=== PATIENT | female | born 1935 | race Caucasian/White ===

== ENCOUNTER 2016-05-26 17:55 | Inpatient (IN) | payer OTHER, BC ==
--- NOTE | 2016-05-26 18:03 | PDOC ---
History of Present Illness - History of Present Illness Initial Comments: 05/26/16 18:21 The patient is a year old female, with a significant past medical history of multiple sclerosis (chronic constipation and urinary incontinence), impaired glucose, hypertension, hyperlipidemia, hypothyroid, gastric polyps, and c.diff, who presents to the emergency department via ems with fever and cough for two days. The patient reports her cough is dry and persistent. The patient also reports one episode of vomit yesterday and denies any episodes since. The patient states she had the flu vaccine this season. She states her last tylenol was at around noon today. The patient states she walks with a walker at baseline. As per the patient's daughter, the patient fell twice today. She denies chest pain, shortness of breath, headache and dizziness. She denies chills, nausea, and diarrhea. She denies dysuria, frequency, urgency and hematuria. Allergies: Penicillin Past surgical history: thyroidectomy Social history: denies toxic habits PCP - Dr. Nguyen <Irene Blount - Last Filed: 05/26/16 20:59> <Osiris Zelaya - Last Filed: 05/26/16 21:08> - General Stated Complaint: DEHYDRATION Time Seen by Provider: 05/26/16 18:02 Past History <Irene Blount - Last Filed: 05/26/16 20:59> <Osiris Zelaya - Last Filed: 05/26/16 21:08> - Past Medical History Allergies/Adverse Reactions: Allergies Allergy/AdvReac Type Severity Reaction Status Date / Time Penicillins Allergy Verified 05/26/16 18:08 Home Medications: Ambulatory Orders Atorvastatin Calcium [Lipitor] 10 mg PO ASDIR 05/26/16 Gabapentin [Neurontin -] 100 mg PO DAILY 05/26/16 Levothyroxine [Synthroid -] 50 mcg PO DAILY 05/26/16 Nifedipine [Procardia Xl] 30 mg PO DAILY 05/26/16 Review of Systems - Review of Systems Able to Perform ROS?: Yes Comments:: 05/26/16 18:21 CONSTITUTIONAL: (+) fever, Absent: chills, diaphoresis, generalized weakness, malaise, loss of appetite HEENT: Absent: rhinorrhea, nasal congestion, throat pain, throat swelling, difficulty swallowing, mouth swelling, ear pain, eye pain, visual Changes CARDIOVASCULAR: Absent: chest pain, syncope, palpitations, irregular heart rate, lightheadedness , peripheral edema RESPIRATORY: (+) cough, Absent: shortness of breath, dyspnea with exertion, orthopnea, wheezing, stridor, hemoptysis GASTROINTESTINAL: Absent: abdominal pain, abdominal distension, nausea, vomiting, diarrhea, constipation, melena, hematochezia GENITOURINARY: Absent: dysuria, frequency, urgency, hesitancy, hematuria, flank pain, genital pain MUSCULOSKELETAL: Absent: myalgia, arthralgia, joint swelling SKIN: Absent: rash, itching, pallor HEMATOLOGIC/IMMUNOLOGIC: Absent: easy bleeding, easy bruising, lymphadenopathy, frequent infections ENDOCRINE: Absent: unexplained weight gain, unexplained weight loss, heat intolerance, cold intolerance NEUROLOGIC: Absent: headache, focal weakness or paresthesias, dizziness, unsteady gait, seizure, mental status changes, bladder or bowel incontinence PSYCHIATRIC: Absent: anxiety, depression, suicidal or homicidal ideation, hallucinations. <Irene Blount - Last Filed: 05/26/16 20:59> *Physical Exam - Vital Signs Last Vital Signs Temp Pulse Resp BP Pulse Ox 103.3 F H 96 H 18 191/71 100 05/26/16 17:55 05/26/16 17:55 05/26/16 17:55 05/26/16 17:55 05/26/16 17:55 - Physical Exam Comments: 05/26/16 18:22 GENERAL: (+) fever. Well developed, well nourished. Awake and alert. No acute distress. HEENT: Normocephalic, atraumatic. PERRLA, EOMI. No conjunctival pallor. Sclera are non- icteric. Moist mucous membranes. Oropharynx is clear. NECK: Supple. Full ROM. No JVD. Carotid pulses 2+ and symmetric, without bruits. No thyromegaly. No lymphadenopathy. CARDIOVASCULAR: (+) Tachycardic rate and normal rhythm. No murmurs, rubs, or gallops. Distal pulses are 2+ and symmetric. PULMONARY: (+) crackles heard on right. No evidence of respiratory distress. No wheezing. ABDOMINAL: Soft. Non-tender. Non-distended. No rebound or guarding. No organomegaly. Normoactive bowel sounds. MUSCULOSKELETAL Normal range of motion at all joints. No bony deformities or tenderness. No CVA tenderness. EXTREMITIES: No cyanosis. No clubbing. No edema. No calf tenderness. SKIN: Warm and dry. Normal capillary refill. No rashes. No jaundice. NEUROLOGICAL: Alert, awake, appropriate. Cranial nerves 2-12 intact. Normoreflexic in the upper and lower extremities. Normal speech. Toes are down-going bilaterally. PSYCHIATRIC: Cooperative. Good eye contact. Appropriate mood and affect. <Irene Blount - Last Filed: 05/26/16 20:59> Heart Score/ECG Review - [place] Comment: 05/26/16 18:23 EKG was read by Dr. Zelaya at 18:15 Impression: Normal Sinus Rhythm Vent.Rate: 97 bpm RI Interval: 130 ms QTc: 441 ms <Irene Blount - Last Filed: 05/26/16 20:59> ED Treatment Course - LABORATORY CBC & Chemistry Diagram: 05/26/16 18:25 05/26/16 18:25 <Irene Blount - Last Filed: 05/26/16 20:59> - LABORATORY CBC & Chemistry Diagram: 05/26/16 18:25 05/26/16 18:25 <Osiris Zelaya - Last Filed: 05/26/16 21:08> Medical Decision Making - Medical Decision Making 05/26/16 19:16 Dr. Nguyen was paged at 19:16 requesting a callback for doctor to doctor consult. Dr. Nguyen returned the call at 19:18 and the patient's case was discussed. Dr. Nguyen accepts this patient for admission. <Irene Blount - Last Filed: 05/26/16 20:59> - Medical Decision Making 05/26/16 21:03 80 yo female coming from home for fever and cough PMH multiple sclerosis,hyperthyroidism,rt foot drop -pt found to have a fever cxr no infiltrates influenza A positive -cbc is wnl chemistry- loa=255, normal potassium,anion gap and lactic acid are wnl trop is negative pt received tamiflu.tylenol,IVfluids -pt found to be sl hypoxic(88% on room air) and placed on 2 L nasal cannula and then she was 98% on room air -casae discussed w Dr Gibbs who admitted this pt <Osiris Zelaya - Last Filed: 05/26/16 21:08> *DC/Admit/Observation/Transfer - Attestations Scribe Attestion: 05/26/16 18:23 Documentation prepared by Irene Blount, acting as medical technologist microbiology for Osiris Zelaya MD <Irene Blount - Last Filed: 05/26/16 20:59> - Discharge Dispostion Admit: Yes <Osiris Zelaya - Last Filed: 05/26/16 21:08> Diagnosis at time of Disposition: Multiple sclerosis, Hypoxia, Influenza A Fever Qualifiers: Fever type: unspecified Qualified Code(s): R50.9 - Fever, unspecified - Referrals
[2016-05-26] MEDS ORDERED: SODIUM CHLORIDE 0.9% 1000 ML INFUS.BAG IV ONE (18:04)
[2016-05-26] MEDS ORDERED: ACETAMINOPHEN 1000 MG/100 ML VIAL (NON FORMULARY) IVPB ONE (18:10)
[2016-05-26 18:19] VITALS: BMI 20.9
[2016-05-26] MEDS ORDERED: ACETAMINOPHEN INJECTION 100 ML IVPB ONE (18:19)
[2016-05-26 18:40] LABS: BASOPHIL 0.6 % (0-2.0); MCHC 33.6 g/dl (32.0-36.0); MEAN CELL VOLUME 89.4 fl (80-96); MEAN PLT VOLUME 10.6 fl (7.5-11.1); NEUTROPHILS 87.7 % (42.8-82.8); PLATELET COUNT 193 K/MM3 (134-434); RDW 13.6 % (11.6-15.6); WHITE BLOOD COUNT 8.5 K/mm3 (4.0-10.0)
[2016-05-26 19:00] LABS: ALBUMIN 4.3 g/dl (3.4-5.0); ANION GAP 9 (8-16); BILIRUBIN,TOTAL 0.5 mg/dL (0.2-1.0); CALCIUM 8.7 mg/dL (8.5-10.1); CO2 28 mmol/L (21-32); CREATININE 0.7 mg/dL (0.55-1.02); GLUCOSE,RANDOM 129 mg/dL (74-106); SGOT/AST 40 U/L (15-37); SGPT/ALT 38 U/L (12-78); TOT PROT 7.6 g/dl (6.4-8.2)
[2016-05-26 19:00] LABS: VENOUS PH 7.39 (7.31-7.41)
[2016-05-26 19:02] LABS: ALK PHOS 83 U/L (45-117); INR 1.14 (0.82-1.09); PROTHROMBIN TIME (PATIENT) 12.6 SEC (9.98-11.88); TROPONIN I 0.03 ng/ml (0.00-0.05)
[2016-05-26 19:04] LABS: VENOUS BLOOD GAS HCO3 27.8 meq/L (22-29)
[2016-05-26 19:05] LABS: ACTIVATED PTT 33.9 SECONDS (26.9-34.4)
[2016-05-26] MEDS ORDERED: OSELTAMIVIR PHOSPHATE 75 MG CAPSULE PO ONE (19:11)
[2016-05-26 19:24] LABS: URINE APPEARANCE CLEAR; URINE BILIRUBIN NEGATIVE (NEGATIVE); URINE COLOR YELLOW; URINE GLUCOSE (UA) NEGATIVE (NEGATIVE); URINE KETONE NEGATIVE (NEGATIVE); URINE LEUK ESTERASE NEGATIVE (NEGATIVE); URINE NITRITE NEGATIVE (NEGATIVE); URINE UROBILINOGEN NEGATIVE E.U./dl (0.2-1.0)
[2016-05-26 19:42] LABS: URINE BLOOD 1+ (NEGATIVE); URINE PROTEIN 3+ (NEGATIVE)
[2016-05-26 19:43] LABS: URINE BACTERIA RARE /hpf (NONE SEEN); URINE MUCUS RARE; URINE RBC 22 /hpf (0-3); URINE WBC 1 /hpf (3-5)
[2016-05-26] MEDS ORDERED: OSELTAMIVIR PHOSPHATE 75 MG CAPSULE ONE (19:45)
[2016-05-27] MEDS: DEXTROSE 5%-0.45% SALINE 1,000 ML IV SCH ×2 (02:19→16:55)
[2016-05-27] MEDS: ACETAMINOPHEN 500 MG TABLET (FP) PO PRN ×2 (02:19→16:41)
--- NOTE | 2016-05-27 09:07 | HP ---
Admitting History and Physical - Admission Chief Complaint: weakness / fever / sore throat/ s/p fall X2 History of Present Illness: The patient is a 80 year old female, with a significant past medical history of multiple sclerosis (chronic constipation and urinary incontinence), impaired glucose, hypertension, hyperlipidemia, hypothyroid, gastric polyps, and c.diff, who presents to the emergency department via ems with fever and cough for two days. The patient reports her cough is dry and persistent. The patient also reports one episode of vomit yesterday and denies any episodes since. The patient states she had the flu vaccine this season. She states her last tylenol was at around noon today. The patient states she walks with a walker at baseline. As per the patient's daughter, the patient fell twice today. History provided by daughter ( ). History Source: Family Member Limitations to Obtaining History: No Limitations - Past Medical History [employer]: Yes: Multiple Sclerosis Reproductive: Yes: Postmenopausal Endocrine: Yes: Hypothyroidism - Smoking History Smoking history: Former smoker Have you smoked in the past 12 months: No If you are a former smoker, when did you quit?: 1970 - Alcohol/Substance Use Hx Alcohol Use: Yes - Social History Usual Living Arrangement: Yes: With Spouse ADL: Family Assistance Home Medications - Allergies Allergies/Adverse Reactions: Allergies Allergy/AdvReac Type Severity Reaction Status Date / Time Penicillins Allergy Verified 05/26/16 18:08 - Home Medications Home Medications: Ambulatory Orders Atorvastatin Calcium [Lipitor] 10 mg PO ASDIR 05/26/16 Gabapentin [Neurontin -] 100 mg PO DAILY 05/26/16 Levothyroxine [Synthroid -] 50 mcg PO DAILY 05/26/16 Nifedipine [Procardia Xl] 30 mg PO DAILY 05/26/16 Baclofen 5 mg PO BID 05/27/16 Review of Systems - Review of Systems Constitutional: reports: Fever, Loss of Appetite, Malaise, Weakness Eyes: reports: No Symptoms HENT: reports: Nasal Congestion, Throat Pain Neck: reports: No Symptoms Cardiovascular: reports: No Symptoms Respiratory: reports: Cough Gastrointestinal: reports: No Symptoms Genitourinary: reports: No Symptoms Breasts: reports: No Symptoms Reported Musculoskeletal: reports: No Symptoms Integumentary: reports: No Symptoms Neurological: reports: No Symptoms, Pre-Existing Deficit Endocrine: reports: No Symptoms Hematology/Lymphatic: reports: No Symptoms Psychiatric: reports: No Symptoms Physical Examination Vital Signs: Vital Signs Temperature 98.6 F 05/27/16 05:34 Pulse Rate 71 05/27/16 05:34 Respiratory Rate 18 05/27/16 05:34 Blood Pressure 120/60 05/27/16 05:34 O2 Sat by Pulse Oximetry (%) 94 L 05/27/16 01:45 Constitutional: Yes: Well Nourished, Calm Eyes: Yes: WNL HENT: Yes: Hoarseness Neck: Yes: Supple, Trachea Midline Cardiovascular: Yes: Regular Rate and Rhythm Respiratory: Yes: CTA Bilaterally Gastrointestinal: Yes: Normal Bowel Sounds, Soft ...Rectal Exam: Yes: Deferred Renal/: Yes: WNL Musculoskeletal: Yes: Muscle Weakness Edema: No Peripheral Pulses: Left Radial: 1+, Right Radial: 1+, Left Doralis Pedis: 1+, Right Dorsalis Pedis: 1+, Left Femoral: 1+, Right Femoral: 1+ Integumentary: Yes: WNL Neurological: Yes: Pre-Existing Deficit Problem List - Problems (1) Fever Code(s): R50.9 - FEVER, UNSPECIFIED Qualifiers: Fever type: unspecified Qualified Code(s): R50.9 - Fever, unspecified (2) Influenza A Code(s): J10.1 - FLU DUE TO OTH IDENT INFLUENZA VIRUS W OTH RESP MANIFEST (3) Multiple sclerosis Code(s): G35 - MULTIPLE SCLEROSIS (4) Hypothyroid Code(s): E03.9 - HYPOTHYROIDISM, UNSPECIFIED (5) Hyperlipemia Code(s): E78.5 - HYPERLIPIDEMIA, UNSPECIFIED Assessment/Plan Influenza A MS HTN HLD plan Tamiflu 75 mg BID ( Cr0.6 GFR >60) IV fluids until tolerating PO continue home meds regular diet as tolerated
[2016-05-27] MEDS: OSELTAMIVIR PHOSPHATE 75 MG CAPSULE PO SCH ×2 (10:45→21:34)
[2016-05-27] MEDS: GABAPENTIN 100 MG CAPSULE (FP) PO SCH (10:52)
[2016-05-27] MEDS: NIFEdipine E.R. 30 MG TABLET (FP) PO SCH (10:52)
--- NOTE | 2016-05-27 13:26 | EKG ---
Test Reason : Blood Pressure : / mmHG Vent. Rate : 097 BPM Atrial Rate : 097 BPM P-R Int : 130 ms QRS Dur : 086 ms QT Int : 348 ms P-R-T Axes : 070 029 035 degrees QTc Int : 441 ms NORMAL SINUS RHYTHM MARKED ST ABNORMALITY, POSSIBLE INFEROLATERAL SUBENDOCARDIAL INJURY ABNORMAL ECG NO PREVIOUS ECGS AVAILABLE Confirmed by MILO CUEVAS MD ([id number]) on 05/27/2016 1:25:55 PM Referred By: Confirmed By:MILO CUEVAS MD
[2016-05-27] MEDS ORDERED: PT OWN MED DRAWER 7, Y5N ONE (21:05)
[2016-05-27] MEDS: ATORVASTATIN CA 10 MG TABLET (FP) PO SCH (21:34)
[2016-05-28] MEDS: DEXTROSE 5%-0.45% SALINE 1,000 ML IV SCH ×2 (06:07→10:15)
[2016-05-28] MEDS: LEVOTHYROXINE NA 50 MCG TABLET (FP) PO SCH (06:08)
[2016-05-28] MEDS: GABAPENTIN 100 MG CAPSULE (FP) PO SCH ×2 (09:32→22:03)
[2016-05-28] MEDS: OSELTAMIVIR PHOSPHATE 75 MG CAPSULE PO SCH ×2 (09:32→22:02)
[2016-05-28] MEDS: NIFEdipine E.R. 30 MG TABLET (FP) PO SCH (09:32)
[2016-05-28] MEDS: ACETAMINOPHEN 500 MG TABLET (FP) PO PRN ×2 (09:43→20:17)
[2016-05-28] MEDS ORDERED: FUROSEMIDE 40 MG/4 ML INJECTABLE VIAL IVPB ONE (10:06)
[2016-05-28] MEDS: DULoxetine HCL 20 MG CAPSULE.DR (FP) PO SCH (10:15)
--- NOTE | 2016-05-28 10:23 | PN ---
Progress Note (short form) - Note Progress Note: in Bed Febrile -- temp 102 productive cough general maise / NAD Vital Signs Period Temp Pulse Resp BP Sys/Cobb Pulse Ox Last 24 Hr 98.8 F-102.5 F 88-100 20-20 127-168/54-80 92 neck - jvd heart reg S1/S2 lungs exp wheezing mild rhonchi right abd soft non tender ext no edema CXR + right LL Infiltrate effusion CBC, BMP 05/26/16 18:25 05/26/16 18:25 Active Medications Acetaminophen (Tylenol -) 1,000 mg PO Q6H PRN PRN Reason: TEMP > 101* Last Admin: 05/28/16 09:43 Dose: 1,000 mg Albuterol/Ipratropium (Duoneb -) 1 amp NEB QIDR [facility] Atorvastatin Calcium (Lipitor -) 10 mg PO HS [facility] Last Admin: 05/27/16 21:34 Dose: 10 mg Docusate Sodium (Colace -) 200 mg PO BID [facility] Duloxetine HCl (Cymbalta -) 20 mg PO DAILY [facility] Furosemide (Lasix Injection -) 20 mg IVPB ONCE ONE Stop: 05/28/16 10:07 Gabapentin (Neurontin -) 100 mg PO DAILY [facility] Last Admin: 05/28/16 09:32 Dose: 100 mg Guaifenesin (Mucinex -) 600 mg PO BID [facility] Azithromycin 500 mg/ Dextrose 250 mls @ 250 mls/hr IVPB DAILY [facility] Dextrose/Sodium Chloride (D5-1/2ns -) 1,000 mls @ 50 mls/hr IV ASDIR [facility] Levothyroxine Sodium (Synthroid -) 50 mcg PO DAILY@0700 [facility] Last Admin: 05/28/16 06:08 Dose: 50 mcg Nifedipine (Procardia Xl -) 30 mg PO DAILY [facility] Last Admin: 05/28/16 09:32 Dose: 30 mg Oseltamivir Phosphate (Tamiflu -) 75 mg PO BID [facility] Stop: 06/01/16 09:59 Last Admin: 05/28/16 09:32 Dose: 75 mg Problem List - Problems (1) Right lower lobe pneumonia Assessment/Plan: nebulizer Zithromax mucinex and tylenol for symptomatic treatment Code(s): J18.9 - PNEUMONIA, UNSPECIFIED ORGANISM (2) Influenza A Code(s): J10.1 - FLU DUE TO OTH IDENT INFLUENZA VIRUS W OTH RESP MANIFEST (3) Fever Code(s): R50.9 - FEVER, UNSPECIFIED Qualifiers: Fever type: unspecified Qualified Code(s): R50.9 - Fever, unspecified (4) Multiple sclerosis Code(s): G35 - MULTIPLE SCLEROSIS (5) Hypothyroid Code(s): E03.9 - HYPOTHYROIDISM, UNSPECIFIED (6) Hyperlipemia Code(s): E78.5 - HYPERLIPIDEMIA, UNSPECIFIED (8) Neuropathic pain of both legs Code(s): G57.91 - UNSPECIFIED MONONEUROPATHY OF RIGHT LOWER LIMB G57.92 - UNSPECIFIED MONONEUROPATHY OF LEFT LOWER LIMB
[2016-05-28] MEDS: guaiFENesin 600 MG TABLET.ER (FP) PO SCH ×2 (10:45→22:03)
[2016-05-28] MEDS: DOCUSATE SODIUM 100 MG CAPSULE (FP) PO SCH ×2 (10:45→22:03)
[2016-05-28] MEDS: AZITHROMYCIN IVPB 250 ML IVPB SCH (11:15)
[2016-05-28] MEDS: ALBUTEROL SO4 2.5/IPRATROPIUM 0.5 INH SOL 3 ML VIAL.NEB. NEB SCH ×3 (11:55→23:30)
[2016-05-28] MEDS ORDERED: PT OWN MED DRAWER 7, Y5N ONE (21:17)
[2016-05-28] MEDS ORDERED: VANCOMYCIN 1 GRAM (PRE-DOCKED) 1,000 MG/250 ML BAG IVPB ONE (22:00)
[2016-05-28] MEDS ORDERED: VANCOMYCIN 1,000 MG in DEXTROSE 5%-WATER - 250 ML IVPB SCH (22:00)
[2016-05-28] MEDS: ATORVASTATIN CA 10 MG TABLET (FP) PO SCH (22:03)
[2016-05-29] MEDS: ONDANSETRON 4 MG/2 ML VIAL IVPB PRN ×2 (00:37→22:35)
[2016-05-29] MEDS: ACETAMINOPHEN 500 MG TABLET (FP) PO PRN ×3 (06:29→22:22)
[2016-05-29] MEDS: LEVOTHYROXINE NA 50 MCG TABLET (FP) PO SCH (06:30)
[2016-05-29] MEDS: ALBUTEROL SO4 2.5/IPRATROPIUM 0.5 INH SOL 3 ML VIAL.NEB. NEB SCH ×3 (06:48→17:28)
[2016-05-29 07:22] LABS: BASOPHIL 0.1 % (0-2.0); MCH 29.4 pg (25.7-33.7); MEAN CELL VOLUME 89.2 fl (80-96); MEAN PLT VOLUME 10.5 fl (7.5-11.1); NEUTROPHILS 87.4 % (42.8-82.8); PLATELET COUNT 144 K/MM3 (134-434); RDW 13.6 % (11.6-15.6); WHITE BLOOD COUNT 11.6 K/mm3 (4.0-10.0)
[2016-05-29 07:46] LABS: CALCIUM 8.1 mg/dL (8.5-10.1); CREATININE 0.6 mg/dL (0.55-1.02)
[2016-05-29] MEDS ORDERED: PT OWN MED DRAWER 7, Y5N ONE (09:30)
[2016-05-29] MEDS: NIFEdipine E.R. 30 MG TABLET (FP) PO SCH (10:12)
[2016-05-29] MEDS: guaiFENesin 600 MG TABLET.ER (FP) PO SCH ×2 (10:12→22:19)
[2016-05-29] MEDS: GABAPENTIN 100 MG CAPSULE (FP) PO SCH ×4 (10:13→22:20)
[2016-05-29] MEDS: DOCUSATE SODIUM 100 MG CAPSULE (FP) PO SCH ×2 (10:13→22:19)
[2016-05-29] MEDS: DULoxetine HCL 20 MG CAPSULE.DR (FP) PO SCH (10:13)
[2016-05-29] MEDS: OSELTAMIVIR PHOSPHATE 75 MG CAPSULE PO SCH ×2 (10:14→22:20)
[2016-05-29] MEDS: DEXTROSE 5%-0.45% SALINE 1,000 ML IV SCH (10:15)
[2016-05-29] MEDS: AZITHROMYCIN IVPB 250 ML IVPB SCH (10:15)
[2016-05-29] MEDS ORDERED: SODIUM CHLORIDE 1,000 ML IV SCH (20:00)
--- NOTE | 2016-05-29 20:01 | PN ---
Progress Note (short form) - Note Progress Note: looking better but states not feeling better No fever today was OOB to chair today using incentive and nebulizer treatment Vital Signs Period Temp Pulse Resp BP Sys/Cobb Pulse Ox Last 24 Hr 97.2 F-101 F 81-105 20-20 127-148/55-61 91-93 neck _ jvd heart reg S1/S2 Lungs less rhonchi right base crackles at bases abd soft non tender ext no edema right foot drop Intake & Output 05/26/16 05/27/16 05/28/16 05/29/16 23:59 23:59 23:59 23:59 Intake Total 2185 1350 1350 Balance 2185 1350 1350 Weight 130 lb CBC, BMP 05/29/16 06:00 05/29/16 06:00 Active Medications Acetaminophen (Tylenol -) 1,000 mg PO Q6H PRN PRN Reason: TEMP > 101* Last Admin: 05/29/16 13:06 Dose: 1,000 mg Albuterol/Ipratropium (Duoneb -) 1 amp NEB QIDR [facility] Last Admin: 05/29/16 17:28 Dose: 1 amp Atorvastatin Calcium (Lipitor -) 10 mg PO HS [facility] Last Admin: 05/28/16 22:03 Dose: 10 mg Docusate Sodium (Colace -) 200 mg PO BID [facility] Last Admin: 05/29/16 10:13 Dose: 200 mg Duloxetine HCl (Cymbalta -) 20 mg PO DAILY [facility] Last Admin: 05/29/16 10:13 Dose: 20 mg Furosemide (Lasix Injection -) 20 mg IVPB DAILY [facility] Gabapentin (Neurontin -) 100 mg PO QID [facility] Last Admin: 05/29/16 18:59 Dose: Not Given Guaifenesin (Mucinex -) 600 mg PO BID [facility] Last Admin: 05/29/16 10:12 Dose: 600 mg Azithromycin (Zithromax 500mg Ivpb (Pre-Docked)) 250 mls @ 250 mls/hr IVPB DAILY [facility] Last Admin: 05/29/16 10:15 Dose: 250 mls/hr Ceftriaxone Sodium 1 gm/ (Dextrose) 50 mls @ 100 mls/hr IVPB DAILY [facility] Sodium Chloride (Normal Saline -) 1,000 mls @ 42 mls/hr IV ASDIR [facility] Levothyroxine Sodium (Synthroid -) 50 mcg PO DAILY@0700 [facility] Last Admin: 05/29/16 06:30 Dose: 50 mcg Nifedipine (Procardia Xl -) 30 mg PO DAILY [facility] Last Admin: 05/29/16 10:12 Dose: 30 mg Ondansetron HCl (Zofran Injection) 4 mg IVPB Q6H PRN PRN Reason: NAUSEA AND/OR VOMITING Last Admin: 05/29/16 00:37 Dose: 4 mg Oseltamivir Phosphate (Tamiflu -) 75 mg PO BID [facility] Stop: 06/01/16 09:59 Last Admin: 05/29/16 10:14 Dose: 75 mg Med changes was given 1 dose of Vanco Has recieved Rochepin previously without reaction will order Rochepin 1 gm daily also will D/C Iv fluids Assmt # Influenza A # Right lower lobe infiltrate # Hyponatremia # HLD # MS # HTN # depression Plan Change abx to rochepin 1 gm q day + Zithromax D/c current IV >>change to NS @42 continue incentive and nebulizer tx PT for ADLs / OOB to chair as tolerated continue current medication Problem List - Problems (1) Right lower lobe pneumonia Code(s): J18.9 - PNEUMONIA, UNSPECIFIED ORGANISM (2) Influenza A Code(s): J10.1 - FLU DUE TO OTH IDENT INFLUENZA VIRUS W OTH RESP MANIFEST (3) Fever Code(s): R50.9 - FEVER, UNSPECIFIED Qualifiers: Fever type: unspecified Qualified Code(s): R50.9 - Fever, unspecified (4) Multiple sclerosis Code(s): G35 - MULTIPLE SCLEROSIS (5) Hypothyroid Code(s): E03.9 - HYPOTHYROIDISM, UNSPECIFIED (6) Hyperlipemia Code(s): E78.5 - HYPERLIPIDEMIA, UNSPECIFIED (8) Neuropathic pain of both legs Code(s): G57.91 - UNSPECIFIED MONONEUROPATHY OF RIGHT LOWER LIMB G57.92 - UNSPECIFIED MONONEUROPATHY OF LEFT LOWER LIMB
[2016-05-29] MEDS: CEFTRIAXONE 50 ML IVPB SCH (22:17)
[2016-05-29] MEDS: ATORVASTATIN CA 10 MG TABLET (FP) PO SCH (22:19)
[2016-05-30] MEDS: ALBUTEROL SO4 2.5/IPRATROPIUM 0.5 INH SOL 3 ML VIAL.NEB. NEB SCH ×5 (00:06→23:09)
[2016-05-30] MEDS: LEVOTHYROXINE NA 50 MCG TABLET (FP) PO SCH (06:58)
[2016-05-30 07:41] LABS: BASOPHIL 0.1 % (0-2.0); MCH 29.7 pg (25.7-33.7); MCHC 33.7 g/dl (32.0-36.0); MEAN CELL VOLUME 88.3 fl (80-96); MEAN PLT VOLUME 11.1 fl (7.5-11.1); NEUTROPHILS 88.9 % (42.8-82.8); PLATELET COUNT 194 K/MM3 (134-434); RDW 13.3 % (11.6-15.6); WHITE BLOOD COUNT 12.1 K/mm3 (4.0-10.0)
[2016-05-30 07:57] LABS: CALCIUM 8.2 mg/dL (8.5-10.1); CREATININE 0.6 mg/dL (0.55-1.02)
[2016-05-30] MEDS ORDERED: FUROSEMIDE 40 MG/4 ML INJECTABLE VIAL IVPB SCH (10:00)
[2016-05-30] MEDS: CEFTRIAXONE 50 ML IVPB SCH (11:37)
[2016-05-30] MEDS: DOCUSATE SODIUM 100 MG CAPSULE (FP) PO SCH ×2 (11:40→23:18)
[2016-05-30] MEDS: guaiFENesin 600 MG TABLET.ER (FP) PO SCH ×2 (11:40→23:16)
[2016-05-30] MEDS: NIFEdipine E.R. 30 MG TABLET (FP) PO SCH (11:41)
[2016-05-30] MEDS: AZITHROMYCIN IVPB 250 ML IVPB SCH (11:42)
[2016-05-30] MEDS: OSELTAMIVIR PHOSPHATE 75 MG CAPSULE PO SCH ×2 (11:42→23:20)
[2016-05-30] MEDS: ACETAMINOPHEN 500 MG TABLET (FP) PO PRN (11:42)
[2016-05-30] MEDS: GABAPENTIN 100 MG CAPSULE (FP) PO SCH ×4 (11:43→23:21)
[2016-05-30] MEDS: DULoxetine HCL 20 MG CAPSULE.DR (FP) PO SCH (11:48)
[2016-05-30 14:35] LABS: ALBUMIN 2.7 g/dl (3.4-5.0); ANION GAP 13 (8-16); BILIRUBIN,TOTAL 0.5 mg/dL (0.2-1.0); CALCIUM 7.9 mg/dL (8.5-10.1); CO2 25 mmol/L (21-32); CREATININE 0.6 mg/dL (0.55-1.02); GLUCOSE,RANDOM 198 mg/dL (74-106); SGOT/AST 43 U/L (15-37); SGPT/ALT 55 U/L (12-78); TOT PROT 5.7 g/dl (6.4-8.2)
[2016-05-30 14:36] LABS: ALK PHOS 91 U/L (45-117)
[2016-05-30 14:52] LABS: OSMOLALITY,SERUM 248 mosm/kg (278-305)
--- NOTE | 2016-05-30 15:45 | CONSULT ---
Consult Consult Specialty:: Nephrology Reason for Consultation:: hyponatremia - History of Present Illness Chief Complaint: initially presented with fever and cough History of Present Illness: Pt is an 80 year old female with pmhx of multiple sclerosis, HTN, hyperlipidemia , hypothyroidism, and constipation who presents to the ER complaining of cough. She was admitted and started on treatment for PNA. She was also found to have Influenza A positive. She was found to have become progressively hyponatremic and I was called to evaluate her this afternoon. She was on hypotonic fluids for the last few days. She also was on lasix for a pleural effusion. She was given a total of 2 doses of Cymbalta a few days ago. She is awake and able to answer questions. She does have mild confusion however she know where she is and aware of her surroundings. She has a cough but feels that her respiratory symptoms are improving. She denies headache or change in vision. - History Source History Provided By: Patient, Family Member, Medical Record - Past Medical History STEEPLE JACK: Yes: Multiple Sclerosis Cardio/Vascular: Yes: HTN, Hyperlipdemia Endocrine: Yes: Hypothyroidism - Past Surgical History Additional Surgical History: thyroidectomy - Alcohol/Substance Use Hx Alcohol Use: Yes - Smoking History Smoking history: Former smoker Have you smoked in the past 12 months: No If you are a former smoker, when did you quit?: 1970 - Social History ADL: Family Assistance Home Medications - Allergies Allergies/Adverse Reactions: Allergies Allergy/AdvReac Type Severity Reaction Status Date / Time Penicillins Allergy Verified 05/26/16 18:08 - Home Medications Home Medications: Ambulatory Orders Atorvastatin Calcium [Lipitor] 10 mg PO ASDIR 05/26/16 Gabapentin [Neurontin -] 100 mg PO DAILY 05/26/16 Levothyroxine [Synthroid -] 50 mcg PO DAILY 05/26/16 Nifedipine [Procardia Xl] 30 mg PO DAILY 05/26/16 Baclofen 5 mg PO BID 05/27/16 Family Disease History - Family Disease History Family History: Denies Review of Systems - Review of Systems Constitutional: reports: Malaise Eyes: reports: No Symptoms HENT: reports: No Symptoms Neck: reports: No Symptoms Cardiovascular: reports: No Symptoms Respiratory: reports: Cough Gastrointestinal: reports: No Symptoms Genitourinary: reports: No Symptoms Musculoskeletal: reports: Muscle Weakness Integumentary: reports: No Symptoms Neurological: reports: Pre-Existing Deficit Endocrine: reports: No Symptoms Hematology/Lymphatic: reports: No Symptoms Physical Exam Vital Signs: Vital Signs Temperature 98.3 F 05/30/16 15:21 Pulse Rate 95 H 05/30/16 15:21 Respiratory Rate 20 05/30/16 15:21 Blood Pressure 177/72 05/30/16 15:21 O2 Sat by Pulse Oximetry (%) 92 L 05/29/16 21:00 Constitutional: Yes: Calm Eyes: Yes: Conjunctiva Clear HENT: Yes: Atraumatic Cardiovascular: Yes: S1, S2 Respiratory: Yes: CTA Bilaterally Gastrointestinal: Yes: Soft Renal/: Yes: Incontinence Musculoskeletal: Yes: Muscle Weakness Edema: No Neurological: Yes: Oriented Labs: CBC, BMP 05/30/16 06:00 05/30/16 13:45 Laboratory Tests 05/26/16 05/26/16 05/26/16 18:00 18:25 18:25 WBC 8.5 Hgb 12.8 Plt Count 193 INR 1.14 PTT (Actin FS) 33.9 VBG pH POC VBG pCO2 POC VBG pO2 Sodium Potassium Chloride Carbon Dioxide Anion Gap BUN Creatinine Random Glucose Serum Osmolality Creatine Kinase Total Protein Albumin TSH Urine Color Yellow Urine Appearance Clear Urine pH 5.0 Ur Specific [place] 1.024 Urine Protein 3+ H Urine Glucose (UA) Negative Urine Ketones Negative Urine Blood 1+ H Urine Nitrite Negative Urine Bilirubin Negative Urine Urobilinogen Negative Ur Leukocyte Esterase Negative 05/26/16 05/26/16 05/29/16 18:25 18:55 06:00 WBC 11.6 H D Hgb 10.7 D Plt Count 144 D INR PTT (Actin FS) VBG pH 7.39 POC VBG pCO2 46.8 POC VBG pO2 23.0 L Sodium 133 L Potassium Chloride Carbon Dioxide Anion Gap BUN Creatinine 0.7 Random Glucose 129 H Serum Osmolality Creatine Kinase 336 H Total Protein 7.6 Albumin 4.3 TSH Urine Color Urine Appearance Urine pH Ur Specific [place] Urine Protein Urine Glucose (UA) Urine Ketones Urine Blood Urine Nitrite Urine Bilirubin Urine Urobilinogen Ur Leukocyte Esterase 05/29/16 05/30/16 05/30/16 06:00 06:00 06:00 WBC 12.1 H Hgb 10.9 Plt Count 194 D INR PTT (Actin FS) VBG pH POC VBG pCO2 POC VBG pO2 Sodium 129 L 122 L* Potassium Chloride 91 L 85 L Carbon Dioxide Anion Gap BUN Creatinine 0.6 0.6 Random Glucose 151 H Serum Osmolality Creatine Kinase Total Protein Albumin TSH Urine Color Urine Appearance Urine pH Ur Specific [place] Urine Protein Urine Glucose (UA) Urine Ketones Urine Blood Urine Nitrite Urine Bilirubin Urine Urobilinogen Ur Leukocyte Esterase 05/30/16 13:45 WBC Hgb Plt Count INR PTT (Actin FS) VBG pH POC VBG pCO2 POC VBG pO2 Sodium 120 L* Potassium 3.9 Chloride 82 L Carbon Dioxide 25 Anion Gap 13 BUN 11 Creatinine 0.6 Random Glucose 198 H D Serum Osmolality 248 L Creatine Kinase Total Protein Albumin TSH 0.90 Urine Color Urine Appearance Urine pH Ur Specific [place] Urine Protein Urine Glucose (UA) Urine Ketones Urine Blood Urine Nitrite Urine Bilirubin Urine Urobilinogen Ur Leukocyte Esterase Imaging - Results Chest X-ray: Report Reviewed Problem List - Problems (1) Hyperlipemia Code(s): E78.5 - HYPERLIPIDEMIA, UNSPECIFIED (2) Hypothyroid Code(s): E03.9 - HYPOTHYROIDISM, UNSPECIFIED (3) Influenza A Code(s): J10.1 - FLU DUE TO OTH IDENT INFLUENZA VIRUS W OTH RESP MANIFEST (4) Multiple sclerosis Code(s): G35 - MULTIPLE SCLEROSIS (5) Hyponatremia Code(s): E87.1 - HYPO-OSMOLALITY AND HYPONATREMIA Assessment/Plan Current Medications Generic Name Dose Route Start Last Admin Trade Name Freq PRN Reason Stop Dose Admin Acetaminophen 1,000 mg 05/27/16 01:22 05/30/16 11:42 Tylenol - PO 1,000 mg Q6H PRN Administration TEMP > 101* Albuterol/Ipratropium 1 amp 05/28/16 12:00 05/30/16 11:18 Duoneb - NEB 1 amp QIDR STEPHANIE Administration Atorvastatin Calcium 10 mg 05/27/16 22:00 05/29/16 22:19 Lipitor - PO 10 mg HS STEPHANIE Administration Docusate Sodium 200 mg 05/28/16 10:15 05/30/16 11:40 Colace - PO 200 mg BID STEPHANIE Administration Furosemide 20 mg 05/30/16 10:00 05/30/16 11:48 Lasix Injection - IVPB Not Given DAILY STEPHANIE Gabapentin 100 mg 05/28/16 22:00 05/30/16 14:51 Neurontin - PO 100 mg QID STEPHANIE Administration Guaifenesin 600 mg 05/28/16 10:15 05/30/16 11:40 Mucinex - PO 600 mg BID STEPHANIE Administration Azithromycin 250 mls @ 250 mls/hr 05/28/16 10:15 05/30/16 11:42 Zithromax 500mg Ivpb (Pre-Docked) IVPB 250 mls/hr DAILY STEPHANIE Administration Ceftriaxone Sodium 50 mls @ 100 mls/hr 05/29/16 20:30 05/30/16 11:37 Rocephin 1gm Ivpb (Pre-Docked) IVPB 100 mls/hr DAILY STEPHANIE Administration Levothyroxine Sodium 50 mcg 05/28/16 07:00 05/30/16 06:58 Synthroid - PO 50 mcg DAILY@0700 STEPHANIE Administration Nifedipine 30 mg 05/27/16 10:00 05/30/16 11:41 Procardia Xl - PO 30 mg DAILY STEPHANIE Administration Ondansetron HCl 4 mg 05/29/16 00:30 05/29/16 22:35 Zofran Injection IVPB 4 mg Q6H PRN Administration NAUSEA AND/OR VOMITING Oseltamivir Phosphate 75 mg 05/27/16 10:00 05/30/16 11:42 Tamiflu - PO 06/01/16 09:59 75 mg BID STEPHANIE Administration Impression 1. hyponatremia - hypo-osmolar 2. Influenza 3. PNA with small effusion 4. multiple sclerosis 5. hyperlipidemia 6. hypothyroidism 7. HTN 8. proteinuria and microscopic hematuria Plan - etiology of hyponatremia appears to be multifactorial, pt received hypotonic fluid, lasix and cymbalta - will transfer pt to ICU - will start 3 percent saline at 15 cc per hour and repeat bmp after 2 hours ( pt needs bmp q 2 hrs while on 3 percents saline). Avoid a change of greater than 10 meq in 24 hours. - plasma os osm low - check cortisol in am - ordered stat urine sodium and osm - will monitor response to saline - stop lasix, pt does not have hx of chf and does not appear to be in failure - restrict free water - would not restart cymbalta - caution with baclofen if mental status worsens - called and discussed care and plan with pts daughter, Dr Baer, and with the PMD - plan discussed with the ICU resident and ICU team - WBC is rising, consider broader spectrum abx and ID eval Dr Marrero
[2016-05-30] MEDS ORDERED: SODIUM CHLORIDE 3% 500 ML IV ONE (16:29)
[2016-05-30 18:07] LABS: ALLENS TEST POSITIVE; ART PUNCT SITE RIGHT RADIAL; ARTERIAL BLD GAS O2 SATURATION 86.4 % (90-98.9); ARTERIAL BLOOD GAS BASE EXCESS 1.4 meq/l (-2-2); ARTERIAL BLOOD GAS HCO3 24.9 meq/L (22-26); ARTERIAL BLOOD GAS PO2 51.1 mmHg (68-100); ARTERIAL BLOOD GAS pH 7.44 (7.35-7.45); LPM/O2% 50%; PT. ON O2? YES; TYPE OF O2 VENTI
--- NOTE | 2016-05-30 18:21 | CONSULT ---
Consult - text type - Consultation Consultation Note: NEUROLOGY CONSULTATION is greatly appreciated: This 80 yo RH, woman lives with her . PMH of HTN, Chol, Hypothyroidism and chronic Multiple Sclerosis. OA- s/p R TKR and traumatic THR. Walks with walker. Known Right "footdrop." Carried Dx of "Neuropathy" with pains in her legs. On atorvastatin, gabapentin, L-Thyroxin, Nifedipine and baclofen. On Avonex in the past but no Rx for MS in many years since THR. Admitted 05/27/16 after few days of persistent cough. A Flu+ Started on Tamiflu. Serial chest XRays show LL infiltrate with a small, adjacent, pleural effusion. Now transferred to ICU with increasing confusion and Na+ of 120 mg% at 2 PM. DONTA: Thin. Neck supple. No bruits. No edema. NEURO: Awake, alert. Confused. [facility] in [place]. Does not recognize me or her daughter. Recalls [facility] after 2 mins. - Frontal release. CN: II-XII: Normal without nystagmus. Gag OK Motor: No drift. No asterixis. Mild tremor. No grast. Normal ankle dorsiflexion (but Right foot inverts). Areflexic in legs. Plantars are silent. Coord: No obvious dystaxia. Sensory: Decreased vibration in both feet to the ankles. IMP: Non-Focal Neurological exam Toxic-Metabolic encephalopathy due to hyponatremia. SUGGEST: D/C Tamiflu, baclofen and gabapentin. Avoid diuretics. Agree with slow infusion hypertonic saline with frequent BMP, Ca+ +, Mg++. TSH OK. Also check B12, ADH CT of head in AM Thank you very much, Darrius Pritchard MD
--- NOTE | 2016-05-30 18:54 | CONSULT ---
Consultation: REQUESTING PROVIDER: CONSULT REQUEST: We have been asked to medically evaluate this patient for hyponatremia. HISTORY OF PRESENT ILLNESS: Pt is an 80 year old female with pmhx of MS, HTN, hyperlipidemia, hypothyroidism , and constipation who presented to the ER (05/26/16) complaining of cough. Admitted and treated for PNA. Influenza screen was (+) for type A. She was on hypotonic fluids for the last few days and given lasix for a pleural effusion. She is awake and able to answer questions. She does have mild confusion however she know where she is and aware of her surroundings. She has a cough but feels that her respiratory symptoms are improving. She denies headache or change in vision. REVIEW OF SYSTEMS: CONSTITUTIONAL: Absent: fever, chills, diaphoresis, generalized weakness, malaise, loss of appetite, weight change HEENT: Absent: rhinorrhea, nasal congestion, throat pain, throat swelling, difficulty swallowing, mouth swelling, ear pain, eye pain, visual changes CARDIOVASCULAR: Absent: chest pain, syncope, palpitations, irregular heart rate, lightheadedness , peripheral edema RESPIRATORY: Absent: cough, shortness of breath, dyspnea with exertion, orthopnea, wheezing, stridor, hemoptysis GASTROINTESTINAL: Absent: abdominal pain, abdominal distension, nausea, vomiting, diarrhea, constipation, melena, hematochezia GENITOURINARY: Absent: dysuria, frequency, urgency, hesitancy, hematuria, flank pain, genital pain MUSCULOSKELETAL: Absent: myalgia, arthralgia, joint swelling, back pain, neck pain SKIN: Absent: rash, itching, pallor HEMATOLOGIC/IMMUNOLOGIC: Absent: easy bleeding, easy bruising, lymphadenopathy, frequent infections ENDOCRINE: Absent: unexplained weight gain, unexplained weight loss, heat intolerance, cold intolerance NEUROLOGIC: Absent: headache, focal weakness or paresthesias, dizziness, unsteady gait, seizure, mental status changes, bladder or bowel incontinence PSYCHIATRIC: Absent: anxiety, depression, suicidal or homicidal ideation, hallucinations. PHYSICAL EXAMINATION Vital Signs - 24 hr 05/29/16 05/30/16 05/30/16 21:00 01:00 05:38 Temperature 98.1 F 98.4 F Pulse Rate 90 92 H 89 Respiratory 22 22 20 Rate Blood Pressure 137/62 134/87 150/63 O2 Sat by Pulse 92 L Oximetry (%) 05/30/16 05/30/16 09:00 15:21 Temperature 97.8 F 98.3 F Pulse Rate 86 95 H Respiratory 20 20 Rate Blood Pressure 179/74 177/72 O2 Sat by Pulse 95 Oximetry (%) GENERAL: Awake and confused. HEAD: Normal with no signs of trauma. EYES: Pupils equal, round and reactive to light, extraocular movements intact, sclera anicteric, conjunctiva clear. No lid lag. EARS, NOSE, THROAT: Ears normal, nares patent, oropharynx clear without exudates. Moist mucous membranes. NECK: supple , no JVD, or masses. LUNGS: Decreased breath sounds bilat. Scattered Rhonchi HEART: Regular rate and rhythm, normal S1 and S2 without murmur, rub or gallop. ABDOMEN: Soft, nontender, not distended, normoactive bowel sounds, MUSCULOSKELETAL: Normal range of motion at all joints. No bony deformities or tenderness. No CVA tenderness. UPPER EXTREMITIES: 2+ pulses, warm, well-perfused. No cyanosis. No clubbing. Cap refill <2 seconds. No peripheral edema. LOWER EXTREMITIES: 2+ pulses, warm, well-perfused. No calf tenderness. No peripheral edema. NEUROLOGICAL: Cranial nerves II-XII intact. PSYCHIATRIC: Cooperative. Good eye contact. Appropriate mood and affect. SKIN: Warm, dry, normal turgor, no rashes or lesions noted. Laboratory Results - last 24 hr 05/30/16 05/30/16 05/30/16 06:00 06:00 13:45 WBC 12.1 H RBC 3.66 Hgb 10.9 Hct 32.3 L MCV 88.3 MCHC 33.7 RDW 13.3 Plt Count 194 D MPV 11.1 Neutrophils % 88.9 H Lymphocytes % 5.6 L D Monocytes % 5.4 Eosinophils % 0.0 Basophils % 0.1 Sodium 122 L* 120 L* Potassium 3.9 3.9 Chloride 85 L 82 L Carbon Dioxide 28 25 Anion Gap 9 13 BUN 13 11 Creatinine 0.6 0.6 Creat Clearance w eGFR > 60 Random Glucose 151 H 198 H D Serum Osmolality 248 L Calcium 8.2 L 7.9 L Total Bilirubin 0.5 AST 43 H ALT 55 D Alkaline Phosphatase 91 Total Protein 5.7 L D Albumin 2.7 L D TSH 0.90 Urine Osmolality Cancelled Active Medications Generic Name Dose Route Start Last Admin Trade Name Freq PRN Reason Stop Dose Admin Acetaminophen 1,000 mg 05/27/16 01:22 05/30/16 11:42 Tylenol - PO 1,000 mg Q6H PRN Administration TEMP > 101* Albuterol/Ipratropium 1 amp 05/28/16 12:00 05/30/16 11:18 Duoneb - NEB 1 amp QIDR STEPHANIE Administration Atorvastatin Calcium 10 mg 05/27/16 22:00 05/29/16 22:19 Lipitor - PO 10 mg HS STEPHANIE Administration Docusate Sodium 200 mg 05/28/16 10:15 05/30/16 11:40 Colace - PO 200 mg BID STEPHANIE Administration Gabapentin 100 mg 05/28/16 22:00 05/30/16 14:51 Neurontin - PO 100 mg QID STEPHANIE Administration Guaifenesin 600 mg 05/28/16 10:15 05/30/16 11:40 Mucinex - PO 600 mg BID STEPHANIE Administration Azithromycin 250 mls @ 250 mls/hr 05/28/16 10:15 05/30/16 11:42 Zithromax 500mg Ivpb (Pre-Docked) IVPB 250 mls/hr DAILY STEPHANIE Administration Ceftriaxone Sodium 50 mls @ 100 mls/hr 05/29/16 20:30 05/30/16 11:37 Rocephin 1gm Ivpb (Pre-Docked) IVPB 100 mls/hr DAILY STEPHANIE Administration Sodium Chloride 500 mls @ 17 mls/hr 05/30/16 16:29 05/30/16 17:35 Sodium Chloride 3% IV 05/31/16 21:53 17 mls/hr ASDIR ONE Administration Levothyroxine Sodium 50 mcg 05/28/16 07:00 05/30/16 06:58 Synthroid - PO 50 mcg DAILY@0700 STEPHANIE Administration Nifedipine 30 mg 05/27/16 10:00 05/30/16 11:41 Procardia Xl - PO 30 mg DAILY STEPHANIE Administration Ondansetron HCl 4 mg 05/29/16 00:30 05/29/16 22:35 Zofran Injection IVPB 4 mg Q6H PRN Administration NAUSEA AND/OR VOMITING Oseltamivir Phosphate 75 mg 05/27/16 10:00 05/30/16 11:42 Tamiflu - PO 06/01/16 09:59 75 mg BID STEPHANIE Administration ASSESSMENT/PLAN: Pt is an 80 year old female with pmhx of MS, HTN, hyperlipidemia, hypothyroidism , and constipation transferred to ICU for acute confusion in setting of hyponatremia. Neuro: * acute confusion 2/2 hyponatremia. * neuro checks Q2h * followed by Dr. Pritchard. Pulm: * Duonebs QID * 100% Non rebreather * Supplemental O2 to maintain O2 sat >90% * Mucinex CV: * Continue * Procardia 30mg PO daily * Lipitor 10mg HS GI: Chronic constipation * Colace 200mg PO BID Renal:hyponatremia * Followed by Dr. Marrero. * started on 3%NS 17:45 @ 17ml/hr * Will repeat BMP Q2H while hypertonic saline is being infused. * Caution to not correct sodium >10meq in 24hrs. Endo: * hypothyroidism- Synthroid 50mcg daily ID: * Influenza A (+) -Tamiflu (day5)- will d/c as potential cause of hyponatremia. * Ceftriaxone and Azithromycin F/E/N * 3%NS @ 17ml/hr * hyponatremia will repeat BMP Q2H * Dysphagia chopped diet. Dispo: We will continue to follow the patient. Thank you for this consultative opportunity. Visit type - Emergency Visit Emergency Visit: Yes ED Registration Date: 05/26/16 Care time: The patient presented to the Emergency Department on the above date and was hospitalized for further evaluation of their emergent condition. - New Patient This patient is new to me today: Yes Date on this admission: 06/02/16 - Critical Care Critical Care patient: Yes Total Critical Care Time (in minutes): 32 Critical Care Statement: The care of this patient involved high complexity decision making to prevent further life threatening deterioration of the patient 's condition and/or to evalute & treat vital organ system(s) failure or risk of failure.
[2016-05-30] MEDS ORDERED: MIDAZOLAM HCL 2 MG/2 ML SINGLE DOSE VIAL ONE (20:17)
[2016-05-30] MEDS ORDERED: ETOMIDATE 20 MG/10 ML AMPUL IVPUSH ONE (20:19)
[2016-05-30 20:30] LABS: ARTERIAL BLD GAS O2 SATURATION 95.8 % (90-98.9); ARTERIAL BLOOD GAS BASE EXCESS 1.3 meq/l (-2-2); ARTERIAL BLOOD GAS HCO3 24.8 meq/L (22-26); ARTERIAL BLOOD GAS PO2 79.3 mmHg (68-100)
[2016-05-30 20:31] LABS: ALLENS TEST POSITIVE; ART PUNCT SITE RIGHT RADIAL; ARTERIAL BLOOD GAS pH 7.44 (7.35-7.45); LPM/O2% 100% NONREBREATHER; PT. ON O2? YES
[2016-05-30] MEDS: SODIUM CHLORIDE 1,000 ML IV SCH (20:45)
[2016-05-30 21:14] LABS: CALCIUM 7.8 mg/dL (8.5-10.1); CREATININE 0.6 mg/dL (0.55-1.02); MAGNESIUM 1.7 mg/dL (1.8-2.4)
--- NOTE | 2016-05-30 21:55 | PN ---
Progress Note (short form) - Note Progress Note: patient seen in ICU 100% NRB sat 98% cognitively clear - Alert OX3 111/82 hr 96 sat 98% given 3% NS for 2 hrs earlier repeat BMP Na 122 Nephrology notified will - resume 3 % for additional 2 hours Vital Signs Period Temp Pulse Resp BP Sys/Cobb Pulse Ox Last 24 Hr 97.8 F-98.5 F 86-99 18-26 117-179/55-94 95-95 CBC, BMP 05/30/16 06:00 05/30/16 20:00 neck -jvd heart reg S1/S2 lungs grossly clear abd soft non tender ext no calf tenderness / no edema Cxr reviewed appreciate consults assmt /plan Hyponatremia multifactorial cymbalta #2 / tamiflu +lipitor / tamiflu / and recieved 2 doses of lasix for pleural effusion transfered to ICU appreciate Renal / ICU tratment 3% NS at 15 cc/hr X2 hrs was given will be repeated per nephrology repeat BMP q2 aim at slow Na correction influenza improved tamiflu d/c last day of treatment Pneumonia continue Rocephin / Zithromax hyperlipedmia HTN MS Problem List - Problems (1) Hyponatremia Code(s): E87.1 - HYPO-OSMOLALITY AND HYPONATREMIA (2) Right lower lobe pneumonia Code(s): J18.9 - PNEUMONIA, UNSPECIFIED ORGANISM (3) Influenza A Code(s): J10.1 - FLU DUE TO OTH IDENT INFLUENZA VIRUS W OTH RESP MANIFEST (4) Multiple sclerosis Code(s): G35 - MULTIPLE SCLEROSIS (5) Hypothyroid Code(s): E03.9 - HYPOTHYROIDISM, UNSPECIFIED (6) Hyperlipemia Code(s): E78.5 - HYPERLIPIDEMIA, UNSPECIFIED (8) Neuropathic pain of both legs Code(s): G57.91 - UNSPECIFIED MONONEUROPATHY OF RIGHT LOWER LIMB G57.92 - UNSPECIFIED MONONEUROPATHY OF LEFT LOWER LIMB (9) Fever Code(s): R50.9 - FEVER, UNSPECIFIED Qualifiers: Fever type: unspecified Qualified Code(s): R50.9 - Fever, unspecified
[2016-05-30] MEDS ORDERED: HALOPERIDOL LACTATE 5 MG/ML IM ONE (22:19)
[2016-05-31] MEDS ORDERED: HALOPERIDOL LACTATE 5 MG/ML IM ONE (00:43)
[2016-05-31 00:55] LABS: CALCIUM 8.1 mg/dL (8.5-10.1); CREATININE 0.5 mg/dL (0.55-1.02)
[2016-05-31] MEDS ORDERED: FUROSEMIDE 40 MG/4 ML INJECTABLE VIAL IVPUSH ONE (00:58)
[2016-05-31 03:35] LABS: ALBUMIN 2.9 g/dl (3.4-5.0); ALK PHOS 109 U/L (45-117); ANION GAP 13 (8-16); BILIRUBIN,TOTAL 0.7 mg/dL (0.2-1.0); CALCIUM 8.5 mg/dL (8.5-10.1); CO2 29 mmol/L (21-32); CREATININE 0.6 mg/dL (0.55-1.02); GLUCOSE,RANDOM 169 mg/dL (74-106); SGOT/AST 47 U/L (15-37); SGPT/ALT 59 U/L (12-78); TOT PROT 6.3 g/dl (6.4-8.2)
[2016-05-31 06:22] LABS: BASOPHIL 0.3 % (0-2.0); MCH 29.4 pg (25.7-33.7); MCHC 33.9 g/dl (32.0-36.0); MEAN CELL VOLUME 86.8 fl (80-96); MEAN PLT VOLUME 10.1 fl (7.5-11.1); PLATELET COUNT 276 K/MM3 (134-434); RDW 13.6 % (11.6-15.6); WHITE BLOOD COUNT 14.5 K/mm3 (4.0-10.0)
[2016-05-31] MEDS: ALBUTEROL SO4 2.5/IPRATROPIUM 0.5 INH SOL 3 ML VIAL.NEB. NEB SCH ×4 (06:36→23:04)
[2016-05-31] MEDS: LEVOTHYROXINE NA 50 MCG TABLET (FP) PO SCH (06:48)
[2016-05-31 06:53] LABS: ALBUMIN 2.7 g/dl (3.4-5.0); ANION GAP 13 (8-16); BILIRUBIN,TOTAL 0.6 mg/dL (0.2-1.0); CALCIUM 8.1 mg/dL (8.5-10.1); CO2 29 mmol/L (21-32); CREATININE 0.6 mg/dL (0.55-1.02); GLUCOSE,RANDOM 138 mg/dL (74-106); MAGNESIUM 1.8 mg/dL (1.8-2.4); PHOSPHOROUS 1.7 mg/dL (2.5-4.9); SGOT/AST 43 U/L (15-37); SGPT/ALT 53 U/L (12-78); TOT PROT 5.7 g/dl (6.4-8.2)
[2016-05-31] MEDS: ACETAMINOPHEN 500 MG TABLET (FP) PO PRN (07:03)
[2016-05-31 07:53] LABS: ALK PHOS 104 U/L (45-117)
[2016-05-31] MEDS ORDERED: SODIUM CHLORIDE 3% 500 ML IVPB SCH (08:30)
[2016-05-31] MEDS: AZITHROMYCIN IVPB 250 ML IVPB SCH (09:11)
[2016-05-31] MEDS: guaiFENesin 600 MG TABLET.ER (FP) PO SCH ×2 (09:12→21:09)
[2016-05-31] MEDS: DOCUSATE SODIUM 100 MG CAPSULE (FP) PO SCH ×2 (09:12→21:09)
[2016-05-31] MEDS: OSELTAMIVIR PHOSPHATE 75 MG CAPSULE PO SCH (09:13)
[2016-05-31] MEDS: GABAPENTIN 100 MG CAPSULE (FP) PO SCH ×4 (09:13→21:09)
[2016-05-31] MEDS: NIFEdipine E.R. 30 MG TABLET (FP) PO SCH (09:13)
[2016-05-31] MEDS: CEFTRIAXONE 50 ML IVPB SCH (09:14)
--- NOTE | 2016-05-31 09:31 | PN ---
Progress Note (short form) - Note Progress Note: in bed examined at bedside difficulty expectorating sat 90% Vital Signs Period Temp Pulse Resp BP Sys/Cobb Pulse Ox Last 24 Hr 98.3 F-101 F 95-125 18-28 115-177/55-94 95 Problem List - Problems (1) Hyponatremia Code(s): E87.1 - HYPO-OSMOLALITY AND HYPONATREMIA (2) Right lower lobe pneumonia Code(s): J18.9 - PNEUMONIA, UNSPECIFIED ORGANISM (3) Influenza A Code(s): J10.1 - FLU DUE TO OTH IDENT INFLUENZA VIRUS W OTH RESP MANIFEST (4) Multiple sclerosis Code(s): G35 - MULTIPLE SCLEROSIS (5) Hypothyroid Code(s): E03.9 - HYPOTHYROIDISM, UNSPECIFIED (6) Hyperlipemia Code(s): E78.5 - HYPERLIPIDEMIA, UNSPECIFIED (8) Neuropathic pain of both legs Code(s): G57.91 - UNSPECIFIED MONONEUROPATHY OF RIGHT LOWER LIMB G57.92 - UNSPECIFIED MONONEUROPATHY OF LEFT LOWER LIMB (9) Fever Code(s): R50.9 - FEVER, UNSPECIFIED Qualifiers: Fever type: unspecified Qualified Code(s): R50.9 - Fever, unspecified
[2016-05-31] MEDS ORDERED: METOPROLOL TARTRATE 5 MG/5 ML VIAL IVPUSH ONE (09:49)
[2016-05-31] MEDS ORDERED: ACETYLCYSTEINE 20% 200MG/ML 4 ML VIAL *FOR ORAL / INH USE ONLY ONE (10:41)
[2016-05-31 10:56] LABS: CALCIUM 7.9 mg/dL (8.5-10.1); CREATININE 0.6 mg/dL (0.55-1.02)
[2016-05-31] MEDS ORDERED: ACETYLCYSTEINE 20% 200MG/ML 4 ML VIAL *FOR ORAL / INH USE ONLY NEB ONE (11:30)
[2016-05-31 13:30] LABS: CREATININE 0.6 mg/dL (0.55-1.02)
[2016-05-31] MEDS: SODIUM CHLORIDE 3% 500 ML IVPB SCH ×2 (13:30→17:30)
--- NOTE | 2016-05-31 14:38 | PN ---
Progress Note (short form) - Note Progress Note: ID Consult dictated RLL pneumonia- aspiration v. post-influenza Acute Influenza A Exacerbation MS Hyponatremia PCN allergy Repeat BC, obtain sputum c/s Continue zithromax/ceftriaxone Add Vancomycin 1gm q12h Discussed with patient's daughter at bedside Critical care time 40min
--- NOTE | 2016-05-31 14:51 | PN ---
Progress Note, Physician History of Present Illness: Pt seen and examined at bedside. She is now in the ICU. She is more confused that she was yesterday. She appears fatigued. She was very restless last night. - Current Medication List Current Medications: Active Medications Acetaminophen (Tylenol -) 1,000 mg PO Q6H PRN PRN Reason: TEMP > 101* Last Admin: 05/31/16 07:03 Dose: 1,000 mg Albuterol/Ipratropium (Duoneb -) 1 amp NEB QIDR [facility] Last Admin: 05/31/16 10:45 Dose: 1 amp Docusate Sodium (Colace -) 200 mg PO BID [facility] Last Admin: 05/31/16 09:12 Dose: Not Given Gabapentin (Neurontin -) 100 mg PO QID [facility] Last Admin: 05/31/16 13:59 Dose: Not Given Guaifenesin (Mucinex -) 600 mg PO BID [facility] Last Admin: 05/31/16 09:12 Dose: Not Given Azithromycin (Zithromax 500mg Ivpb (Pre-Docked)) 250 mls @ 250 mls/hr IVPB DAILY [facility] Last Admin: 05/31/16 09:11 Dose: 250 mls/hr Ceftriaxone Sodium (Rocephin 1gm Ivpb (Pre-Docked)) 50 mls @ 100 mls/hr IVPB DAILY [facility] Last Admin: 05/31/16 09:14 Dose: 100 mls/hr Sodium Chloride (Normal Saline -) 1,000 mls @ 25 mls/hr IV ASDIR [facility] Last Admin: 05/30/16 20:45 Dose: 25 mls/hr Vancomycin HCl (Vancomycin (Pre-Docked)) 250 mls @ 166.667 mls/hr IVPB BID [facility] Levothyroxine Sodium (Synthroid -) 50 mcg PO DAILY@0700 [facility] Last Admin: 05/31/16 06:48 Dose: 50 mcg Nifedipine (Procardia Xl -) 30 mg PO DAILY [facility] Last Admin: 05/31/16 09:13 Dose: Not Given Ondansetron HCl (Zofran Injection) 4 mg IVPB Q6H PRN PRN Reason: NAUSEA AND/OR VOMITING Last Admin: 05/29/16 22:35 Dose: 4 mg - Objective Vital Signs: Vital Signs Temperature 99.0 F 05/31/16 14:00 Pulse Rate 1 L 05/31/16 14:00 Respiratory Rate 20 05/31/16 14:00 Blood Pressure 178/90 05/31/16 14:00 O2 Sat by Pulse Oximetry (%) 94 L 05/31/16 11:12 Constitutional: Yes: Anxious, Mild Distress Eyes: Yes: Conjunctiva Clear HENT: Yes: Atraumatic Cardiovascular: Yes: S1, S2 Respiratory: Yes: On Venti-Mask, Rhonchi Gastrointestinal: Yes: Soft Genitourinary: Yes: Obrien Present Musculoskeletal: Yes: Muscle Weakness Edema: No Integumentary: Yes: WNL Neurological: Yes: Confusion, Pre-Existing Deficit Psychiatric: Yes: Agitated Labs: CBC, BMP 05/31/16 05:15 05/31/16 12:30 INR, PTT INR 1.14 (0.82-1.09) 05/26/16 18:25 - ....Imaging Chest X-ray: Report Reviewed Problem List - Problems (1) Hyperlipemia Code(s): E78.5 - HYPERLIPIDEMIA, UNSPECIFIED (2) Hypothyroid Code(s): E03.9 - HYPOTHYROIDISM, UNSPECIFIED (3) Influenza A Code(s): J10.1 - FLU DUE TO OTH IDENT INFLUENZA VIRUS W OTH RESP MANIFEST (4) Multiple sclerosis Code(s): G35 - MULTIPLE SCLEROSIS (5) Hyponatremia Code(s): E87.1 - HYPO-OSMOLALITY AND HYPONATREMIA Assessment/Plan Current Medications Generic Name Dose Route Start Last Admin Trade Name Freq PRN Reason Stop Dose Admin Acetaminophen 1,000 mg 05/27/16 01:22 05/31/16 07:03 Tylenol - PO 1,000 mg Q6H PRN Administration TEMP > 101* Albuterol/Ipratropium 1 amp 05/28/16 12:00 05/31/16 10:45 Duoneb - NEB 1 amp QIDR STEPHANIE Administration Docusate Sodium 200 mg 05/28/16 10:15 05/31/16 09:12 Colace - PO Not Given BID STEPHANIE Gabapentin 100 mg 05/28/16 22:00 05/31/16 13:59 Neurontin - PO Not Given QID STEPHANIE Guaifenesin 600 mg 05/28/16 10:15 05/31/16 09:12 Mucinex - PO Not Given BID STEPHANIE Azithromycin 250 mls @ 250 mls/hr 05/28/16 10:15 05/31/16 09:11 Zithromax 500mg Ivpb (Pre-Docked) IVPB 250 mls/hr DAILY STEPHANIE Administration Ceftriaxone Sodium 50 mls @ 100 mls/hr 05/29/16 20:30 05/31/16 09:14 Rocephin 1gm Ivpb (Pre-Docked) IVPB 100 mls/hr DAILY STEPHANIE Administration Sodium Chloride 1,000 mls @ 25 mls/hr 05/30/16 20:45 05/30/16 20:45 Normal Saline - IV 25 mls/hr ASDIR STEPHANIE Administration Vancomycin HCl 250 mls @ 166.667 mls/hr 05/31/16 22:00 Vancomycin (Pre-Docked) IVPB BID STEPHANIE Levothyroxine Sodium 50 mcg 05/28/16 07:00 05/31/16 06:48 Synthroid - PO 50 mcg DAILY@0700 STEPHANIE Administration Nifedipine 30 mg 05/27/16 10:00 05/31/16 09:13 Procardia Xl - PO Not Given DAILY STEPHANIE Ondansetron HCl 4 mg 05/29/16 00:30 05/29/16 22:35 Zofran Injection IVPB 4 mg Q6H PRN Administration NAUSEA AND/OR VOMITING Laboratory Tests 05/30/16 05/30/16 05/31/16 22:00 22:11 05:15 Cortisol AM Sample Pending Urine Osmolality 516 Ur Random Sodium 20 Impression 1. hyponatremia - hypo-osmolar 2. Influenza 3. PNA with small effusion 4. multiple sclerosis 5. hyperlipidemia 6. hypothyroidism 7. HTN 8. proteinuria and microscopic hematuria Plan - followed labs and adjusted fluids last night and early this morning - will continue with hyertonic saline at 25 cc per hour for the next for hour - sodium is stabilizing on schedule - urine osm is much more concentrated than serum osm, however urine sodium is actually low (which is not consistend with siadh) - hyponatremia is likely multifactorial from diuretics, hypotonic fluids, cymbalta - would not give any lasix - cont abx, ID input appreciated, vanco was added, monitor wbc and repeat cultures - restrict free water - would not restart cymbalta - caution with baclofen if mental status worsens - care discussed at length with pts daughter last night and today - plan discussed with the ICU resident and ICU team - nurse will call me with blood results Dr Marrero
--- NOTE | 2016-05-31 15:26 | PN ---
Teaching Attending Note Name of Resident: Pablo Dey ATTENDING PHYSICIAN STATEMENT I saw and evaluated the patient. I reviewed the resident's note and discussed the case with the resident. I agree with the resident's findings and plan as documented. SUBJECTIVE: Patient seen and examined in the ICU. 80 F, multiple sclerosis (apparently normal mental status), HTN, HPL, hypothyroidism, and constipation. Initially admitted via the ER due to cough and possible PNA. Was found to have Influenza A. Was getting hypotonic IVF and found to be hyponatremic. Transferred to the ICU due to progressive worsening of hyponatremia and AMS. No seizure activity noted. No travel history or sick contacts. Of note, the patient did receive 2 or 3 doses of Cymbalta. OBJECTIVE: Constitutional: Yes: Lethargic but easily arousable, Answers some simple questions appropriately, Confused Eyes: Yes: Conjunctiva Clear HENT: Yes: Atraumatic Cardiovascular: Yes: S1, S2 Respiratory: Yes: On Venti-Mask, Rhonchi Gastrointestinal: Yes: Soft Genitourinary: Yes: Obrien Present Musculoskeletal: Yes: Muscle Weakness Edema: No Integumentary: Yes: WNL Neurological: Yes: Confusion Psychiatric: Yes: Agitated Labs: Laboratory Results - last 24 hr 05/30/16 05/30/16 05/30/16 18:00 20:00 20:28 WBC RBC Hgb Hct MCV MCHC RDW Plt Count MPV Neutrophils % Lymphocytes % Monocytes % Eosinophils % Basophils % Puncture Site Right radial Right radial ABG pH 7.44 7.44 ABG pCO2 at Pt Temp 37.1 36.8 ABG pO2 at Pt Temp 51.1 L 79.3 D ABG HCO3 24.9 24.8 ABG O2 Sat (Measured) 86.4 L 95.8 ABG O2 Content 13.3 L 13.9 L ABG Base Excess 1.4 1.3 Paulino Test Positive Positive O2 Delivery Device Venti Oxygen Flow Rate 50% 100% nonrebreather PEEP 0.0 0.0 Sodium 122 L* Potassium 3.8 Chloride 85 L Carbon Dioxide 26 Anion Gap 11 BUN 10 Creatinine 0.6 Creat Clearance w eGFR Random Glucose 145 H D Calcium 7.8 L Phosphorus Magnesium 1.7 L Total Bilirubin AST ALT Alkaline Phosphatase Total Protein Albumin Vitamin B12 Urine Osmolality Ur Random Sodium Ur Random Potassium Ur Random Chloride 05/30/16 05/30/16 05/30/16 22:00 22:11 23:40 WBC RBC Hgb Hct MCV MCHC RDW Plt Count MPV Neutrophils % Lymphocytes % Monocytes % Eosinophils % Basophils % Puncture Site ABG pH ABG pCO2 at Pt Temp ABG pO2 at Pt Temp ABG HCO3 ABG O2 Sat (Measured) ABG O2 Content ABG Base Excess Paulino Test O2 Delivery Device Oxygen Flow Rate PEEP Sodium 124 L* Potassium 3.8 Chloride 85 L Carbon Dioxide 25 Anion Gap 14 BUN 8 Creatinine 0.5 L Creat Clearance w eGFR Random Glucose 161 H Calcium 8.1 L Phosphorus Magnesium Total Bilirubin AST ALT Alkaline Phosphatase Total Protein Albumin Vitamin B12 Urine Osmolality 516 Ur Random Sodium 20 Ur Random Potassium 26.8 Ur Random Chloride 71 05/31/16 05/31/16 05/31/16 03:00 05:15 05:15 WBC 14.5 H RBC 3.50 L Hgb 10.3 L Hct 30.4 L MCV 86.8 MCHC 33.9 RDW 13.6 Plt Count 276 D MPV 10.1 Neutrophils % 89.0 H Lymphocytes % 3.9 L D Monocytes % 6.8 Eosinophils % 0.0 Basophils % 0.3 Puncture Site ABG pH ABG pCO2 at Pt Temp ABG pO2 at Pt Temp ABG HCO3 ABG O2 Sat (Measured) ABG O2 Content ABG Base Excess Paulino Test O2 Delivery Device Oxygen Flow Rate PEEP Sodium 125 L 126 L Potassium 3.8 3.7 Chloride 83 L 84 L Carbon Dioxide 29 29 Anion Gap 13 13 BUN 8 7 Creatinine 0.6 0.6 Creat Clearance w eGFR > 60 > 60 Random Glucose 169 H 138 H Calcium 8.5 8.1 L Phosphorus 1.7 L Magnesium 1.8 Total Bilirubin 0.7 D 0.6 AST 47 H 43 H ALT 59 53 Alkaline Phosphatase 109 104 Total Protein 6.3 L 5.7 L Albumin 2.9 L 2.7 L Vitamin B12 2025 H Urine Osmolality Ur Random Sodium Ur Random Potassium Ur Random Chloride 05/31/16 05/31/16 10:00 12:30 WBC RBC Hgb Hct MCV MCHC RDW Plt Count MPV Neutrophils % Lymphocytes % Monocytes % Eosinophils % Basophils % Puncture Site ABG pH ABG pCO2 at Pt Temp ABG pO2 at Pt Temp ABG HCO3 ABG O2 Sat (Measured) ABG O2 Content ABG Base Excess Paulino Test O2 Delivery Device Oxygen Flow Rate PEEP Sodium 125 L 126 L Potassium 3.7 3.7 Chloride 85 L 85 L Carbon Dioxide 26 27 Anion Gap 14 14 BUN 7 7 Creatinine 0.6 0.6 Creat Clearance w eGFR Random Glucose 170 H D 137 H Calcium 7.9 L 8.0 L Phosphorus Magnesium Total Bilirubin AST ALT Alkaline Phosphatase Total Protein Albumin Vitamin B12 Urine Osmolality Ur Random Sodium Ur Random Potassium Ur Random Chloride ASSESSMENT AND PLAN: Problem List - Problems (1) Hyperlipemia Code(s): E78.5 - HYPERLIPIDEMIA, UNSPECIFIED (2) Hypothyroid Code(s): E03.9 - HYPOTHYROIDISM, UNSPECIFIED (3) Influenza A Code(s): J10.1 - FLU DUE TO OTH IDENT INFLUENZA VIRUS W OTH RESP MANIFEST (4) Multiple sclerosis Code(s): G35 - MULTIPLE SCLEROSIS (5) Hyponatremia Code(s): E87.1 - HYPO-OSMOLALITY AND HYPONATREMIA Assessment/Plan Impression Acute hyponatremia -> Appears multi-factorial Influenza RLL PNA with small effusion Multiple sclerosis Hyperlipidemia Hypothyroidism HTN Plan Patient currently on 3% -> Last Na was 125 Strict I & O O2 as needed ID consult for RLL PNA Daily assessment for Lasix -> None today Restrict free water Hold Cymbalta Aspiration precautions Dr Fam CCTime 35"
--- NOTE | 2016-05-31 16:14 | CONS ---
INFECTIOUS DISEASE CONSULTATION DATE OF CONSULTATION: DATE OF DICTATION: 05/31/2016 HISTORY OF PRESENT ILLNESS: The patient is an 80-year-old female with a history of multiple sclerosis, evaluated for pneumonia. She was admitted to the hospital on May 26, 2016, with a 2-day history of dry cough, fever, nausea, and vomiting. According to the daughter she had vomited at home and had fallen. She was evaluated in the emergency room where a rapid influenza swab was performed and was positive. She was hypoxemic. Chest x-ray was initially read as negative. The patient was started on Tamiflu. Her hospital course was complicated by worsening mental status and worsening hyponatremia. She required transfer to the intensive care unit where she was given 3% normal saline. She completed a course of Tamiflu. She now has recurrent fever to 101 and worsening right lower lobe infiltrate on chest x-ray. At the present time she is awake and responsive, however, she remains confused. She is wearing a [place] vest and wrist restraints. PAST MEDICAL HISTORY: Positive for multiple sclerosis and according to her daughter who is a physician, she has not been on treatment. Past medical history also includes hypertension, hyperlipidemia, hypothyroidism, chronic constipation, urinary incontinence, and history of Clostridium difficile in the past. PAST SURGICAL HISTORY: Status post thyroidectomy, right total knee replacement, and total hip replacement. ALLERGIES: PENICILLIN. The family is unaware of the nature of the allergy. No documented history of anaphylaxis. MEDICATIONS: Includes Lipitor, Neurontin, Synthroid, and Procardia. SOCIAL HISTORY: She lives at home. She normally has normal mentation. She walks with a walker. Former smoker. SYSTEMS REVIEW: NEUROLOGIC: Positive for multiple sclerosis. No loss of consciousness. No seizure activity or focal weakness. CARDIAC: Negative chest pain or palpitations. RESPIRATORY: As per history of present illness. GASTROINTESTINAL: Positive for nausea and vomiting. GENITOURINARY: Negative for urinary tract infection. LABORATORY DATA: White count of 14.5, hemoglobin, 89 neutrophils, 4 lymphocytes, 7 monocytes, hematocrit of 30.4, and platelets of 276. BUN of 14, creatinine of 0.6, and sodium of 126. Urinalysis with 1 white cell. Legionella and pneumococcal urine antigens negative. Chest x-ray shows worsening right lower lobe infiltrate and possible left lower lobe infiltrate. PHYSICAL EXAMINATION: GENERAL APPEARANCE: On examination, she is awake, responsive, however, confused. VITAL SIGNS: Temperature of 99, T-max of 101, blood pressure of 178/90, pulse of 80 and regular, and respirations of 20. HEENT: Sclerae are anicteric. CARDIOVASCULAR: S1, S2. LUNGS: Diminished breath sounds at the bases bilaterally. ABDOMEN: Soft. No tenderness elicited. No mass, rebound, or rigidity. EXTREMITIES: Negative for edema. IMPRESSION: 1. Right lower lobe pneumonia, possible aspiration versus post influenza pneumonia. 2. Acute influenza A. 3. Exacerbation of multiple sclerosis. 4. Hyponatremia. 5. PENICILLIN ALLERGY. PLAN: The patient has completed a course of Tamiflu and we will discontinue. We will repeat blood cultures and obtain sputum culture. Continue Zithromax and ceftriaxone. We will add vancomycin 1 gram IV piggyback q.12 hours. Discussed with the patient's daughter present at the time of examination. CRITICAL CARE TIME: 40 minutes. Thank you for the kind referral. COLE THAKKAR M.D. [id number]
--- NOTE | 2016-05-31 16:55 | PN ---
Physical Exam: SUBJECTIVE: Patient seen and examined at bedside in ICU. Agitated, but responsive to my questions. Poor appetite, but eats when daughter feeds her. At baseline mental status according to family members. Mild fever overnight. OBJECTIVE: Vital Signs Period Temp Pulse Resp BP Sys/Cobb Pulse Ox Last 24 Hr 98.5 F-101 F 95-125 18-28 115-196/55-94 94-95 GENERAL: AAO, Agitated HEENT: Atraumatic, EOMI, PERRLA, Dry membranes LUNGS: Diminished breath soudns bilaterally, rhonchi scattered R>L HEART: Regular rate and rhythm, S1, S2 without murmur, rub or gallop. ABDOMEN: Soft, nontender, nondistended EXTREMITIES: 2+ pulses, warm, well-perfused, no edema. NEUROLOGICAL: Cranial nerves II through XII grossly intact. Normal speech, gait not observed. PSYCH: Agitated, but close to mental status baseline according to family SKIN: Warm, dry, normal turgor, no rashes or lesions noted Laboratory Results - last 24 hr 05/30/16 05/30/16 05/30/16 18:00 20:00 20:28 WBC RBC Hgb Hct MCV MCHC RDW Plt Count MPV Neutrophils % Lymphocytes % Monocytes % Eosinophils % Basophils % Puncture Site Right radial Right radial ABG pH 7.44 7.44 ABG pCO2 at Pt Temp 37.1 36.8 ABG pO2 at Pt Temp 51.1 L 79.3 D ABG HCO3 24.9 24.8 ABG O2 Sat (Measured) 86.4 L 95.8 ABG O2 Content 13.3 L 13.9 L ABG Base Excess 1.4 1.3 Paulino Test Positive Positive O2 Delivery Device Venti Oxygen Flow Rate 50% 100% nonrebreather PEEP 0.0 0.0 Sodium 122 L* Potassium 3.8 Chloride 85 L Carbon Dioxide 26 Anion Gap 11 BUN 10 Creatinine 0.6 Creat Clearance w eGFR Random Glucose 145 H D Calcium 7.8 L Phosphorus Magnesium 1.7 L Total Bilirubin AST ALT Alkaline Phosphatase Total Protein Albumin Vitamin B12 Urine Osmolality Ur Random Sodium Ur Random Potassium Ur Random Chloride 05/30/16 05/30/16 05/30/16 22:00 22:11 23:40 WBC RBC Hgb Hct MCV MCHC RDW Plt Count MPV Neutrophils % Lymphocytes % Monocytes % Eosinophils % Basophils % Puncture Site ABG pH ABG pCO2 at Pt Temp ABG pO2 at Pt Temp ABG HCO3 ABG O2 Sat (Measured) ABG O2 Content ABG Base Excess Paulino Test O2 Delivery Device Oxygen Flow Rate PEEP Sodium 124 L* Potassium 3.8 Chloride 85 L Carbon Dioxide 25 Anion Gap 14 BUN 8 Creatinine 0.5 L Creat Clearance w eGFR Random Glucose 161 H Calcium 8.1 L Phosphorus Magnesium Total Bilirubin AST ALT Alkaline Phosphatase Total Protein Albumin Vitamin B12 Urine Osmolality 516 Ur Random Sodium 20 Ur Random Potassium 26.8 Ur Random Chloride 71 05/31/16 05/31/16 05/31/16 03:00 05:15 05:15 WBC 14.5 H RBC 3.50 L Hgb 10.3 L Hct 30.4 L MCV 86.8 MCHC 33.9 RDW 13.6 Plt Count 276 D MPV 10.1 Neutrophils % 89.0 H Lymphocytes % 3.9 L D Monocytes % 6.8 Eosinophils % 0.0 Basophils % 0.3 Puncture Site ABG pH ABG pCO2 at Pt Temp ABG pO2 at Pt Temp ABG HCO3 ABG O2 Sat (Measured) ABG O2 Content ABG Base Excess Paulino Test O2 Delivery Device Oxygen Flow Rate PEEP Sodium 125 L 126 L Potassium 3.8 3.7 Chloride 83 L 84 L Carbon Dioxide 29 29 Anion Gap 13 13 BUN 8 7 Creatinine 0.6 0.6 Creat Clearance w eGFR > 60 > 60 Random Glucose 169 H 138 H Calcium 8.5 8.1 L Phosphorus 1.7 L Magnesium 1.8 Total Bilirubin 0.7 D 0.6 AST 47 H 43 H ALT 59 53 Alkaline Phosphatase 109 104 Total Protein 6.3 L 5.7 L Albumin 2.9 L 2.7 L Vitamin B12 2025 H Urine Osmolality Ur Random Sodium Ur Random Potassium Ur Random Chloride 05/31/16 05/31/16 10:00 12:30 WBC RBC Hgb Hct MCV MCHC RDW Plt Count MPV Neutrophils % Lymphocytes % Monocytes % Eosinophils % Basophils % Puncture Site ABG pH ABG pCO2 at Pt Temp ABG pO2 at Pt Temp ABG HCO3 ABG O2 Sat (Measured) ABG O2 Content ABG Base Excess Paulino Test O2 Delivery Device Oxygen Flow Rate PEEP Sodium 125 L 126 L Potassium 3.7 3.7 Chloride 85 L 85 L Carbon Dioxide 26 27 Anion Gap 14 14 BUN 7 7 Creatinine 0.6 0.6 Creat Clearance w eGFR Random Glucose 170 H D 137 H Calcium 7.9 L 8.0 L Phosphorus Magnesium Total Bilirubin AST ALT Alkaline Phosphatase Total Protein Albumin Vitamin B12 Urine Osmolality Ur Random Sodium Ur Random Potassium Ur Random Chloride Active Medications Generic Name Dose Route Start Last Admin Trade Name Freq PRN Reason Stop Dose Admin Acetaminophen 1,000 mg 05/27/16 01:22 05/31/16 07:03 Tylenol - PO 1,000 mg Q6H PRN Administration TEMP > 101* Albuterol/Ipratropium 1 amp 05/28/16 12:00 05/31/16 10:45 Duoneb - NEB 1 amp QIDR STEPHANIE Administration Docusate Sodium 200 mg 05/28/16 10:15 05/31/16 09:12 Colace - PO Not Given BID STEPHANIE Gabapentin 100 mg 05/28/16 22:00 05/31/16 13:59 Neurontin - PO Not Given QID STEPHANIE Guaifenesin 600 mg 05/28/16 10:15 05/31/16 09:12 Mucinex - PO Not Given BID STEPHANIE Azithromycin 250 mls @ 250 mls/hr 05/28/16 10:15 05/31/16 09:11 Zithromax 500mg Ivpb (Pre-Docked) IVPB 250 mls/hr DAILY STEPHANIE Administration Ceftriaxone Sodium 50 mls @ 100 mls/hr 05/29/16 20:30 05/31/16 09:14 Rocephin 1gm Ivpb (Pre-Docked) IVPB 100 mls/hr DAILY STEPHANIE Administration Sodium Chloride 1,000 mls @ 25 mls/hr 05/30/16 20:45 05/30/16 20:45 Normal Saline - IV 25 mls/hr ASDIR STEPHANIE Administration Vancomycin HCl 250 mls @ 166.667 mls/hr 05/31/16 22:00 Vancomycin (Pre-Docked) IVPB BID STEPHANIE Sodium Chloride 500 mls @ 25 mls/hr 05/31/16 13:30 05/31/16 13:30 Sodium Chloride 3% IVPB 05/31/16 17:30 25 mls/hr ASDIR STEPHANIE Administration Levothyroxine Sodium 50 mcg 05/28/16 07:00 05/31/16 06:48 Synthroid - PO 50 mcg DAILY@0700 STEPHANIE Administration Nifedipine 30 mg 05/27/16 10:00 05/31/16 09:13 Procardia Xl - PO Not Given DAILY STEPHANIE Ondansetron HCl 4 mg 05/29/16 00:30 05/29/16 22:35 Zofran Injection IVPB 4 mg Q6H PRN Administration NAUSEA AND/OR VOMITING ASSESSMENT/PLAN: Patient is a 80 year old female with significant PMH of MS, HTN, HLF & Hypothyroidism who presents to ICU with hyponatremia. Patient has been treated for Influenza pneumonia in hospital since 05/27. Hypotonic fluids, cymbalta use & Lasix administration resulting in hyponatremia during hospital course. #Hyponatremia, Na 127 at 5PM (120 yesterday) -following labs, continuing Hypertonic Saline (3%) at 25ml/hr -will discontinue hypertonic saline at 8pm today & recheck sodium in AM -Low Urine sodium, unlike SIADH -holding cymbalta, would not restart -free water restriction -Strict I & O's -no need for Lasix at present #Influenza Pneumonia -ID consult appreciated -continue Azithromycin, Ceftriaxone -added Vancomycin -Mucinex, w/ mucomyst treatment given earlier -chest PT -CXR in AM to assess effusion -blood cultures redrawn and pending -sputum culture pending #Multiple Sclerosis -continue gabapentin #Hypothyroidism -continue Synthroid 50mcg #Hypertension/Hyperlipidemia -continue Procardia FEN -Hypertonic solution -Follow electrolytes -PO at present, tolerating but poor appetite Visit type - Emergency Visit Emergency Visit: Yes ED Registration Date: 05/26/16 Care time: The patient presented to the Emergency Department on the above date and was hospitalized for further evaluation of their emergent condition. - New Patient This patient is new to me today: Yes Date on this admission: 05/31/16 - Critical Care Critical Care patient: Yes Total Critical Care Time (in minutes): 45 Critical Care Statement: The care of this patient involved high complexity decision making to prevent further life threatening deterioration of the patient 's condition and/or to evalute & treat vital organ system(s) failure or risk of failure.
[2016-05-31 16:58] LABS: CALCIUM 8.4 mg/dL (8.5-10.1); CREATININE 0.5 mg/dL (0.55-1.02)
[2016-05-31] MEDS ORDERED: METOPROLOL TARTRATE 5 MG/5 ML VIAL IVPUSH PRN (18:07)
--- NOTE | 2016-05-31 19:56 | PN ---
Progress Note (short form) - Note Progress Note: Laboratory Tests 05/31/16 05/31/16 12:30 16:20 Sodium 126 L 127 L Potassium 3.7 3.7 Chloride 85 L 86 L Carbon Dioxide 27 Anion Gap 14 14 BUN 7 6 L Creatinine 0.6 0.5 L Renal follow up Labs reviewed. discussed plan with unit resident. Will stop hypertonic saline today and monitor off of it. Problem List - Problems (1) Hyperlipemia Code(s): E78.5 - HYPERLIPIDEMIA, UNSPECIFIED (2) Hypothyroid Code(s): E03.9 - HYPOTHYROIDISM, UNSPECIFIED (3) Influenza A Code(s): J10.1 - FLU DUE TO OTH IDENT INFLUENZA VIRUS W OTH RESP MANIFEST (4) Multiple sclerosis Code(s): G35 - MULTIPLE SCLEROSIS (5) Hyponatremia Code(s): E87.1 - HYPO-OSMOLALITY AND HYPONATREMIA
--- NOTE | 2016-05-31 20:38 | PN ---
Progress Note (short form) - Note Progress Note: NEUROLOGY FOLLOW-UP: Events reviewed, patient examined. Na+ up to 126 mg % On triple antibiotics for pneumonia. Temps to 101 this AM. WBC now 15K Lethargic but arousable. Sparse speech. Confused. Full mccurdy to threat. Full EOM's Moving all 4's against restraints. IMP: Toxic-metabolic encephalopathy. Underlaying MS SUGGEST: Repeat ABG, U/A, C&S Add PO4, Mg++, Ca++ to next BMP. Continue to follow Na+/BMP even off hypertonic saline Continue antibiotics. Thank you very much, Darrius Pritchard MD
[2016-05-31 20:46] LABS: ARTERIAL BLOOD GAS HCO3 28.3 meq/L (22-26); ARTERIAL BLOOD GAS pH 7.49 (7.35-7.45)
[2016-05-31 20:47] LABS: ALLENS TEST POSITIVE; ART PUNCT SITE RIGHT RADIAL; ARTERIAL BLD GAS O2 SATURATION 79.6 % (90-98.9); ARTERIAL BLOOD GAS PO2 42.3 mmHg (68-100); PT. ON O2? YES
[2016-05-31 20:48] LABS: LPM/O2% 50%; TYPE OF O2 VENTIMASK
[2016-05-31] MEDS: SODIUM CHLORIDE 1,000 ML IV SCH (21:32)
[2016-05-31] MEDS: VANCOMYCIN 1 GRAM (PRE-DOCKED) 250 ML IVPB SCH (21:34)
[2016-05-31 22:04] LABS: PHOSPHOROUS 1.9 mg/dL (2.5-4.9)
[2016-05-31 22:08] LABS: URINE APPEARANCE SLCLOUDY; URINE BILIRUBIN NEGATIVE (NEGATIVE); URINE COLOR YELLOW; URINE GLUCOSE (UA) 3+ (NEGATIVE); URINE KETONE NEGATIVE (NEGATIVE); URINE LEUK ESTERASE NEGATIVE (NEGATIVE); URINE NITRITE NEGATIVE (NEGATIVE); URINE UROBILINOGEN NEGATIVE E.U./dl (0.2-1.0)
[2016-05-31 22:14] LABS: URINE BLOOD 3+ (NEGATIVE); URINE PROTEIN 2+ (NEGATIVE)
[2016-05-31 22:21] LABS: URINE MUCUS RARE; URINE RBC 1528 /hpf (0-3)
[2016-05-31 22:22] LABS: URINE WBC 0-2 /hpf (3-5)
[2016-05-31] MEDS: METOPROLOL TARTRATE 5 MG/5 ML VIAL IVPUSH PRN (22:25)
[2016-06-01 06:30] LABS: MCH 29.4 pg (25.7-33.7); MCHC 33.5 g/dl (32.0-36.0); MEAN CELL VOLUME 87.8 fl (80-96); MEAN PLT VOLUME 9.8 fl (7.5-11.1); PLATELET COUNT 347 K/MM3 (134-434); RDW 13.7 % (11.6-15.6); WHITE BLOOD COUNT 17.3 K/mm3 (4.0-10.0)
[2016-06-01] MEDS: ALBUTEROL SO4 2.5/IPRATROPIUM 0.5 INH SOL 3 ML VIAL.NEB. NEB SCH ×4 (06:30→23:23)
[2016-06-01 06:33] LABS: ALBUMIN 2.5 g/dl (3.4-5.0); ALK PHOS 128 U/L (45-117); ANION GAP 15 (8-16); BILIRUBIN,TOTAL 0.7 mg/dL (0.2-1.0); CALCIUM 8.3 mg/dL (8.5-10.1); CO2 27 mmol/L (21-32); CREATININE 0.6 mg/dL (0.55-1.02); GLUCOSE,RANDOM 173 mg/dL (74-106); SGOT/AST 62 U/L (15-37); SGPT/ALT 69 U/L (12-78)
[2016-06-01] MEDS: LEVOTHYROXINE NA 50 MCG TABLET (FP) PO SCH (06:43)
[2016-06-01] MEDS: METOPROLOL TARTRATE 5 MG/5 ML VIAL IVPUSH PRN (06:45)
[2016-06-01 08:41] LABS: ANISOCYTOSIS 1+; HYPOCHROMIA 1+; PLATELET COMMENT2 NO CLOTTING DETECTED; PLATELET COMMENT3 MOD LARGE PLTS; PLATELET ESTIMATE ADEQUATE (NORMAL)
--- NOTE | 2016-06-01 08:46 | PN ---
Progress Note, Physician Chief Complaint: ID Vancomcyin Ceftriaxone Azithromycin Poorly responsive Low grade fevers - Current Medication List Current Medications: Active Medications Acetaminophen (Tylenol -) 1,000 mg PO Q6H PRN PRN Reason: TEMP > 101* Last Admin: 05/31/16 07:03 Dose: 1,000 mg Albuterol/Ipratropium (Duoneb -) 1 amp NEB QIDR [facility] Last Admin: 06/01/16 06:30 Dose: 1 amp Docusate Sodium (Colace -) 200 mg PO BID [facility] Last Admin: 05/31/16 21:09 Dose: Not Given Gabapentin (Neurontin -) 100 mg PO QID [facility] Last Admin: 05/31/16 21:09 Dose: Not Given Guaifenesin (Mucinex -) 600 mg PO BID [facility] Last Admin: 05/31/16 21:09 Dose: Not Given Azithromycin (Zithromax 500mg Ivpb (Pre-Docked)) 250 mls @ 250 mls/hr IVPB DAILY [facility] Last Admin: 05/31/16 09:11 Dose: 250 mls/hr Ceftriaxone Sodium (Rocephin 1gm Ivpb (Pre-Docked)) 50 mls @ 100 mls/hr IVPB DAILY [facility] Last Admin: 05/31/16 09:14 Dose: 100 mls/hr Sodium Chloride (Normal Saline -) 1,000 mls @ 25 mls/hr IV ASDIR [facility] Last Admin: 05/31/16 21:32 Dose: 25 mls/hr Vancomycin HCl (Vancomycin (Pre-Docked)) 250 mls @ 166.667 mls/hr IVPB BID [facility] Last Admin: 05/31/16 21:34 Dose: 166.667 mls/hr Levothyroxine Sodium (Synthroid -) 50 mcg PO DAILY@0700 [facility] Last Admin: 06/01/16 06:43 Dose: Not Given Metoprolol Tartrate (Lopressor Injection -) 5 mg IVPUSH Q4H PRN PRN Reason: HYPERTENSION Last Admin: 06/01/16 06:45 Dose: 5 mg Nifedipine (Procardia Xl -) 30 mg PO DAILY [facility] Last Admin: 05/31/16 09:13 Dose: Not Given Ondansetron HCl (Zofran Injection) 4 mg IVPB Q6H PRN PRN Reason: NAUSEA AND/OR VOMITING Last Admin: 05/29/16 22:35 Dose: 4 mg - Objective Vital Signs: Vital Signs Temperature 99.9 F H 06/01/16 06:00 Pulse Rate 111 H 06/01/16 06:00 Respiratory Rate 23 06/01/16 06:00 Blood Pressure 174/59 06/01/16 06:45 O2 Sat by Pulse Oximetry (%) 94 L 05/31/16 19:44 Constitutional: Yes: Moderate Distress Neck: Yes: WNL, Supple Cardiovascular: Yes: S1, S2 Respiratory: Yes: Rhonchi Gastrointestinal: Yes: WNL, Normal Bowel Sounds, Soft. No: Tenderness Edema: No Labs: CBC, BMP 06/01/16 05:20 06/01/16 05:20 INR, PTT INR 1.14 (0.82-1.09) 05/26/16 18:25 Assessment/Plan Microbiology 05/30/16 21:00 Urine For Antigen Detection Legionella Antigen - Final 05/30/16 21:00 Urine For Antigen Detection Streptococcus pneumoniae Antigen (M - Final 05/30/16 21:00 Urine - Urine - Catheterized Urine Culture - Final NO GROWTH OBTAINED 05/26/16 18:25 Nasopharyngeal Swab Influenza Types A,B Antigen (ASHLIE) - Final 05/26/16 18:25 Nasopharyngeal Swab - Final 05/26/16 18:25 Blood - Peripheral Venous Blood Culture - Final NO GROWTH AFTER 5 DAYS INCUBATION 05/26/16 18:25 Blood - Peripheral Venous Blood Culture - Final NO GROWTH AFTER 5 DAYS INCUBATION 05/26/16 18:00 Urine - Urine - Catheterized Urine Culture - Final NO GROWTH OBTAINED Laboratory Tests 05/26/16 05/31/16 05/31/16 18:25 20:40 21:00 WBC Hgb Hct Plt Count INR 1.14 ABG pH 7.49 H ABG pCO2 at Pt Temp 37.6 ABG pO2 at Pt Temp 42.3 L* D O2 Delivery Device Ventimask Oxygen Flow Rate 50% Random Glucose Total Bilirubin ALT Alkaline Phosphatase Urine RBC 1528 Urine WBC 0-2 06/01/16 06/01/16 05:20 05:20 WBC 17.3 H Hgb 10.4 L Hct 31.0 L Plt Count 347 D INR ABG pH ABG pCO2 at Pt Temp ABG pO2 at Pt Temp O2 Delivery Device Oxygen Flow Rate Random Glucose 173 H D Total Bilirubin 0.7 ALT 69 D Alkaline Phosphatase 128 H D Urine RBC Urine WBC Assessment Recent influenza Respiratory failure ? Post influenza bacterial PNA ( Staph pneumococcus) Consider possibility of aspiration Hyponatremia MS Plan Can stop droplet precautions Broaden coverage for aspiration Annamaria Mccann MD
[2016-06-01] MEDS: guaiFENesin 600 MG TABLET.ER (FP) PO SCH ×2 (10:58→22:58)
[2016-06-01] MEDS: DOCUSATE SODIUM 100 MG CAPSULE (FP) PO SCH ×2 (10:58→22:58)
[2016-06-01] MEDS: VANCOMYCIN 1 GRAM (PRE-DOCKED) 250 ML IVPB SCH ×2 (10:59→22:58)
[2016-06-01] MEDS: GABAPENTIN 100 MG CAPSULE (FP) PO SCH ×4 (10:59→22:58)
[2016-06-01] MEDS: NIFEdipine E.R. 30 MG TABLET (FP) PO SCH (10:59)
[2016-06-01] MEDS: AZITHROMYCIN IVPB 250 ML IVPB SCH (10:59)
[2016-06-01] MEDS ORDERED: PT OWN MED DRAWER 7, Y5N ONE (11:01)
[2016-06-01] MEDS ORDERED: MIDAZOLAM HCL 2 MG/2 ML SINGLE DOSE VIAL ONE ×2 (11:48→12:02)
--- NOTE | 2016-06-01 12:01 | PN ---
Progress Note (short form) - Note Progress Note: lethargic /sitting up unable to handle secretions family at bedside discussion on plan of treatment agree to intubate / ngt feeds Vital Signs Period Temp Pulse Resp BP Sys/Cobb Pulse Ox Last 24 Hr 98.8 F-100.4 F 82-111 20-30 161-196/56-90 94-97 neck no jvd heart reg S1/S2 lungs scattered rhonchi / occasional wheezing abd soft ext no edema / foot drop right LE Intake & Output 05/29/16 05/30/16 05/31/16 06/01/16 23:59 23:59 23:59 23:59 Intake Total 2072 298 5988 700 Output Total 450 2260 Balance 1634 -350 -836 700 Weight 139 lb 9 oz 138 lb 7 oz CBC, BMP 06/01/16 05:20 06/01/16 05:20 CXR - reviewed case discussed with ICU MD ( Dr. Naqvi) case discussed with daughter / all agree with present management. continue ICU care Problem List - Problems (1) Hyponatremia Code(s): E87.1 - HYPO-OSMOLALITY AND HYPONATREMIA (2) Right lower lobe pneumonia Code(s): J18.9 - PNEUMONIA, UNSPECIFIED ORGANISM (3) Influenza A Code(s): J10.1 - FLU DUE TO OTH IDENT INFLUENZA VIRUS W OTH RESP MANIFEST (4) Multiple sclerosis Code(s): G35 - MULTIPLE SCLEROSIS (5) Hypothyroid Code(s): E03.9 - HYPOTHYROIDISM, UNSPECIFIED (6) Hyperlipemia Code(s): E78.5 - HYPERLIPIDEMIA, UNSPECIFIED (8) Neuropathic pain of both legs Code(s): G57.91 - UNSPECIFIED MONONEUROPATHY OF RIGHT LOWER LIMB G57.92 - UNSPECIFIED MONONEUROPATHY OF LEFT LOWER LIMB (9) Fever Code(s): R50.9 - FEVER, UNSPECIFIED Qualifiers: Fever type: unspecified Qualified Code(s): R50.9 - Fever, unspecified
--- NOTE | 2016-06-01 12:11 | PN ---
Progress Note (short form) - Note Progress Note: RENAL Pt seens and examined she was not verbally responsive comfortable Last Vital Signs Temp Pulse Resp BP Pulse Ox 99.9 F H 85 27 H 161/56 97 06/01/16 06:00 06/01/16 10:00 06/01/16 10:00 06/01/16 10:00 06/01/16 09:56 has a neck scar- ?thyroidectomy lungs clear cvs s1s2 rr abd soft ext no edema neuro awake CBC, BMP 06/01/16 05:20 06/01/16 05:20 Current Medications Generic Name Dose Route Start Last Admin Trade Name Freq PRN Reason Stop Dose Admin Acetaminophen 1,000 mg 05/27/16 01:22 05/31/16 07:03 Tylenol - PO 1,000 mg Q6H PRN Administration TEMP > 101* Albuterol/Ipratropium 1 amp 05/28/16 12:00 06/01/16 06:30 Duoneb - NEB 1 amp QIDR [facility] Administration Docusate Sodium 200 mg 05/28/16 10:15 06/01/16 10:58 Colace - PO Not Given BID [facility] Gabapentin 100 mg 05/28/16 22:00 06/01/16 10:59 Neurontin - PO Not Given QID [facility] Guaifenesin 600 mg 05/28/16 10:15 06/01/16 10:58 Mucinex - PO Not Given BID [facility] Azithromycin 250 mls @ 250 mls/hr 05/28/16 10:15 06/01/16 10:59 Zithromax 500mg Ivpb (Pre-Docked) IVPB 250 mls/hr DAILY [facility] Administration Sodium Chloride 1,000 mls @ 25 mls/hr 05/30/16 20:45 05/31/16 21:32 Normal Saline - IV 25 mls/hr ASDIR [facility] Administration Vancomycin HCl 250 mls @ 166.667 mls/hr 05/31/16 22:00 06/01/16 10:59 Vancomycin (Pre-Docked) IVPB 166.667 mls/hr BID [facility] Administration Ertapenem 1 gm/ Sodium 50 mls @ 100 mls/hr 06/01/16 10:00 Chloride IVPB DAILY [facility] Levothyroxine Sodium 50 mcg 05/28/16 07:00 06/01/16 06:43 Synthroid - PO Not Given DAILY@0700 [facility] Metoprolol Tartrate 5 mg 05/31/16 22:28 06/01/16 06:45 Lopressor Injection - IVPUSH 5 mg Q4H PRN Administration HYPERTENSION Nifedipine 30 mg 05/27/16 10:00 06/01/16 10:59 Procardia Xl - PO Not Given DAILY [facility] Ondansetron HCl 4 mg 05/29/16 00:30 05/29/16 22:35 Zofran Injection IVPB 4 mg Q6H PRN Administration NAUSEA AND/OR VOMITING Impression 1. hyponatremia - hypo-osmolar- patient was on hypotonic fluids early in the admission which worsened her sodium 2. Influenza 3. PNA with small effusion 4. multiple sclerosis 5. hyperlipidemia 6. hypothyroidism 7. HTN 8. proteinuria and microscopic hematuria Plan continue current management avoid hypotonic fluids antibiotics [facility]
[2016-06-01] MEDS: MIDAZOLAM 100 MG in SODIUM CHLORIDE 100 ML IVPB SCH (12:15)
[2016-06-01] MEDS ORDERED: MIDAZOLAM HCL 2 MG/2 ML SINGLE DOSE VIAL IVPUSH ONE (12:36)
--- NOTE | 2016-06-01 12:39 | PROC ---
Intubation - Intubation Reason for Intubation: Respiratory Failure Time of Intubation: 12:15 Intubation Method: orotracheal Blade used: Glidescope (4) Tube Size (cm): 7.5 Tube position @ lip (cm): 22 Tube position confirmed by: Direct visualization, CO2 detector, Chest x-ray, Breath sounds Breath Sounds after Intubation: equal Post Intubation Xray: Yes
--- NOTE | 2016-06-01 12:47 | PN ---
Progress Note (short form) - Note Progress Note: PULMONARY/CCM Pt seen and examined in the ICU. Lethargic on NRB. Weak cough. Intermittent fevers overnight with rising WBC. Last Vital Signs Temp Pulse Resp BP Pulse Ox 99.9 F H 82 27 H 162/88 97 06/01/16 06:00 06/01/16 12:00 06/01/16 12:00 06/01/16 12:00 06/01/16 09:56 Intake & Output 05/29/16 05/30/16 05/31/16 06/01/16 23:59 23:59 23:59 23:59 Intake Total 5611 521 8128 700 Output Total 450 2260 Balance 2634 -600 -493 700 Weight 139 lb 9 oz 138 lb 7 oz Gen: lethargic, shallow breaths Heart: RRR Lung: bibasilar bronchial breath sounds Abd: soft, nontender Ext: no edema CBC, BMP 06/01/16 05:20 06/01/16 05:20 CXR: bilateral infiltrates/effusions Active Medications Acetaminophen (Tylenol -) 1,000 mg PO Q6H PRN PRN Reason: TEMP > 101* Last Admin: 05/31/16 07:03 Dose: 1,000 mg Albuterol/Ipratropium (Duoneb -) 1 amp NEB [facility]IDR [facility] Last Admin: 06/01/16 06:30 Dose: 1 amp Docusate Sodium (Colace -) 200 mg PO BID [facility] Last Admin: 06/01/16 10:58 Dose: Not Given Fentanyl (Sublimaze Injection -) 200 mcg IVPUSH ONCE ONE Stop: 06/01/16 12:38 Gabapentin (Neurontin -) 100 mg PO QID [facility] Last Admin: 06/01/16 10:59 Dose: Not Given Guaifenesin (Mucinex -) 600 mg PO BID [facility] Last Admin: 06/01/16 10:58 Dose: Not Given Azithromycin (Zithromax 500mg Ivpb (Pre-Docked)) 250 mls @ 250 mls/hr IVPB DAILY [facility] Last Admin: 06/01/16 10:59 Dose: 250 mls/hr Sodium Chloride (Normal Saline -) 1,000 mls @ 25 mls/hr IV ASDIR [facility] Last Admin: 05/31/16 21:32 Dose: 25 mls/hr Vancomycin HCl (Vancomycin (Pre-Docked)) 250 mls @ 166.667 mls/hr IVPB BID [facility] Last Admin: 06/01/16 10:59 Dose: 166.667 mls/hr Ertapenem 1 gm/ Sodium (Chloride) 50 mls @ 100 mls/hr IVPB DAILY [facility] Midazolam HCl 100 mg/ Sodium (Chloride) 100 mls @ 1 mls/hr IVPB TITR [facility]; 1 MG/ HR PRN Reason: Protocol Fentanyl 500 mcg/ Dextrose 100 mls @ 10 mls/hr IJ TITR [facility] PRN Reason: 50 MCG/HR Levothyroxine Sodium (Synthroid -) 50 mcg PO DAILY@0700 [facility] Last Admin: 06/01/16 06:43 Dose: Not Given Metoprolol Tartrate (Lopressor Injection -) 5 mg IVPUSH Q4H PRN PRN Reason: HYPERTENSION Last Admin: 06/01/16 06:45 Dose: 5 mg Midazolam HCl (Versed -) 8 mg IVPUSH ONCE ONE Stop: 06/01/16 12:37 Nifedipine (Procardia Xl -) 30 mg PO DAILY [facility] Last Admin: 06/01/16 10:59 Dose: Not Given Ondansetron HCl (Zofran Injection) 4 mg IVPB Q6H PRN PRN Reason: NAUSEA AND/OR VOMITING Last Admin: 05/29/16 22:35 Dose: 4 mg A/P Acute Respiratory Failure Pneumonia likely Aspiration Hyponatremia Influenza A Multiple Sclerosis HTN Hypothyroidism - intubated for respiratory failure, pt low anterior with small mouth, used Glidescope, thick dry secretions in airway - send sputum culture - IVF per renal - continue antibiotics - avoid propofol per neurology - will sedate with versed/fentanyl - monitor sodium level - BP control - start enteral feeds once CXR confirms placement - DVT/GI prophylaxis - ICU monitoring
[2016-06-01 13:49] LABS: ARTERIAL BLD GAS O2 SATURATION 99.4 % (90-98.9); ARTERIAL BLOOD GAS BASE EXCESS 4.4 meq/l (-2-2); ARTERIAL BLOOD GAS HCO3 28.2 meq/L (22-26); ARTERIAL BLOOD GAS pH 7.45 (7.35-7.45)
[2016-06-01 13:50] LABS: ALLENS TEST POSITIVE; ART PUNCT SITE RIGHT RADIAL; LPM/O2% 100%; MECH. VENT. ESPRIT; PT. ON O2? YES; TYPE OF O2 OT; VENT RATE 12; VT/PRESS 450
[2016-06-01] MEDS: ERTAPENEM SODIUM 1 GM in SODIUM CHLORIDE 50 ML IVPB SCH (14:03)
[2016-06-01] MEDS: FENTANYL INJECTION 500 MCG in DEXTROSE 5%-WATER - 90 ML IJ SCH ×2 (14:08→22:59)
[2016-06-01] MEDS: SODIUM CHLORIDE 1,000 ML IV SCH (22:58)
[2016-06-02] MEDS: ALBUTEROL SO4 2.5/IPRATROPIUM 0.5 INH SOL 3 ML VIAL.NEB. NEB SCH ×2 (05:21→11:15)
[2016-06-02] MEDS: LEVOTHYROXINE NA 50 MCG TABLET (FP) PO SCH (06:37)
[2016-06-02 06:47] LABS: MCH 29.2 pg (25.7-33.7); MCHC 33.2 g/dl (32.0-36.0); MEAN CELL VOLUME 88.1 fl (80-96); MEAN PLT VOLUME 9.5 fl (7.5-11.1); PLATELET COUNT 361 K/MM3 (134-434); RDW 13.6 % (11.6-15.6); WHITE BLOOD COUNT 12.4 K/mm3 (4.0-10.0)
[2016-06-02 07:09] LABS: CALCIUM 8.1 mg/dL (8.5-10.1)
[2016-06-02 07:15] LABS: ALBUMIN 1.8 g/dl (3.4-5.0); BILIRUBIN,TOTAL 0.4 mg/dL (0.2-1.0); CREATININE 0.9 mg/dL (0.55-1.02); MAGNESIUM 2.2 mg/dL (1.8-2.4); PHOSPHOROUS 2.4 mg/dL (2.5-4.9); TOT PROT 4.8 g/dl (6.4-8.2)
[2016-06-02 08:09] LABS: ARTERIAL BLD GAS O2 SATURATION 98.8 % (90-98.9); ARTERIAL BLOOD GAS BASE EXCESS 5.5 meq/l (-2-2); ARTERIAL BLOOD GAS HCO3 28.6 meq/L (22-26)
[2016-06-02 08:16] LABS: ALLENS TEST POSITIVE; ART PUNCT SITE RIGHT RADIAL; PT. ON O2? YES
[2016-06-02 08:17] LABS: LPM/O2% 60; MECH. VENT. YES; TYPE OF O2 MECH VENT; VENT RATE 12; VT/PRESS 450
[2016-06-02] MEDS ORDERED: PT OWN MED DRAWER 7, Y5N ONE (09:31)
[2016-06-02] MEDS: ERTAPENEM SODIUM 1 GM in SODIUM CHLORIDE 50 ML IVPB SCH (09:47)
[2016-06-02] MEDS: GABAPENTIN 100 MG CAPSULE (FP) PO SCH ×4 (10:01→21:14)
[2016-06-02] MEDS: guaiFENesin 600 MG TABLET.ER (FP) PO SCH ×2 (10:02→21:14)
[2016-06-02] MEDS: VANCOMYCIN 1 GRAM (PRE-DOCKED) 250 ML IVPB SCH ×2 (10:03→21:14)
[2016-06-02 10:11] LABS: METAMYELOCYTE 1 % (0-2); PLATELET ESTIMATE ADEQUATE (NORMAL)
[2016-06-02] MEDS: DOCUSATE SODIUM 100 MG CAPSULE (FP) PO SCH ×2 (10:30→21:14)
[2016-06-02] MEDS: AZITHROMYCIN IVPB 250 ML IVPB SCH (10:30)
--- NOTE | 2016-06-02 10:55 | PN ---
Progress Note (short form) - Note Progress Note: RENAL Pt seen and examined she was not verbally responsive required intubation for lethargy Last Vital Signs Temp Pulse Resp BP Pulse Ox 99.4 F 86 14 126/46 98 06/01/16 18:30 06/02/16 10:00 06/02/16 10:00 06/02/16 10:00 06/01/16 22:03 has a neck scar- ?thyroidectomy lungs clear cvs s1s2 rr abd soft ext no edema neuro not responding Current Medications Generic Name Dose Route Start Last Admin Trade Name Freq PRN Reason Stop Dose Admin Acetaminophen 1,000 mg 05/27/16 01:22 05/31/16 07:03 Tylenol - PO 1,000 mg Q6H PRN Administration TEMP > 101* Albuterol/Ipratropium 1 amp 05/28/16 12:00 06/02/16 05:21 Duoneb - NEB 1 amp QIDR [facility] Administration Docusate Sodium 200 mg 05/28/16 10:15 06/02/16 10:30 Colace - PO Not Given BID [facility] Gabapentin 100 mg 05/28/16 22:00 06/02/16 10:01 Neurontin - PO 100 mg QID [facility] Administration Guaifenesin 600 mg 05/28/16 10:15 06/02/16 10:02 Mucinex - PO 600 mg BID [facility] Administration Hydralazine HCl 10 mg 06/01/16 12:50 Apresoline Injection - IVPUSH Q6H PRN HYPERTENSION Azithromycin 250 mls @ 250 mls/hr 05/28/16 10:15 06/02/16 10:30 Zithromax 500mg Ivpb (Pre-Docked) IVPB 250 mls/hr DAILY [facility] Administration Sodium Chloride 1,000 mls @ 25 mls/hr 05/30/16 20:45 06/01/16 22:58 Normal Saline - IV Not Given ASDIR [facility] Vancomycin HCl 250 mls @ 166.667 mls/hr 05/31/16 22:00 06/02/16 10:03 Vancomycin (Pre-Docked) IVPB 166.667 mls/hr BID [facility] Administration Ertapenem 1 gm/ Sodium 50 mls @ 100 mls/hr 06/01/16 10:00 06/02/16 09:47 Chloride IVPB 100 mls/hr DAILY [facility] Administration Midazolam HCl 100 mg/ Sodium 100 mls @ 1 mls/hr 06/01/16 12:45 06/01/16 12:15 Chloride IVPB 2 mls/hr TITR [facility] Administration Protocol 1 MG/HR Fentanyl 500 mcg/ Dextrose 100 mls @ 10 mls/hr 06/01/16 12:45 06/01/16 22:59 IJ 10 mls/hr TITR [facility] Administration 50 MCG/HR Levothyroxine Sodium 50 mcg 05/28/16 07:00 06/02/16 06:37 Synthroid - PO Not Given DAILY@0700 [facility] Metoprolol Tartrate 5 mg 05/31/16 22:28 06/01/16 06:45 Lopressor Injection - IVPUSH 5 mg Q4H PRN Administration HYPERTENSION Ondansetron HCl 4 mg 05/29/16 00:30 05/29/16 22:35 Zofran Injection IVPB 4 mg Q6H PRN Administration NAUSEA AND/OR VOMITING CBC, BMP 06/02/16 05:20 06/02/16 05:20 Impression 1. hyponatremia - hypo-osmolar- patient was on hypotonic fluids early in the admission which worsened her sodium 2. Influenza 3. PNA with small effusion 4. multiple sclerosis 5. hyperlipidemia 6. hypothyroidism 7. HTN 8. proteinuria and microscopic hematuria 9. AMS- encephalopathy not likely due to sodium 10 resp and met alk on ABG Plan continue current management avoid hypotonic fluids antibiotics may need eeg to make sure she isnot seizing given the ertapenem increase saline [facility]
[2016-06-02] MEDS: SODIUM CHLORIDE 1,000 ML IV SCH (11:05)
--- NOTE | 2016-06-02 11:32 | PN ---
Progress Note (short form) - Note Progress Note: PULMONARY/CCM Pt seen and examined in the ICU. Remains intubated, sedated. Oxygenating well on 60% FiO2 and PEEP 10. Low grade temp this AM. Last Vital Signs Temp Pulse Resp BP Pulse Ox 100.3 F H 88 14 126/46 95 06/02/16 10:00 06/02/16 11:16 06/02/16 11:16 06/02/16 10:00 06/02/16 11:16 Intake & Output 05/30/16 05/31/16 06/01/16 06/02/16 23:59 23:59 23:59 23:59 Intake Total 124 1887 1797 708 Output Total 450 2260 150 350 Balance -326 -373 1647 358 Weight 139 lb 9 oz 138 lb 7 oz 142 lb 2 oz Gen: intubated, sedated Heart: RRR Lung: bibasilar bronchial breath sounds Abd: soft, nontender Ext: no edema CBC, BMP 06/02/16 05:20 06/02/16 05:20 Active Medications Acetaminophen (Tylenol -) 1,000 mg PO Q6H PRN PRN Reason: TEMP > 101* Last Admin: 05/31/16 07:03 Dose: 1,000 mg Albuterol/Ipratropium (Duoneb -) 1 amp NEB QIDR [facility] Last Admin: 06/02/16 05:21 Dose: 1 amp Docusate Sodium (Colace -) 200 mg PO BID [facility] Last Admin: 06/02/16 10:30 Dose: Not Given Gabapentin (Neurontin -) 100 mg PO QID [facility] Last Admin: 06/02/16 10:01 Dose: 100 mg Guaifenesin (Mucinex -) 600 mg PO BID [facility] Last Admin: 06/02/16 10:02 Dose: 600 mg Hydralazine HCl (Apresoline Injection -) 10 mg IVPUSH Q6H PRN PRN Reason: HYPERTENSION Azithromycin (Zithromax 500mg Ivpb (Pre-Docked)) 250 mls @ 250 mls/hr IVPB DAILY [facility] Last Admin: 06/02/16 10:30 Dose: 250 mls/hr Vancomycin HCl (Vancomycin (Pre-Docked)) 250 mls @ 166.667 mls/hr IVPB BID [facility] Last Admin: 06/02/16 10:03 Dose: 166.667 mls/hr Ertapenem 1 gm/ Sodium (Chloride) 50 mls @ 100 mls/hr IVPB DAILY [facility] Last Admin: 06/02/16 09:47 Dose: 100 mls/hr Midazolam HCl 100 mg/ Sodium (Chloride) 100 mls @ 1 mls/hr IVPB TITR [facility]; 1 MG/ HR PRN Reason: Protocol Last Admin: 06/01/16 12:15 Dose: 2 mls/hr Fentanyl 500 mcg/ Dextrose 100 mls @ 10 mls/hr IJ TITR [facility] PRN Reason: 50 MCG/HR Last Admin: 06/01/16 22:59 Dose: 10 mls/hr Sodium Chloride (Normal Saline -) 1,000 mls @ 50 mls/hr IV ASDIR [facility] Last Admin: 06/02/16 11:05 Dose: 50 mls/hr Levothyroxine Sodium (Synthroid -) 50 mcg PO DAILY@0700 [facility] Last Admin: 06/02/16 06:37 Dose: Not Given Metoprolol Tartrate (Lopressor Injection -) 5 mg IVPUSH Q4H PRN PRN Reason: HYPERTENSION Last Admin: 06/01/16 06:45 Dose: 5 mg Ondansetron HCl (Zofran Injection) 4 mg IVPB Q6H PRN PRN Reason: NAUSEA AND/OR VOMITING Last Admin: 05/29/16 22:35 Dose: 4 mg A/P Acute Respiratory Failure Pneumonia likely Aspiration Hyponatremia Influenza A Multiple Sclerosis HTN Hypothyroidism - continue antibiotics - f/u cultures - IVF per renal - avoid propofol per neurology - sedate with versed/fentanyl - monitor sodium level - BP control - tapered FiO2 to 40%, would keep PEEP as CXR findings likely partially due to atelectasis - enteral feeds - DVT/GI prophylaxis - ICU monitoring
[2016-06-02] MEDS: POLYETHYLENE GLYCOL 3350 119 GM BTL PO SCH (13:17)
[2016-06-02] MEDS: PANTOPRAZOLE SODIUM 100 ML IVPB SCH (13:17)
[2016-06-02] MEDS: ENOXAPARIN NA (PORCINE) 40 MG/0.4 ML DISP.SYRIN SQ SCH (13:17)
[2016-06-02] MEDS: MIDAZOLAM 100 MG in SODIUM CHLORIDE 100 ML IVPB SCH (15:17)
[2016-06-02] MEDS: FENTANYL INJECTION 500 MCG in DEXTROSE 5%-WATER - 90 ML IJ SCH (15:18)
--- NOTE | 2016-06-02 19:49 | PN ---
Progress Note (short form) - Note Progress Note: In ICU, examined at bedside patient sedated / intubated FiO2 60% Vital Signs Period Temp Pulse Resp BP Sys/Cobb Pulse Ox Last 24 Hr 99.6 F-100.3 F 72-90 10-16 112-136/40-57 93-98 neck -jvd heart reg S1/S2 lungs scattered rhonchi abd soft Ext no edema / right foot drop Intake & Output 05/30/16 05/31/16 06/01/16 06/02/16 23:59 23:59 23:59 23:59 Intake Total 124 1887 1797 2598 Output Total 450 2260 150 550 Balance -326 -373 1647 2048 Weight 139 lb 9 oz 138 lb 7 oz 142 lb 2 oz CBC, BMP 06/02/16 05:20 06/02/16 05:20 Microbiology 05/31/16 15:45 Blood - Peripheral Venous Blood Culture - Preliminary NO GROWTH OBTAINED AFTER 48 HOURS, INCUBATION TO CONTINUE FOR 3 DAYS. 05/31/16 15:40 Blood - Peripheral Venous Blood Culture - Preliminary NO GROWTH OBTAINED AFTER 48 HOURS, INCUBATION TO CONTINUE FOR 3 DAYS. 06/01/16 12:30 Sputum - Endotrachea Suction/Ventilator Gram Stain - Final 06/01/16 06:00 Urine - Urine - Catheterized Urine Culture - Final NO GROWTH OBTAINED 05/30/16 21:00 Urine - Urine - Catheterized Urine Culture - Final NO GROWTH OBTAINED 05/26/16 18:25 Blood - Peripheral Venous Blood Culture - Final NO GROWTH AFTER 5 DAYS INCUBATION 05/26/16 18:25 Blood - Peripheral Venous Blood Culture - Final NO GROWTH AFTER 5 DAYS INCUBATION 05/30/16 21:00 Urine For Antigen Detection Legionella Antigen - Final 05/30/16 21:00 Urine For Antigen Detection Streptococcus pneumoniae Antigen (M - Final 05/26/16 18:00 Urine - Urine - Catheterized Urine Culture - Final NO GROWTH OBTAINED 05/26/16 18:25 Nasopharyngeal Swab Influenza Types A,B Antigen (AS[facility]IE) - Final 05/26/16 18:25 Nasopharyngeal Swab - Final Active Medications Acetaminophen (Tylenol -) 1,000 mg PO Q6H PRN PRN Reason: TEMP > 101* Last Admin: 05/31/16 07:03 Dose: 1,000 mg Docusate Sodium (Colace -) 200 mg PO BID [facility] Last Admin: 06/02/16 10:30 Dose: Not Given Enoxaparin Sodium (Lovenox -) 40 mg SQ DAILY [facility] Last Admin: 06/02/16 13:17 Dose: 40 mg Gabapentin (Neurontin -) 100 mg PO QID [facility] Last Admin: 06/02/16 17:48 Dose: 100 mg Guaifenesin (Mucinex -) 600 mg PO BID [facility] Last Admin: 06/02/16 10:02 Dose: 600 mg Hydralazine HCl (Apresoline Injection -) 10 mg IVPUSH Q6H PRN PRN Reason: HYPERTENSION Azithromycin (Zithromax 500mg Ivpb (Pre-Docked)) 250 mls @ 250 mls/hr IVPB DAILY [facility] Last Admin: 06/02/16 10:30 Dose: 250 mls/hr Vancomycin HCl (Vancomycin (Pre-Docked)) 250 mls @ 166.667 mls/hr IVPB BID [facility] Last Admin: 06/02/16 10:03 Dose: 166.667 mls/hr Ertapenem 1 gm/ Sodium (Chloride) 50 mls @ 100 mls/hr IVPB DAILY [facility] Last Admin: 06/02/16 09:47 Dose: 100 mls/hr Midazolam HCl 100 mg/ Sodium (Chloride) 100 mls @ 1 mls/hr IVPB TITR [facility]; 1 MG/ HR PRN Reason: Protocol Last Admin: 06/02/16 15:17 Dose: 2 mls/hr Fentanyl 500 mcg/ Dextrose 100 mls @ 10 mls/hr IJ TITR [facility] PRN Reason: 50 MCG/HR Last Admin: 06/02/16 15:18 Dose: 10 mls/hr Sodium Chloride (Normal Saline -) 1,000 mls @ 50 mls/hr IV ASDIR [facility] Last Admin: 06/02/16 11:05 Dose: 50 mls/hr Pantoprazole Sodium (Protonix 40mg Ivpb (Pre-Docked)) 100 mls @ 200 mls/hr IVPB DAILY [facility] Last Admin: 06/02/16 13:17 Dose: 200 mls/hr Levothyroxine Sodium (Synthroid -) 50 mcg PO DAILY@0700 [facility] Last Admin: 06/02/16 06:37 Dose: Not Given Metoprolol Tartrate (Lopressor Injection -) 5 mg IVPUSH Q4H PRN PRN Reason: HYPERTENSION Last Admin: 06/01/16 06:45 Dose: 5 mg Ondansetron HCl (Zofran Injection) 4 mg IVPB Q6H PRN PRN Reason: NAUSEA AND/OR VOMITING Last Admin: 05/29/16 22:35 Dose: 4 mg Polyethylene Glycol (Miralax (For Daily Use) -) 17 gm PO DAILY [facility] Last Admin: 06/02/16 13:17 Dose: 17 grams Assmt Acute Respiratory Failure change in mental status Hyponatremia Pneumonia likely Aspiration Influenza A Multiple Sclerosis HTN Hypothyroidism Plan discussed care with Dr Naqvi ( ICU ) continue abx Intubation and nutritional support monitor Na follow h/h as decreased this am Taper to wean vent support as per Pulm continue ICU care Problem List - Problems (1) Hyponatremia Code(s): E87.1 - HYPO-OSMOLALITY AND HYPONATREMIA (2) Right lower lobe pneumonia Code(s): J18.9 - PNEUMONIA, UNSPECIFIED ORGANISM (3) Influenza A Code(s): J10.1 - FLU DUE TO OTH IDENT INFLUENZA VIRUS W OTH RESP MANIFEST (4) Multiple sclerosis Code(s): G35 - MULTIPLE SCLEROSIS (5) Hypothyroid Code(s): E03.9 - HYPOTHYROIDISM, UNSPECIFIED (6) Hyperlipemia Code(s): E78.5 - HYPERLIPIDEMIA, UNSPECIFIED (8) Neuropathic pain of both legs Code(s): G57.91 - UNSPECIFIED MONONEUROPATHY OF RIGHT LOWER LIMB G57.92 - UNSPECIFIED MONONEUROPATHY OF LEFT LOWER LIMB (9) Fever Code(s): R50.9 - FEVER, UNSPECIFIED Qualifiers: Fever type: unspecified Qualified Code(s): R50.9 - Fever, unspecified
[2016-06-03 06:19] LABS: MCH 29.5 pg (25.7-33.7); MCHC 33.4 g/dl (32.0-36.0); MEAN CELL VOLUME 88.1 fl (80-96); MEAN PLT VOLUME 8.9 fl (7.5-11.1); PLATELET COUNT 418 K/MM3 (134-434); RDW 13.8 % (11.6-15.6); WHITE BLOOD COUNT 9.8 K/mm3 (4.0-10.0)
[2016-06-03 06:41] LABS: ALBUMIN 1.6 g/dl (3.4-5.0); BILIRUBIN,TOTAL 0.3 mg/dL (0.2-1.0); CALCIUM 7.7 mg/dL (8.5-10.1); CREATININE 1.2 mg/dL (0.55-1.02); MAGNESIUM 2.2 mg/dL (1.8-2.4); PHOSPHOROUS 2.8 mg/dL (2.5-4.9); TOT PROT 4.6 g/dl (6.4-8.2)
[2016-06-03 07:46] LABS: ALLENS TEST POSITIVE; ART PUNCT SITE RIGHT RADIAL; ARTERIAL BLD GAS O2 SATURATION 96.9 % (90-98.9); ARTERIAL BLOOD GAS BASE EXCESS 3.6 meq/l (-2-2); ARTERIAL BLOOD GAS HCO3 27.6 meq/L (22-26); ARTERIAL BLOOD GAS PO2 89.2 mmHg (68-100); ARTERIAL BLOOD GAS pH 7.44 (7.35-7.45); LPM/O2% 40%; PT. ON O2? YES; TYPE OF O2 MEC.VENT
[2016-06-03 07:47] LABS: MECH. VENT. ESPRIT; VENT RATE 12; VT/PRESS 425
--- NOTE | 2016-06-03 07:56 | PN ---
Progress Note (short form) - Note Progress Note: ID Intubated Ertepenem day 2 Pneumonia Having fever now 102 Selected Entries 06/03/16 02:00 Temperature 101.7 F H Pulse Rate 89 Respiratory 14 Rate Blood Pressure 124/40 Lung Rhonchi bilaterally Cor S1 S2 RR Abd Soft nontender BS positive Ext No CCE Microbiology 06/01/16 12:30 Sputum - Endotrachea Suction/Ventilator Gram Stain - Final 06/01/16 06:00 Urine - Urine - Catheterized Urine Culture - Final NO GROWTH OBTAINED 05/31/16 15:45 Blood - Peripheral Venous Blood Culture - Preliminary NO GROWTH OBTAINED AFTER 48 HOURS, INCUBATION TO CONTINUE FOR 3 DAYS. 05/31/16 15:40 Blood - Peripheral Venous Blood Culture - Preliminary NO GROWTH OBTAINED AFTER 48 HOURS, INCUBATION TO CONTINUE FOR 3 DAYS. Laboratory Tests 06/03/16 06/03/16 06/03/16 05:00 05:00 07:35 WBC 9.8 Hgb 8.3 L Plt Count 418 ABG pH 7.44 ABG pO2 at Pt Temp 89.2 D Oxygen Flow Rate 40% BUN 22 H D Creatinine 1.2 H D Magnesium 2.2 ALT 39 D Alkaline Phosphatase 112 Assessment Pneumonia extensive possible aspiration vs post influenza Respiratory failure Intermittent fevers since admission Aleteration of mental status Recent Influenza Fevers Plan Patient has been on antibiotics since admission 05/26 thus 8 days Has fever unclear why at this time Repeat cultures sent and pending. Continue ertpenem till tomorrow. If nondiagnosistic as to fever would STOP all antibiotics and wait and watch reculture Ramy ROMERO
--- NOTE | 2016-06-03 09:24 | PN ---
Progress Note (short form) - Note Progress Note: seen and examined in ICU sedated ventilated FiO2 down to 40% O2 sat @99% Vital Signs Period Temp Pulse Resp BP Sys/Cobb Pulse Ox Last 24 Hr 99.6 F-101.7 F 83-90 10-18 112-126/36-49 93-96 Oral NGT / Intubated neck -jvd heart regular S1/S2 lungs good air movemetn abd soft ext no edema Intake & Output 05/31/16 06/01/16 06/02/16 06/03/16 23:59 23:59 23:59 23:59 Intake Total 1887 1797 2698 1344 Output Total 2260 150 750 350 Balance -373 1647 1948 994 Weight 139 lb 9 oz 138 lb 7 oz 142 lb 2 oz 142 lb 8 oz CBC, BMP 06/03/16 05:00 06/03/16 05:00 Microbiology 05/31/16 15:45 Blood - Peripheral Venous Blood Culture - Preliminary NO GROWTH OBTAINED AFTER 48 HOURS, INCUBATION TO CONTINUE FOR 3 DAYS. 05/31/16 15:40 Blood - Peripheral Venous Blood Culture - Preliminary NO GROWTH OBTAINED AFTER 48 HOURS, INCUBATION TO CONTINUE FOR 3 DAYS. 06/01/16 12:30 Sputum - Endotrachea Suction/Ventilator Gram Stain - Final 06/01/16 06:00 Urine - Urine - Catheterized Urine Culture - Final NO GROWTH OBTAINED 05/30/16 21:00 Urine - Urine - Catheterized Urine Culture - Final NO GROWTH OBTAINED 05/26/16 18:25 Blood - Peripheral Venous Blood Culture - Final NO GROWTH AFTER 5 DAYS INCUBATION 05/26/16 18:25 Blood - Peripheral Venous Blood Culture - Final NO GROWTH AFTER 5 DAYS INCUBATION 05/30/16 21:00 Urine For Antigen Detection Legionella Antigen - Final 05/30/16 21:00 Urine For Antigen Detection Streptococcus pneumoniae Antigen (M - Final 05/26/16 18:00 Urine - Urine - Catheterized Urine Culture - Final NO GROWTH OBTAINED 05/26/16 18:25 Nasopharyngeal Swab Influenza Types A,B Antigen (ASHLIE) - Final 05/26/16 18:25 Nasopharyngeal Swab - Final Assmt MIRNA -- inc BUN/Cr Acute Respiratory Failure FiO2 down to 40 % Hyponatremia Na up to 131 Pneumonia likely Aspiration improving Influenza A treatment completed Multiple Sclerosis stable HTN Hypothyroidism Plan discussed care with Dr Naqvi ( ICU ) continue abx Intubation and nutritional support monitor Na follow h/h as decreased this am follow renal function - will need free water Taper to wean vent support as per Pulm continue ICU care Daughter notified of todays finding Problem List - Problems (1) Hyponatremia Code(s): E87.1 - HYPO-OSMOLALITY AND HYPONATREMIA (2) Right lower lobe pneumonia Code(s): J18.9 - PNEUMONIA, UNSPECIFIED ORGANISM (3) Influenza A Code(s): J10.1 - FLU DUE TO OTH IDENT INFLUENZA VIRUS W OTH RESP MANIFEST (4) Multiple sclerosis Code(s): G35 - MULTIPLE SCLEROSIS (5) Hypothyroid Code(s): E03.9 - HYPOTHYROIDISM, UNSPECIFIED (6) Hyperlipemia Code(s): E78.5 - HYPERLIPIDEMIA, UNSPECIFIED (8) Neuropathic pain of both legs Code(s): G57.91 - UNSPECIFIED MONONEUROPATHY OF RIGHT LOWER LIMB G57.92 - UNSPECIFIED MONONEUROPATHY OF LEFT LOWER LIMB (9) Fever Code(s): R50.9 - FEVER, UNSPECIFIED Qualifiers: Fever type: unspecified Qualified Code(s): R50.9 - Fever, unspecified
[2016-06-03] MEDS: ERTAPENEM SODIUM 1 GM in SODIUM CHLORIDE 50 ML IVPB SCH (10:27)
[2016-06-03] MEDS: DOCUSATE SODIUM 100 MG CAPSULE (FP) PO SCH ×2 (10:27→21:17)
[2016-06-03] MEDS: PANTOPRAZOLE SODIUM 100 ML IVPB SCH (10:27)
[2016-06-03] MEDS: POLYETHYLENE GLYCOL 3350 119 GM BTL PO SCH (10:31)
[2016-06-03] MEDS: ENOXAPARIN NA (PORCINE) 40 MG/0.4 ML DISP.SYRIN SQ SCH (10:31)
[2016-06-03] MEDS: guaiFENesin 600 MG TABLET.ER (FP) PO SCH ×2 (10:32→21:16)
[2016-06-03] MEDS: GABAPENTIN 100 MG CAPSULE (FP) PO SCH ×4 (10:32→21:16)
[2016-06-03] MEDS: ACETAMINOPHEN 500 MG TABLET (FP) PO PRN ×2 (10:34→22:06)
[2016-06-03] MEDS: VANCOMYCIN 1 GRAM (PRE-DOCKED) 250 ML IVPB SCH ×2 (11:00→21:16)
[2016-06-03 11:55] LABS: METAMYELOCYTE 1 % (0-2); PLATELET ESTIMATE ADEQUATE (NORMAL)
[2016-06-03] MEDS: SODIUM CHLORIDE 1,000 ML IV SCH (11:55)
[2016-06-03] MEDS: AZITHROMYCIN IVPB 250 ML IVPB SCH (12:00)
--- NOTE | 2016-06-03 13:31 | PN ---
Physical Exam: SUBJECTIVE: Patient seen and examined in ICU at bedside this AM. She is intubated and sedated, with family at bedside. Attempted holding sedation to assess patients mental status but generally nonresponsive. May attempt to wean off ventilator tomorrow. OBJECTIVE: Vital Signs Period Temp Pulse Resp BP Sys/Cobb Pulse Ox Last 24 Hr 99.6 F-101.7 F 83-90 12-18 118-125/36-49 95-96 GENERAL: The patient is sedated & intubated. In no acute distress. HEENT: Atraumatic, PERRLA, No lymphadenopathy noted, dry membranes LUNGS: Diffuse scattered rales, diminished breath sounds bilaterally HEART: RRR, S1S2 ABDOMEN: Soft, nontender, nondistended, normoactive bowel sounds EXTREMITIES: 2+ pulses, warm, well-perfused, no edema. SKIN: Warm, dry, normal turgor, no rashes or lesions noted Laboratory Results - last 24 hr 06/03/16 06/03/16 06/03/16 05:00 05:00 07:35 WBC 9.8 RBC 2.83 L Hgb 8.3 L Hct 24.9 L MCV 88.1 MCHC 33.4 RDW 13.8 Plt Count 418 MPV 8.9 Neutrophils % 72.0 Lymphocytes % 17.0 D Monocytes % 6.0 Eosinophils % 4.0 D Metamyelocytes 1 Differential Comment Manual diff done Platelet Estimate Adequate Puncture Site Right radial ABG pH 7.44 ABG pCO2 at Pt Temp 41.4 ABG pO2 at Pt Temp 89.2 D ABG HCO3 27.6 H ABG O2 Sat (Measured) 96.9 ABG O2 Content 13.6 L ABG Base Excess 3.6 H Paulino Test Positive O2 Delivery Device Mec.vent Oxygen Flow Rate 40% Vent Mode A/c Vent Rate 12 Mechanical Rate Esprit PEEP 7.0 Pressure Support Vent 425 Sodium 131 L Potassium 3.6 Chloride 93 L Carbon Dioxide 29 Anion Gap 9 BUN 22 H D Creatinine 1.2 H D Creat Clearance w eGFR 43.01 Random Glucose 135 H Calcium 7.7 L Phosphorus 2.8 Magnesium 2.2 Total Bilirubin 0.3 D AST 24 D ALT 39 D Alkaline Phosphatase 112 Total Protein 4.6 L Albumin 1.6 L Active Medications Generic Name Dose Route Start Last Admin Trade Name Freq PRN Reason Stop Dose Admin Acetaminophen 1,000 mg 05/27/16 01:22 06/03/16 10:34 Tylenol - PO 1,000 mg Q6H PRN Administration TEMP > 101* Docusate Sodium 200 mg 05/28/16 10:15 06/03/16 10:27 Colace - PO Not Given BID STEPHANIE Enoxaparin Sodium 40 mg 06/02/16 11:45 06/03/16 10:31 Lovenox - SQ 40 mg DAILY STEPHANIE Administration Gabapentin 100 mg 05/28/16 22:00 06/03/16 10:32 Neurontin - PO 100 mg QID STEPHANIE Administration Guaifenesin 600 mg 05/28/16 10:15 06/03/16 10:32 Mucinex - PO Not Given BID STEPHANIE Hydralazine HCl 10 mg 06/01/16 12:50 Apresoline Injection - IVPUSH Q6H PRN HYPERTENSION Azithromycin 250 mls @ 250 mls/hr 05/28/16 10:15 06/03/16 10:28 Zithromax 500mg Ivpb (Pre-Docked) IVPB 250 mls/hr DAILY STEPHANIE Administration Vancomycin HCl 250 mls @ 166.667 mls/hr 05/31/16 22:00 06/03/16 10:27 Vancomycin (Pre-Docked) IVPB 166.667 mls/hr BID STEPHANIE Administration Ertapenem 1 gm/ Sodium 50 mls @ 100 mls/hr 06/01/16 10:00 06/03/16 10:27 Chloride IVPB 100 mls/hr DAILY STEPHANIE Administration Midazolam HCl 100 mg/ Sodium 100 mls @ 1 mls/hr 06/01/16 12:45 06/03/16 09:00 Chloride IVPB 0 mg/hr TITR STEPHANIE Titration Protocol 1 MG/HR Fentanyl 500 mcg/ Dextrose 100 mls @ 10 mls/hr 06/01/16 12:45 06/03/16 09:00 IJ 0 mcg/hr TITR STEPHANIE Titration 50 MCG/HR Sodium Chloride 1,000 mls @ 50 mls/hr 06/02/16 11:01 06/03/16 11:55 Normal Saline - IV Not Given ASDIR STEPHANIE Pantoprazole Sodium 100 mls @ 200 mls/hr 06/02/16 11:30 06/03/16 10:27 Protonix 40mg Ivpb (Pre-Docked) IVPB 200 mls/hr DAILY STEPHANIE Administration Levothyroxine Sodium 50 mcg 05/28/16 07:00 06/02/16 06:37 Synthroid - PO Not Given DAILY@0700 STEPHANIE Metoprolol Tartrate 5 mg 05/31/16 22:28 06/01/16 06:45 Lopressor Injection - IVPUSH 5 mg Q4H PRN Administration HYPERTENSION Ondansetron HCl 4 mg 05/29/16 00:30 05/29/16 22:35 Zofran Injection IVPB 4 mg Q6H PRN Administration NAUSEA AND/OR VOMITING Polyethylene Glycol 17 gm 06/02/16 12:15 06/03/16 10:31 Miralax (For Daily Use) - PO 17 grams DAILY STEPHANIE Administration ASSESSMENT/PLAN: Patient is a 80 year old female with significant PMH of MS, HTN, HLF & Hypothyroidism who presents to ICU with hyponatremia. Patient has been treated for Influenza pneumonia in hospital since 05/27. Hypotonic fluids, cymbalta use & Lasix administration resulting in hyponatremia during hospital course. #Hyponatremia, Na 131 today -presently on IVF NS@ 50mls/hr -holding cymbalta, would not restart -free water restriction -Strict I & O's -no need for Lasix at present #Influenza Pneumonia -intubated at present, but holding sedation (can use low dose versed for agitation PRN) -ID consult appreciated -continue Azithromycin, Vancomycin, Ertapenem -Mucinex, w/ mucomyst treatment given earlier -chest PT -CXR in AM to assess effusion -blood cultures redrawn and pending #Acute Renal Failure (Cr elevated to 1.2 from 0.9 overnight) -will keep IVF NS@50ml/hr for now -ordered UA, Ur Sodium, Ur Creatinine to assess etiology of ARF -discussed with Nephrology #Multiple Sclerosis -continue gabapentin #Hypothyroidism -continue Synthroid 50mcg #Hypertension/Hyperlipidemia -continue Hydralazine, Lopressor PRN Prophylaxis/FEN -Lovenox, PPI -NS@ 50mls/hr, monitor electrolytes, Tubefeed jevity 1.5 -PO at present, tolerating but poor appetite Visit type - Emergency Visit Emergency Visit: Yes ED Registration Date: 05/26/16 Care time: The patient presented to the Emergency Department on the above date and was hospitalized for further evaluation of their emergent condition. - New Patient This patient is new to me today: No - Critical Care Critical Care patient: Yes Total Critical Care Time (in minutes): 40 Critical Care Statement: The care of this patient involved high complexity decision making to prevent further life threatening deterioration of the patient 's condition and/or to evalute & treat vital organ system(s) failure or risk of failure.
[2016-06-03] MEDS: MIDAZOLAM 100 MG in SODIUM CHLORIDE 100 ML IVPB SCH (13:45)
[2016-06-03] MEDS: FENTANYL INJECTION 500 MCG in DEXTROSE 5%-WATER - 90 ML IJ SCH (13:46)
--- NOTE | 2016-06-03 14:04 | PN ---
Teaching Attending Note Name of Resident: Pablo Dey ATTENDING PHYSICIAN STATEMENT I saw and evaluated the patient. I reviewed the resident's note and discussed the case with the resident. I agree with the resident's findings and plan as documented. SUBJECTIVE: Pt seen and examined in the ICU. Remains intubated, sedated. Febrile overnight. OBJECTIVE: Last Vital Signs Temp Pulse Resp BP Pulse Ox 100.8 F H 83 13 120/36 96 06/03/16 06:00 06/03/16 06:00 06/03/16 13:56 06/03/16 06:00 06/02/16 20:53 Intake & Output 05/31/16 06/01/16 06/02/16 06/03/16 23:59 23:59 23:59 23:59 Intake Total 1887 1797 2698 1344 Output Total 2260 150 750 350 Balance -373 1647 1948 994 Weight 139 lb 9 oz 138 lb 7 oz 142 lb 2 oz 142 lb 8 oz Gen: intubated, sedated Heart: RRR Lung: decreased breath sounds at the bases Abd: soft, nontender Ext: no edema CBC, BMP 06/03/16 05:00 06/03/16 05:00 Active Medications Acetaminophen (Tylenol -) 1,000 mg PO Q6H PRN PRN Reason: TEMP > 101* Last Admin: 06/03/16 10:34 Dose: 1,000 mg Docusate Sodium (Colace -) 200 mg PO BID [facility] Last Admin: 06/03/16 10:27 Dose: Not Given Enoxaparin Sodium (Lovenox -) 40 mg SQ DAILY [facility] Last Admin: 06/03/16 10:31 Dose: 40 mg Gabapentin (Neurontin -) 100 mg PO QID [facility] Last Admin: 06/03/16 10:32 Dose: 100 mg Guaifenesin (Mucinex -) 600 mg PO BID [facility] Last Admin: 06/03/16 10:32 Dose: Not Given Hydralazine HCl (Apresoline Injection -) 10 mg IVPUSH Q6H PRN PRN Reason: HYPERTENSION Azithromycin (Zithromax 500mg Ivpb (Pre-Docked)) 250 mls @ 250 mls/hr IVPB DAILY [facility] Last Admin: 06/03/16 12:00 Dose: 250 mls/hr Vancomycin HCl (Vancomycin (Pre-Docked)) 250 mls @ 166.667 mls/hr IVPB BID STEPHANIE Last Admin: 06/03/16 11:00 Dose: 166.667 mls/hr Ertapenem 1 gm/ Sodium (Chloride) 50 mls @ 100 mls/hr IVPB DAILY STEPHANIE Last Admin: 06/03/16 10:27 Dose: 100 mls/hr Midazolam HCl 100 mg/ Sodium (Chloride) 100 mls @ 1 mls/hr IVPB TITR STEPHANIE; 1 MG/ HR PRN Reason: Protocol Last Admin: 06/03/16 13:45 Dose: Not Given Fentanyl 500 mcg/ Dextrose 100 mls @ 10 mls/hr IJ TITR STEPHANIE PRN Reason: 50 MCG/HR Last Admin: 06/03/16 13:46 Dose: Not Given Sodium Chloride (Normal Saline -) 1,000 mls @ 50 mls/hr IV ASDIR STEPHANIE Last Admin: 06/03/16 11:55 Dose: Not Given Pantoprazole Sodium (Protonix 40mg Ivpb (Pre-Docked)) 100 mls @ 200 mls/hr IVPB DAILY [facility] Last Admin: 06/03/16 10:27 Dose: 200 mls/hr Levothyroxine Sodium (Synthroid -) 50 mcg PO DAILY@0700 [facility] Last Admin: 06/02/16 06:37 Dose: Not Given Metoprolol Tartrate (Lopressor Injection -) 5 mg IVPUSH Q4H PRN PRN Reason: HYPERTENSION Last Admin: 06/01/16 06:45 Dose: 5 mg Ondansetron HCl (Zofran Injection) 4 mg IVPB Q6H PRN PRN Reason: NAUSEA AND/OR VOMITING Last Admin: 05/29/16 22:35 Dose: 4 mg Polyethylene Glycol (Miralax (For Daily Use) -) 17 gm PO DAILY [facility] Last Admin: 06/03/16 10:31 Dose: 17 grams ASSESSMENT AND PLAN: Acute Respiratory Failure Pneumonia likely Aspiration Hyponatremia Influenza A Multiple Sclerosis HTN Hypothyroidism Acute Kidney Injury - continue antibiotics - f/u cultures - IVF per renal - monitor urine output, creatinine - avoid propofol per neurology - monitor sodium level - BP control - hold sedation to assess mental status - start spontaneous breathing trials as tolerated when mental status improved - enteral feeds - DVT/GI prophylaxis - ICU monitoring
--- NOTE | 2016-06-03 15:14 | PN ---
Progress Note, Physician History of Present Illness: Pt seen and examined at bedside. She is now intubated. She remains in the ICU. - Current Medication List Current Medications: Active Medications Acetaminophen (Tylenol -) 1,000 mg PO Q6H PRN PRN Reason: TEMP > 101* Last Admin: 06/03/16 10:34 Dose: 1,000 mg Docusate Sodium (Colace -) 200 mg PO BID [facility] Last Admin: 06/03/16 10:27 Dose: Not Given Enoxaparin Sodium (Lovenox -) 40 mg SQ DAILY [facility] Last Admin: 06/03/16 10:31 Dose: 40 mg Gabapentin (Neurontin -) 100 mg PO QID [facility] Last Admin: 06/03/16 10:32 Dose: 100 mg Guaifenesin (Mucinex -) 600 mg PO BID [facility] Last Admin: 06/03/16 10:32 Dose: Not Given Hydralazine HCl (Apresoline Injection -) 10 mg IVPUSH Q6H PRN PRN Reason: HYPERTENSION Azithromycin (Zithromax 500mg Ivpb (Pre-Docked)) 250 mls @ 250 mls/hr IVPB DAILY [facility] Last Admin: 06/03/16 12:00 Dose: 250 mls/hr Vancomycin HCl (Vancomycin (Pre-Docked)) 250 mls @ 166.667 mls/hr IVPB BID [facility] Last Admin: 06/03/16 11:00 Dose: 166.667 mls/hr Ertapenem 1 gm/ Sodium (Chloride) 50 mls @ 100 mls/hr IVPB DAILY [facility] Last Admin: 06/03/16 10:27 Dose: 100 mls/hr Midazolam HCl 100 mg/ Sodium (Chloride) 100 mls @ 1 mls/hr IVPB TITR STEPHANIE; 1 MG/ HR PRN Reason: Protocol Last Admin: 06/03/16 13:45 Dose: Not Given Fentanyl 500 mcg/ Dextrose 100 mls @ 10 mls/hr IJ TITR STEPHANIE PRN Reason: 50 MCG/HR Last Admin: 06/03/16 13:46 Dose: Not Given Sodium Chloride (Normal Saline -) 1,000 mls @ 50 mls/hr IV ASDIR [facility] Last Admin: 06/03/16 11:55 Dose: Not Given Pantoprazole Sodium (Protonix 40mg Ivpb (Pre-Docked)) 100 mls @ 200 mls/hr IVPB DAILY [facility] Last Admin: 06/03/16 10:27 Dose: 200 mls/hr Levothyroxine Sodium (Synthroid -) 50 mcg PO DAILY@0700 [facility] Last Admin: 06/02/16 06:37 Dose: Not Given Metoprolol Tartrate (Lopressor Injection -) 5 mg IVPUSH Q4H PRN PRN Reason: HYPERTENSION Last Admin: 06/01/16 06:45 Dose: 5 mg Ondansetron HCl (Zofran Injection) 4 mg IVPB Q6H PRN PRN Reason: NAUSEA AND/OR VOMITING Last Admin: 05/29/16 22:35 Dose: 4 mg Polyethylene Glycol (Miralax (For Daily Use) -) 17 gm PO DAILY [facility] Last Admin: 06/03/16 10:31 Dose: 17 grams - Objective Vital Signs: Vital Signs Temperature 98.0 F 06/03/16 10:00 Pulse Rate 79 06/03/16 14:00 Respiratory Rate 13 06/03/16 14:00 Blood Pressure 125/40 06/03/16 14:00 O2 Sat by Pulse Oximetry (%) 96 06/02/16 20:53 Constitutional: Yes: Calm Eyes: Yes: Conjunctiva Clear HENT: Yes: Atraumatic Neck: Yes: Supple Cardiovascular: Yes: S1, S2 Respiratory: Yes: Mechanically Ventilated Gastrointestinal: Yes: Soft Genitourinary: Yes: Obrien Present Musculoskeletal: Yes: Muscle Weakness Edema: No Neurological: Yes: Lethargy Labs: CBC, BMP 06/03/16 05:00 06/03/16 05:00 INR, PTT INR 1.14 (0.82-1.09) 05/26/16 18:25 - ....Imaging Chest X-ray: Report Reviewed Problem List - Problems (1) Hyperlipemia Code(s): E78.5 - HYPERLIPIDEMIA, UNSPECIFIED (2) Hypothyroid Code(s): E03.9 - HYPOTHYROIDISM, UNSPECIFIED (3) Influenza A Code(s): J10.1 - FLU DUE TO OTH IDENT INFLUENZA VIRUS W OTH RESP MANIFEST (4) Multiple sclerosis Code(s): G35 - MULTIPLE SCLEROSIS (5) Hyponatremia Code(s): E87.1 - HYPO-OSMOLALITY AND HYPONATREMIA Assessment/Plan Current Medications Generic Name Dose Route Start Last Admin Trade Name Freq PRN Reason Stop Dose Admin Acetaminophen 1,000 mg 05/27/16 01:22 06/03/16 10:34 Tylenol - PO 1,000 mg Q6H PRN Administration TEMP > 101* Docusate Sodium 200 mg 05/28/16 10:15 06/03/16 10:27 Colace - PO Not Given BID STEPHANIE Enoxaparin Sodium 40 mg 06/02/16 11:45 06/03/16 10:31 Lovenox - SQ 40 mg DAILY STEHPANIE Administration Gabapentin 100 mg 05/28/16 22:00 06/03/16 10:32 Neurontin - PO 100 mg QID STEPHANIE Administration Guaifenesin 600 mg 05/28/16 10:15 06/03/16 10:32 Mucinex - PO Not Given BID [facility] Hydralazine HCl 10 mg 06/01/16 12:50 Apresoline Injection - IVPUSH Q6H PRN HYPERTENSION Azithromycin 250 mls @ 250 mls/hr 05/28/16 10:15 06/03/16 12:00 Zithromax 500mg Ivpb (Pre-Docked) IVPB 250 mls/hr DAILY STEPHANIE Administration Vancomycin HCl 250 mls @ 166.667 mls/hr 05/31/16 22:00 06/03/16 11:00 Vancomycin (Pre-Docked) IVPB 166.667 mls/hr BID STEPHANIE Administration Ertapenem 1 gm/ Sodium 50 mls @ 100 mls/hr 06/01/16 10:00 06/03/16 10:27 Chloride IVPB 100 mls/hr DAILY STEPHANIE Administration Midazolam HCl 100 mg/ Sodium 100 mls @ 1 mls/hr 06/01/16 12:45 06/03/16 13:45 Chloride IVPB Not Given TITR STEPHANIE Protocol 1 MG/HR Fentanyl 500 mcg/ Dextrose 100 mls @ 10 mls/hr 06/01/16 12:45 06/03/16 13:46 IJ Not Given TITR STEPHANIE 50 MCG/HR Sodium Chloride 1,000 mls @ 50 mls/hr 06/02/16 11:01 06/03/16 11:55 Normal Saline - IV Not Given ASDIR STEPHANIE Pantoprazole Sodium 100 mls @ 200 mls/hr 06/02/16 11:30 06/03/16 10:27 Protonix 40mg Ivpb (Pre-Docked) IVPB 200 mls/hr DAILY STEPHANIE Administration Levothyroxine Sodium 50 mcg 05/28/16 07:00 06/02/16 06:37 Synthroid - PO Not Given DAILY@0700 [facility] Metoprolol Tartrate 5 mg 05/31/16 22:28 06/01/16 06:45 Lopressor Injection - IVPUSH 5 mg Q4H PRN Administration HYPERTENSION Ondansetron HCl 4 mg 05/29/16 00:30 05/29/16 22:35 Zofran Injection IVPB 4 mg Q6H PRN Administration NAUSEA AND/OR VOMITING Polyethylene Glycol 17 gm 06/02/16 12:15 06/03/16 10:31 Miralax (For Daily Use) - PO 17 grams DAILY STEPHANIE Administration Laboratory Tests 05/30/16 05/30/16 05/31/16 13:45 22:00 05:15 Serum Osmolality 248 L Cortisol AM Sample 38.1 Urine Protein Urine Glucose (UA) Urine Osmolality 516 05/31/16 21:00 Serum Osmolality Cortisol AM Sample Urine Protein 2+ H Urine Glucose (UA) 3+ H Urine Osmolality Impression 1. hyponatremia - hypo-osmolar 2. Influenza 3. PNA with small effusion 4. multiple sclerosis 5. hyperlipidemia 6. hypothyroidism 7. HTN 8. proteinuria and microscopic hematuria 9. MIRNA 10. respiratory failure requiring intubation Plan - sodium is improving - cont with normal saline - repeat ua, urine electrolytes and urine creatinine (to calc fena) - discussed with unit resident - check vanco level as creatinine is elevated - hyponatremia is likely multifactorial from diuretics, hypotonic fluids, cymbalta - would not give any lasix - caution with baclofen if mental status worsens - cont vent support - monitor urine output Dr Marrero
[2016-06-03 15:51] LABS: URINE APPEARANCE CLOUDY; URINE BILIRUBIN NEGATIVE (NEGATIVE); URINE BLOOD 3+ (NEGATIVE); URINE COLOR YELLOW; URINE GLUCOSE (UA) NEGATIVE (NEGATIVE); URINE KETONE NEGATIVE (NEGATIVE); URINE LEUK ESTERASE NEGATIVE (NEGATIVE); URINE NITRITE NEGATIVE (NEGATIVE); URINE PROTEIN 1+ (NEGATIVE); URINE UROBILINOGEN NEGATIVE E.U./dl (0.2-1.0)
[2016-06-03 15:56] LABS: URINE MUCUS RARE; URINE RBC 37 /hpf (0-3); URINE WBC 4 /hpf (3-5)
[2016-06-03 16:00] LABS: URINE CREATININE 58.1 mg/dL
[2016-06-03] MEDS ORDERED: PT OWN MED DRAWER 7, Y5N ONE (17:37)
[2016-06-04 06:12] LABS: MCH 29.5 pg (25.7-33.7); MCHC 33.5 g/dl (32.0-36.0); MEAN CELL VOLUME 88.2 fl (80-96); MEAN PLT VOLUME 8.8 fl (7.5-11.1); PLATELET COUNT 467 K/MM3 (134-434); RDW 13.7 % (11.6-15.6); WHITE BLOOD COUNT 11.5 K/mm3 (4.0-10.0)
[2016-06-04] MEDS: LEVOTHYROXINE SODIUM 100 MCG VIAL IVPUSH SCH (06:15)
[2016-06-04 06:41] LABS: ALBUMIN 1.7 g/dl (3.4-5.0); BILIRUBIN,TOTAL 0.3 mg/dL (0.2-1.0); CALCIUM 7.9 mg/dL (8.5-10.1); CREATININE 1.2 mg/dL (0.55-1.02); MAGNESIUM 2.4 mg/dL (1.8-2.4); PHOSPHOROUS 3.4 mg/dL (2.5-4.9); TOT PROT 5.1 g/dl (6.4-8.2)
[2016-06-04 07:29] LABS: ARTERIAL BLD GAS O2 SATURATION 96.4 % (90-98.9); ARTERIAL BLOOD GAS BASE EXCESS 4.6 meq/l (-2-2); ARTERIAL BLOOD GAS HCO3 28.3 meq/L (22-26); ARTERIAL BLOOD GAS PO2 80.7 mmHg (68-100)
[2016-06-04 07:30] LABS: ALLENS TEST POSITIVE; ART PUNCT SITE RIGHT RADIAL; LPM/O2% 35%; MECH. VENT. YES; PT. ON O2? YES; TYPE OF O2 MEC.VENT
[2016-06-04 07:35] LABS: ARTERIAL BLOOD GAS pH 7.47 (7.35-7.45)
[2016-06-04 07:38] LABS: VT/PRESS 425
[2016-06-04 07:39] LABS: VENT RATE 12
[2016-06-04] MEDS ORDERED: PT OWN MED DRAWER 7, Y5N ONE (08:40)
[2016-06-04] MEDS: SODIUM CHLORIDE 1,000 ML IV SCH (09:00)
[2016-06-04] MEDS: METOPROLOL TARTRATE 5 MG/5 ML VIAL IVPUSH PRN ×2 (09:13→16:36)
--- NOTE | 2016-06-04 10:05 | PN ---
[id number] Period Temp Pulse Resp BP Sys/Cobb Pulse Ox Last 24 Hr 98.6 F-100.5 F 75-105 12-20 108-181/38-71 99 Intake & Output 06/01/16 06/02/16 06/03/16 06/04/16 23:59 23:59 23:59 23:59 Intake Total 1797 2698 2804 810 Output Total 049 573 4156 400 Balance 1647 1948 1104 410 Weight 138 lb 7 oz 142 lb 2 oz 142 lb 8 oz 140 lb 7 oz comfortable neck -jvd heart reg lung good air movement abd soft non tender ext no edema CBC, BMP 06/04/16 18:50 06/04/16 05:00 Microbiology 05/31/16 15:45 Blood - Peripheral Venous Blood Culture - Preliminary NO GROWTH OBTAINED AFTER 96 HOURS, INCUBATION TO CONTINUE FOR 1 DAYS. 05/31/16 15:40 Blood - Peripheral Venous Blood Culture - Preliminary NO GROWTH OBTAINED AFTER 96 HOURS, INCUBATION TO CONTINUE FOR 1 DAYS. 06/01/16 12:30 Sputum - Endotrachea Suction/Ventilator Gram Stain - Final 06/01/16 12:30 Sputum - Endotrachea Suction/Ventilator Sputum Culture - Final Yeast Like Organism 06/01/16 06:00 Urine - Urine - Catheterized Urine Culture - Final NO GROWTH OBTAINED 05/30/16 21:00 Urine - Urine - Catheterized Urine Culture - Final NO GROWTH OBTAINED 05/26/16 18:25 Blood - Peripheral Venous Blood Culture - Final NO GROWTH AFTER 5 DAYS INCUBATION 05/26/16 18:25 Blood - Peripheral Venous Blood Culture - Final NO GROWTH AFTER 5 DAYS INCUBATION 05/30/16 21:00 Urine For Antigen Detection Legionella Antigen - Final 05/30/16 21:00 Urine For Antigen Detection Streptococcus pneumoniae Antigen (M - Final 05/26/16 18:00 Urine - Urine - Catheterized Urine Culture - Final NO GROWTH OBTAINED 05/26/16 18:25 Nasopharyngeal Swab Influenza Types A,B Antigen (ASHLIE) - Final 05/26/16 18:25 Nasopharyngeal Swab - Final Active Medications Acetaminophen (Tylenol -) 1,000 mg PO Q6H PRN PRN Reason: TEMP > 101* Last Admin: 06/04/16 16:36 Dose: 1,000 mg Docusate Sodium (Colace -) 200 mg PO BID [facility] Last Admin: 06/04/16 21:12 Dose: Not Given Fentanyl (Sublimaze Injection -) 25 mcg IVPUSH Q3H PRN PRN Reason: PAIN Stop: 06/05/16 13:59 Last Admin: 06/04/16 14:10 Dose: 25 mcg Gabapentin (Neurontin -) 100 mg PO QID [facility] Last Admin: 06/04/16 21:12 Dose: 100 mg Guaifenesin (Mucinex -) 600 mg PO BID [facility] Last Admin: 06/04/16 21:12 Dose: 600 mg Hydralazine HCl (Apresoline Injection -) 10 mg IVPUSH Q6H PRN PRN Reason: HYPERTENSION Azithromycin (Zithromax 500mg Ivpb (Pre-Docked)) 250 mls @ 250 mls/hr IVPB DAILY [facility] Last Admin: 06/04/16 10:43 Dose: 250 mls/hr Ertapenem 1 gm/ Sodium (Chloride) 50 mls @ 100 mls/hr IVPB DAILY [facility] Last Admin: 06/04/16 10:41 Dose: 100 mls/hr Pantoprazole Sodium (Protonix 40mg Ivpb (Pre-Docked)) 100 mls @ 200 mls/hr IVPB DAILY [facility] Last Admin: 06/04/16 10:43 Dose: 200 mls/hr Levothyroxine Sodium (Synthroid Injection -) 25 mcg IVPUSH DAILY@0700 [facility] Last Admin: 06/04/16 06:15 Dose: 25 mcg Metoprolol Tartrate (Lopressor Injection -) 5 mg IVPUSH Q4H PRN PRN Reason: HYPERTENSION Last Admin: 06/04/16 16:36 Dose: 5 mg Midazolam HCl (Versed -) 2 mg IVPUSH Q2H PRN PRN Reason: AGITATION Last Admin: 06/04/16 14:09 Dose: 2 mg Ondansetron HCl (Zofran Injection) 4 mg IVPB Q6H PRN PRN Reason: NAUSEA AND/OR VOMITING Last Admin: 05/29/16 22:35 Dose: 4 mg Polyethylene Glycol (Miralax (For Daily Use) -) 17 gm PO DAILY [facility] Last Admin: 06/04/16 12:25 Dose: 17 grams Senna (Senna Oral Solution -) 8.8 mg PO HS [facility] Last Admin: 06/04/16 21:12 Dose: 8.8 mg Assmt MIRNA -- inc BUN/Cr Acute Respiratory Failure weaning today Hyponatremia Na up to 136 Pneumonia likely Aspiration improving Influenza A treatment completed Multiple Sclerosis stable HTN Hypothyroidism Plan discussed care with Dr Naqvi ( ICU ) continue abx Intubation and nutritional support monitor Na follow h/h may need transfusion follow bun/Cr Taper to wean vent support as per Pulm continue ICU care Daughter updated Problem List - Problems (1) Hyponatremia Code(s): E87.1 - HYPO-OSMOLALITY AND HYPONATREMIA (2) Right lower lobe pneumonia Code(s): J18.9 - PNEUMONIA, UNSPECIFIED ORGANISM (3) Influenza A Code(s): J10.1 - FLU DUE TO OTH IDENT INFLUENZA VIRUS W OTH RESP MANIFEST (4) Multiple sclerosis Code(s): G35 - MULTIPLE SCLEROSIS (5) Hypothyroid Code(s): E03.9 - HYPOTHYROIDISM, UNSPECIFIED (6) Hyperlipemia Code(s): E78.5 - HYPERLIPIDEMIA, UNSPECIFIED (8) Neuropathic pain of both legs Code(s): G57.91 - UNSPECIFIED MONONEUROPATHY OF RIGHT LOWER LIMB G57.92 - UNSPECIFIED MONONEUROPATHY OF LEFT LOWER LIMB (9) Fever Code(s): R50.9 - FEVER, UNSPECIFIED Qualifiers: Fever type: unspecified Qualified Code(s): R50.9 - Fever, unspecified (10) Anemia Code(s): D64.9 - ANEMIA, UNSPECIFIED Qualifiers: Anemia type: other cause Other causes of anemia: other cause, not classified Qualified Code(s): D64.89 - Other specified anemias
[2016-06-04] MEDS: DOCUSATE SODIUM 100 MG CAPSULE (FP) PO SCH ×2 (10:40→21:12)
[2016-06-04] MEDS: ERTAPENEM SODIUM 1 GM in SODIUM CHLORIDE 50 ML IVPB SCH (10:41)
[2016-06-04] MEDS: ENOXAPARIN NA (PORCINE) 40 MG/0.4 ML DISP.SYRIN SQ SCH (10:42)
[2016-06-04] MEDS: guaiFENesin 600 MG TABLET.ER (FP) PO SCH ×2 (10:42→21:12)
[2016-06-04] MEDS: AZITHROMYCIN IVPB 250 ML IVPB SCH (10:43)
[2016-06-04] MEDS: PANTOPRAZOLE SODIUM 100 ML IVPB SCH (10:43)
[2016-06-04] MEDS: GABAPENTIN 100 MG CAPSULE (FP) PO SCH ×4 (10:52→21:12)
--- NOTE | 2016-06-04 11:30 | PN ---
Progress Note, Physician History of Present Illness: Awake on ventilator No acute distress Low grade temps WBC improved Sputum YLO - Current Medication List Current Medications: Active Medications Acetaminophen (Tylenol -) 1,000 mg PO Q6H PRN PRN Reason: TEMP > 101* Last Admin: 06/03/16 22:06 Dose: 1,000 mg Docusate Sodium (Colace -) 200 mg PO BID [facility] Last Admin: 06/04/16 10:40 Dose: Not Given Enoxaparin Sodium (Lovenox -) 40 mg SQ DAILY [facility] Last Admin: 06/04/16 10:42 Dose: 40 mg Gabapentin (Neurontin -) 100 mg PO QID [facility] Last Admin: 06/04/16 10:52 Dose: 100 mg Guaifenesin (Mucinex -) 600 mg PO BID [facility] Last Admin: 06/04/16 10:42 Dose: Not Given Hydralazine HCl (Apresoline Injection -) 10 mg IVPUSH Q6H PRN PRN Reason: HYPERTENSION Azithromycin (Zithromax 500mg Ivpb (Pre-Docked)) 250 mls @ 250 mls/hr IVPB DAILY [facility] Last Admin: 06/04/16 10:43 Dose: 250 mls/hr Vancomycin HCl (Vancomycin (Pre-Docked)) 250 mls @ 166.667 mls/hr IVPB BID [facility] Last Admin: 06/03/16 21:16 Dose: 166.667 mls/hr Ertapenem 1 gm/ Sodium (Chloride) 50 mls @ 100 mls/hr IVPB DAILY [facility] Last Admin: 06/04/16 10:41 Dose: 100 mls/hr Sodium Chloride (Normal Saline -) 1,000 mls @ 50 mls/hr IV ASDIR [facility] Last Admin: 06/03/16 11:55 Dose: Not Given Pantoprazole Sodium (Protonix 40mg Ivpb (Pre-Docked)) 100 mls @ 200 mls/hr IVPB DAILY [facility] Last Admin: 06/04/16 10:43 Dose: 200 mls/hr Levothyroxine Sodium (Synthroid Injection -) 25 mcg IVPUSH DAILY@0700 [facility] Last Admin: 06/04/16 06:15 Dose: 25 mcg Metoprolol Tartrate (Lopressor Injection -) 5 mg IVPUSH Q4H PRN PRN Reason: HYPERTENSION Last Admin: 06/04/16 09:13 Dose: 5 mg Midazolam HCl (Versed -) 2 mg IVPUSH Q2H PRN PRN Reason: AGITATION Ondansetron HCl (Zofran Injection) 4 mg IVPB Q6H PRN PRN Reason: NAUSEA AND/OR VOMITING Last Admin: 05/29/16 22:35 Dose: 4 mg Polyethylene Glycol (Miralax (For Daily Use) -) 17 gm PO DAILY [facility] Last Admin: 06/03/16 10:31 Dose: 17 grams - Objective Vital Signs: Vital Signs Temperature 100.4 F H 06/04/16 10:00 Pulse Rate 88 06/04/16 10:33 Respiratory Rate 14 06/04/16 10:33 Blood Pressure 163/57 06/04/16 10:33 O2 Sat by Pulse Oximetry (%) 97 06/04/16 09:00 Constitutional: Yes: No Distress Eyes: Yes: Conjunctiva Clear Cardiovascular: Yes: Regular Rate and Rhythm, S1, S2 Respiratory: Yes: Mechanically Ventilated Gastrointestinal: Yes: Normal Bowel Sounds, Soft. No: Tenderness Edema: No Labs: CBC, BMP 06/04/16 05:00 06/04/16 05:00 INR, PTT INR 1.14 (0.82-1.09) 05/26/16 18:25 Assessment/Plan Respiratory failure RLL pneumonia aspiration v. post influenza Exacerbation MS PCN allergy Hyponatremia- resolved Continue ventilatory support Empiric ertapenem/ zithromax D/C vancomycin No treatment for yeast in sputum
[2016-06-04] MEDS: VANCOMYCIN 1 GRAM (PRE-DOCKED) 250 ML IVPB SCH (12:23)
[2016-06-04] MEDS: POLYETHYLENE GLYCOL 3350 119 GM BTL PO SCH (12:25)
--- NOTE | 2016-06-04 13:59 | PN ---
Physical Exam: SUBJECTIVE: Patient seen and examined at bedside in ICU. Fever to 100.5 last night. Attempted to wean off ventilator today but RR rapidly increased, put back on AC control. Saturating well with good urine output. OBJECTIVE: Vital Signs Period Temp Pulse Resp BP Sys/Cobb Pulse Ox Last 24 Hr 98.6 F-100.5 F 75-105 12-30 108-181/40-83 97-99 GENERAL: Intubated on mechanical ventilator. Off sedation. In no acute distress. HEENT: Atraumatic, PERRLA, No lymphadenopathy noted, dry membranes, dry cracked lower lip LUNGS: Diffuse scattered rales, diminished breath sounds bilaterally HEART: RRR, S1S2 ABDOMEN: Soft, nontender, nondistended, normoactive bowel sounds EXTREMITIES: 2+ pulses, warm, well-perfused, +1 edema upper & lower extremities SKIN: Warm, dry, normal turgor, no rashes or lesions noted Laboratory Results - last 24 hr 06/03/16 06/03/16 06/03/16 14:50 14:50 14:50 WBC RBC Hgb Hct MCV MCHC RDW Plt Count MPV Puncture Site ABG pH ABG pCO2 at Pt Temp ABG pO2 at Pt Temp ABG HCO3 ABG O2 Sat (Measured) ABG O2 Content ABG Base Excess Paulino Test O2 Delivery Device Oxygen Flow Rate Vent Mode Vent Rate Mechanical Rate PEEP Pressure Support Vent Sodium Potassium Chloride Carbon Dioxide Anion Gap BUN Creatinine Creat Clearance w eGFR Random Glucose Calcium Phosphorus Magnesium Total Bilirubin AST ALT Alkaline Phosphatase Total Protein Albumin Urine Color Yellow Urine Appearance Cloudy Urine pH 6.0 Ur Specific Pinckard 1.006 Urine Protein 1+ H Urine Glucose (UA) Negative Urine Ketones Negative Urine Blood 3+ H Urine Nitrite Negative Urine Bilirubin Negative Urine Urobilinogen Negative Ur Leukocyte Esterase Negative Urine RBC 37 Urine WBC 4 Ur Epithelial Cells Rare Amorphous Urates Few Urine Mucus Rare Urine Creatinine Cancelled 58.1 Vancomycin Trough 06/04/16 06/04/16 06/04/16 05:00 05:00 07:10 WBC 11.5 H RBC 2.94 L Hgb 8.7 L Hct 25.9 L MCV 88.2 MCHC 33.5 RDW 13.7 Plt Count 467 H MPV 8.8 Puncture Site Right radial ABG pH 7.47 H ABG pCO2 at Pt Temp 39.6 ABG pO2 at Pt Temp 80.7 ABG HCO3 28.3 H ABG O2 Sat (Measured) 96.4 ABG O2 Content 12.0 L ABG Base Excess 4.6 H Paulino Test Positive O2 Delivery Device Mec.vent Oxygen Flow Rate 35% Vent Mode A/c Vent Rate 12 Mechanical Rate Yes PEEP 5.0 Pressure Support Vent 425 Sodium 136 Potassium 3.7 Chloride 98 Carbon Dioxide 28 Anion Gap 10 BUN 25 H Creatinine 1.2 H Creat Clearance w eGFR 43.01 Random Glucose 146 H Calcium 7.9 L Phosphorus 3.4 D Magnesium 2.4 Total Bilirubin 0.3 AST 24 ALT 42 Alkaline Phosphatase 148 H D Total Protein 5.1 L Albumin 1.7 L Urine Color Urine Appearance Urine pH Ur Specific Pinckard Urine Protein Urine Glucose (UA) Urine Ketones Urine Blood Urine Nitrite Urine Bilirubin Urine Urobilinogen Ur Leukocyte Esterase Urine RBC Urine WBC Ur Epithelial Cells Amorphous Urates Urine Mucus Urine Creatinine Vancomycin Trough 35.475 H* Active Medications Generic Name Dose Route Start Last Admin Trade Name Freq PRN Reason Stop Dose Admin Acetaminophen 1,000 mg 05/27/16 01:22 06/03/16 22:06 Tylenol - PO 1,000 mg Q6H PRN Administration TEMP > 101* Docusate Sodium 200 mg 05/28/16 10:15 06/04/16 10:40 Colace - PO Not Given BID [facility] Enoxaparin Sodium 40 mg 06/02/16 11:45 06/04/16 10:42 Lovenox - SQ 40 mg DAILY [facility] Administration Fentanyl 25 mcg 06/04/16 13:55 Sublimaze Injection - IVPUSH 06/05/16 13:59 Q3H PRN PAIN Gabapentin 100 mg 05/28/16 22:00 06/04/16 10:52 Neurontin - PO 100 mg QID [facility] Administration Guaifenesin 600 mg 05/28/16 10:15 06/04/16 10:42 Mucinex - PO Not Given BID [facility] Hydralazine HCl 10 mg 06/01/16 12:50 Apresoline Injection - IVPUSH Q6H PRN HYPERTENSION Azithromycin 250 mls @ 250 mls/hr 05/28/16 10:15 06/04/16 10:43 Zithromax 500mg Ivpb (Pre-Docked) IVPB 250 mls/hr DAILY [facility] Administration Ertapenem 1 gm/ Sodium 50 mls @ 100 mls/hr 06/01/16 10:00 06/04/16 10:41 Chloride IVPB 100 mls/hr DAILY [facility] Administration Sodium Chloride 1,000 mls @ 50 mls/hr 06/02/16 11:01 06/03/16 11:55 Normal Saline - IV Not Given ASDIR [facility] Pantoprazole Sodium 100 mls @ 200 mls/hr 06/02/16 11:30 06/04/16 10:43 Protonix 40mg Ivpb (Pre-Docked) IVPB 200 mls/hr DAILY [facility] Administration Levothyroxine Sodium 25 mcg 06/04/16 07:00 06/04/16 06:15 Synthroid Injection - IVPUSH 25 mcg DAILY@0700 [facility] Administration Metoprolol Tartrate 5 mg 05/31/16 22:28 06/04/16 09:13 Lopressor Injection - IVPUSH 5 mg Q4H PRN Administration HYPERTENSION Midazolam HCl 2 mg 06/03/16 15:19 Versed - IVPUSH Q2H PRN AGITATION Ondansetron HCl 4 mg 05/29/16 00:30 05/29/16 22:35 Zofran Injection IVPB 4 mg Q6H PRN Administration NAUSEA AND/OR VOMITING Polyethylene Glycol 17 gm 06/02/16 12:15 06/04/16 12:25 Miralax (For Daily Use) - PO 17 grams DAILY [facility] Administration ASSESSMENT/PLAN: Patient is a 80 year old female with significant PMH of MS, HTN, HLF & Hypothyroidism who presents to ICU with hyponatremia. Patient has been treated for Influenza pneumonia in hospital since 05/27. Hypotonic fluids, cymbalta use & Lasix administration resulting in hyponatremia during hospital course. #Hyponatremia, Na 1316 today -holding cymbalta, would not restart -free water restriction/holding IVF -Strict I & O's -no need for Lasix at present #Influenza Pneumonia/Aspiration Pneumonia -intubated at present, with Versed/Fentanyl PRN for pain/agitation -ID consult appreciated -continue Azithromycin, Ertapenem -Mucinex w/ chest PT -CXR in AM -blood & urine cultures (-); yeast in sputum culture but does not require treatment #Acute Renal Failure (Cr at 1.2) -holding IVF at present due to edema & hypertension -awaiting Urine sodium to calculate FeNa -discussed with Nephrology today #Multiple Sclerosis -continue gabapentin #Hypothyroidism -continue Synthroid 50mcg #Hypertension/Hyperlipidemia -continue Hydralazine, Lopressor PRN Prophylaxis/FEN -Lovenox, PPI -IVF being held, monitor electrolytes, Tubefeed jevity 1.5 (increased total volume today from 720 to 1140) Visit type - Emergency Visit Emergency Visit: Yes ED Registration Date: 05/26/16 Care time: The patient presented to the Emergency Department on the above date and was hospitalized for further evaluation of their emergent condition. - New Patient This patient is new to me today: No - Critical Care Critical Care patient: Yes Total Critical Care Time (in minutes): 38 Critical Care Statement: The care of this patient involved high complexity decision making to prevent further life threatening deterioration of the patient 's condition and/or to evalute & treat vital organ system(s) failure or risk of failure.
[2016-06-04] MEDS: MIDAZOLAM HCL 2 MG/2 ML SINGLE DOSE VIAL IVPUSH PRN (14:09)
--- NOTE | 2016-06-04 14:28 | PN ---
Teaching Attending Note Name of Resident: Pablo Dey ATTENDING PHYSICIAN STATEMENT I saw and evaluated the patient. I reviewed the resident's note and discussed the case with the resident. I agree with the resident's findings and plan as documented. SUBJECTIVE: Pt seen and examined in the ICU. Remains intubated, more awake off sedation. Follows commands but weakly. Fevers persist. OBJECTIVE: Last Vital Signs Temp Pulse Resp BP Pulse Ox 100.2 F H 94 H 18 155/55 97 06/04/16 13:00 06/04/16 13:00 06/04/16 13:00 06/04/16 13:00 06/04/16 09:00 Intake & Output 06/01/16 06/02/16 06/03/16 06/04/16 23:59 23:59 23:59 23:59 Intake Total 1797 2698 2804 810 Output Total 297 743 9874 400 Balance 1647 1948 1104 410 Weight 138 lb 7 oz 142 lb 2 oz 142 lb 8 oz 140 lb 7 oz Gen: intubated, more awake Heart: RRR Lung: decreased breath sounds at the bases Abd: soft, nontender Ext: + edema CBC, BMP 06/04/16 05:00 06/04/16 05:00 Active Medications Acetaminophen (Tylenol -) 1,000 mg PO Q6H PRN PRN Reason: TEMP > 101* Last Admin: 06/03/16 22:06 Dose: 1,000 mg Docusate Sodium (Colace -) 200 mg PO BID [facility] Last Admin: 06/04/16 10:40 Dose: Not Given Enoxaparin Sodium (Lovenox -) 40 mg SQ DAILY [facility] Last Admin: 06/04/16 10:42 Dose: 40 mg Fentanyl (Sublimaze Injection -) 25 mcg IVPUSH Q3H PRN PRN Reason: PAIN Stop: 06/05/16 13:59 Last Admin: 06/04/16 14:10 Dose: 25 mcg Gabapentin (Neurontin -) 100 mg PO QID [facility] Last Admin: 06/04/16 14:06 Dose: 100 mg Guaifenesin (Mucinex -) 600 mg PO BID [facility] Last Admin: 06/04/16 10:42 Dose: Not Given Hydralazine HCl (Apresoline Injection -) 10 mg IVPUSH Q6H PRN PRN Reason: HYPERTENSION Azithromycin (Zithromax 500mg Ivpb (Pre-Docked)) 250 mls @ 250 mls/hr IVPB DAILY [facility] Last Admin: 06/04/16 10:43 Dose: 250 mls/hr Ertapenem 1 gm/ Sodium (Chloride) 50 mls @ 100 mls/hr IVPB DAILY [facility] Last Admin: 06/04/16 10:41 Dose: 100 mls/hr Pantoprazole Sodium (Protonix 40mg Ivpb (Pre-Docked)) 100 mls @ 200 mls/hr IVPB DAILY [facility] Last Admin: 06/04/16 10:43 Dose: 200 mls/hr Levothyroxine Sodium (Synthroid Injection -) 25 mcg IVPUSH DAILY@0700 [facility] Last Admin: 06/04/16 06:15 Dose: 25 mcg Metoprolol Tartrate (Lopressor Injection -) 5 mg IVPUSH Q4H PRN PRN Reason: HYPERTENSION Last Admin: 06/04/16 09:13 Dose: 5 mg Midazolam HCl (Versed -) 2 mg IVPUSH Q2H PRN PRN Reason: AGITATION Last Admin: 06/04/16 14:09 Dose: 2 mg Ondansetron HCl (Zofran Injection) 4 mg IVPB Q6H PRN PRN Reason: NAUSEA AND/OR VOMITING Last Admin: 05/29/16 22:35 Dose: 4 mg Polyethylene Glycol (Miralax (For Daily Use) -) 17 gm PO DAILY [facility] Last Admin: 06/04/16 12:25 Dose: 17 grams ASSESSMENT AND PLAN: Acute Respiratory Failure Pneumonia likely Aspiration Hyponatremia Influenza A Multiple Sclerosis HTN Hypothyroidism Acute Kidney Injury - continue antibiotics - f/u cultures - d/c IVF per renal - monitor urine output, creatinine - avoid propofol per neurology - monitor sodium level - BP control - minimize sedation to assess mental status - spontaneous breathing trials as tolerated when mental status improved - enteral feeds - DVT/GI prophylaxis - continue ICU monitoring
--- NOTE | 2016-06-04 15:51 | PN ---
Progress Note, Physician History of Present Illness: Pt seen and examined at bedside. She remains in the ICU intubated. She is tolerating feeds. She did not tolerate weaning trial. - Current Medication List Current Medications: Active Medications Acetaminophen (Tylenol -) 1,000 mg PO Q6H PRN PRN Reason: TEMP > 101* Last Admin: 06/03/16 22:06 Dose: 1,000 mg Docusate Sodium (Colace -) 200 mg PO BID [facility] Last Admin: 06/04/16 10:40 Dose: Not Given Enoxaparin Sodium (Lovenox -) 40 mg SQ DAILY [facility] Last Admin: 06/04/16 10:42 Dose: 40 mg Fentanyl (Sublimaze Injection -) 25 mcg IVPUSH Q3H PRN PRN Reason: PAIN Stop: 06/05/16 13:59 Last Admin: 06/04/16 14:10 Dose: 25 mcg Gabapentin (Neurontin -) 100 mg PO QID [facility] Last Admin: 06/04/16 14:06 Dose: 100 mg Guaifenesin (Mucinex -) 600 mg PO BID [facility] Last Admin: 06/04/16 10:42 Dose: Not Given Hydralazine HCl (Apresoline Injection -) 10 mg IVPUSH Q6H PRN PRN Reason: HYPERTENSION Azithromycin (Zithromax 500mg Ivpb (Pre-Docked)) 250 mls @ 250 mls/hr IVPB DAILY [facility] Last Admin: 06/04/16 10:43 Dose: 250 mls/hr Ertapenem 1 gm/ Sodium (Chloride) 50 mls @ 100 mls/hr IVPB DAILY [facility] Last Admin: 06/04/16 10:41 Dose: 100 mls/hr Pantoprazole Sodium (Protonix 40mg Ivpb (Pre-Docked)) 100 mls @ 200 mls/hr IVPB DAILY [facility] Last Admin: 06/04/16 10:43 Dose: 200 mls/hr Levothyroxine Sodium (Synthroid Injection -) 25 mcg IVPUSH DAILY@0700 [facility] Last Admin: 06/04/16 06:15 Dose: 25 mcg Metoprolol Tartrate (Lopressor Injection -) 5 mg IVPUSH Q4H PRN PRN Reason: HYPERTENSION Last Admin: 06/04/16 09:13 Dose: 5 mg Midazolam HCl (Versed -) 2 mg IVPUSH Q2H PRN PRN Reason: AGITATION Last Admin: 06/04/16 14:09 Dose: 2 mg Ondansetron HCl (Zofran Injection) 4 mg IVPB Q6H PRN PRN Reason: NAUSEA AND/OR VOMITING Last Admin: 05/29/16 22:35 Dose: 4 mg Polyethylene Glycol (Miralax (For Daily Use) -) 17 gm PO DAILY [facility] Last Admin: 06/04/16 12:25 Dose: 17 grams - Objective Vital Signs: Vital Signs Temperature 100.6 F H 06/04/16 14:00 Pulse Rate 100 H 06/04/16 15:00 Respiratory Rate 17 06/04/16 15:00 Blood Pressure 161/46 06/04/16 15:00 O2 Sat by Pulse Oximetry (%) 97 06/04/16 09:00 Constitutional: Yes: Calm Eyes: Yes: Conjunctiva Clear HENT: Yes: Atraumatic Cardiovascular: Yes: S1, S2 Respiratory: Yes: Mechanically Ventilated Gastrointestinal: Yes: Soft Genitourinary: Yes: Obrien Present Musculoskeletal: Yes: Muscle Weakness Extremities: No: Cyanosis, Pallor Edema: Yes Edema: LUE: Trace, RUE: Trace Peripheral Pulses WNL: Yes Integumentary: Yes: WNL Neurological: Yes: Lethargy Labs: CBC, BMP 06/04/16 05:00 06/04/16 05:00 INR, PTT INR 1.14 (0.82-1.09) 05/26/16 18:25 - ....Imaging Chest X-ray: Report Reviewed Problem List - Problems (1) Hyperlipemia Code(s): E78.5 - HYPERLIPIDEMIA, UNSPECIFIED (2) Hypothyroid Code(s): E03.9 - HYPOTHYROIDISM, UNSPECIFIED (3) Influenza A Code(s): J10.1 - FLU DUE TO OTH IDENT INFLUENZA VIRUS W OTH RESP MANIFEST (4) Multiple sclerosis Code(s): G35 - MULTIPLE SCLEROSIS (5) Hyponatremia Code(s): E87.1 - HYPO-OSMOLALITY AND HYPONATREMIA Assessment/Plan Current Medications Generic Name Dose Route Start Last Admin Trade Name Freq PRN Reason Stop Dose Admin Acetaminophen 1,000 mg 05/27/16 01:22 06/03/16 22:06 Tylenol - PO 1,000 mg Q6H PRN Administration TEMP > 101* Docusate Sodium 200 mg 05/28/16 10:15 06/04/16 10:40 Colace - PO Not Given BID [facility] Enoxaparin Sodium 40 mg 06/02/16 11:45 06/04/16 10:42 Lovenox - SQ 40 mg DAILY [facility] Administration Fentanyl 25 mcg 06/04/16 13:55 06/04/16 14:10 Sublimaze Injection - IVPUSH 06/05/16 13:59 25 mcg Q3H PRN Administration PAIN Gabapentin 100 mg 05/28/16 22:00 06/04/16 14:06 Neurontin - PO 100 mg QID [facility] Administration Guaifenesin 600 mg 05/28/16 10:15 06/04/16 10:42 Mucinex - PO Not Given BID [facility] Hydralazine HCl 10 mg 06/01/16 12:50 Apresoline Injection - IVPUSH Q6H PRN HYPERTENSION Azithromycin 250 mls @ 250 mls/hr 05/28/16 10:15 06/04/16 10:43 Zithromax 500mg Ivpb (Pre-Docked) IVPB 250 mls/hr DAILY [facility] Administration Ertapenem 1 gm/ Sodium 50 mls @ 100 mls/hr 06/01/16 10:00 06/04/16 10:41 Chloride IVPB 100 mls/hr DAILY [facility] Administration Pantoprazole Sodium 100 mls @ 200 mls/hr 06/02/16 11:30 06/04/16 10:43 Protonix 40mg Ivpb (Pre-Docked) IVPB 200 mls/hr DAILY [facility] Administration Levothyroxine Sodium 25 mcg 06/04/16 07:00 06/04/16 06:15 Synthroid Injection - IVPUSH 25 mcg DAILY@0700 [facility] Administration Metoprolol Tartrate 5 mg 05/31/16 22:28 06/04/16 09:13 Lopressor Injection - IVPUSH 5 mg Q4H PRN Administration HYPERTENSION Midazolam HCl 2 mg 06/03/16 15:19 06/04/16 14:09 Versed - IVPUSH 2 mg Q2H PRN Administration AGITATION Ondansetron HCl 4 mg 05/29/16 00:30 05/29/16 22:35 Zofran Injection IVPB 4 mg Q6H PRN Administration NAUSEA AND/OR VOMITING Polyethylene Glycol 17 gm 06/02/16 12:15 02/14/17 12:25 Miralax (For Daily Use) - PO 17 grams DAILY [facility] Administration Laboratory Tests 06/04/16 05:00 Vancomycin Trough 35.475 H* Impression 1. hyponatremia - hypo-osmolar 2. Influenza 3. PNA with small effusion 4. multiple sclerosis 5. hyperlipidemia 6. hypothyroidism 7. HTN 8. proteinuria and microscopic hematuria 9. MIRNA 10. respiratory failure requiring intubation Plan - sodium has stabilized - hold vanco and repeat levels - can stop fluids - cont with feeding - pt did not tolerated weaning trial - daily sedation vacation - weaning per pulmonary - discussed plan with ICU team - discussed plan at length with pts daughter who is a physician - urine sodium pending - ua reviewed - would not give any lasix - cont vent support - monitor urine output Dr Marrero
[2016-06-04] MEDS ORDERED: ACETAMINOPHEN 500 MG TABLET (FP) ONE (16:35)
[2016-06-04] MEDS: ACETAMINOPHEN 500 MG TABLET (FP) PO PRN (16:36)
--- NOTE | 2016-06-04 19:04 | PN ---
Progress Note (short form) - Note Progress Note: NEUROLOGY FOLLOW-UP: Events reviewed. Patient examined. Na+=136 mg%. WBC= 11K Intubated but awake, alert. Follows commands. Full mccurdy to threat. Full EOM's. Symmetrical grasps on command. Toes downgoing. IMP: No obvious focality. Pt. seems much calmer and more cognizant. SUGGEST: Continue antibiotics and supportive care. Thank you, Darrius Pritchard MD
[2016-06-04 19:27] LABS: MCH 29.3 pg (25.7-33.7); MCHC 33.2 g/dl (32.0-36.0); MEAN CELL VOLUME 88.2 fl (80-96); MEAN PLT VOLUME 8.5 fl (7.5-11.1); PLATELET COUNT 444 K/MM3 (134-434); WHITE BLOOD COUNT 11.4 K/mm3 (4.0-10.0)
[2016-06-04] MEDS: SENNOSIDES 8.8 MG/5 ML BULK BOTTLE PO SCH (21:12)
[2016-06-05] MEDS ORDERED: ACETAMINOPHEN 325 MG TABLET (FP) ONE (04:09)
[2016-06-05] MEDS: ACETAMINOPHEN 500 MG TABLET (FP) PO PRN ×3 (04:11→21:33)
[2016-06-05] MEDS: METOPROLOL TARTRATE 5 MG/5 ML VIAL IVPUSH PRN ×2 (04:33→10:25)
[2016-06-05] MEDS: MIDAZOLAM HCL 2 MG/2 ML SINGLE DOSE VIAL IVPUSH PRN ×3 (04:34→21:33)
[2016-06-05 05:43] LABS: MCH 28.9 pg (25.7-33.7); MCHC 33.9 g/dl (32.0-36.0); MEAN CELL VOLUME 85.3 fl (80-96); MEAN PLT VOLUME 8.7 fl (7.5-11.1); PLATELET COUNT 459 K/MM3 (134-434); RDW 16.8 % (11.6-15.6); WHITE BLOOD COUNT 12.4 K/mm3 (4.0-10.0)
[2016-06-05 06:09] LABS: ALBUMIN 1.6 g/dl (3.4-5.0); BILIRUBIN,TOTAL 0.7 mg/dL (0.2-1.0); CALCIUM 7.8 mg/dL (8.5-10.1); CREATININE 1.2 mg/dL (0.55-1.02); MAGNESIUM 2.4 mg/dL (1.8-2.4)
[2016-06-05 06:10] LABS: TOT PROT 4.7 g/dl (6.4-8.2)
--- NOTE | 2016-06-05 06:54 | PN ---
Progress Note, Physician Chief Complaint: ID Remains intubated 10 days broad spectrum antibiotics Having low grade fevers - Current Medication List Current Medications: Active Medications Acetaminophen (Tylenol -) 1,000 mg PO Q6H PRN PRN Reason: TEMP > 101* Last Admin: 06/05/16 04:11 Dose: 1,000 mg Docusate Sodium (Colace -) 200 mg PO BID [facility] Last Admin: 06/04/16 21:12 Dose: Not Given Fentanyl (Sublimaze Injection -) 25 mcg IVPUSH Q3H PRN PRN Reason: PAIN Stop: 06/05/16 13:59 Last Admin: 06/04/16 14:10 Dose: 25 mcg Gabapentin (Neurontin -) 100 mg PO QID [facility] Last Admin: 06/04/16 21:12 Dose: 100 mg Guaifenesin (Mucinex -) 600 mg PO BID [facility] Last Admin: 06/04/16 21:12 Dose: 600 mg Hydralazine HCl (Apresoline Injection -) 10 mg IVPUSH Q6H PRN PRN Reason: HYPERTENSION Azithromycin (Zithromax 500mg Ivpb (Pre-Docked)) 250 mls @ 250 mls/hr IVPB DAILY [facility] Last Admin: 06/04/16 10:43 Dose: 250 mls/hr Ertapenem 1 gm/ Sodium (Chloride) 50 mls @ 100 mls/hr IVPB DAILY [facility] Last Admin: 06/04/16 10:41 Dose: 100 mls/hr Pantoprazole Sodium (Protonix 40mg Ivpb (Pre-Docked)) 100 mls @ 200 mls/hr IVPB DAILY [facility] Last Admin: 06/04/16 10:43 Dose: 200 mls/hr Levothyroxine Sodium (Synthroid Injection -) 25 mcg IVPUSH DAILY@0700 [facility] Last Admin: 06/04/16 06:15 Dose: 25 mcg Metoprolol Tartrate (Lopressor Injection -) 5 mg IVPUSH Q4H PRN PRN Reason: HYPERTENSION Last Admin: 06/05/16 04:33 Dose: 5 mg Midazolam HCl (Versed -) 2 mg IVPUSH Q2H PRN PRN Reason: AGITATION Last Admin: 06/05/16 04:34 Dose: 2 mg Ondansetron HCl (Zofran Injection) 4 mg IVPB Q6H PRN PRN Reason: NAUSEA AND/OR VOMITING Last Admin: 05/29/16 22:35 Dose: 4 mg Polyethylene Glycol (Miralax (For Daily Use) -) 17 gm PO DAILY [facility] Last Admin: 06/04/16 12:25 Dose: 17 grams Senna (Senna Oral Solution -) 8.8 mg PO HS [facility] Last Admin: 06/04/16 21:12 Dose: 8.8 mg - Objective Vital Signs: Vital Signs Temperature 99.8 F H 06/05/16 02:00 Pulse Rate 88 06/05/16 04:33 Respiratory Rate 12 06/05/16 04:00 Blood Pressure 175/59 06/05/16 04:33 O2 Sat by Pulse Oximetry (%) 97 06/04/16 21:47 Constitutional: Yes: Other (Alert) Neck: Yes: Other (Et tube) Cardiovascular: Yes: Regular Rate and Rhythm, S1, S2 Respiratory: Yes: Rhonchi Gastrointestinal: Yes: WNL, Normal Bowel Sounds, Soft. No: Tenderness, Tenderness, Rebound Edema: No Labs: CBC, BMP 06/05/16 05:15 06/05/16 05:15 INR, PTT INR 1.14 (0.82-1.09) 05/26/16 18:25 Assessment/Plan Microbiology 06/01/16 12:30 Sputum - Endotrachea Suction/Ventilator Gram Stain - Final 06/01/16 12:30 Sputum - Endotrachea Suction/Ventilator Sputum Culture - Final Yeast Like Organism 06/01/16 06:00 Urine - Urine - Catheterized Urine Culture - Final NO GROWTH OBTAINED 05/31/16 15:45 Blood - Peripheral Venous Blood Culture - Preliminary NO GROWTH OBTAINED AFTER 96 HOURS, INCUBATION TO CONTINUE FOR 1 DAYS. 05/31/16 15:40 Blood - Peripheral Venous Blood Culture - Preliminary NO GROWTH OBTAINED AFTER 96 HOURS, INCUBATION TO CONTINUE FOR 1 DAYS. Laboratory Tests 06/04/16 06/04/16 06/05/16 05:00 07:10 05:15 WBC 12.4 H Hgb 8.5 L D Hct 25.0 L Plt Count 459 H ABG pH 7.47 H ABG pO2 at Pt Temp 80.7 Oxygen Flow Rate 35% BUN Creatinine Creat Clearance w eGFR Vancomycin Trough 35.475 H* 06/05/16 05:15 WBC Hgb Hct Plt Count ABG pH ABG pO2 at Pt Temp Oxygen Flow Rate BUN 24 H Creatinine 1.2 H Creat Clearance w eGFR 43.01 Vancomycin Trough Assessment Respiratory failure 10 days broad spectrum antibiotics Cultures not diagnostic Appears stable Plan STOP all antibiotics with plan to reculture fever 24-48 hrs Ramy ROMERO
[2016-06-05] MEDS ORDERED: PT OWN MED DRAWER 7, Y5N ONE ×3 (07:05→21:18)
[2016-06-05] MEDS: LEVOTHYROXINE SODIUM 100 MCG VIAL IVPUSH SCH (07:05)
[2016-06-05 08:00] LABS: ARTERIAL BLD GAS O2 SATURATION 97.5 % (90-98.9); ARTERIAL BLOOD GAS BASE EXCESS 6.2 meq/l (-2-2); ARTERIAL BLOOD GAS HCO3 29.7 meq/L (22-26); ARTERIAL BLOOD GAS PO2 88.7 mmHg (68-100)
[2016-06-05 08:01] LABS: ALLENS TEST POSITIVE; ART PUNCT SITE RIGHT RADIAL; PT. ON O2? YES
[2016-06-05 08:02] LABS: LPM/O2% 35; MECH. VENT. YES; TYPE OF O2 MEC.VENT; VENT RATE 12; VT/PRESS 425
[2016-06-05 08:07] LABS: ARTERIAL BLOOD GAS pH 7.49 (7.35-7.45)
--- NOTE | 2016-06-05 08:55 | PN ---
Progress Note (short form) - Note Progress Note: awake / alert / intubated /comfortable daughter at bedside not sedated s/p transfusion last night fiO2 at 35% sat 99% Vital Signs Period Temp Pulse Resp BP Sys/Cobb Pulse Ox Last 24 Hr 98.1 F-101.1 F 78-107 12-30 121-181/39-83 97-99 Intake & Output 06/02/16 06/03/16 06/04/16 06/05/16 23:59 23:59 23:59 23:59 Intake Total 2698 2804 2657 396 Output Total 750 1700 1400 400 Balance 1948 1104 1257 -4 Weight 142 lb 2 oz 142 lb 8 oz 140 lb 7 oz 142 lb 6 oz neck -jvd heart reg lungs clear bilat abd soft non tender ext no edema CXR improved CBC, BMP 06/05/16 05:15 06/05/16 05:15 Microbiology 05/31/16 15:45 Blood - Peripheral Venous Blood Culture - Preliminary NO GROWTH OBTAINED AFTER 96 HOURS, INCUBATION TO CONTINUE FOR 1 DAYS. 05/31/16 15:40 Blood - Peripheral Venous Blood Culture - Preliminary NO GROWTH OBTAINED AFTER 96 HOURS, INCUBATION TO CONTINUE FOR 1 DAYS. 06/01/16 12:30 Sputum - Endotrachea Suction/Ventilator Gram Stain - Final 06/01/16 12:30 Sputum - Endotrachea Suction/Ventilator Sputum Culture - Final Yeast Like Organism 06/01/16 06:00 Urine - Urine - Catheterized Urine Culture - Final NO GROWTH OBTAINED 05/30/16 21:00 Urine - Urine - Catheterized Urine Culture - Final NO GROWTH OBTAINED 05/26/16 18:25 Blood - Peripheral Venous Blood Culture - Final NO GROWTH AFTER 5 DAYS INCUBATION 05/26/16 18:25 Blood - Peripheral Venous Blood Culture - Final NO GROWTH AFTER 5 DAYS INCUBATION 05/30/16 21:00 Urine For Antigen Detection Legionella Antigen - Final 05/30/16 21:00 Urine For Antigen Detection Streptococcus pneumoniae Antigen (M - Final 05/26/16 18:00 Urine - Urine - Catheterized Urine Culture - Final NO GROWTH OBTAINED 05/26/16 18:25 Nasopharyngeal Swab Influenza Types A,B Antigen (ASHLIE) - Final 05/26/16 18:25 Nasopharyngeal Swab - Final Active Medications Acetaminophen (Tylenol -) 1,000 mg PO Q6H PRN PRN Reason: TEMP > 101* Last Admin: 02/15/17 04:11 Dose: 1,000 mg Docusate Sodium (Colace -) 200 mg PO BID [facility] Last Admin: 06/04/16 21:12 Dose: Not Given Fentanyl (Sublimaze Injection -) 25 mcg IVPUSH Q3H PRN PRN Reason: PAIN Stop: 06/05/16 13:59 Last Admin: 06/04/16 14:10 Dose: 25 mcg Gabapentin (Neurontin -) 100 mg PO QID [facility] Last Admin: 06/04/16 21:12 Dose: 100 mg Guaifenesin (Mucinex -) 600 mg PO BID [facility] Last Admin: 06/04/16 21:12 Dose: 600 mg Hydralazine HCl (Apresoline Injection -) 10 mg IVPUSH Q6H PRN PRN Reason: HYPERTENSION Pantoprazole Sodium (Protonix 40mg Ivpb (Pre-Docked)) 100 mls @ 200 mls/hr IVPB DAILY [facility] Last Admin: 06/04/16 10:43 Dose: 200 mls/hr Levothyroxine Sodium (Synthroid Injection -) 25 mcg IVPUSH DAILY@0700 [facility] Last Admin: 06/05/16 07:05 Dose: 25 mcg Metoprolol Tartrate (Lopressor Injection -) 5 mg IVPUSH Q4H PRN PRN Reason: HYPERTENSION Last Admin: 06/05/16 04:33 Dose: 5 mg Midazolam HCl (Versed -) 2 mg IVPUSH Q2H PRN PRN Reason: AGITATION Last Admin: 06/05/16 04:34 Dose: 2 mg Ondansetron HCl (Zofran Injection) 4 mg IVPB Q6H PRN PRN Reason: NAUSEA AND/OR VOMITING Last Admin: 05/29/16 22:35 Dose: 4 mg Polyethylene Glycol (Miralax (For Daily Use) -) 17 gm PO DAILY [facility] Last Admin: 06/04/16 12:25 Dose: 17 grams Senna (Senna Oral Solution -) 8.8 mg PO HS [facility] Last Admin: 06/04/16 21:12 Dose: 8.8 mg reviewed and apprecite ID follow up abx d/c d will reculture if febrile re attempt weqaning today per Pulmonary MIRNA -- BUN/Cr remains stable Acute Respiratory Failure weaning today / failed trial yesterday Hyponatremia Na up to 139 Pneumonia likely Aspiration improving Influenza A treatment completed Multiple Sclerosis stable HTN Hypothyroidism Plan d/c abx per ID - reculture if febrile nutritional support monitor Na follow h/h s/p transfusion follow bun/Cr Taper to wean vent support as per Pulm continue ICU care Daughter at bedside today - updated Problem List - Problems (1) Hyponatremia Code(s): E87.1 - HYPO-OSMOLALITY AND HYPONATREMIA (2) Right lower lobe pneumonia Code(s): J18.9 - PNEUMONIA, UNSPECIFIED ORGANISM (3) Influenza A Code(s): J10.1 - FLU DUE TO OTH IDENT INFLUENZA VIRUS W OTH RESP MANIFEST (4) Multiple sclerosis Code(s): G35 - MULTIPLE SCLEROSIS (5) Hypothyroid Code(s): E03.9 - HYPOTHYROIDISM, UNSPECIFIED (6) Hyperlipemia Code(s): E78.5 - HYPERLIPIDEMIA, UNSPECIFIED (8) Neuropathic pain of both legs Code(s): G57.91 - UNSPECIFIED MONONEUROPATHY OF RIGHT LOWER LIMB G57.92 - UNSPECIFIED MONONEUROPATHY OF LEFT LOWER LIMB (9) Fever Code(s): R50.9 - FEVER, UNSPECIFIED Qualifiers: Fever type: unspecified Qualified Code(s): R50.9 - Fever, unspecified (10) Anemia Code(s): D64.9 - ANEMIA, UNSPECIFIED Qualifiers: Anemia type: other cause Other causes of anemia: other cause, not classified Qualified Code(s): D64.89 - Other specified anemias
[2016-06-05] MEDS: guaiFENesin 600 MG TABLET.ER (FP) PO SCH ×2 (09:30→21:29)
[2016-06-05] MEDS: PANTOPRAZOLE SODIUM 100 ML IVPB SCH (09:30)
[2016-06-05] MEDS: DOCUSATE SODIUM 100 MG CAPSULE (FP) PO SCH ×2 (09:30→21:29)
[2016-06-05] MEDS: GABAPENTIN 100 MG CAPSULE (FP) PO SCH ×4 (09:30→21:29)
[2016-06-05] MEDS: POLYETHYLENE GLYCOL 3350 119 GM BTL PO SCH (09:32)
[2016-06-05] MEDS ORDERED: ALBUTEROL SO4 2.5/IPRATROPIUM 0.5 INH SOL 3 ML VIAL.NEB. NEB PRN (10:51)
--- NOTE | 2016-06-05 11:03 | PN ---
Physical Exam: SUBJECTIVE: Patient seen and examined at bedside this AM. Off sedation and responsive to tactile stimuli & voice. She is able to shake her head yes/no and winks at me. Explained plan to start weaning off intubation with her, daughter at bedside. Afebrile overnight with elevated BP. OBJECTIVE: Vital Signs Period Temp Pulse Resp BP Sys/Cobb Pulse Ox Last 24 Hr 98.1 F-101.1 F 78-107 12-30 121-175/39-95 96-99 GENERAL: Intubated on mechanical ventilator. Off sedation. In no acute distress. HEENT: Atraumatic, PERRLA, No lymphadenopathy noted, moist membranes, dry cracked lower lip LUNGS: Diffuse scattered rales, diminished breath sounds bilaterally HEART: RRR, S1S2 ABDOMEN: Soft, nontender, nondistended, normoactive bowel sounds EXTREMITIES: 2+ pulses, warm, well-perfused, +1 edema upper & lower extremities SKIN: Warm, dry, normal turgor, no rashes or lesions noted RECTAL: Clots noted in stool; stool itself is brown and very hard but not bloody or tarry Laboratory Results - last 24 hr 06/04/16 06/04/16 06/05/16 18:50 21:20 05:15 WBC 11.4 H 12.4 H RBC 2.60 L 2.93 L Hgb 7.6 L D 8.5 L D Hct 22.9 L 25.0 L MCV 88.2 85.3 MCHC 33.2 33.9 RDW 14.0 16.8 H D Plt Count 444 H 459 H MPV 8.5 8.7 Puncture Site ABG pH ABG pCO2 at Pt Temp ABG pO2 at Pt Temp ABG HCO3 ABG O2 Sat (Measured) ABG O2 Content ABG Base Excess Paulino Test O2 Delivery Device Oxygen Flow Rate Vent Mode Vent Rate Mechanical Rate PEEP Pressure Support Vent Sodium Potassium Chloride Carbon Dioxide Anion Gap BUN Creatinine Creat Clearance w eGFR Random Glucose Calcium Phosphorus Magnesium Total Bilirubin AST ALT Alkaline Phosphatase Total Protein Albumin Blood Type A POSITIVE Antibody Screen Negative Crossmatch See Detail 06/05/16 06/05/16 05:15 07:10 WBC RBC Hgb Hct MCV MCHC RDW Plt Count MPV Puncture Site Right radial ABG pH 7.49 H ABG pCO2 at Pt Temp 39.3 ABG pO2 at Pt Temp 88.7 ABG HCO3 29.7 H ABG O2 Sat (Measured) 97.5 ABG O2 Content 11.4 L ABG Base Excess 6.2 H Paulino Test Positive O2 Delivery Device Mec.vent Oxygen Flow Rate 35 Vent Mode A/c Vent Rate 12 Mechanical Rate Yes PEEP 5.0 Pressure Support Vent 425 Sodium 139 Potassium 3.9 Chloride 100 Carbon Dioxide 30 Anion Gap 9 BUN 24 H Creatinine 1.2 H Creat Clearance w eGFR 43.01 Random Glucose 167 H Calcium 7.8 L Phosphorus 3.0 Magnesium 2.4 Total Bilirubin 0.7 D AST 19 D ALT 30 D Alkaline Phosphatase 119 H Total Protein 4.7 L Albumin 1.6 L Blood Type Antibody Screen Crossmatch Active Medications Generic Name Dose Route Start Last Admin Trade Name Freq PRN Reason Stop Dose Admin Acetaminophen 1,000 mg 05/27/16 01:22 06/05/16 04:11 Tylenol - PO 1,000 mg Q6H PRN Administration TEMP > 101* Albuterol Sulfate 1 amp 06/05/16 12:00 Ventolin 0.083% Nebulizer Soln - NEB QIDR [facility] Albuterol/Ipratropium 1 amp 06/05/16 10:51 Duoneb - NEB Q4H PRN SHORTNESS OF BREATH Docusate Sodium 200 mg 05/28/16 10:15 06/05/16 09:30 Colace - PO Not Given BID [facility] Enoxaparin Sodium 40 mg 06/05/16 11:00 Lovenox - SQ DAILY [facility] Fentanyl 25 mcg 06/04/16 13:55 06/04/16 14:10 Sublimaze Injection - IVPUSH 06/05/16 13:59 25 mcg Q3H PRN Administration PAIN Gabapentin 100 mg 05/28/16 22:00 06/05/16 09:30 Neurontin - PO 100 mg QID [facility] Administration Guaifenesin 600 mg 05/28/16 10:15 06/05/16 09:30 Mucinex - PO Not Given BID [facility] Hydralazine HCl 10 mg 06/01/16 12:50 Apresoline Injection - IVPUSH Q6H PRN HYPERTENSION Pantoprazole Sodium 100 mls @ 200 mls/hr 06/02/16 11:30 06/05/16 09:30 Protonix 40mg Ivpb (Pre-Docked) IVPB 200 mls/hr DAILY [facility] Administration Levothyroxine Sodium 25 mcg 06/04/16 07:00 06/05/16 07:05 Synthroid Injection - IVPUSH 25 mcg DAILY@0700 [facility] Administration Metoprolol Tartrate 5 mg 05/31/16 22:28 06/05/16 10:25 Lopressor Injection - IVPUSH 5 mg Q4H PRN Administration HYPERTENSION Midazolam HCl 2 mg 06/03/16 15:19 06/05/16 04:34 Versed - IVPUSH 2 mg Q2H PRN Administration AGITATION Ondansetron HCl 4 mg 05/29/16 00:30 05/29/16 22:35 Zofran Injection IVPB 4 mg Q6H PRN Administration NAUSEA AND/OR VOMITING Polyethylene Glycol 17 gm 06/02/16 12:15 06/05/16 09:32 Miralax (For Daily Use) - PO 17 grams DAILY [facility] Administration Senna 8.8 mg 06/04/16 22:00 06/04/16 21:12 Senna Oral Solution - PO 8.8 mg HS [facility] Administration ASSESSMENT/PLAN: Patient is a 80 year old female with significant PMH of MS, HTN, HLF & Hypothyroidism who presents to ICU with hyponatremia. Patient has been treated for Influenza pneumonia in hospital since 05/27. Hypotonic fluids, cymbalta use & Lasix administration resulting in hyponatremia during hospital course. #Hyponatremia, Na 139 today -holding cymbalta, would not restart -free water restriction/holding IVF -Strict I & O's -no need for Lasix at present #Influenza Pneumonia/Aspiration Pneumonia -intubated at present but no longer sedated -unsuccessfully attempted to wean today; will reattempt tomorrow -ID following -discontinued antibiotics and will reculture in 24-48 hours if spikes fever again -Mucinex w/ chest PT -Duonebs QIDR, Albuterol IH as needed -CXR in AM #Acute Renal Failure (Cr stabilizing at 1.2) -holding IVF at present due to edema & hypertension -awaiting Urine sodium to calculate FeNa -discussed with Nephrology today #Hemmorhoids, clots in stool -patient constipated and straining to have bowel movements -On Senna & Miralax -given 1unit PRBC last night -will follow CBC in AM #Multiple Sclerosis -continue gabapentin #Hypothyroidism -continue Synthroid 50mcg #Hypertension/Hyperlipidemia -continue Hydralazine, Lopressor PRN Prophylaxis/FEN -Lovenox, PPI -IVF being held, monitor electrolytes, Tubefeed jevity 1.5 Visit type - Emergency Visit Emergency Visit: Yes ED Registration Date: 05/26/16 Care time: The patient presented to the Emergency Department on the above date and was hospitalized for further evaluation of their emergent condition. - New Patient This patient is new to me today: No - Critical Care Critical Care patient: Yes Total Critical Care Time (in minutes): 40 Critical Care Statement: The care of this patient involved high complexity decision making to prevent further life threatening deterioration of the patient 's condition and/or to evalute & treat vital organ system(s) failure or risk of failure.
[2016-06-05] MEDS ORDERED: ALBUTEROL SO4 0.083% IH SOL 2.5 MG/3 ML VIAL.NEB. NEB PRN (11:36)
--- NOTE | 2016-06-05 11:37 | PN ---
Teaching Attending Note Name of Resident: Pablo Dey ATTENDING PHYSICIAN STATEMENT I saw and evaluated the patient. I reviewed the resident's note and discussed the case with the resident. I agree with the resident's findings and plan as documented. SUBJECTIVE: Pt seen and examined in the ICU. Remains intubated, awake, follows commands. Fever curve trending down. OBJECTIVE: Last Vital Signs Temp Pulse Resp BP Pulse Ox 99.2 F 98 H 26 H 161/95 97 06/05/16 10:00 06/05/16 10:25 06/05/16 11:13 06/05/16 10:25 06/05/16 11:13 Intake & Output 06/02/16 06/03/16 06/04/16 06/05/16 23:59 23:59 23:59 23:59 Intake Total 2698 2804 2657 496 Output Total 750 1700 1400 400 Balance 1948 1104 1257 96 Weight 142 lb 2 oz 142 lb 8 oz 140 lb 7 oz 142 lb 6 oz Gen: intubated, awake Heart: RRR Lung: scattered rhonchi Abd: soft, nontender Ext: + UE edema CBC, BMP 06/05/16 05:15 06/05/16 05:15 Active Medications Acetaminophen (Tylenol -) 1,000 mg PO Q6H PRN PRN Reason: TEMP > 101* Last Admin: 06/05/16 04:11 Dose: 1,000 mg Albuterol Sulfate (Ventolin 0.083% Nebulizer Soln -) 1 amp NEB QIDR [facility] Albuterol/Ipratropium (Duoneb -) 1 amp NEB Q4H PRN PRN Reason: SHORTNESS OF BREATH Docusate Sodium (Colace -) 200 mg PO BID [facility] Last Admin: 06/05/16 09:30 Dose: Not Given Enoxaparin Sodium (Lovenox -) 40 mg SQ DAILY [facility] Fentanyl (Sublimaze Injection -) 25 mcg IVPUSH Q3H PRN PRN Reason: PAIN Stop: 06/05/16 13:59 Last Admin: 06/04/16 14:10 Dose: 25 mcg Gabapentin (Neurontin -) 100 mg PO QID [facility] Last Admin: 06/05/16 09:30 Dose: 100 mg Guaifenesin (Mucinex -) 600 mg PO BID [facility] Last Admin: 06/05/16 09:30 Dose: Not Given Hydralazine HCl (Apresoline Injection -) 10 mg IVPUSH Q6H PRN PRN Reason: HYPERTENSION Pantoprazole Sodium (Protonix 40mg Ivpb (Pre-Docked)) 100 mls @ 200 mls/hr IVPB DAILY [facility] Last Admin: 06/05/16 09:30 Dose: 200 mls/hr Levothyroxine Sodium (Synthroid Injection -) 25 mcg IVPUSH DAILY@0700 [facility] Last Admin: 06/05/16 07:05 Dose: 25 mcg Metoprolol Tartrate (Lopressor Injection -) 5 mg IVPUSH Q4H PRN PRN Reason: HYPERTENSION Last Admin: 06/05/16 10:25 Dose: 5 mg Midazolam HCl (Versed -) 2 mg IVPUSH Q2H PRN PRN Reason: AGITATION Last Admin: 06/05/16 04:34 Dose: 2 mg Ondansetron HCl (Zofran Injection) 4 mg IVPB Q6H PRN PRN Reason: NAUSEA AND/OR VOMITING Last Admin: 05/29/16 22:35 Dose: 4 mg Polyethylene Glycol (Miralax (For Daily Use) -) 17 gm PO DAILY [facility] Last Admin: 06/05/16 09:32 Dose: 17 grams Senna (Senna Oral Solution -) 8.8 mg PO HS [facility] Last Admin: 06/04/16 21:12 Dose: 8.8 mg ASSESSMENT AND PLAN: Acute Respiratory Failure Pneumonia likely Aspiration Hyponatremia improving Influenza A Multiple Sclerosis HTN Hypothyroidism Acute Kidney Injury - antibiotics stopped per ID - reculture if febrile - monitor urine output, creatinine - avoid propofol per neurology - monitor sodium level - BP control - minimize sedation to assess mental status - spontaneous breathing trials as tolerated - inhaled bronchodilators - enteral feeds - DVT/GI prophylaxis - continue ICU monitoring
[2016-06-05] MEDS ORDERED: ALBUTEROL SO4 0.083% IH SOL 2.5 MG/3 ML VIAL.NEB. NEB SCH (12:00)
[2016-06-05] MEDS: hydrALAZINE HCL 20 MG/ML VIAL IVPUSH PRN ×2 (12:31→21:32)
[2016-06-05] MEDS: ENOXAPARIN NA (PORCINE) 40 MG/0.4 ML DISP.SYRIN SQ SCH (12:58)
--- NOTE | 2016-06-05 13:02 | PN ---
Progress Note, Physician History of Present Illness: Pt seen and examined at bedside. She is arousable. She remains in the ICU intubated. - Current Medication List Current Medications: Active Medications Acetaminophen (Tylenol -) 1,000 mg PO Q6H PRN PRN Reason: TEMP > 101* Last Admin: 06/05/16 04:11 Dose: 1,000 mg Albuterol Sulfate (Ventolin 0.083% Nebulizer Soln -) 1 amp NEB Q4H PRN PRN Reason: SHORT OF BREATH/WHEEZING Albuterol/Ipratropium (Duoneb -) 1 amp NEB QIDR [facility] Docusate Sodium (Colace -) 200 mg PO BID [facility] Last Admin: 06/05/16 09:30 Dose: Not Given Enoxaparin Sodium (Lovenox -) 40 mg SQ DAILY [facility] Fentanyl (Sublimaze Injection -) 25 mcg IVPUSH Q3H PRN PRN Reason: PAIN Stop: 06/05/16 13:59 Last Admin: 06/04/16 14:10 Dose: 25 mcg Gabapentin (Neurontin -) 100 mg PO QID [facility] Last Admin: 06/05/16 09:30 Dose: 100 mg Guaifenesin (Mucinex -) 600 mg PO BID [facility] Last Admin: 06/05/16 09:30 Dose: Not Given Hydralazine HCl (Apresoline Injection -) 10 mg IVPUSH Q6H PRN PRN Reason: HYPERTENSION Last Admin: 06/05/16 12:31 Dose: 10 mg Pantoprazole Sodium (Protonix 40mg Ivpb (Pre-Docked)) 100 mls @ 200 mls/hr IVPB DAILY [facility] Last Admin: 06/05/16 09:30 Dose: 200 mls/hr Levothyroxine Sodium (Synthroid Injection -) 25 mcg IVPUSH DAILY@0700 [facility] Last Admin: 06/05/16 07:05 Dose: 25 mcg Metoprolol Tartrate (Lopressor Injection -) 5 mg IVPUSH Q4H PRN PRN Reason: HYPERTENSION Last Admin: 06/05/16 10:25 Dose: 5 mg Midazolam HCl (Versed -) 2 mg IVPUSH Q2H PRN PRN Reason: AGITATION Last Admin: 06/05/16 04:34 Dose: 2 mg Ondansetron HCl (Zofran Injection) 4 mg IVPB Q6H PRN PRN Reason: NAUSEA AND/OR VOMITING Last Admin: 05/29/16 22:35 Dose: 4 mg Polyethylene Glycol (Miralax (For Daily Use) -) 17 gm PO DAILY [facility] Last Admin: 06/05/16 09:32 Dose: 17 grams Senna (Senna Oral Solution -) 8.8 mg PO HS [facility] Last Admin: 06/04/16 21:12 Dose: 8.8 mg - Objective Vital Signs: Vital Signs Temperature 99.2 F 06/05/16 10:00 Pulse Rate 98 H 06/05/16 10:25 Respiratory Rate 21 06/05/16 12:00 Blood Pressure 161/95 06/05/16 10:25 O2 Sat by Pulse Oximetry (%) 97 06/05/16 11:44 Constitutional: Yes: Calm Eyes: Yes: Conjunctiva Clear HENT: Yes: Atraumatic Neck: Yes: Supple Cardiovascular: Yes: S1, S2 Respiratory: Yes: Mechanically Ventilated Gastrointestinal: Yes: Soft Genitourinary: Yes: Obrien Present Musculoskeletal: Yes: Muscle Weakness Edema: No Neurological: Yes: Pre-Existing Deficit Labs: CBC, BMP 06/05/16 05:15 06/05/16 05:15 INR, PTT INR 1.14 (0.82-1.09) 05/26/16 18:25 - ....Imaging Chest X-ray: Report Reviewed Problem List - Problems (1) Hyperlipemia Code(s): E78.5 - HYPERLIPIDEMIA, UNSPECIFIED (2) Hypothyroid Code(s): E03.9 - HYPOTHYROIDISM, UNSPECIFIED (3) Influenza A Code(s): J10.1 - FLU DUE TO OTH IDENT INFLUENZA VIRUS W OTH RESP MANIFEST (4) Multiple sclerosis Code(s): G35 - MULTIPLE SCLEROSIS (5) Hyponatremia Code(s): E87.1 - HYPO-OSMOLALITY AND HYPONATREMIA Assessment/Plan Current Medications Generic Name Dose Route Start Last Admin Trade Name Freq PRN Reason Stop Dose Admin Acetaminophen 1,000 mg 05/27/16 01:22 06/05/16 04:11 Tylenol - PO 1,000 mg Q6H PRN Administration TEMP > 101* Albuterol Sulfate 1 amp 06/05/16 11:36 Ventolin 0.083% Nebulizer Soln - NEB Q4H PRN SHORT OF BREATH/WHEEZING Albuterol/Ipratropium 1 amp 06/05/16 12:00 Duoneb - NEB QIDR [facility] Docusate Sodium 200 mg 05/28/16 10:15 06/05/16 09:30 Colace - PO Not Given BID [facility] Enoxaparin Sodium 40 mg 06/05/16 11:00 Lovenox - SQ DAILY [facility] Fentanyl 25 mcg 06/04/16 13:55 06/04/16 14:10 Sublimaze Injection - IVPUSH 06/05/16 13:59 25 mcg Q3H PRN Administration PAIN Gabapentin 100 mg 05/28/16 22:00 06/05/16 09:30 Neurontin - PO 100 mg QID [facility] Administration Guaifenesin 600 mg 05/28/16 10:15 06/05/16 09:30 Mucinex - PO Not Given BID [facility] Hydralazine HCl 10 mg 06/01/16 12:50 06/05/16 12:31 Apresoline Injection - IVPUSH 10 mg Q6H PRN Administration HYPERTENSION Pantoprazole Sodium 100 mls @ 200 mls/hr 06/02/16 11:30 06/05/16 09:30 Protonix 40mg Ivpb (Pre-Docked) IVPB 200 mls/hr DAILY [facility] Administration Levothyroxine Sodium 25 mcg 06/04/16 07:00 06/05/16 07:05 Synthroid Injection - IVPUSH 25 mcg DAILY@0700 [facility] Administration Metoprolol Tartrate 5 mg 05/31/16 22:28 06/05/16 10:25 Lopressor Injection - IVPUSH 5 mg Q4H PRN Administration HYPERTENSION Midazolam HCl 2 mg 06/03/16 15:19 06/05/16 04:34 Versed - IVPUSH 2 mg Q2H PRN Administration AGITATION Ondansetron HCl 4 mg 05/29/16 00:30 05/29/16 22:35 Zofran Injection IVPB 4 mg Q6H PRN Administration NAUSEA AND/OR VOMITING Polyethylene Glycol 17 gm 06/02/16 12:15 06/05/16 09:32 Miralax (For Daily Use) - PO 17 grams DAILY [facility] Administration Senna 8.8 mg 06/04/16 22:00 06/04/16 21:12 Senna Oral Solution - PO 8.8 mg HS [facility] Administration Laboratory Tests 06/05/16 05:15 Sodium 139 Albumin 1.6 L Impression 1. hyponatremia - hypo-osmolar 2. Influenza 3. PNA with small effusion 4. multiple sclerosis 5. hyperlipidemia 6. hypothyroidism 7. HTN 8. proteinuria and microscopic hematuria 9. MIRNA 10. respiratory failure requiring intubation Plan - sodium is improved - cont feeds - repeat labs in am - cont to monitor renal function as creatinine is elevated above baseline - antibiotics stopped per ID - daily sedation vacation - weaning per pulmonary - discussed plan with ICU team - would not give any lasix - cont vent support - monitor urine output Dr Marrero
[2016-06-05] MEDS: ALBUTEROL SO4 2.5/IPRATROPIUM 0.5 INH SOL 3 ML VIAL.NEB. NEB SCH ×2 (15:30→18:00)
[2016-06-05 18:25] LABS: MCH 28.3 pg (25.7-33.7); MCHC 33.3 g/dl (32.0-36.0); MEAN CELL VOLUME 85.1 fl (80-96); MEAN PLT VOLUME 8.7 fl (7.5-11.1); PLATELET COUNT 495 K/MM3 (134-434); RDW 16.7 % (11.6-15.6)
[2016-06-05 19:00] LABS: MICROCYTOSIS 1+; PLATELET ESTIMATE INCREASED (NORMAL)
[2016-06-05] MEDS: SENNOSIDES 8.8 MG/5 ML BULK BOTTLE PO SCH (22:04)
[2016-06-06 05:54] LABS: MCH 28.3 pg (25.7-33.7); MCHC 33.2 g/dl (32.0-36.0); MEAN CELL VOLUME 85.3 fl (80-96); MEAN PLT VOLUME 8.6 fl (7.5-11.1); PLATELET COUNT 521 K/MM3 (134-434); RDW 16.8 % (11.6-15.6); WHITE BLOOD COUNT 16.4 K/mm3 (4.0-10.0)
[2016-06-06] MEDS ORDERED: PT OWN MED DRAWER 7, Y5N ONE ×3 (06:08→21:51)
[2016-06-06] MEDS: LEVOTHYROXINE SODIUM 100 MCG VIAL IVPUSH SCH (06:13)
[2016-06-06 06:24] LABS: ALBUMIN 1.9 g/dl (3.4-5.0); CALCIUM 7.6 mg/dL (8.5-10.1); CREATININE 1.2 mg/dL (0.55-1.02); MAGNESIUM 2.4 mg/dL (1.8-2.4); PHOSPHOROUS 2.6 mg/dL (2.5-4.9)
[2016-06-06 06:25] LABS: BILIRUBIN,TOTAL 0.3 mg/dL (0.2-1.0); TOT PROT 5.3 g/dl (6.4-8.2)
[2016-06-06] MEDS: ALBUTEROL SO4 2.5/IPRATROPIUM 0.5 INH SOL 3 ML VIAL.NEB. NEB SCH ×5 (06:40→23:41)
[2016-06-06 07:41] LABS: ARTERIAL BLOOD GAS BASE EXCESS 7.4 meq/l (-2-2); ARTERIAL BLOOD GAS HCO3 30.5 meq/L (22-26); ARTERIAL BLOOD GAS PO2 83.9 mmHg (68-100)
[2016-06-06 07:50] LABS: ALLENS TEST POSITIVE; ART PUNCT SITE LEFT RADIAL; LPM/O2% 35%; PT. ON O2? YES
[2016-06-06 07:51] LABS: ARTERIAL BLOOD GAS pH 7.52 (7.35-7.45); MECH. VENT. ESPRIT; TYPE OF O2 MEC.VENT; VENT RATE 12; VT/PRESS 425
[2016-06-06] MEDS: PANTOPRAZOLE SODIUM 100 ML IVPB SCH (09:08)
[2016-06-06] MEDS: GABAPENTIN 100 MG CAPSULE (FP) PO SCH ×4 (09:08→21:08)
[2016-06-06] MEDS: DOCUSATE SODIUM 100 MG CAPSULE (FP) PO SCH ×2 (09:08→21:00)
[2016-06-06] MEDS: POLYETHYLENE GLYCOL 3350 119 GM BTL PO SCH (09:08)
[2016-06-06] MEDS: ENOXAPARIN NA (PORCINE) 40 MG/0.4 ML DISP.SYRIN SQ SCH (09:08)
[2016-06-06] MEDS: guaiFENesin 600 MG TABLET.ER (FP) PO SCH ×2 (09:08→21:07)
[2016-06-06] MEDS: hydrALAZINE HCL 20 MG/ML VIAL IVPUSH PRN ×2 (09:12→17:16)
[2016-06-06 09:13] LABS: PLATELET ESTIMATE INCREASED (NORMAL)
--- NOTE | 2016-06-06 09:22 | PN ---
Progress Note (short form) - Note Progress Note: Patient seen and examined in ICU remains intubated FiO2 35% PEEP5 vesicular rash on lips low grade temp off abx with slight inc on WBC awake / alert / interactive Vital Signs Period Temp Pulse Resp BP Sys/Cobb Pulse Ox Last 24 Hr 99.2 F-101.2 F 87-113 13-28 134-201/36-115 95-100 Intake & Output 06/03/16 06/04/16 06/05/16 06/06/16 23:59 23:59 23:59 23:59 Intake Total 2804 2657 1895 393 Output Total 1700 1400 1250 300 Balance 1104 1257 645 93 Weight 142 lb 8 oz 140 lb 7 oz 142 lb 6 oz 144 lb 3 oz lips - vesicular lesions lower and upper lip neck no jvd heart reg S1/S2 lungs clear bilat abd soft non tender ext no edema right foot drop CBC, BMP 06/06/16 05:00 06/06/16 05:00 Microbiology 05/31/16 15:45 Blood - Peripheral Venous Blood Culture - Final NO GROWTH AFTER 5 DAYS INCUBATION 05/31/16 15:40 Blood - Peripheral Venous Blood Culture - Final NO GROWTH AFTER 5 DAYS INCUBATION 06/01/16 12:30 Sputum - Endotrachea Suction/Ventilator Gram Stain - Final 06/01/16 12:30 Sputum - Endotrachea Suction/Ventilator Sputum Culture - Final Yeast Like Organism 06/01/16 06:00 Urine - Urine - Catheterized Urine Culture - Final NO GROWTH OBTAINED 05/30/16 21:00 Urine - Urine - Catheterized Urine Culture - Final NO GROWTH OBTAINED 05/26/16 18:25 Blood - Peripheral Venous Blood Culture - Final NO GROWTH AFTER 5 DAYS INCUBATION 05/26/16 18:25 Blood - Peripheral Venous Blood Culture - Final NO GROWTH AFTER 5 DAYS INCUBATION 05/30/16 21:00 Urine For Antigen Detection Legionella Antigen - Final 05/30/16 21:00 Urine For Antigen Detection Streptococcus pneumoniae Antigen (M - Final 05/26/16 18:00 Urine - Urine - Catheterized Urine Culture - Final NO GROWTH OBTAINED 05/26/16 18:25 Nasopharyngeal Swab Influenza Types A,B Antigen (ASHLIE) - Final 05/26/16 18:25 Nasopharyngeal Swab - Final Active Medications Acetaminophen (Tylenol -) 1,000 mg PO Q6H PRN PRN Reason: TEMP > 101* Last Admin: 06/05/16 21:33 Dose: 1,000 mg Albuterol Sulfate (Ventolin 0.083% Nebulizer Soln -) 1 amp NEB Q4H PRN PRN Reason: SHORT OF BREATH/WHEEZING Albuterol/Ipratropium (Duoneb -) 1 amp NEB QIDR [facility] TO [facility] Last Admin: 06/06/16 06:40 Dose: 1 amp Docusate Sodium (Colace -) 200 mg PO BID [facility] Last Admin: 06/06/16 09:08 Dose: Not Given Enoxaparin Sodium (Lovenox -) 40 mg SQ DAILY [facility] Last Admin: 06/06/16 09:08 Dose: 40 mg Gabapentin (Neurontin -) 100 mg PO QID [facility] Last Admin: 06/06/16 09:08 Dose: 100 mg Guaifenesin (Mucinex -) 600 mg PO BID [facility] Last Admin: 06/06/16 09:08 Dose: Not Given Hydralazine HCl (Apresoline Injection -) 10 mg IVPUSH Q6H PRN PRN Reason: HYPERTENSION Last Admin: 06/06/16 09:12 Dose: 10 mg Pantoprazole Sodium (Protonix 40mg Ivpb (Pre-Docked)) 100 mls @ 200 mls/hr IVPB DAILY [facility] Last Admin: 06/06/16 09:08 Dose: 200 mls/hr Levothyroxine Sodium (Synthroid Injection -) 25 mcg IVPUSH DAILY@0700 [facility] Last Admin: 06/06/16 06:13 Dose: 25 mcg Metoprolol Tartrate (Lopressor Injection -) 5 mg IVPUSH Q4H PRN PRN Reason: HYPERTENSION Last Admin: 06/05/16 10:25 Dose: 5 mg Ondansetron HCl (Zofran Injection) 4 mg IVPB Q6H PRN PRN Reason: NAUSEA AND/OR VOMITING Last Admin: 05/29/16 22:35 Dose: 4 mg Polyethylene Glycol (Miralax (For Daily Use) -) 17 gm PO DAILY [facility] Last Admin: 06/06/16 09:08 Dose: 17 grams Senna (Senna Oral Solution -) 8.8 mg PO HS [facility] Last Admin: 06/05/16 22:04 Dose: 8.8 mg ASSMT low grade temp off abx / inc WBC re cultured today will follow oral lesion (c/w herpes ) discussed with ID will start acyclovir MIRNA -- BUN/Cr remains stable Acute Respiratory Failure weaning today / failed trial yesterday Hyponatremia Na up to 138 has remained stable Pneumonia likely Aspiration improving Influenza A treatment completed Multiple Sclerosis stable HTN Hypothyroidism Plan d/c abx per ID - recultured acyclovir IV per ID nutritional support monitor Na follow h/h s/p transfusion follow bun/Cr Taper to wean vent support as per Pulm continue ICU care will update daughter Problem List Problem List - Problems (1) Hyponatremia Code(s): E87.1 - HYPO-OSMOLALITY AND HYPONATREMIA (2) Right lower lobe pneumonia Code(s): J18.9 - PNEUMONIA, UNSPECIFIED ORGANISM (3) Influenza A Code(s): J10.1 - FLU DUE TO OTH IDENT INFLUENZA VIRUS W OTH RESP MANIFEST (4) Multiple sclerosis Code(s): G35 - MULTIPLE SCLEROSIS (5) Hypothyroid Code(s): E03.9 - HYPOTHYROIDISM, UNSPECIFIED (6) Hyperlipemia Code(s): E78.5 - HYPERLIPIDEMIA, UNSPECIFIED (8) Neuropathic pain of both legs Code(s): G57.91 - UNSPECIFIED MONONEUROPATHY OF RIGHT LOWER LIMB G57.92 - UNSPECIFIED MONONEUROPATHY OF LEFT LOWER LIMB (9) Fever Code(s): R50.9 - FEVER, UNSPECIFIED Qualifiers: Fever type: unspecified Qualified Code(s): R50.9 - Fever, unspecified (10) Anemia Code(s): D64.9 - ANEMIA, UNSPECIFIED Qualifiers: Anemia type: other cause Other causes of anemia: other cause, not classified Qualified Code(s): D64.89 - Other specified anemias
--- NOTE | 2016-06-06 09:24 | PN ---
Progress Note, Physician Chief Complaint: OFF antibiotics and fevers ? source Remains intubated Alert NAD - Current Medication List Current Medications: Active Medications Acetaminophen (Tylenol -) 1,000 mg PO Q6H PRN PRN Reason: TEMP > 101* Last Admin: 06/05/16 21:33 Dose: 1,000 mg Albuterol Sulfate (Ventolin 0.083% Nebulizer Soln -) 1 amp NEB Q4H PRN PRN Reason: SHORT OF BREATH/WHEEZING Albuterol/Ipratropium (Duoneb -) 1 amp NEB QIDR [facility] Last Admin: 06/06/16 06:40 Dose: 1 amp Docusate Sodium (Colace -) 200 mg PO BID [facility] Last Admin: 06/06/16 09:08 Dose: Not Given Enoxaparin Sodium (Lovenox -) 40 mg SQ DAILY [facility] Last Admin: 06/06/16 09:08 Dose: 40 mg Gabapentin (Neurontin -) 100 mg PO QID [facility] Last Admin: 06/06/16 09:08 Dose: 100 mg Guaifenesin (Mucinex -) 600 mg PO BID [facility] Last Admin: 06/06/16 09:08 Dose: Not Given Hydralazine HCl (Apresoline Injection -) 10 mg IVPUSH Q6H PRN PRN Reason: HYPERTENSION Last Admin: 06/06/16 09:12 Dose: 10 mg Pantoprazole Sodium (Protonix 40mg Ivpb (Pre-Docked)) 100 mls @ 200 mls/hr IVPB DAILY [facility] Last Admin: 06/06/16 09:08 Dose: 200 mls/hr Levothyroxine Sodium (Synthroid Injection -) 25 mcg IVPUSH DAILY@0700 [facility] Last Admin: 06/06/16 06:13 Dose: 25 mcg Metoprolol Tartrate (Lopressor Injection -) 5 mg IVPUSH Q4H PRN PRN Reason: HYPERTENSION Last Admin: 06/05/16 10:25 Dose: 5 mg Ondansetron HCl (Zofran Injection) 4 mg IVPB Q6H PRN PRN Reason: NAUSEA AND/OR VOMITING Last Admin: 05/29/16 22:35 Dose: 4 mg Polyethylene Glycol (Miralax (For Daily Use) -) 17 gm PO DAILY [facility] Last Admin: 06/06/16 09:08 Dose: 17 grams Senna (Senna Oral Solution -) 8.8 mg PO HS [facility] Last Admin: 06/05/16 22:04 Dose: 8.8 mg - Objective Vital Signs: Vital Signs Temperature 100.2 F H 06/06/16 08:00 Pulse Rate 108 H 06/06/16 08:00 Respiratory Rate 24 06/06/16 08:31 Blood Pressure 152/78 06/06/16 08:00 O2 Sat by Pulse Oximetry (%) 98 06/06/16 08:31 Constitutional: Yes: Well Nourished, No Distress Eyes: Yes: WNL, Conjunctiva Clear HENT: Yes: Other (Blisters sores left lip) Neck: Yes: WNL, Supple Cardiovascular: Yes: S1, S2 Respiratory: Yes: WNL, Regular, CTA Bilaterally Gastrointestinal: Yes: Soft. No: Tenderness Edema: No Labs: CBC, BMP 06/06/16 05:00 06/06/16 05:00 INR, PTT INR 1.14 (0.82-1.09) 05/26/16 18:25 Assessment/Plan Microbiology 06/01/16 12:30 Sputum - Endotrachea Suction/Ventilator Gram Stain - Final 06/01/16 12:30 Sputum - Endotrachea Suction/Ventilator Sputum Culture - Final Yeast Like Organism Laboratory Tests 06/06/16 06/06/16 06/06/16 05:00 05:00 07:30 WBC 16.4 H Hgb 9.1 L Hct 27.5 L Plt Count 521 H ABG pH 7.52 H ABG pCO2 at Pt Temp 37.3 ABG pO2 at Pt Temp 83.9 BUN 29 H D Creatinine 1.2 H Creat Clearance w eGFR 43.01 Assessment Respiratory failure Fevers ? pneumonia related vs HERPES infection seen on exam today Influenza A 2/5 PCN allergy Plan Repeat cultures pending Start IV Acyclovir adjusted for Cr Cl Resume Carbepenem Imipenem for PNEUMONIA RLL Discussed with Dr Nguyen Critical care time spent with patient 38 minutes
[2016-06-06] MEDS ORDERED: CEFEPIME HCL 2 GM VIAL (RESTRICTED TO ID) IVPB SCH (10:00)
[2016-06-06] MEDS ORDERED: BENZOIN/ALOE VERA/STORAX/TOLU 58 ML BOTTLE ONE (11:12)
[2016-06-06] MEDS: CEFEPIME 0.5 GM in DEXTROSE 5%-WATER - 100 ML IVPB SCH ×2 (11:13→21:09)
--- NOTE | 2016-06-06 12:00 | PN ---
Physical Exam: SUBJECTIVE: Patient seen and examined at bedside in ICU. Mild elevation int emp to 100.2 overnight. Responds to verbal and tactile stimuli. Is communicating much better than in previous days, able to ask me to change the TV channel. Attempted to wean off ventilator this morning but patient become tachypneic to RR of 40 on CPAP. Restarted AC vent but will attempt again later this afternoon. OBJECTIVE: Vital Signs Period Temp Pulse Resp BP Sys/Cobb Pulse Ox Last 24 Hr 99.5 F-101.2 F 93-113 13-37 134-201/36-115 95-100 GENERAL: Intubated on mechanical ventilator. Off sedation. In no acute distress. HEENT: Atraumatic, PERRLA, No lymphadenopathy noted, moist membranes, dry cracked lower lip LUNGS: Diffuse scattered rales at lung bases, diminished breath sounds bilaterally HEART: RRR, S1S2 ABDOMEN: Soft, nontender, nondistended, normoactive bowel sounds EXTREMITIES: 2+ pulses, warm, well-perfused, +1 edema upper & lower extremities SKIN: Warm, dry, normal turgor, no rashes or lesions noted RECTAL: brown stool, nonbloody nontarry Laboratory Results - last 24 hr 06/05/16 06/06/16 06/06/16 17:15 05:00 05:00 WBC 14.0 H 16.4 H RBC 3.16 L 3.22 L Hgb 9.0 L 9.1 L Hct 26.9 L 27.5 L MCV 85.1 85.3 MCHC 33.3 33.2 RDW 16.7 H 16.8 H Plt Count 495 H 521 H MPV 8.7 8.6 Neutrophils % 77.0 77.0 Lymphocytes % 10.0 D 8.0 Monocytes % 8.0 13.0 H Eosinophils % 1.0 Band Neutrophils 4.0 D 1.0 D Differential Comment Manual diff done Platelet Estimate Increased Increased Microcytosis 1+ Puncture Site ABG pH ABG pCO2 at Pt Temp ABG pO2 at Pt Temp ABG HCO3 ABG O2 Sat (Measured) ABG O2 Content ABG Base Excess Paulino Test O2 Delivery Device Oxygen Flow Rate Vent Mode Vent Rate Mechanical Rate PEEP Pressure Support Vent Sodium 138 Potassium 4.1 Chloride 98 Carbon Dioxide 30 Anion Gap 10 BUN 29 H D Creatinine 1.2 H Creat Clearance w eGFR 43.01 Random Glucose 196 H Calcium 7.6 L Phosphorus 2.6 Magnesium 2.4 Total Bilirubin 0.3 D AST 22 ALT 29 Alkaline Phosphatase 108 Total Protein 5.3 L Albumin 1.9 L 06/06/16 07:30 WBC RBC Hgb Hct MCV MCHC RDW Plt Count MPV Neutrophils % Lymphocytes % Monocytes % Eosinophils % Band Neutrophils Differential Comment Platelet Estimate Microcytosis Puncture Site Left radial ABG pH 7.52 H ABG pCO2 at Pt Temp 37.3 ABG pO2 at Pt Temp 83.9 ABG HCO3 30.5 H ABG O2 Sat (Measured) 97.0 ABG O2 Content 12.6 L ABG Base Excess 7.4 H Paulino Test Positive O2 Delivery Device Mec.vent Oxygen Flow Rate 35% Vent Mode A/c Vent Rate 12 Mechanical Rate Esprit PEEP 5.0 Pressure Support Vent 425 Sodium Potassium Chloride Carbon Dioxide Anion Gap BUN Creatinine Creat Clearance w eGFR Random Glucose Calcium Phosphorus Magnesium Total Bilirubin AST ALT Alkaline Phosphatase Total Protein Albumin Active Medications Generic Name Dose Route Start Last Admin Trade Name Freq PRN Reason Stop Dose Admin Acetaminophen 1,000 mg 05/27/16 01:22 06/05/16 21:33 Tylenol - PO 1,000 mg Q6H PRN Administration TEMP > 101* Albuterol Sulfate 1 amp 06/05/16 11:36 Ventolin 0.083% Nebulizer Soln - NEB Q4H PRN SHORT OF BREATH/WHEEZING Albuterol/Ipratropium 1 amp 06/05/16 12:00 06/06/16 06:40 Duoneb - NEB 1 amp QIDR [facility] Administration Amino Acids 30 ml 06/06/16 17:30 Prosource No Carb Liquid Pkt PO BID@0800,1730 [facility] Docusate Sodium 200 mg 05/28/16 10:15 06/06/16 09:08 Colace - PO Not Given BID [facility] Enoxaparin Sodium 40 mg 06/05/16 11:00 06/06/16 09:08 Lovenox - SQ 40 mg DAILY [facility] Administration Gabapentin 100 mg 05/28/16 22:00 06/06/16 09:08 Neurontin - PO 100 mg QID [facility] Administration Guaifenesin 600 mg 05/28/16 10:15 06/06/16 09:08 Mucinex - PO Not Given BID [facility] Hydralazine HCl 10 mg 06/01/16 12:50 06/06/16 09:12 Apresoline Injection - IVPUSH 10 mg Q6H PRN Administration HYPERTENSION Pantoprazole Sodium 100 mls @ 200 mls/hr 06/02/16 11:30 06/06/16 09:08 Protonix 40mg Ivpb (Pre-Docked) IVPB 200 mls/hr DAILY [facility] Administration Acyclovir 325 mg/ Dextrose 106.5 mls @ 106.5 mls/hr 06/06/16 10:00 IVPB BID [facility] Cefepime HCl 0.5 gm/ Dextrose 100 mls @ 200 mls/hr 06/06/16 10:00 06/06/16 11: 13 IVPB 200 mls/hr BID [facility] Administration Levothyroxine Sodium 25 mcg 06/04/16 07:00 06/06/16 06:13 Synthroid Injection - IVPUSH 25 mcg DAILY@0700 [facility] Administration Metoprolol Tartrate 5 mg 05/31/16 22:28 06/05/16 10:25 Lopressor Injection - IVPUSH 5 mg Q4H PRN Administration HYPERTENSION Ondansetron HCl 4 mg 05/29/16 00:30 05/29/16 22:35 Zofran Injection IVPB 4 mg Q6H PRN Administration NAUSEA AND/OR VOMITING Polyethylene Glycol 17 gm 06/02/16 12:15 06/06/16 09:08 Miralax (For Daily Use) - PO 17 grams DAILY [facility] Administration Potassium Phos/Sodium Phos 1 packet 06/06/16 12:00 Phos-Nak Packet - PO 06/06/16 22:01 BID [facility] Senna 8.8 mg 06/04/16 22:00 06/05/16 22:04 Senna Oral Solution - PO 8.8 mg HS [facility] Administration ASSESSMENT/PLAN: Patient is a 80 year old female with significant PMH of MS, HTN, HLF & Hypothyroidism who presents to ICU with hyponatremia. Patient has been treated for Influenza pneumonia in hospital since 05/27. #Influenza Pneumonia/Aspiration Pneumonia, Spiking fevers last 24hours -Started Cefepime for RLL Pneumonia -Started Acyclovir for herpetic lesion on lip -ID following -intubated at present but no longer sedated -unsuccessfully attempted to wean this morning; will reattempt this afternoon -Mucinex w/ chest PT, Duonebs QIDR, Albuterol IH as needed -CXR in AM #Acute Renal Failure (Cr stabilizing at 1.2) -holding IVF at present due to edema & hypertension -awaiting Urine sodium to calculate FeNa -discussed with Nephrology today #Hyponatremia, Na 138 today -resolved, will continue to monitor -would not restart cymbalta on discharge #Hemmorhoids, clots in stool -On Senna & Miralax -H/H Stable this AM, no signs of acute bleeding #Multiple Sclerosis -continue gabapentin #Hypothyroidism -continue Synthroid 50mcg #Hypertension/Hyperlipidemia -continue Hydralazine, Lopressor PRN Prophylaxis/FEN -Lovenox, PPI -IVF being held, repleted phosphorus today, Tubefeed jevity 1.5 with Prostat Visit type - Emergency Visit Emergency Visit: Yes ED Registration Date: 05/26/16 Care time: The patient presented to the Emergency Department on the above date and was hospitalized for further evaluation of their emergent condition. - New Patient This patient is new to me today: No - Critical Care Critical Care patient: Yes Total Critical Care Time (in minutes): 40 Critical Care Statement: The care of this patient involved high complexity decision making to prevent further life threatening deterioration of the patient 's condition and/or to evalute & treat vital organ system(s) failure or risk of failure.
[2016-06-06] MEDS: NAPH,MB-DB/K PH,MBDB POWDER PACKET PO SCH ×2 (12:19→21:11)
[2016-06-06] MEDS: WATER IVPB SCH ×2 (12:19→21:59)
[2016-06-06] MEDS: DEXTROSE 5% IVPB SCH ×2 (12:19→21:59)
[2016-06-06] MEDS: ACYCLOVIR IVPB SCH ×2 (12:19→21:59)
--- NOTE | 2016-06-06 12:30 | PN ---
Teaching Attending Note Name of Resident: Pablo Dey ATTENDING PHYSICIAN STATEMENT I saw and evaluated the patient. I reviewed the resident's note and discussed the case with the resident. I agree with the resident's findings and plan as documented. SUBJECTIVE: Pt seen and examined in the ICU. Continues to have intermittent fevers. OBJECTIVE: Last Vital Signs Temp Pulse Resp BP Pulse Ox 100.8 F H 108 H 16 142/64 98 06/06/16 09:57 06/06/16 12:00 06/06/16 12:00 06/06/16 12:00 06/06/16 11:06 Intake & Output 06/03/16 06/04/16 06/05/16 06/06/16 23:59 23:59 23:59 23:59 Intake Total 2804 2657 1895 541 Output Total 1700 1400 1250 300 Balance 1104 1257 645 241 Weight 142 lb 8 oz 140 lb 7 oz 142 lb 6 oz 144 lb 3 oz Gen: intubated, arousable Heart: tachycardic, regular Lung: decreased breath sounds at the bases, scattered rhonchi Abd: soft, nontender Ext: + edema CBC, BMP 06/06/16 05:00 06/06/16 05:00 Active Medications Acetaminophen (Tylenol -) 1,000 mg PO Q6H PRN PRN Reason: TEMP > 101* Last Admin: 06/05/16 21:33 Dose: 1,000 mg Albuterol Sulfate (Ventolin 0.083% Nebulizer Soln -) 1 amp NEB Q4H PRN PRN Reason: SHORT OF BREATH/WHEEZING Albuterol/Ipratropium (Duoneb -) 1 amp NEB QIDR [facility] Last Admin: 06/06/16 06:40 Dose: 1 amp Amino Acids (Prosource No Carb Liquid Pkt) 30 ml PO BID@0800,1730 [facility] Docusate Sodium (Colace -) 200 mg PO BID [facility] Last Admin: 06/06/16 09:08 Dose: Not Given Enoxaparin Sodium (Lovenox -) 40 mg SQ DAILY [facility] Last Admin: 06/06/16 09:08 Dose: 40 mg Gabapentin (Neurontin -) 100 mg PO QID [facility] Last Admin: 06/06/16 09:08 Dose: 100 mg Guaifenesin (Mucinex -) 600 mg PO BID [facility] Last Admin: 06/06/16 09:08 Dose: Not Given Hydralazine HCl (Apresoline Injection -) 10 mg IVPUSH Q6H PRN PRN Reason: HYPERTENSION Last Admin: 06/06/16 09:12 Dose: 10 mg Pantoprazole Sodium (Protonix 40mg Ivpb (Pre-Docked)) 100 mls @ 200 mls/hr IVPB DAILY [facility] Last Admin: 06/06/16 09:08 Dose: 200 mls/hr Acyclovir 325 mg/ Dextrose 106.5 mls @ 106.5 mls/hr IVPB BID [facility] Last Admin: 06/06/16 12:19 Dose: 106.5 mls/hr Cefepime HCl 0.5 gm/ Dextrose 100 mls @ 200 mls/hr IVPB BID [facility] Last Admin: 06/06/16 11:13 Dose: 200 mls/hr Levothyroxine Sodium (Synthroid Injection -) 25 mcg IVPUSH DAILY@0700 [facility] Last Admin: 06/06/16 06:13 Dose: 25 mcg Metoprolol Tartrate (Lopressor Injection -) 5 mg IVPUSH Q4H PRN PRN Reason: HYPERTENSION Last Admin: 06/05/16 10:25 Dose: 5 mg Ondansetron HCl (Zofran Injection) 4 mg IVPB Q6H PRN PRN Reason: NAUSEA AND/OR VOMITING Last Admin: 05/29/16 22:35 Dose: 4 mg Polyethylene Glycol (Miralax (For Daily Use) -) 17 gm PO DAILY [facility] Last Admin: 06/06/16 09:08 Dose: 17 grams Potassium Phos/Sodium Phos (Phos-Nak Packet -) 1 packet PO BID [facility] Stop: 06/06/16 22:01 Last Admin: 06/06/16 12:19 Dose: 1 packet Senna (Senna Oral Solution -) 8.8 mg PO HS [facility] Last Admin: 06/05/16 22:04 Dose: 8.8 mg ASSESSMENT AND PLAN: Acute Respiratory Failure Pneumonia likely Aspiration Hyponatremia improving Influenza A Multiple Sclerosis HTN Hypothyroidism Acute Kidney Injury - antibiotics per ID - f/u pending cultures - monitor urine output, creatinine - avoid propofol per neurology - monitor sodium level - BP control - minimize sedation to assess mental status - spontaneous breathing trials as tolerated - inhaled bronchodilators - check LE dopplers for ?source of fever - enteral feeds - DVT/GI prophylaxis - continue ICU monitoring
--- NOTE | 2016-06-06 13:37 | PN ---
Progress Note, Physician History of Present Illness: Pt seen and examined at bedside. She remains intubated. She does respond to verbal stimuli. - Current Medication List Current Medications: Active Medications Acetaminophen (Tylenol -) 1,000 mg PO Q6H PRN PRN Reason: TEMP > 101* Last Admin: 06/05/16 21:33 Dose: 1,000 mg Albuterol Sulfate (Ventolin 0.083% Nebulizer Soln -) 1 amp NEB Q4H PRN PRN Reason: SHORT OF BREATH/WHEEZING Albuterol/Ipratropium (Duoneb -) 1 amp NEB QIDR [facility] Last Admin: 06/06/16 06:40 Dose: 1 amp Amino Acids (Prosource No Carb Liquid Pkt) 30 ml PO BID@0800,1730 [facility] Docusate Sodium (Colace -) 200 mg PO BID [facility] Last Admin: 06/06/16 09:08 Dose: Not Given Enoxaparin Sodium (Lovenox -) 40 mg SQ DAILY [facility] Last Admin: 06/06/16 09:08 Dose: 40 mg Gabapentin (Neurontin -) 100 mg PO QID [facility] Last Admin: 06/06/16 13:07 Dose: 100 mg Guaifenesin (Mucinex -) 600 mg PO BID [facility] Last Admin: 06/06/16 09:08 Dose: Not Given Hydralazine HCl (Apresoline Injection -) 10 mg IVPUSH Q6H PRN PRN Reason: HYPERTENSION Last Admin: 06/06/16 09:12 Dose: 10 mg Pantoprazole Sodium (Protonix 40mg Ivpb (Pre-Docked)) 100 mls @ 200 mls/hr IVPB DAILY [facility] Last Admin: 06/06/16 09:08 Dose: 200 mls/hr Acyclovir 325 mg/ Dextrose 106.5 mls @ 106.5 mls/hr IVPB BID [facility] Last Admin: 06/06/16 12:19 Dose: 106.5 mls/hr Cefepime HCl 0.5 gm/ Dextrose 100 mls @ 200 mls/hr IVPB BID [facility] Last Admin: 06/06/16 11:13 Dose: 200 mls/hr Levothyroxine Sodium (Synthroid Injection -) 25 mcg IVPUSH DAILY@0700 [facility] Last Admin: 06/06/16 06:13 Dose: 25 mcg Metoprolol Tartrate (Lopressor Injection -) 5 mg IVPUSH Q4H PRN PRN Reason: HYPERTENSION Last Admin: 06/05/16 10:25 Dose: 5 mg Ondansetron HCl (Zofran Injection) 4 mg IVPB Q6H PRN PRN Reason: NAUSEA AND/OR VOMITING Last Admin: 05/29/16 22:35 Dose: 4 mg Polyethylene Glycol (Miralax (For Daily Use) -) 17 gm PO DAILY [facility] Last Admin: 06/06/16 09:08 Dose: 17 grams Potassium Phos/Sodium Phos (Phos-Nak Packet -) 1 packet PO BID [facility] Stop: 06/06/16 22:01 Last Admin: 06/06/16 12:19 Dose: 1 packet Senna (Senna Oral Solution -) 8.8 mg PO HS [facility] Last Admin: 06/05/16 22:04 Dose: 8.8 mg - Objective Vital Signs: Vital Signs Temperature 100.8 F H 06/06/16 09:57 Pulse Rate 108 H 06/06/16 12:00 Respiratory Rate 16 06/06/16 12:00 Blood Pressure 142/64 06/06/16 12:00 O2 Sat by Pulse Oximetry (%) 98 06/06/16 11:06 Constitutional: Yes: Calm Eyes: Yes: Conjunctiva Clear HENT: Yes: Atraumatic Cardiovascular: Yes: S1, S2 Respiratory: Yes: Mechanically Ventilated Gastrointestinal: Yes: Soft Genitourinary: Yes: Obrien Present Musculoskeletal: Yes: WNL Edema: Yes Edema: LUE: Trace, RUE: Trace Neurological: Yes: Other (arousable) Labs: CBC, BMP 06/06/16 05:00 06/06/16 05:00 INR, PTT INR 1.14 (0.82-1.09) 05/26/16 18:25 - ....Imaging Chest X-ray: Report Reviewed Problem List - Problems (1) Hyperlipemia Code(s): E78.5 - HYPERLIPIDEMIA, UNSPECIFIED (2) Hypothyroid Code(s): E03.9 - HYPOTHYROIDISM, UNSPECIFIED (3) Influenza A Code(s): J10.1 - FLU DUE TO OTH IDENT INFLUENZA VIRUS W OTH RESP MANIFEST (4) Multiple sclerosis Code(s): G35 - MULTIPLE SCLEROSIS (5) Hyponatremia Code(s): E87.1 - HYPO-OSMOLALITY AND HYPONATREMIA Assessment/Plan Current Medications Generic Name Dose Route Start Last Admin Trade Name Freq PRN Reason Stop Dose Admin Acetaminophen 1,000 mg 05/27/16 01:22 06/05/16 21:33 Tylenol - PO 1,000 mg Q6H PRN Administration TEMP > 101* Albuterol Sulfate 1 amp 06/05/16 11:36 Ventolin 0.083% Nebulizer Soln - NEB Q4H PRN SHORT OF BREATH/WHEEZING Albuterol/Ipratropium 1 amp 06/05/16 12:00 06/06/16 06:40 Duoneb - NEB 1 amp QIDR [facility] Administration Amino Acids 30 ml 06/06/16 17:30 Prosource No Carb Liquid Pkt PO BID@0800,1730 [facility] Docusate Sodium 200 mg 05/28/16 10:15 06/06/16 09:08 Colace - PO Not Given BID [facility] Enoxaparin Sodium 40 mg 06/05/16 11:00 06/06/16 09:08 Lovenox - SQ 40 mg DAILY [facility] Administration Gabapentin 100 mg 05/28/16 22:00 06/06/16 13:07 Neurontin - PO 100 mg QID [facility] Administration Guaifenesin 600 mg 05/28/16 10:15 06/06/16 09:08 Mucinex - PO Not Given BID [facility] Hydralazine HCl 10 mg 06/01/16 12:50 06/06/16 09:12 Apresoline Injection - IVPUSH 10 mg Q6H PRN Administration HYPERTENSION Pantoprazole Sodium 100 mls @ 200 mls/hr 06/02/16 11:30 06/06/16 09:08 Protonix 40mg Ivpb (Pre-Docked) IVPB 200 mls/hr DAILY [facility] Administration Acyclovir 325 mg/ Dextrose 106.5 mls @ 106.5 mls/hr 06/06/16 10:00 06/06/16 12: 19 IVPB 106.5 mls/hr BID [facility] Administration Cefepime HCl 0.5 gm/ Dextrose 100 mls @ 200 mls/hr 06/06/16 10:00 06/06/16 11: 13 IVPB 200 mls/hr BID [facility] Administration Levothyroxine Sodium 25 mcg 06/04/16 07:00 06/06/16 06:13 Synthroid Injection - IVPUSH 25 mcg DAILY@0700 [facility] Administration Metoprolol Tartrate 5 mg 05/31/16 22:28 06/05/16 10:25 Lopressor Injection - IVPUSH 5 mg Q4H PRN Administration HYPERTENSION Ondansetron HCl 4 mg 05/29/16 00:30 05/29/16 22:35 Zofran Injection IVPB 4 mg Q6H PRN Administration NAUSEA AND/OR VOMITING Polyethylene Glycol 17 gm 06/02/16 12:15 06/06/16 09:08 Miralax (For Daily Use) - PO 17 grams DAILY [facility] Administration Potassium Phos/Sodium Phos 1 packet 06/06/16 12:00 06/06/16 12:19 Phos-Nak Packet - PO 06/06/16 22:01 1 packet BID [facility] Administration Senna 8.8 mg 06/04/16 22:00 06/05/16 22:04 Senna Oral Solution - PO 8.8 mg HS [facility] Administration Laboratory Tests 06/06/16 05:00 Phosphorus 2.6 Magnesium 2.4 Impression 1. hyponatremia - hypo-osmolar 2. Influenza 3. PNA with small effusion 4. multiple sclerosis 5. hyperlipidemia 6. hypothyroidism 7. HTN 8. proteinuria and microscopic hematuria 9. MIRNA 10. respiratory failure requiring intubation Plan - sodium is stable - recommend infusing acyclovir slowly - cont feeds - sodium is stable - renal function has not improved yet - repeat labs in am - daily sedation vacation - weaning per pulmonary - cont vent support - monitor urine output Dr Marrero
[2016-06-06] MEDS ORDERED: ACETAMINOPHEN 1000 MG/100 ML VIAL (NON FORMULARY) IVPB ONE (14:21)
[2016-06-06] MEDS: AMINO ACIDS/PROTEIN HYDROLYS 30 ML LIQUID.PKT PO SCH (17:13)
[2016-06-06] MEDS ORDERED: MIDAZOLAM HCL 2 MG/2 ML SINGLE DOSE VIAL IVPUSH ONE (17:43)
[2016-06-06] MEDS ORDERED: MIDAZOLAM HCL 2 MG/2 ML SINGLE DOSE VIAL ONE ×2 (17:45→21:04)
[2016-06-06] MEDS ORDERED: MIDAZOLAM HCL 2 MG/2 ML SINGLE DOSE VIAL IVPUSH PRN (20:59)
[2016-06-06] MEDS: SENNOSIDES 8.8 MG/5 ML BULK BOTTLE PO SCH (21:01)
[2016-06-06] MEDS: ACETAMINOPHEN 500 MG TABLET (FP) PO PRN (21:07)
[2016-06-07] MEDS ORDERED: PT OWN MED DRAWER 7, Y5N ONE ×3 (06:03→22:03)
[2016-06-07] MEDS: LEVOTHYROXINE SODIUM 100 MCG VIAL IVPUSH SCH (06:05)
[2016-06-07] MEDS: ACETAMINOPHEN 500 MG TABLET (FP) PO PRN (06:06)
[2016-06-07] MEDS: ALBUTEROL SO4 2.5/IPRATROPIUM 0.5 INH SOL 3 ML VIAL.NEB. NEB SCH ×3 (06:21→19:01)
--- NOTE | 2016-06-07 07:09 | PN ---
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 Alert on the ventilator History of Present Illness: ID Fevers now 100-101 therefore antibiotic with Cefepime Day 1 started Acyclovir day 1 for suspected Herpes infection of the mouth - Current Medication List Current Medications: Active Medications Acetaminophen (Tylenol -) 1,000 mg PO Q6H PRN PRN Reason: TEMP > 101* Last Admin: 06/07/16 06:06 Dose: 1,000 mg Albuterol Sulfate (Ventolin 0.083% Nebulizer Soln -) 1 amp NEB Q4H PRN PRN Reason: SHORT OF BREATH/WHEEZING Albuterol/Ipratropium (Duoneb -) 1 amp NEB QIDR [facility] Last Admin: 06/06/16 23:41 Dose: 1 amp Amino Acids (Prosource No Carb Liquid Pkt) 30 ml PO BID@0800,1730 [facility] Last Admin: 06/06/16 17:13 Dose: 30 ml Docusate Sodium (Colace -) 200 mg PO BID [facility] Last Admin: 06/06/16 21:00 Dose: Not Given Enoxaparin Sodium (Lovenox -) 40 mg SQ DAILY [facility] Last Admin: 06/06/16 09:08 Dose: 40 mg Gabapentin (Neurontin -) 100 mg PO QID [facility] Last Admin: 06/06/16 21:08 Dose: 100 mg Guaifenesin (Mucinex -) 600 mg PO BID [facility] Last Admin: 06/06/16 21:07 Dose: 600 mg Hydralazine HCl (Apresoline Injection -) 10 mg IVPUSH Q6H PRN PRN Reason: HYPERTENSION Last Admin: 06/06/16 17:16 Dose: 10 mg Pantoprazole Sodium (Protonix 40mg Ivpb (Pre-Docked)) 100 mls @ 200 mls/hr IVPB DAILY [facility] Last Admin: 06/06/16 09:08 Dose: 200 mls/hr Acyclovir 325 mg/ Dextrose 106.5 mls @ 106.5 mls/hr IVPB BID [facility] Last Admin: 06/06/16 21:59 Dose: 106.5 mls/hr Cefepime HCl 0.5 gm/ Dextrose 100 mls @ 200 mls/hr IVPB BID [facility] Last Admin: 06/06/16 21:09 Dose: 200 mls/hr Levothyroxine Sodium (Synthroid Injection -) 25 mcg IVPUSH DAILY@0700 [facility] Last Admin: 06/07/16 06:05 Dose: 25 mcg Metoprolol Tartrate (Lopressor Injection -) 5 mg IVPUSH Q4H PRN PRN Reason: HYPERTENSION Last Admin: 06/05/16 10:25 Dose: 5 mg Ondansetron HCl (Zofran Injection) 4 mg IVPB Q6H PRN PRN Reason: NAUSEA AND/OR VOMITING Last Admin: 05/29/16 22:35 Dose: 4 mg Polyethylene Glycol (Miralax (For Daily Use) -) 17 gm PO DAILY [facility] Last Admin: 06/06/16 09:08 Dose: 17 grams Senna (Senna Oral Solution -) 8.8 mg PO HS [facility] Last Admin: 06/06/16 21:01 Dose: Not Given - Objective Vital Signs: Vital Signs Temperature 100.6 F H 06/07/16 02:00 Pulse Rate 104 H 06/07/16 02:00 Respiratory Rate 16 06/07/16 02:00 Blood Pressure 133/64 06/07/16 02:00 O2 Sat by Pulse Oximetry (%) 100 06/06/16 22:00 Constitutional: Yes: No Distress, Other (INtubated) Cardiovascular: Yes: S1, S2 Respiratory: Yes: WNL, Regular, CTA Bilaterally, Rhonchi Gastrointestinal: Yes: WNL, Normal Bowel Sounds, Soft. No: Tenderness, Tenderness, Rebound Edema: Yes Labs: CBC, BMP 06/06/16 05:00 06/06/16 05:00 INR, PTT INR 1.14 (0.82-1.09) 05/26/16 18:25 Assessment/Plan Microbiology 06/01/16 12:30 Sputum - Endotrachea Suction/Ventilator Gram Stain - Final 06/01/16 12:30 Sputum - Endotrachea Suction/Ventilator Sputum Culture - Final Yeast Like Organism 06/05/16 21:20 Blood - Peripheral Venous Blood Culture - Preliminary NO GROWTH OBTAINED AFTER 24 HOURS, INCUBATION TO CONTINUE FOR 4 DAYS. 06/05/16 21:15 Blood - Peripheral Venous Blood Culture - Preliminary NO GROWTH OBTAINED AFTER 24 HOURS, INCUBATION TO CONTINUE FOR 4 DAYS. Laboratory Tests 06/04/16 06/05/16 06/06/16 05:00 17:15 05:00 WBC 14.0 H 16.4 H Hgb 9.1 L Hct 27.5 L Plt Count 521 H Neutrophils % 77.0 Lymphocytes % 8.0 Monocytes % 13.0 H Band Neutrophils 1.0 D BUN Creatinine Creat Clearance w eGFR Vancomycin Trough 35.475 H* 06/06/16 05:00 WBC Hgb Hct Plt Count Neutrophils % Lymphocytes % Monocytes % Band Neutrophils BUN 29 H D Creatinine 1.2 H Creat Clearance w eGFR 43.01 Vancomycin Trough Assessment Respiratory failure Fevers ? pulmonary source and or oral HSV Recent Influenza A PCN allergy Leukocytosis Plan Reculture the sputum Continue current antibiotics Cefepime and Zoviral Empiric redose Vanco 750mg Ramy ROMERO
[2016-06-07] MEDS ORDERED: VANCOMYCIN 750 MG in DEXTROSE 5%-WATER - 250 ML IVPB ONE (07:12)
[2016-06-07] MEDS ORDERED: MIDAZOLAM HCL 2 MG/2 ML SINGLE DOSE VIAL ONE (10:05)
[2016-06-07 10:17] LABS: MCH 28.2 pg (25.7-33.7); MCHC 32.6 g/dl (32.0-36.0); MEAN CELL VOLUME 86.4 fl (80-96); MEAN PLT VOLUME 8.5 fl (7.5-11.1); PLATELET COUNT 531 K/MM3 (134-434); RDW 16.2 % (11.6-15.6); WHITE BLOOD COUNT 14.9 K/mm3 (4.0-10.0)
[2016-06-07] MEDS: DOCUSATE SODIUM 100 MG CAPSULE (FP) PO SCH ×2 (10:20→22:23)
[2016-06-07] MEDS: GABAPENTIN 100 MG CAPSULE (FP) PO SCH ×3 (10:20→22:23)
[2016-06-07] MEDS: guaiFENesin 600 MG TABLET.ER (FP) PO SCH ×2 (10:20→22:24)
[2016-06-07] MEDS: POLYETHYLENE GLYCOL 3350 119 GM BTL PO SCH (10:20)
[2016-06-07 10:41] LABS: ANTIDIURETIC HORMONE 14.8 pg/mL (0.0-4.7)
[2016-06-07] MEDS: CEFEPIME 0.5 GM in DEXTROSE 5%-WATER - 100 ML IVPB SCH ×2 (10:44→22:30)
[2016-06-07 10:50] LABS: ALBUMIN 2.2 g/dl (3.4-5.0); BILIRUBIN,TOTAL 0.3 mg/dL (0.2-1.0); CALCIUM 7.9 mg/dL (8.5-10.1); CREATININE 1.3 mg/dL (0.55-1.02)
[2016-06-07] MEDS: WATER IVPB SCH ×2 (11:40→22:24)
[2016-06-07] MEDS: DEXTROSE 5% IVPB SCH ×2 (11:40→22:24)
[2016-06-07] MEDS: ACYCLOVIR IVPB SCH ×2 (11:40→22:24)
--- NOTE | 2016-06-07 11:41 | PN ---
Progress Note, Physician History of Present Illness: Pt seen and examined at bedside. She remains on the vent. She does respond to verbal and tactile stimuli. - Current Medication List Current Medications: Active Medications Acetaminophen (Tylenol -) 1,000 mg PO Q6H PRN PRN Reason: TEMP > 101* Last Admin: 06/07/16 06:06 Dose: 1,000 mg Albuterol Sulfate (Ventolin 0.083% Nebulizer Soln -) 1 amp NEB Q4H PRN PRN Reason: SHORT OF BREATH/WHEEZING Albuterol/Ipratropium (Duoneb -) 1 amp NEB QIDR [facility] Last Admin: 06/07/16 06:21 Dose: 1 amp Amino Acids (Prosource No Carb Liquid Pkt) 30 ml PO BID@0800,1730 [facility] Last Admin: 06/06/16 17:13 Dose: 30 ml Docusate Sodium (Colace -) 200 mg PO BID [facility] Last Admin: 06/07/16 10:20 Dose: Not Given Enoxaparin Sodium (Lovenox -) 40 mg SQ DAILY [facility] Last Admin: 06/06/16 09:08 Dose: 40 mg Gabapentin (Neurontin -) 100 mg PO QID [facility] Last Admin: 06/07/16 10:20 Dose: 100 mg Guaifenesin (Mucinex -) 600 mg PO BID [facility] Last Admin: 06/07/16 10:20 Dose: 600 mg Hydralazine HCl (Apresoline Injection -) 10 mg IVPUSH Q6H PRN PRN Reason: HYPERTENSION Last Admin: 06/06/16 17:16 Dose: 10 mg Pantoprazole Sodium (Protonix 40mg Ivpb (Pre-Docked)) 100 mls @ 200 mls/hr IVPB DAILY [facility] Last Admin: 06/06/16 09:08 Dose: 200 mls/hr Acyclovir 325 mg/ Dextrose 106.5 mls @ 106.5 mls/hr IVPB BID [facility] Last Admin: 06/06/16 21:59 Dose: 106.5 mls/hr Cefepime HCl 0.5 gm/ Dextrose 100 mls @ 200 mls/hr IVPB BID [facility] Last Admin: 06/07/16 10:44 Dose: 200 mls/hr Levothyroxine Sodium (Synthroid Injection -) 25 mcg IVPUSH DAILY@0700 [facility] Last Admin: 06/07/16 06:05 Dose: 25 mcg Metoprolol Tartrate (Lopressor Injection -) 5 mg IVPUSH Q4H PRN PRN Reason: HYPERTENSION Last Admin: 06/05/16 10:25 Dose: 5 mg Ondansetron HCl (Zofran Injection) 4 mg IVPB Q6H PRN PRN Reason: NAUSEA AND/OR VOMITING Last Admin: 05/29/16 22:35 Dose: 4 mg Polyethylene Glycol (Miralax (For Daily Use) -) 17 gm PO DAILY [facility] Last Admin: 06/07/16 10:20 Dose: Not Given Senna (Senna Oral Solution -) 8.8 mg PO HS [facility] Last Admin: 06/06/16 21:01 Dose: Not Given - Objective Vital Signs: Vital Signs Temperature 100.8 F H 06/07/16 06:00 Pulse Rate 89 06/07/16 08:00 Respiratory Rate 38 H 06/07/16 09:40 Blood Pressure 152/49 06/07/16 08:00 O2 Sat by Pulse Oximetry (%) 99 06/07/16 09:00 Constitutional: Yes: Calm Eyes: Yes: Conjunctiva Clear Cardiovascular: Yes: S1, S2 Respiratory: Yes: Mechanically Ventilated Gastrointestinal: Yes: Soft Genitourinary: Yes: Obrien Present Musculoskeletal: Yes: Muscle Weakness Edema: Yes Edema: LUE: Trace, RUE: Trace Integumentary: Yes: Other (lesions on upper and lower lips) Neurological: Yes: Other (awake) Labs: CBC, BMP 06/07/16 09:15 06/07/16 09:15 INR, PTT INR 1.14 (0.82-1.09) 05/26/16 18:25 - ....Imaging Chest X-ray: Report Reviewed Problem List - Problems (1) Hyperlipemia Code(s): E78.5 - HYPERLIPIDEMIA, UNSPECIFIED (2) Hypothyroid Code(s): E03.9 - HYPOTHYROIDISM, UNSPECIFIED (3) Influenza A Code(s): J10.1 - FLU DUE TO OTH IDENT INFLUENZA VIRUS W OTH RESP MANIFEST (4) Multiple sclerosis Code(s): G35 - MULTIPLE SCLEROSIS (5) Hyponatremia Code(s): E87.1 - HYPO-OSMOLALITY AND HYPONATREMIA Assessment/Plan Current Medications Generic Name Dose Route Start Last Admin Trade Name Freq PRN Reason Stop Dose Admin Acetaminophen 1,000 mg 05/27/16 01:22 06/07/16 06:06 Tylenol - PO 1,000 mg Q6H PRN Administration TEMP > 101* Albuterol Sulfate 1 amp 06/05/16 11:36 Ventolin 0.083% Nebulizer Soln - NEB Q4H PRN SHORT OF BREATH/WHEEZING Albuterol/Ipratropium 1 amp 06/05/16 12:00 06/07/16 06:21 Duoneb - NEB 1 amp QIDR [facility] Administration Amino Acids 30 ml 06/06/16 17:30 06/06/16 17:13 Prosource No Carb Liquid Pkt PO 30 ml BID@0800,1730 [facility] Administration Docusate Sodium 200 mg 05/28/16 10:15 06/07/16 10:20 Colace - PO Not Given BID [facility] Enoxaparin Sodium 40 mg 06/05/16 11:00 06/06/16 09:08 Lovenox - SQ 40 mg DAILY [facility] Administration Gabapentin 100 mg 05/28/16 22:00 06/07/16 10:20 Neurontin - PO 100 mg QID [facility] Administration Guaifenesin 600 mg 05/28/16 10:15 06/07/16 10:20 Mucinex - PO 600 mg BID [facility] Administration Hydralazine HCl 10 mg 06/01/16 12:50 06/06/16 17:16 Apresoline Injection - IVPUSH 10 mg Q6H PRN Administration HYPERTENSION Pantoprazole Sodium 100 mls @ 200 mls/hr 06/02/16 11:30 06/06/16 09:08 Protonix 40mg Ivpb (Pre-Docked) IVPB 200 mls/hr DAILY [facility] Administration Acyclovir 325 mg/ Dextrose 106.5 mls @ 106.5 mls/hr 06/06/16 10:00 06/06/16 21: 59 IVPB 106.5 mls/hr BID [facility] Administration Cefepime HCl 0.5 gm/ Dextrose 100 mls @ 200 mls/hr 06/06/16 10:00 06/07/16 10: 44 IVPB 200 mls/hr BID [facility] Administration Levothyroxine Sodium 25 mcg 06/04/16 07:00 06/07/16 06:05 Synthroid Injection - IVPUSH 25 mcg DAILY@0700 [facility] Administration Metoprolol Tartrate 5 mg 05/31/16 22:28 06/05/16 10:25 Lopressor Injection - IVPUSH 5 mg Q4H PRN Administration HYPERTENSION Ondansetron HCl 4 mg 05/29/16 00:30 05/29/16 22:35 Zofran Injection IVPB 4 mg Q6H PRN Administration NAUSEA AND/OR VOMITING Polyethylene Glycol 17 gm 06/02/16 12:15 06/07/16 10:20 Miralax (For Daily Use) - PO Not Given DAILY [facility] Senna 8.8 mg 06/04/16 22:00 06/06/16 21:01 Senna Oral Solution - PO Not Given HS [facility] Impression 1. hyponatremia - hypo-osmolar 2. Influenza 3. PNA with small effusion 4. multiple sclerosis 5. hyperlipidemia 6. hypothyroidism 7. HTN 8. proteinuria and microscopic hematuria 9. MIRNA 10. respiratory failure requiring intubation Plan - sodium stabilizing - discussed with ICU team - recommend running in the acyclovir at a slower rate - pt has congestion on CXR, can give a dose of lasix and watch closely - cont with feeds - renal function has not improved yet - repeat labs in am - daily sedation vacation - weaning per pulmonary - cont vent support - monitor urine output - case discussed with ICU resident and nurse Dr Marrero
[2016-06-07] MEDS: ENOXAPARIN NA (PORCINE) 40 MG/0.4 ML DISP.SYRIN SQ SCH (12:25)
[2016-06-07] MEDS: PANTOPRAZOLE SODIUM 100 ML IVPB SCH (12:25)
[2016-06-07] MEDS: AMINO ACIDS/PROTEIN HYDROLYS 30 ML LIQUID.PKT PO SCH (12:26)
--- NOTE | 2016-06-07 13:03 | PN ---
Physical Exam: SUBJECTIVE: Patient seen and examined at bedside in ICU. AAO and responsive to verbal and vocal stimuli. Requests increasing TV volume and is communicating her feelings and thoughts well despite being intubated. Mildly febrile overnight 100.8. Spontaneous breathing trial later today. OBJECTIVE: Vital Signs Period Temp Pulse Resp BP Sys/Cobb Pulse Ox Last 24 Hr 97.0 F-101.2 F 89-114 14-40 109-154/39-64 98-100 GENERAL: Intubated on mechanical ventilator. Off sedation. In no acute distress. HEENT: Atraumatic, PERRLA, No lymphadenopathy noted, moist membranes, dry cracked lower lip LUNGS: Diffuse scattered rales at lung bases, diminished breath sounds bilaterally HEART: RRR, S1S2 ABDOMEN: Soft, nontender, nondistended, normoactive bowel sounds EXTREMITIES: 2+ pulses, warm, well-perfused, +1 edema upper & lower extremities SKIN: Warm, dry, normal turgor, no rashes or lesions noted Laboratory Results - last 24 hr 05/31/16 06/07/16 06/07/16 05:15 09:15 09:15 WBC 14.9 H RBC 3.28 L Hgb 9.3 L Hct 28.4 L MCV 86.4 MCHC 32.6 RDW 16.2 H Plt Count 531 H MPV 8.5 Neutrophils % Y Lymphocytes % Y Sodium 141 Potassium 5.0 D Chloride 100 Carbon Dioxide 32 Anion Gap 9 BUN 36 H D Creatinine 1.3 H Creat Clearance w eGFR 39.21 Random Glucose 173 H Calcium 7.9 L Total Bilirubin 0.3 AST 36 D ALT 42 D Alkaline Phosphatase 118 H Total Protein 6.0 L Albumin 2.2 L Anti-Diuretic Hormone 14.8 H Active Medications Generic Name Dose Route Start Last Admin Trade Name Freq PRN Reason Stop Dose Admin Acetaminophen 1,000 mg 05/27/16 01:22 06/07/16 06:06 Tylenol - PO 1,000 mg Q6H PRN Administration TEMP > 101* Albuterol Sulfate 1 amp 06/05/16 11:36 Ventolin 0.083% Nebulizer Soln - NEB Q4H PRN SHORT OF BREATH/WHEEZING Albuterol/Ipratropium 1 amp 06/05/16 12:00 06/07/16 11:52 Duoneb - NEB 1 amp QIDR [facility] Administration Amino Acids 30 ml 06/06/16 17:30 06/07/16 12:26 Prosource No Carb Liquid Pkt PO 30 ml BID@0800,1730 [facility] Administration Docusate Sodium 200 mg 05/28/16 10:15 06/07/16 10:20 Colace - PO Not Given BID [facility] Enoxaparin Sodium 40 mg 06/05/16 11:00 06/07/16 12:25 Lovenox - SQ 40 mg DAILY [facility] Administration Furosemide 40 mg 06/07/16 14:00 Lasix Injection - IVPUSH 06/07/16 14:01 ONCE ONE Gabapentin 100 mg 05/28/16 22:00 06/07/16 10:20 Neurontin - PO 100 mg QID [facility] Administration Guaifenesin 600 mg 05/28/16 10:15 06/07/16 10:20 Mucinex - PO 600 mg BID [facility] Administration Hydralazine HCl 10 mg 06/01/16 12:50 06/06/16 17:16 Apresoline Injection - IVPUSH 10 mg Q6H PRN Administration HYPERTENSION Pantoprazole Sodium 100 mls @ 200 mls/hr 06/02/16 11:30 06/07/16 12:25 Protonix 40mg Ivpb (Pre-Docked) IVPB 200 mls/hr DAILY [facility] Administration Acyclovir 325 mg/ Dextrose 106.5 mls @ 106.5 mls/hr 06/06/16 10:00 06/07/16 11: 40 IVPB 106.5 mls/hr BID [facility] Administration Cefepime HCl 0.5 gm/ Dextrose 100 mls @ 200 mls/hr 06/06/16 10:00 06/07/16 10: 44 IVPB 200 mls/hr BID [facility] Administration Levothyroxine Sodium 25 mcg 06/04/16 07:00 06/07/16 06:05 Synthroid Injection - IVPUSH 25 mcg DAILY@0700 [facility] Administration Metoprolol Tartrate 5 mg 05/31/16 22:28 06/05/16 10:25 Lopressor Injection - IVPUSH 5 mg Q4H PRN Administration HYPERTENSION Ondansetron HCl 4 mg 05/29/16 00:30 05/29/16 22:35 Zofran Injection IVPB 4 mg Q6H PRN Administration NAUSEA AND/OR VOMITING Polyethylene Glycol 17 gm 06/02/16 12:15 06/07/16 10:20 Miralax (For Daily Use) - PO Not Given DAILY [facility] Senna 8.8 mg 06/04/16 22:00 06/06/16 21:01 Senna Oral Solution - PO Not Given HS [facility] ASSESSMENT/PLAN: Patient is a 80 year old female with significant PMH of MS, HTN, HLF & Hypothyroidism who presents to ICU with hyponatremia. Patient has been treated for Influenza pneumonia in hospital since 05/27. 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 (given BID, each dose spaced out over 2-3 hours) -ID following -given 1 dose of Lasix 40mg IVpushed to clear up congestion noted on CXR -intubated at present but no longer sedated -spontaneous breathing trials today -Mucinex w/ chest PT, Duonebs QIDR, Albuterol IH as needed #Acute Renal Failure (Cr stabilizing ~1.2) -holding IVF at present due to edema & hypertension -awaiting Urine sodium to calculate FeNa -discussed with Nephrology today #Hyponatremia, Na 138 today -resolved, will continue to monitor -would not restart cymbalta on discharge #Hemmorhoids, clots in stool -On Senna & Miralax -H/H Stable this AM, no signs of acute bleeding #Multiple Sclerosis -continue gabapentin #Hypothyroidism -continue Synthroid 50mcg #Hypertension/Hyperlipidemia -continue Hydralazine, Lopressor PRN Prophylaxis/FEN -Lovenox, PPI -Tubefeed jevity 1.5 with Prostat Visit type - Emergency Visit Emergency Visit: Yes ED Registration Date: 05/26/16 Care time: The patient presented to the Emergency Department on the above date and was hospitalized for further evaluation of their emergent condition. - New Patient This patient is new to me today: No - Critical Care Critical Care patient: Yes Total Critical Care Time (in minutes): 38 Critical Care Statement: The care of this patient involved high complexity decision making to prevent further life threatening deterioration of the patient 's condition and/or to evalute & treat vital organ system(s) failure or risk of failure.
--- NOTE | 2016-06-07 13:18 | PN ---
Teaching Attending Note Name of Resident: Pablo Dey ATTENDING PHYSICIAN STATEMENT I saw and evaluated the patient. I reviewed the resident's note and discussed the case with the resident. I agree with the resident's findings and plan as documented. SUBJECTIVE: Pt seen and examined in the ICU. Continues to have intermittent fevers. OBJECTIVE: Last Vital Signs Temp Pulse Resp BP Pulse Ox 100.8 F H 108 H 16 142/64 98 06/06/16 09:57 06/06/16 12:00 06/06/16 12:00 06/06/16 12:00 06/06/16 11:06 Intake & Output 06/03/16 06/04/16 06/05/16 06/06/16 23:59 23:59 23:59 23:59 Intake Total 2804 2657 1895 541 Output Total 1700 1400 1250 300 Balance 1104 1257 645 241 Weight 142 lb 8 oz 140 lb 7 oz 142 lb 6 oz 144 lb 3 oz Active Medications Acetaminophen (Tylenol -) 1,000 mg PO Q6H PRN PRN Reason: TEMP > 101* Last Admin: 06/07/16 06:06 Dose: 1,000 mg Albuterol Sulfate (Ventolin 0.083% Nebulizer Soln -) 1 amp NEB Q4H PRN PRN Reason: SHORT OF BREATH/WHEEZING Albuterol/Ipratropium (Duoneb -) 1 amp NEB QIDR [facility] Last Admin: 06/07/16 11:52 Dose: 1 amp Amino Acids (Prosource No Carb Liquid Pkt) 30 ml PO BID@0800,1730 [facility] Last Admin: 06/07/16 12:26 Dose: 30 ml Docusate Sodium (Colace -) 200 mg PO BID [facility] Last Admin: 06/07/16 10:20 Dose: Not Given Enoxaparin Sodium (Lovenox -) 40 mg SQ DAILY [facility] Last Admin: 06/07/16 12:25 Dose: 40 mg Furosemide (Lasix Injection -) 40 mg IVPUSH ONCE ONE Stop: 06/07/16 14:01 Gabapentin (Neurontin -) 100 mg PO QID [facility] Last Admin: 06/07/16 10:20 Dose: 100 mg Guaifenesin (Mucinex -) 600 mg PO BID [facility] Last Admin: 06/07/16 10:20 Dose: 600 mg Hydralazine HCl (Apresoline Injection -) 10 mg IVPUSH Q6H PRN PRN Reason: HYPERTENSION Last Admin: 06/06/16 17:16 Dose: 10 mg Pantoprazole Sodium (Protonix 40mg Ivpb (Pre-Docked)) 100 mls @ 200 mls/hr IVPB DAILY [facility] Last Admin: 06/07/16 12:25 Dose: 200 mls/hr Acyclovir 325 mg/ Dextrose 106.5 mls @ 106.5 mls/hr IVPB BID [facility] Last Admin: 06/07/16 11:40 Dose: 106.5 mls/hr Cefepime HCl 0.5 gm/ Dextrose 100 mls @ 200 mls/hr IVPB BID [facility] Last Admin: 06/07/16 10:44 Dose: 200 mls/hr Levothyroxine Sodium (Synthroid Injection -) 25 mcg IVPUSH DAILY@0700 [facility] Last Admin: 06/07/16 06:05 Dose: 25 mcg Metoprolol Tartrate (Lopressor Injection -) 5 mg IVPUSH Q4H PRN PRN Reason: HYPERTENSION Last Admin: 06/05/16 10:25 Dose: 5 mg Ondansetron HCl (Zofran Injection) 4 mg IVPB Q6H PRN PRN Reason: NAUSEA AND/OR VOMITING Last Admin: 05/29/16 22:35 Dose: 4 mg Polyethylene Glycol (Miralax (For Daily Use) -) 17 gm PO DAILY [facility] Last Admin: 06/07/16 10:20 Dose: Not Given Senna (Senna Oral Solution -) 8.8 mg PO HS [facility] Last Admin: 06/06/16 21:01 Dose: Not Given Gen: intubated, arousable Heart: tachycardic, regular Lung: decreased breath sounds at the bases, scattered rhonchi Abd: soft, nontender Ext: + edema Laboratory Results - last 24 hr 05/31/16 06/07/16 06/07/16 05:15 09:15 09:15 WBC 14.9 H RBC 3.28 L Hgb 9.3 L Hct 28.4 L MCV 86.4 MCHC 32.6 RDW 16.2 H Plt Count 531 H MPV 8.5 Neutrophils % Y Lymphocytes % Y Sodium 141 Potassium 5.0 D Chloride 100 Carbon Dioxide 32 Anion Gap 9 BUN 36 H D Creatinine 1.3 H Creat Clearance w eGFR 39.21 Random Glucose 173 H Calcium 7.9 L Total Bilirubin 0.3 AST 36 D ALT 42 D Alkaline Phosphatase 118 H Total Protein 6.0 L Albumin 2.2 L Anti-Diuretic Hormone 14.8 H CXR: Bilateral pleural effusions and vascular congestion ASSESSMENT AND PLAN: Acute Respiratory Failure Pneumonia likely Aspiration Hyponatremia improving Influenza A Multiple Sclerosis HTN Hypothyroidism Acute Kidney Injury Pulomonary vascular congestion / pleural effusions - Trial of Lasix in between Acyclovir in an attempt to wean off MV - antibiotics per ID - monitor urine output, creatinine - avoid propofol per neurology - monitor sodium level - BP control - minimize sedation to assess mental status - spontaneous breathing trials as tolerated - inhaled bronchodilators - enteral feeds - DVT/GI prophylaxis Dr Fam CCTime 35"
[2016-06-07 13:36] LABS: PLATELET ESTIMATE INCREASED (NORMAL)
[2016-06-07] MEDS ORDERED: FUROSEMIDE 40 MG/4 ML INJECTABLE VIAL IVPUSH ONE (14:00)
--- NOTE | 2016-06-07 19:37 | PN ---
Progress Note (short form) - Note Progress Note: NEUROLOGY FOLLOW-up: Events reviewed. Extubated today. Comfortable on Ventimask. RR=20 Still with low-grade temps on antibiotics and acyclovir. Pt is resting comfortably with eyes closed. Opens eyes on command. [facility]. Full EOM's Moving all fours. Non-focal exam. IMP: Improving toxic metabolic encephalopathy. Underlying MS. Suggest: Continue antibiotics and current regimen. Follow Roland morin on Acyclovir. Thank you very much, Darrius Pritchard MD
--- NOTE | 2016-06-07 21:57 | PN ---
Progress Note (short form) - Note Progress Note: Seen and examined in ICU seen early am awake / intubated/ comfortable Vital Signs Period Temp Pulse Resp BP Sys/Cobb Pulse Ox Last 24 Hr 99.5 F-100.8 F 89-109 13-40 109-152/44-64 98-100 Intake & Output 06/04/16 06/05/16 06/06/16 06/07/16 23:59 23:59 23:59 23:59 Intake Total 2657 1895 1789 1432 Output Total 1400 1250 1050 950 Balance 1257 645 739 482 Weight 140 lb 7 oz 142 lb 6 oz 144 lb 3 oz 143 lb 1 oz neck supple -JVD heart reg lungs grossly clear abd soft non tender ext no edema CBC, BMP 06/07/16 09:15 06/07/16 09:15 Microbiology 06/05/16 21:20 Blood - Peripheral Venous Blood Culture - Preliminary NO GROWTH OBTAINED AFTER 48 HOURS, INCUBATION TO CONTINUE FOR 3 DAYS. 06/05/16 21:15 Blood - Peripheral Venous Blood Culture - Preliminary NO GROWTH OBTAINED AFTER 48 HOURS, INCUBATION TO CONTINUE FOR 3 DAYS. 06/05/16 20:45 Urine - Urine Obrien Urine Culture - Final NO GROWTH OBTAINED 05/31/16 15:45 Blood - Peripheral Venous Blood Culture - Final NO GROWTH AFTER 5 DAYS INCUBATION 05/31/16 15:40 Blood - Peripheral Venous Blood Culture - Final NO GROWTH AFTER 5 DAYS INCUBATION 06/01/16 12:30 Sputum - Endotrachea Suction/Ventilator Gram Stain - Final 06/01/16 12:30 Sputum - Endotrachea Suction/Ventilator Sputum Culture - Final Yeast Like Organism 06/01/16 06:00 Urine - Urine - Catheterized Urine Culture - Final NO GROWTH OBTAINED 05/30/16 21:00 Urine - Urine - Catheterized Urine Culture - Final NO GROWTH OBTAINED 05/26/16 18:25 Blood - Peripheral Venous Blood Culture - Final NO GROWTH AFTER 5 DAYS INCUBATION 05/26/16 18:25 Blood - Peripheral Venous Blood Culture - Final NO GROWTH AFTER 5 DAYS INCUBATION 05/30/16 21:00 Urine For Antigen Detection Legionella Antigen - Final 05/30/16 21:00 Urine For Antigen Detection Streptococcus pneumoniae Antigen (M - Final 05/26/16 18:00 Urine - Urine - Catheterized Urine Culture - Final NO GROWTH OBTAINED 02/05/17 18:25 Nasopharyngeal Swab Influenza Types A,B Antigen (ASHLIE) - Final 05/26/16 18:25 Nasopharyngeal Swab - Final Active Medications Acetaminophen (Tylenol -) 1,000 mg PO Q6H PRN PRN Reason: TEMP > 101* Last Admin: 06/07/16 06:06 Dose: 1,000 mg Albuterol Sulfate (Ventolin 0.083% Nebulizer Soln -) 1 amp NEB Q4H PRN PRN Reason: SHORT OF BREATH/WHEEZING Albuterol/Ipratropium (Duoneb -) 1 amp NEB QIDR [facility] Last Admin: 06/07/16 19:01 Dose: 1 amp Docusate Sodium (Colace -) 200 mg PO BID [facility] Last Admin: 06/07/16 10:20 Dose: Not Given Enoxaparin Sodium (Lovenox -) 40 mg SQ DAILY [facility] Last Admin: 06/07/16 12:25 Dose: 40 mg Gabapentin (Neurontin -) 100 mg PO QID [facility] Last Admin: 06/07/16 14:45 Dose: 100 mg Guaifenesin (Mucinex -) 600 mg PO BID [facility] Last Admin: 06/07/16 10:20 Dose: 600 mg Hydralazine HCl (Apresoline Injection -) 10 mg IVPUSH Q6H PRN PRN Reason: HYPERTENSION Last Admin: 06/06/16 17:16 Dose: 10 mg Pantoprazole Sodium (Protonix 40mg Ivpb (Pre-Docked)) 100 mls @ 200 mls/hr IVPB DAILY [facility] Last Admin: 06/07/16 12:25 Dose: 200 mls/hr Acyclovir 325 mg/ Dextrose 106.5 mls @ 106.5 mls/hr IVPB BID [facility] Last Admin: 06/07/16 11:40 Dose: 106.5 mls/hr Cefepime HCl 0.5 gm/ Dextrose 100 mls @ 200 mls/hr IVPB BID [facility] Last Admin: 06/07/16 10:44 Dose: 200 mls/hr Levothyroxine Sodium (Synthroid Injection -) 25 mcg IVPUSH DAILY@0700 [facility] Last Admin: 06/07/16 06:05 Dose: 25 mcg Metoprolol Tartrate (Lopressor Injection -) 5 mg IVPUSH Q4H PRN PRN Reason: HYPERTENSION Last Admin: 06/05/16 10:25 Dose: 5 mg Ondansetron HCl (Zofran Injection) 4 mg IVPB Q6H PRN PRN Reason: NAUSEA AND/OR VOMITING Last Admin: 05/29/16 22:35 Dose: 4 mg Polyethylene Glycol (Miralax (For Daily Use) -) 17 gm PO DAILY [facility] Last Admin: 06/07/16 10:20 Dose: Not Given Senna (Senna Oral Solution -) 8.8 mg PO HS [facility] Last Admin: 06/06/16 21:01 Dose: Not Given ASSMT low grade temp off abx / inc WBC re cultured oral lesion (c/w herpes ) on acyclovir MIRNA -- BUN/Cr remains stable Acute Respiratory Failure weaning today / deconditioned and has failed multiple weaning Hyponatremia Resolved and has remained stable Pneumonia likely Aspiration improving Influenza A treatment completed Multiple Sclerosis stable HTN Hypothyroidism Plan acyclovir IV nutritional support monitor Na follow h/h s/p transfusion follow bun/Cr Taper to wean vent support as tolerated continue ICU care Problem List - Problems (1) Hyponatremia Code(s): E87.1 - HYPO-OSMOLALITY AND HYPONATREMIA (2) Right lower lobe pneumonia Code(s): J18.9 - PNEUMONIA, UNSPECIFIED ORGANISM (3) Influenza A Code(s): J10.1 - FLU DUE TO OTH IDENT INFLUENZA VIRUS W OTH RESP MANIFEST (4) Multiple sclerosis Code(s): G35 - MULTIPLE SCLEROSIS (5) Hypothyroid Code(s): E03.9 - HYPOTHYROIDISM, UNSPECIFIED (6) Hyperlipemia Code(s): E78.5 - HYPERLIPIDEMIA, UNSPECIFIED (8) Neuropathic pain of both legs Code(s): G57.91 - UNSPECIFIED MONONEUROPATHY OF RIGHT LOWER LIMB G57.92 - UNSPECIFIED MONONEUROPATHY OF LEFT LOWER LIMB (9) Fever Code(s): R50.9 - FEVER, UNSPECIFIED Qualifiers: Fever type: unspecified Qualified Code(s): R50.9 - Fever, unspecified (10) Anemia Code(s): D64.9 - ANEMIA, UNSPECIFIED Qualifiers: Anemia type: other cause Other causes of anemia: other cause, not classified Qualified Code(s): D64.89 - Other specified anemias
[2016-06-07] MEDS: SENNOSIDES 8.8 MG/5 ML BULK BOTTLE PO SCH (22:24)
[2016-06-08] MEDS: ALBUTEROL SO4 2.5/IPRATROPIUM 0.5 INH SOL 3 ML VIAL.NEB. NEB SCH ×4 (05:59→18:32)
[2016-06-08] MEDS: LEVOTHYROXINE SODIUM 100 MCG VIAL IVPUSH SCH (06:01)
[2016-06-08] MEDS: ACETAMINOPHEN 1000 MG/100 ML VIAL (NON FORMULARY) IVPB PRN ×2 (06:06→22:23)
[2016-06-08 06:10] LABS: BASOPHIL 0.6 % (0-2.0); EOSINOPHIL 0.8 % (0-4.5); MCH 28.3 pg (25.7-33.7); MCHC 32.6 g/dl (32.0-36.0); MEAN CELL VOLUME 86.7 fl (80-96); MEAN PLT VOLUME 8.7 fl (7.5-11.1); NEUTROPHILS 83.1 % (42.8-82.8); PLATELET COUNT 510 K/MM3 (134-434); RDW 16.3 % (11.6-15.6); WHITE BLOOD COUNT 16.4 K/mm3 (4.0-10.0)
[2016-06-08 06:32] LABS: ALBUMIN 2.2 g/dl (3.4-5.0); BILIRUBIN,TOTAL 0.4 mg/dL (0.2-1.0); CALCIUM 7.8 mg/dL (8.5-10.1); CREATININE 1.1 mg/dL (0.55-1.02); TOT PROT 5.4 g/dl (6.4-8.2)
--- NOTE | 2016-06-08 09:42 | PN ---
Progress Note, Physician History of Present Illness: Renal f/u Pt is extubated and in no distress Complaining of wanting to eat Seen by CCM and feeds being ordered + Diarrhea Received Lasix for the effusions seen on CXR yesterday BUN/Cr ratio elevated - Current Medication List Current Medications: Active Medications Acetaminophen (Tylenol -) 1,000 mg PO Q6H PRN PRN Reason: TEMP > 101* Last Admin: 06/07/16 06:06 Dose: 1,000 mg Acetaminophen (Ofirmev Injection -) 1,000 mg IVPB Q6H PRN PRN Reason: FEVER OR PAIN Stop: 06/08/16 23:44 Last Admin: 06/08/16 06:06 Dose: 1,000 mg Albuterol Sulfate (Ventolin 0.083% Nebulizer Soln -) 1 amp NEB Q4H PRN PRN Reason: SHORT OF BREATH/WHEEZING Albuterol/Ipratropium (Duoneb -) 1 amp NEB QIDR [facility] Last Admin: 06/08/16 05:59 Dose: 1 amp Docusate Sodium (Colace -) 200 mg PO BID [facility] Last Admin: 06/07/16 22:23 Dose: Not Given Enoxaparin Sodium (Lovenox -) 40 mg SQ DAILY [facility] Last Admin: 06/07/16 12:25 Dose: 40 mg Gabapentin (Neurontin -) 100 mg PO QID [facility] Last Admin: 06/07/16 22:23 Dose: Not Given Guaifenesin (Mucinex -) 600 mg PO BID [facility] Last Admin: 06/07/16 22:24 Dose: Not Given Hydralazine HCl (Apresoline Injection -) 10 mg IVPUSH Q6H PRN PRN Reason: HYPERTENSION Last Admin: 06/06/16 17:16 Dose: 10 mg Pantoprazole Sodium (Protonix 40mg Ivpb (Pre-Docked)) 100 mls @ 200 mls/hr IVPB DAILY [facility] Last Admin: 06/07/16 12:25 Dose: 200 mls/hr Acyclovir 325 mg/ Dextrose 106.5 mls @ 106.5 mls/hr IVPB BID [facility] Last Admin: 06/07/16 22:24 Dose: 106.5 mls/hr Cefepime HCl 0.5 gm/ Dextrose 100 mls @ 200 mls/hr IVPB BID [facility] Last Admin: 06/07/16 22:30 Dose: 200 mls/hr Levothyroxine Sodium (Synthroid Injection -) 25 mcg IVPUSH DAILY@0700 [facility] Last Admin: 06/08/16 06:01 Dose: 25 mcg Metoprolol Tartrate (Lopressor Injection -) 5 mg IVPUSH Q4H PRN PRN Reason: HYPERTENSION Last Admin: 06/05/16 10:25 Dose: 5 mg Ondansetron HCl (Zofran Injection) 4 mg IVPB Q6H PRN PRN Reason: NAUSEA AND/OR VOMITING Last Admin: 05/29/16 22:35 Dose: 4 mg Polyethylene Glycol (Miralax (For Daily Use) -) 17 gm PO DAILY [facility] Last Admin: 06/07/16 10:20 Dose: Not Given Senna (Senna Oral Solution -) 8.8 mg PO HS [facility] Last Admin: 06/07/16 22:24 Dose: Not Given - Objective Vital Signs: Vital Signs Temperature 98.9 F 06/08/16 06:00 Pulse Rate 92 H 06/08/16 06:00 Respiratory Rate 26 H 06/08/16 06:00 Blood Pressure 176/55 06/08/16 06:00 O2 Sat by Pulse Oximetry (%) 99 06/08/16 03:25 Constitutional: Yes: Calm HENT: Yes: Other (Crusted lesions with some bleeding of the lips) Cardiovascular: Yes: S1, S2 Respiratory: Yes: Diminished, Rhonchi, Other (Decreased BS at bases) Gastrointestinal: Yes: Soft. No: Tenderness, Rebound Edema: No Labs: CBC, BMP 06/08/16 05:00 06/08/16 05:00 INR, PTT INR 1.14 (0.82-1.09) 05/26/16 18:25 Assessment/Plan Impression 1. Pre renal Azotemia following lasix and with diarrhea 2. S/P Hyponatremia 3. PNA with small effusions with + Influenza 4. Multiple sclerosis 5. Hyperlipidemia 6. Hypothyroidism 7. HTN 8. Proteinuria and microscopic hematuria 9. 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 Diarrhea Plan Prn lasix Stool for C Diff Rpt labs in am Discussed with ID and CCM Dr Santos
--- NOTE | 2016-06-08 09:44 | PN ---
Progress Note (short form) - Note Progress Note: alert bloody crusts on lips extubated yesterday reports diarrhea reports prior history of cdiff! Vital Signs Period Temp Pulse Resp BP Sys/Cobb Pulse Ox Last 24 Hr 98.8 F-100.1 F 90-109 13-30 139-176/44-75 98-99 bloody crusts on lips cor-rrr lungs decreased bs at bases abd soft,nt ext no edema CBC, BMP 06/08/16 05:00 06/08/16 05:00 Microbiology 06/05/16 21:20 Blood - Peripheral Venous Blood Culture - Preliminary NO GROWTH OBTAINED AFTER 48 HOURS, INCUBATION TO CONTINUE FOR 3 DAYS. 06/05/16 21:15 Blood - Peripheral Venous Blood Culture - Preliminary NO GROWTH OBTAINED AFTER 48 HOURS, INCUBATION TO CONTINUE FOR 3 DAYS. 06/05/16 20:45 Urine - Urine Obrien Urine Culture - Final NO GROWTH OBTAINED a/p resp failure- s/p extubation yesterday fevers- improved oral hsv- on iv acyclovir #2 recent influenza- ?pneumonia- cefepime #2 now with diarrhea- check cdiff
[2016-06-08] MEDS: GABAPENTIN 100 MG CAPSULE (FP) PO SCH ×4 (09:55→22:22)
[2016-06-08] MEDS: guaiFENesin 600 MG TABLET.ER (FP) PO SCH ×2 (09:56→22:23)
[2016-06-08] MEDS: POLYETHYLENE GLYCOL 3350 119 GM BTL PO SCH (09:56)
[2016-06-08] MEDS: DOCUSATE SODIUM 100 MG CAPSULE (FP) PO SCH ×2 (09:56→22:23)
[2016-06-08] MEDS ORDERED: PT OWN MED DRAWER 7, Y5N ONE ×3 (10:02→23:12)
[2016-06-08] MEDS: PANTOPRAZOLE SODIUM 100 ML IVPB SCH (10:15)
[2016-06-08] MEDS: hydrALAZINE HCL 20 MG/ML VIAL IVPUSH PRN ×2 (10:15→23:19)
[2016-06-08] MEDS: ENOXAPARIN NA (PORCINE) 40 MG/0.4 ML DISP.SYRIN SQ SCH (10:16)
[2016-06-08 10:34] LABS: ALLENS TEST POSITIVE; ART PUNCT SITE RIGHT RADIAL; ARTERIAL BLD GAS O2 SATURATION 93.9 % (90-98.9); ARTERIAL BLOOD GAS BASE EXCESS 9.6 meq/l (-2-2); ARTERIAL BLOOD GAS HCO3 33.3 meq/L (22-26); ARTERIAL BLOOD GAS pH 7.52 (7.35-7.45); PT. ON O2? YES
[2016-06-08 10:35] LABS: ARTERIAL BLOOD GAS PO2 67.6 mmHg (68-100); LPM/O2% 40%; TYPE OF O2 VENTIMASK
[2016-06-08] MEDS: CEFEPIME 0.5 GM in DEXTROSE 5%-WATER - 100 ML IVPB SCH ×2 (10:37→22:23)
--- NOTE | 2016-06-08 10:50 | PN ---
Progress Note (short form) - Note Progress Note: Patient seen and examined in the ICU. (+) Sore throat / and cough. (+) diarrhea Afebrile this AM. Remains extubated. Some bleeding from lip lesions. Intake & Output 06/05/16 06/06/16 06/07/16 06/08/16 23:59 23:59 23:59 23:59 Intake Total 1895 1789 1582 100 Output Total 1250 1050 1950 600 Balance 645 678 -682 -500 Weight 142 lb 6 oz 144 lb 3 oz 143 lb 1 oz 141 lb 6.4 oz Last Vital Signs Temp Pulse Resp BP Pulse Ox 98.9 F 92 H 26 H 176/55 99 06/08/16 06:00 06/08/16 06:00 06/08/16 06:00 06/08/16 06:00 06/08/16 03:25 Active Medications Acetaminophen (Tylenol -) 1,000 mg PO Q6H PRN PRN Reason: TEMP > 101* Last Admin: 06/07/16 06:06 Dose: 1,000 mg Acetaminophen (Ofirmev Injection -) 1,000 mg IVPB Q6H PRN PRN Reason: FEVER OR PAIN Stop: 06/08/16 23:44 Last Admin: 06/08/16 06:06 Dose: 1,000 mg Albuterol Sulfate (Ventolin 0.083% Nebulizer Soln -) 1 amp NEB Q4H PRN PRN Reason: SHORT OF BREATH/WHEEZING Albuterol/Ipratropium (Duoneb -) 1 amp NEB QIDR [facility] Last Admin: 06/08/16 05:59 Dose: 1 amp Docusate Sodium (Colace -) 200 mg PO BID [facility] Last Admin: 06/08/16 09:56 Dose: Not Given Enoxaparin Sodium (Lovenox -) 40 mg SQ DAILY [facility] Last Admin: 06/08/16 10:16 Dose: 40 mg Gabapentin (Neurontin -) 100 mg PO QID [facility] Last Admin: 06/08/16 09:55 Dose: Not Given Guaifenesin (Mucinex -) 600 mg PO BID [facility] Last Admin: 06/08/16 09:56 Dose: Not Given Hydralazine HCl (Apresoline Injection -) 10 mg IVPUSH Q6H PRN PRN Reason: HYPERTENSION Last Admin: 06/08/16 10:15 Dose: 10 mg Pantoprazole Sodium (Protonix 40mg Ivpb (Pre-Docked)) 100 mls @ 200 mls/hr IVPB DAILY [facility] Last Admin: 06/08/16 10:15 Dose: 200 mls/hr Acyclovir 325 mg/ Dextrose 106.5 mls @ 106.5 mls/hr IVPB BID [facility] Last Admin: 06/07/16 22:24 Dose: 106.5 mls/hr Cefepime HCl 0.5 gm/ Dextrose 100 mls @ 200 mls/hr IVPB BID [facility] Last Admin: 06/08/16 10:37 Dose: 200 mls/hr Levothyroxine Sodium (Synthroid Injection -) 25 mcg IVPUSH DAILY@0700 [facility] Last Admin: 06/08/16 06:01 Dose: 25 mcg Metoprolol Tartrate (Lopressor Injection -) 5 mg IVPUSH Q4H PRN PRN Reason: HYPERTENSION Last Admin: 06/05/16 10:25 Dose: 5 mg Ondansetron HCl (Zofran Injection) 4 mg IVPB Q6H PRN PRN Reason: NAUSEA AND/OR VOMITING Last Admin: 05/29/16 22:35 Dose: 4 mg Polyethylene Glycol (Miralax (For Daily Use) -) 17 gm PO DAILY [facility] Last Admin: 06/08/16 09:56 Dose: Not Given Senna (Senna Oral Solution -) 8.8 mg PO HS [facility] Last Admin: 06/07/16 22:24 Dose: Not Given Gen: Extubated, awake and alert Heart: S1S2 Lung: decreased breath sounds at the bases, scattered rhonchi, no wheezing Abd: soft, nontender Ext: + edema Laboratory Results - last 24 hr 06/04/16 06/07/16 06/07/16 21:20 09:15 09:15 WBC RBC Hgb Hct MCV MCHC RDW Plt Count MPV Neutrophils % 82.0 Lymphocytes % 8.0 Monocytes % 8.0 Eosinophils % Basophils % 1.0 D Band Neutrophils 1.0 Differential Comment Manual diff done Platelet Estimate Increased Puncture Site ABG pH ABG pCO2 at Pt Temp ABG pO2 at Pt Temp ABG HCO3 ABG O2 Sat (Measured) ABG O2 Content ABG Base Excess Paulino Test O2 Delivery Device Oxygen Flow Rate Sodium 141 Potassium 5.0 D Chloride 100 Carbon Dioxide 32 Anion Gap 9 BUN 36 H D Creatinine 1.3 H Creat Clearance w eGFR 39.21 Random Glucose 173 H Calcium 7.9 L Total Bilirubin 0.3 AST 36 D ALT 42 D Alkaline Phosphatase 118 H Total Protein 6.0 L Albumin 2.2 L Blood Type A POSITIVE Antibody Screen Negative Crossmatch See Detail 06/08/16 06/08/16 06/08/16 05:00 05:00 10:20 WBC 16.4 H RBC 3.04 L Hgb 8.6 L Hct 26.3 L MCV 86.7 MCHC 32.6 RDW 16.3 H Plt Count 510 H MPV 8.7 Neutrophils % 83.1 H Lymphocytes % 7.3 L Monocytes % 8.2 Eosinophils % 0.8 Basophils % 0.6 Band Neutrophils Differential Comment Platelet Estimate Puncture Site Right radial ABG pH 7.52 H ABG pCO2 at Pt Temp 41.5 ABG pO2 at Pt Temp 67.6 L ABG HCO3 33.3 H ABG O2 Sat (Measured) 93.9 ABG O2 Content 11.3 L ABG Base Excess 9.6 H Paulino Test Positive O2 Delivery Device Ventimask Oxygen Flow Rate 40% Sodium 141 Potassium 4.7 Chloride 99 Carbon Dioxide 34 H Anion Gap 8 BUN 36 H Creatinine 1.1 H Creat Clearance w eGFR 47.55 Random Glucose 147 H Calcium 7.8 L Total Bilirubin 0.4 D AST 38 H ALT 44 Alkaline Phosphatase 91 D Total Protein 5.4 L Albumin 2.2 L Blood Type Antibody Screen Crossmatch ASSESSMENT AND PLAN: Acute Respiratory Failure Pneumonia likely Aspiration Hyponatremia improving Influenza A Multiple Sclerosis HTN Hypothyroidism Acute Kidney Injury Pulmonary vascular congestion / pleural effusions - Hold Lasix - Antibiotics per ID - O2 as needed - Lovenox - inhaled bronchodilators - PO as tolerated - DVT/GI prophylaxis - BD TX - Check C Diff Dr Fam CCTime 35"
[2016-06-08] MEDS: DEXTROSE 5% IVPB SCH ×2 (11:47→22:23)
[2016-06-08] MEDS: WATER IVPB SCH ×2 (11:47→22:23)
[2016-06-08] MEDS: ACYCLOVIR IVPB SCH ×2 (11:47→22:23)
--- NOTE | 2016-06-08 12:46 | PN ---
Progress Note (short form) - Note Progress Note: seen and examined in ICU awake alert / O2 nasal oral lesions with some improvement Vital Signs Period Temp Pulse Resp BP Sys/Cobb Pulse Ox Last 24 Hr 98.8 F-100.1 F 90-109 13-30 139-176/44-75 98-99 Intake & Output 06/05/16 06/06/16 06/07/16 06/08/16 23:59 23:59 23:59 23:59 Intake Total 1895 1789 1582 100 Output Total 1250 1050 1950 600 Balance 645 739 -368 -500 Weight 142 lb 6 oz 144 lb 3 oz 143 lb 1 oz 141 lb 6.4 oz oral cavity with dried blood open lesions on upper and lower lips neck supple - jvd heart reg S1/S2 lungs scattered rhonchi and expiratory wheezing abd soft non tender ext moves all ext CBC, BMP 06/08/16 05:00 06/08/16 05:00 Microbiology 06/05/16 21:20 Blood - Peripheral Venous Blood Culture - Preliminary NO GROWTH OBTAINED AFTER 48 HOURS, INCUBATION TO CONTINUE FOR 3 DAYS. 06/05/16 21:15 Blood - Peripheral Venous Blood Culture - Preliminary NO GROWTH OBTAINED AFTER 48 HOURS, INCUBATION TO CONTINUE FOR 3 DAYS. 06/05/16 20:45 Urine - Urine Obrien Urine Culture - Final NO GROWTH OBTAINED 05/31/16 15:45 Blood - Peripheral Venous Blood Culture - Final NO GROWTH AFTER 5 DAYS INCUBATION 05/31/16 15:40 Blood - Peripheral Venous Blood Culture - Final NO GROWTH AFTER 5 DAYS INCUBATION 06/01/16 12:30 Sputum - Endotrachea Suction/Ventilator Gram Stain - Final 06/01/16 12:30 Sputum - Endotrachea Suction/Ventilator Sputum Culture - Final Yeast Like Organism 06/01/16 06:00 Urine - Urine - Catheterized Urine Culture - Final NO GROWTH OBTAINED 05/30/16 21:00 Urine - Urine - Catheterized Urine Culture - Final NO GROWTH OBTAINED 05/26/16 18:25 Blood - Peripheral Venous Blood Culture - Final NO GROWTH AFTER 5 DAYS INCUBATION 05/26/16 18:25 Blood - Peripheral Venous Blood Culture - Final NO GROWTH AFTER 5 DAYS INCUBATION 05/30/16 21:00 Urine For Antigen Detection Legionella Antigen - Final 05/30/16 21:00 Urine For Antigen Detection Streptococcus pneumoniae Antigen (M - Final 05/26/16 18:00 Urine - Urine - Catheterized Urine Culture - Final NO GROWTH OBTAINED 05/26/16 18:25 Nasopharyngeal Swab Influenza Types A,B Antigen (ASHLIE) - Final 05/26/16 18:25 Nasopharyngeal Swab - Final Active Medications Acetaminophen (Tylenol -) 1,000 mg PO Q6H PRN PRN Reason: TEMP > 101* Last Admin: 06/07/16 06:06 Dose: 1,000 mg Acetaminophen (Ofirmev Injection -) 1,000 mg IVPB Q6H PRN PRN Reason: FEVER OR PAIN Stop: 06/08/16 23:44 Last Admin: 06/08/16 06:06 Dose: 1,000 mg Albuterol Sulfate (Ventolin 0.083% Nebulizer Soln -) 1 amp NEB Q4H PRN PRN Reason: SHORT OF BREATH/WHEEZING Albuterol/Ipratropium (Duoneb -) 1 amp NEB QIDR [facility] Last Admin: 06/08/16 05:59 Dose: 1 amp Docusate Sodium (Colace -) 200 mg PO BID [facility] Last Admin: 06/08/16 09:56 Dose: Not Given Enoxaparin Sodium (Lovenox -) 40 mg SQ DAILY [facility] Last Admin: 06/08/16 10:16 Dose: 40 mg Gabapentin (Neurontin -) 100 mg PO QID [facility] Last Admin: 06/08/16 09:55 Dose: Not Given Guaifenesin (Mucinex -) 600 mg PO BID [facility] Last Admin: 06/08/16 09:56 Dose: Not Given Hydralazine HCl (Apresoline Injection -) 10 mg IVPUSH Q6H PRN PRN Reason: HYPERTENSION Last Admin: 06/08/16 10:15 Dose: 10 mg Pantoprazole Sodium (Protonix 40mg Ivpb (Pre-Docked)) 100 mls @ 200 mls/hr IVPB DAILY [facility] Last Admin: 06/08/16 10:15 Dose: 200 mls/hr Acyclovir 325 mg/ Dextrose 106.5 mls @ 106.5 mls/hr IVPB BID [facility] Last Admin: 06/08/16 11:47 Dose: 106.5 mls/hr Cefepime HCl 0.5 gm/ Dextrose 100 mls @ 200 mls/hr IVPB BID [facility] Last Admin: 06/08/16 10:37 Dose: 200 mls/hr Levothyroxine Sodium (Synthroid Injection -) 25 mcg IVPUSH DAILY@0700 [facility] Last Admin: 06/08/16 06:01 Dose: 25 mcg Metoprolol Tartrate (Lopressor Injection -) 5 mg IVPUSH Q4H PRN PRN Reason: HYPERTENSION Last Admin: 06/05/16 10:25 Dose: 5 mg Ondansetron HCl (Zofran Injection) 4 mg IVPB Q6H PRN PRN Reason: NAUSEA AND/OR VOMITING Last Admin: 05/29/16 22:35 Dose: 4 mg Polyethylene Glycol (Miralax (For Daily Use) -) 17 gm PO DAILY [facility] Last Admin: 06/08/16 09:56 Dose: Not Given Senna (Senna Oral Solution -) 8.8 mg PO HS [facility] Last Admin: 06/07/16 22:24 Dose: Not Given ASSMT low grade temp on abx ( for RLL infltate) / inc WBC re cultured -- all c/s neg to date oral lesion (c/w herpes ) on acyclovir --improving MIRNA -- BUN/Cr improving Acute Respiratory Failure extubated 06/06, swallow eval ordered Hyponatremia Resolved and has remained stable Pneumonia likely Aspiration improving / on Abx Influenza A treatment completed Multiple Sclerosis stable HTN Hypothyroidism Plan acyclovir IV nutritional support monitor Na follow h/h s/p transfusion follow bun/Cr Taper to wean vent support as tolerated continue ICU care Problem List - Problems (1) Hyponatremia Code(s): E87.1 - HYPO-OSMOLALITY AND HYPONATREMIA (2) Right lower lobe pneumonia Code(s): J18.9 - PNEUMONIA, UNSPECIFIED ORGANISM (3) Influenza A Code(s): J10.1 - FLU DUE TO OTH IDENT INFLUENZA VIRUS W OTH RESP MANIFEST (4) Multiple sclerosis Code(s): G35 - MULTIPLE SCLEROSIS (5) Hypothyroid Code(s): E03.9 - HYPOTHYROIDISM, UNSPECIFIED (6) Hyperlipemia Code(s): E78.5 - HYPERLIPIDEMIA, UNSPECIFIED (8) Neuropathic pain of both legs Code(s): G57.91 - UNSPECIFIED MONONEUROPATHY OF RIGHT LOWER LIMB G57.92 - UNSPECIFIED MONONEUROPATHY OF LEFT LOWER LIMB (9) Fever Code(s): R50.9 - FEVER, UNSPECIFIED Qualifiers: Fever type: unspecified Qualified Code(s): R50.9 - Fever, unspecified (10) Anemia Code(s): D64.9 - ANEMIA, UNSPECIFIED Qualifiers: Anemia type: other cause Other causes of anemia: other cause, not classified Qualified Code(s): D64.89 - Other specified anemias
--- NOTE | 2016-06-08 15:48 | CON.GI ---
Consult Consult Specialty:: GI Referred by:: Dr. Nguyen Reason for Consultation:: Rectal Bleeding - History of Present Illness Chief Complaint: Patient without GI complaints History of Present Illness: 80F amitted earlier this month with cough, SOB. Worsening SOB during admission , transferred to ICU and intubated 06/01/16. Noted rectal bleeding yesterday. no abdominal pain. Nurse's Aid Ayah tells me that Ms. Baer was impacted when she was intially admitted to the ICU. Now extubated. She tells me that she has had colonoscopies with Dr. Jose Simms in [facility], the last being about 5 years ago. She thinks that she was told of a polyp during on e of her earlier colonoscopies. I asked her if she was ever told about diverticulosis and she said that was possible. - History Source History Provided By: Patient, Medical Record Limitations to Obtaining History: No Limitations - Past Medical History [employer]: Yes: Multiple Sclerosis Cardio/Vascular: Yes: HTN, Hyperlipdemia Endocrine: Yes: Hypothyroidism - Past Surgical History Past Surgical History: Yes: Hysterectomy, Joint Replacement (knee, hip) Additional Surgical History: thyroidectomy - Alcohol/Substance Use Hx Alcohol Use: Yes - Smoking History Smoking history: Former smoker Have you smoked in the past 12 months: No If you are a former smoker, when did you quit?: 1969 - Social History ADL: Family Assistance Place of : [facility] History of Recent Travel: No Home Medications - Allergies Allergies/Adverse Reactions: Allergies Allergy/AdvReac Type Severity Reaction Status Date / Time Penicillins Allergy Verified 05/26/16 18:08 - Home Medications Home Medications: Ambulatory Orders Atorvastatin Calcium [Lipitor] 10 mg PO ASDIR 05/26/16 Gabapentin [Neurontin -] 100 mg PO DAILY 05/26/16 Levothyroxine [Synthroid -] 50 mcg PO DAILY 05/26/16 Nifedipine [Procardia Xl] 30 mg PO DAILY 05/26/16 Baclofen 5 mg PO BID 05/27/16 Family Disease History - Family Disease History Other Family History: Non-contribuatory Review of Systems - Review of Systems Respiratory: reports: Cough, SOB Gastrointestinal: reports: Constipation. denies: Abdominal Pain, Diarrhea, Rectal Bleeding, Vomiting Musculoskeletal: reports: Joint Pain (hip pain, right hip pain) Physical Exam-GI Vital Signs: Vital Signs Temperature 98.4 F 06/08/16 14:00 Pulse Rate 99 H 06/08/16 14:00 Respiratory Rate 28 H 06/08/16 14:00 Blood Pressure 130/38 06/08/16 14:00 O2 Sat by Pulse Oximetry (%) 99 06/08/16 03:25 Constitutional: Yes: Calm Eyes: No: Sclera Icterus HENT: Yes: Other (crusted ulcerations on lips) Cardiovascular: Yes: Regular Rate and Rhythm, Murmur (2/6 systolic murmur) Respiratory: Yes: Rhonchi Gastrointestinal Inspection: Yes: Scars (+ pelvic surgical scar). No: Distention ...Auscultate: Yes: Normoactive Bowel Sounds ...Palpate: No: Hepatomegaly, Splenomegaly, Tenderness ...Percussion: No: Tympanitic ...Rectal Exam: Yes: Other (brown stool mixed with dark blood) Edema: No (No LE edema) Neurological: Yes: Oriented Labs: CBC, BMP 06/08/16 05:00 06/08/16 05:00 INR, PTT INR 1.14 (0.82-1.09) 05/26/16 18:25 Microbiology 06/08/16 13:00 Stool Clostridium difficile Antigen (ASHLIE) - neg 06/08/16 13:00 Stool Clostridium difficile Toxin Assay - neg Problem List - Problems (1) Rectal bleed Assessment/Plan: Panless rectal bleeding Patient remains hemodynamically stable. ? if secondary to hemorrhoidal bleeding secondary to prior fecal impaction, stercoral ulceration or alternate lower GI bleed source such as diverticular bleeding. Monitor H/H Repeat CBC ordered CT scan of the abdomen and pelvis when stable to assess for signs of colitis Clear liquids Given tenuous respiratory status, reserving endoscopic evaluation for life threatening bleeding if Ms. Baer is amenable. I did discuss this with her and was not interested in undergoing invasive testing. Code(s): K62.5 - HEMORRHAGE OF ANUS AND RECTUM
[2016-06-08 16:43] LABS: MCH 27.8 pg (25.7-33.7); MCHC 32.2 g/dl (32.0-36.0); MEAN CELL VOLUME 86.5 fl (80-96); MEAN PLT VOLUME 8.3 fl (7.5-11.1); PLATELET COUNT 510 K/MM3 (134-434); RDW 16.2 % (11.6-15.6); WHITE BLOOD COUNT 15.2 K/mm3 (4.0-10.0)
[2016-06-08] MEDS: SENNOSIDES 8.8 MG/5 ML BULK BOTTLE PO SCH (22:23)
[2016-06-09] MEDS: ALBUTEROL SO4 2.5/IPRATROPIUM 0.5 INH SOL 3 ML VIAL.NEB. NEB SCH ×2 (05:45)
[2016-06-09 06:13] LABS: BASOPHIL 0.6 % (0-2.0); EOSINOPHIL 0.7 % (0-4.5); MCH 28.7 pg (25.7-33.7); MCHC 33.1 g/dl (32.0-36.0); MEAN CELL VOLUME 86.8 fl (80-96); NEUTROPHILS 84.7 % (42.8-82.8); PLATELET COUNT 567 K/MM3 (134-434); RDW 15.8 % (11.6-15.6); WHITE BLOOD COUNT 16.3 K/mm3 (4.0-10.0)
[2016-06-09] MEDS: LEVOTHYROXINE SODIUM 100 MCG VIAL IVPUSH SCH (06:19)
[2016-06-09] MEDS: hydrALAZINE HCL 20 MG/ML VIAL IVPUSH PRN (06:20)
[2016-06-09 06:53] LABS: CALCIUM 8.3 mg/dL (8.5-10.1); CREATININE 1.1 mg/dL (0.55-1.02)
[2016-06-09 07:37] LABS: ARTERIAL BLD GAS O2 SATURATION 93.2 % (90-98.9); ARTERIAL BLOOD GAS BASE EXCESS 6.2 meq/l (-2-2); ARTERIAL BLOOD GAS HCO3 29.2 meq/L (22-26)
[2016-06-09 07:38] LABS: ALLENS TEST POSITIVE; ART PUNCT SITE RIGHT BRACHIAL; LPM/O2% 4L; PT. ON O2? YES
[2016-06-09 07:39] LABS: ARTERIAL BLOOD GAS PO2 65.3 mmHg (68-100); ARTERIAL BLOOD GAS pH 7.52 (7.35-7.45); TYPE OF O2 NASAL
[2016-06-09] MEDS: CEFEPIME 0.5 GM in DEXTROSE 5%-WATER - 100 ML IVPB SCH ×2 (09:48→21:25)
[2016-06-09] MEDS: GABAPENTIN 100 MG CAPSULE (FP) PO SCH ×3 (09:48→21:25)
[2016-06-09] MEDS: ENOXAPARIN NA (PORCINE) 40 MG/0.4 ML DISP.SYRIN SQ SCH (09:48)
[2016-06-09] MEDS: DOCUSATE SODIUM 100 MG CAPSULE (FP) PO SCH ×2 (09:48→21:25)
--- NOTE | 2016-06-09 10:19 | PN ---
Progress Note, Physician History of Present Illness: Renal f/u Pt remains extubated Had ice chips earlier but still not on feeds No Diarrhea today Azotemia stablized CXR still shows congestion and effusions though clinically pt is compensated and in no distress - Current Medication List Current Medications: Active Medications Acetaminophen (Tylenol -) 1,000 mg PO Q6H PRN PRN Reason: TEMP > 101* Last Admin: 06/07/16 06:06 Dose: 1,000 mg Albuterol Sulfate (Ventolin 0.083% Nebulizer Soln -) 1 amp NEB Q4H PRN PRN Reason: SHORT OF BREATH/WHEEZING Albuterol/Ipratropium (Duoneb -) 1 amp NEB QIDR [facility] Last Admin: 06/09/16 05:45 Dose: 1 amp Docusate Sodium (Colace -) 200 mg PO BID [facility] Last Admin: 06/08/16 22:23 Dose: Not Given Enoxaparin Sodium (Lovenox -) 40 mg SQ DAILY [facility] Last Admin: 06/08/16 10:16 Dose: 40 mg Gabapentin (Neurontin -) 100 mg PO QID [facility] Last Admin: 06/08/16 22:22 Dose: Not Given Guaifenesin (Mucinex -) 600 mg PO BID [facility] Last Admin: 06/08/16 22:23 Dose: Not Given Hydralazine HCl (Apresoline Injection -) 10 mg IVPUSH Q6H PRN PRN Reason: HYPERTENSION Last Admin: 06/09/16 06:20 Dose: 10 mg Pantoprazole Sodium (Protonix 40mg Ivpb (Pre-Docked)) 100 mls @ 200 mls/hr IVPB DAILY [facility] Last Admin: 06/08/16 10:15 Dose: 200 mls/hr Acyclovir 325 mg/ Dextrose 106.5 mls @ 106.5 mls/hr IVPB BID [facility] Last Admin: 06/08/16 22:23 Dose: 106.5 mls/hr Cefepime HCl 0.5 gm/ Dextrose 100 mls @ 200 mls/hr IVPB BID [facility] Last Admin: 06/08/16 22:23 Dose: 200 mls/hr Levothyroxine Sodium (Synthroid Injection -) 25 mcg IVPUSH DAILY@0700 [facility] Last Admin: 06/09/16 06:19 Dose: 25 mcg Metoprolol Tartrate (Lopressor Injection -) 5 mg IVPUSH Q4H PRN PRN Reason: HYPERTENSION Last Admin: 06/05/16 10:25 Dose: 5 mg Ondansetron HCl (Zofran Injection) 4 mg IVPB Q6H PRN PRN Reason: NAUSEA AND/OR VOMITING Last Admin: 05/29/16 22:35 Dose: 4 mg Polyethylene Glycol (Miralax (For Daily Use) -) 17 gm PO DAILY [facility] Last Admin: 06/08/16 09:56 Dose: Not Given Senna (Senna Oral Solution -) 8.8 mg PO HS [facility] Last Admin: 06/08/16 22:23 Dose: Not Given - Objective Vital Signs: Vital Signs Temperature 98.8 F 06/09/16 06:00 Pulse Rate 92 H 06/09/16 06:00 Respiratory Rate 28 H 06/09/16 08:26 Blood Pressure 170/64 06/09/16 06:00 O2 Sat by Pulse Oximetry (%) 94 L 06/09/16 08:26 Constitutional: Yes: No Distress Cardiovascular: Yes: S1, S2 Respiratory: Yes: CTA Bilaterally, Other (Decreased BS at bases posteriorly) Gastrointestinal: Yes: Soft. No: Tenderness, Epigastrium Genitourinary: Yes: Eddy Present. No: Bladder Distention Edema: No Integumentary: Yes: Other (Perioral HSV lesions improving) Labs: CBC, BMP 06/09/16 05:45 06/09/16 05:45 INR, PTT INR 1.14 (0.82-1.09) 05/26/16 18:25 Assessment/Plan Impression 1. Pre renal Azotemia following lasix and with diarrhea 2. HTN 3. PNA with small effusions with + Influenza 4. Multiple sclerosis 5. Hyperlipidemia 6. Hypothyroidism 7. HTN 8. Proteinuria and microscopic hematuria 9. 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 Diarrhea resolved and stool for C Diff Ag and Toxin negative 11. S/P Hyponatremia Plan Lasix 40 mg IV X1 after the Acyclovir is completed and give slowly Consider D/C of the eddy and watch for retention Rpt labs in am Discussed with CCM Dr Santos
[2016-06-09] MEDS: ACYCLOVIR IVPB SCH ×2 (10:21→21:26)
[2016-06-09] MEDS: WATER IVPB SCH ×2 (10:21→21:26)
[2016-06-09] MEDS: DEXTROSE 5% IVPB SCH ×2 (10:21→21:26)
--- NOTE | 2016-06-09 11:14 | PN ---
Progress Note (short form) - Note Progress Note: Patient seen and examined in the ICU. (+) Sore throat / and cough. No diarrhea. Afebrile this AM. Remains extubated. Less bleeding from lip lesions. Intake & Output 06/06/16 06/07/16 06/08/16 06/09/16 23:59 23:59 23:59 23:59 Intake Total 1789 1582 750 15 Output Total 1050 1950 1250 300 Balance 739 -368 -500 -285 Weight 144 lb 3 oz 143 lb 1 oz 141 lb 6.4 oz 136 lb 3.2 oz Last Vital Signs Temp Pulse Resp BP Pulse Ox 98.9 F 99 H 24 138/61 94 L 06/09/16 10:00 06/09/16 10:00 06/09/16 10:00 06/09/16 10:00 06/09/16 08:26 Active Medications Acetaminophen (Tylenol -) 1,000 mg PO Q6H PRN PRN Reason: TEMP > 101* Last Admin: 06/07/16 06:06 Dose: 1,000 mg Albuterol Sulfate (Ventolin 0.083% Nebulizer Soln -) 1 amp NEB Q4H PRN PRN Reason: SHORT OF BREATH/WHEEZING Albuterol/Ipratropium (Duoneb -) 1 amp NEB QIDR [facility] Last Admin: 06/09/16 05:45 Dose: 1 amp Docusate Sodium (Colace -) 200 mg PO BID [facility] Last Admin: 06/09/16 09:48 Dose: Not Given Enoxaparin Sodium (Lovenox -) 40 mg SQ DAILY [facility] Last Admin: 06/09/16 09:48 Dose: 40 mg Furosemide (Lasix Injection -) 40 mg IVPUSH ONCE ONE Stop: 06/09/16 11:31 Gabapentin (Neurontin -) 100 mg PO QID [facility] Last Admin: 06/09/16 09:48 Dose: Not Given Guaifenesin (Mucinex -) 600 mg PO BID [facility] Last Admin: 06/08/16 22:23 Dose: Not Given Hydralazine HCl (Apresoline Injection -) 10 mg IVPUSH Q6H PRN PRN Reason: HYPERTENSION Last Admin: 06/09/16 06:20 Dose: 10 mg Pantoprazole Sodium (Protonix 40mg Ivpb (Pre-Docked)) 100 mls @ 200 mls/hr IVPB DAILY [facility] Last Admin: 06/08/16 10:15 Dose: 200 mls/hr Acyclovir 325 mg/ Dextrose 106.5 mls @ 106.5 mls/hr IVPB BID [facility] Last Admin: 06/09/16 10:21 Dose: 106.5 mls/hr Cefepime HCl 0.5 gm/ Dextrose 100 mls @ 200 mls/hr IVPB BID [facility] Last Admin: 06/09/16 09:48 Dose: 200 mls/hr Levothyroxine Sodium (Synthroid Injection -) 25 mcg IVPUSH DAILY@0700 [facility] Last Admin: 06/09/16 06:19 Dose: 25 mcg Metoprolol Tartrate (Lopressor Injection -) 5 mg IVPUSH Q4H PRN PRN Reason: HYPERTENSION Last Admin: 06/05/16 10:25 Dose: 5 mg Ondansetron HCl (Zofran Injection) 4 mg IVPB Q6H PRN PRN Reason: NAUSEA AND/OR VOMITING Last Admin: 05/29/16 22:35 Dose: 4 mg Polyethylene Glycol (Miralax (For Daily Use) -) 17 gm PO DAILY [facility] Last Admin: 06/08/16 09:56 Dose: Not Given Senna (Senna Oral Solution -) 8.8 mg PO HS [facility] Last Admin: 06/08/16 22:23 Dose: Not Given Gen: Extubated, awake and alert Heart: S1S2 Lung: decreased breath sounds at the bases, Rales, scattered rhonchi Abd: soft, nontender Ext: + edema Laboratory Results - last 24 hr 06/08/16 06/09/16 06/09/16 16:15 05:45 05:45 WBC 15.2 H 16.3 H RBC 2.91 L 3.09 L Hgb 8.1 L 8.9 L Hct 25.2 L 26.8 L MCV 86.5 86.8 MCHC 32.2 33.1 RDW 16.2 H 15.8 H Plt Count 510 H 567 H MPV 8.3 9.0 Neutrophils % 84.7 H Lymphocytes % 6.8 L Monocytes % 7.2 Eosinophils % 0.7 Basophils % 0.6 Puncture Site ABG pH ABG pCO2 at Pt Temp ABG pO2 at Pt Temp ABG HCO3 ABG O2 Sat (Measured) ABG O2 Content ABG Base Excess Paulino Test O2 Delivery Device Oxygen Flow Rate PEEP Sodium 140 Potassium 5.0 Chloride 101 Carbon Dioxide 30 Anion Gap 9 BUN 32 H Creatinine 1.1 H Random Glucose 127 H Calcium 8.3 L Blood Type Antibody Screen 06/09/16 06/09/16 05:45 07:30 WBC RBC Hgb Hct MCV MCHC RDW Plt Count MPV Neutrophils % Lymphocytes % Monocytes % Eosinophils % Basophils % Puncture Site Right brachial ABG pH 7.52 H ABG pCO2 at Pt Temp 35.9 ABG pO2 at Pt Temp 65.3 L ABG HCO3 29.2 H ABG O2 Sat (Measured) 93.2 ABG O2 Content 10.6 L ABG Base Excess 6.2 H Paulino Test Positive O2 Delivery Device Nasal Oxygen Flow Rate 4l PEEP 0.0 Sodium Potassium Chloride Carbon Dioxide Anion Gap BUN Creatinine Random Glucose Calcium Blood Type A POSITIVE Antibody Screen Negative ASSESSMENT AND PLAN: Acute Respiratory Failure Pneumonia likely Aspiration Hyponatremia improving Influenza A Multiple Sclerosis HTN Hypothyroidism Acute Kidney Injury Pulmonary vascular congestion / pleural effusions - Lasix - Antibiotics per ID - O2 as needed - Lovenox - inhaled bronchodilators - PO as tolerated - DVT/GI prophylaxis - BD TX - Check C Diff - Trial of PO Dr Fam CCTime 35"
[2016-06-09] MEDS ORDERED: FUROSEMIDE 40 MG/4 ML INJECTABLE VIAL IVPUSH ONE (11:30)
--- NOTE | 2016-06-09 12:05 | PN ---
Progress Note (short form) - Note Progress Note: Discussed with Ms. Baer's nurse Jesusita. No rectal bleeding today and had 2 BM's mixed with blood last night. third BM was formed and non bloody. H/H has remained stable. Jesusita also confimred athat Ms. Baer was impacted upon arrival to the ICU last week and that she needed to be disimpacted. Cointinue MiraLAX 17g daily Avoid anticoagulants with alternate form of DVT prophylaxis for now Monitor H/H and for worsening rectal bleeding Problem List - Problems (1) Rectal bleed Code(s): K62.5 - HEMORRHAGE OF ANUS AND RECTUM
[2016-06-09] MEDS ORDERED: FUROSEMIDE 40 MG/4 ML INJECTABLE VIAL ONE (14:07)
[2016-06-09] MEDS: POLYETHYLENE GLYCOL 3350 119 GM BTL PO SCH (14:11)
[2016-06-09] MEDS: PANTOPRAZOLE SODIUM 100 ML IVPB SCH (14:11)
[2016-06-09] MEDS: guaiFENesin 600 MG TABLET.ER (FP) PO SCH ×2 (14:11→21:25)
--- NOTE | 2016-06-09 15:26 | PN ---
Progress Note (short form) - Note Progress Note: ICU seen and examined in ICU more alert and seems stronger today participating in PT while in bed good upper arm strength / good ROM on left leg healing labial herpes Vital Signs Period Temp Pulse Resp BP Sys/Cobb Pulse Ox Last 24 Hr 97.8 F-99.2 F 92-107 24-28 121-178/48-68 94-96 Intake & Output 06/06/16 06/07/16 06/08/16 06/09/16 23:59 23:59 23:59 23:59 Intake Total 1789 1582 750 15 Output Total 1050 1950 1250 550 Balance 739 -368 -500 -535 Weight 144 lb 3 oz 143 lb 1 oz 141 lb 6.4 oz 136 lb 3.2 oz oral cavity moist dry crusted blood on lips lesions smaller heart reg lungs crackles at bases / some scattered rhonchi abd soft non tender ext - brace on right foot no calf tenderness CBC, BMP 06/09/16 05:45 06/09/16 05:45 Microbiology 06/05/16 21:20 Blood - Peripheral Venous Blood Culture - Preliminary NO GROWTH OBTAINED AFTER 72 HOURS, INCUBATION TO CONTINUE FOR 2 DAYS. 06/05/16 21:15 Blood - Peripheral Venous Blood Culture - Preliminary NO GROWTH OBTAINED AFTER 72 HOURS, INCUBATION TO CONTINUE FOR 2 DAYS. 06/08/16 13:00 Stool Clostridium difficile Antigen (ASHLIE) - Final 06/08/16 13:00 Stool Clostridium difficile Toxin Assay - Final 06/05/16 20:45 Urine - Urine Obrien Urine Culture - Final NO GROWTH OBTAINED 05/31/16 15:45 Blood - Peripheral Venous Blood Culture - Final NO GROWTH AFTER 5 DAYS INCUBATION 05/31/16 15:40 Blood - Peripheral Venous Blood Culture - Final NO GROWTH AFTER 5 DAYS INCUBATION 06/01/16 12:30 Sputum - Endotrachea Suction/Ventilator Gram Stain - Final 06/01/16 12:30 Sputum - Endotrachea Suction/Ventilator Sputum Culture - Final Yeast Like Organism 06/01/16 06:00 Urine - Urine - Catheterized Urine Culture - Final NO GROWTH OBTAINED 05/30/16 21:00 Urine - Urine - Catheterized Urine Culture - Final NO GROWTH OBTAINED 05/26/16 18:25 Blood - Peripheral Venous Blood Culture - Final NO GROWTH AFTER 5 DAYS INCUBATION 05/26/16 18:25 Blood - Peripheral Venous Blood Culture - Final NO GROWTH AFTER 5 DAYS INCUBATION 05/30/16 21:00 Urine For Antigen Detection Legionella Antigen - Final 05/30/16 21:00 Urine For Antigen Detection Streptococcus pneumoniae Antigen (M - Final 05/26/16 18:00 Urine - Urine - Catheterized Urine Culture - Final NO GROWTH OBTAINED 05/26/16 18:25 Nasopharyngeal Swab Influenza Types A,B Antigen (ASHLIE) - Final 05/26/16 18:25 Nasopharyngeal Swab - Final Active Medications Acetaminophen (Tylenol -) 1,000 mg PO Q6H PRN PRN Reason: TEMP > 101* Last Admin: 06/07/16 06:06 Dose: 1,000 mg Albuterol Sulfate (Ventolin 0.083% Nebulizer Soln -) 1 amp NEB Q4H PRN PRN Reason: SHORT OF BREATH/WHEEZING Albuterol/Ipratropium (Duoneb -) 1 amp NEB QIDR [facility] Last Admin: 06/09/16 05:45 Dose: 1 amp Docusate Sodium (Colace -) 200 mg PO BID [facility] Last Admin: 06/09/16 09:48 Dose: Not Given Enoxaparin Sodium (Lovenox -) 40 mg SQ DAILY [facility] Last Admin: 06/09/16 09:48 Dose: 40 mg Gabapentin (Neurontin -) 100 mg PO QID [facility] Last Admin: 06/09/16 14:10 Dose: Not Given Guaifenesin (Mucinex -) 600 mg PO BID [facility] Last Admin: 06/09/16 14:11 Dose: Not Given Hydralazine HCl (Apresoline Injection -) 10 mg IVPUSH Q6H PRN PRN Reason: HYPERTENSION Last Admin: 06/09/16 06:20 Dose: 10 mg Pantoprazole Sodium (Protonix 40mg Ivpb (Pre-Docked)) 100 mls @ 200 mls/hr IVPB DAILY [facility] Last Admin: 06/09/16 14:11 Dose: 200 mls/hr Acyclovir 325 mg/ Dextrose 106.5 mls @ 106.5 mls/hr IVPB BID [facility] Last Admin: 06/09/16 10:21 Dose: 106.5 mls/hr Cefepime HCl 0.5 gm/ Dextrose 100 mls @ 200 mls/hr IVPB BID [facility] Last Admin: 06/09/16 09:48 Dose: 200 mls/hr Levothyroxine Sodium (Synthroid Injection -) 25 mcg IVPUSH DAILY@0700 [facility] Last Admin: 06/09/16 06:19 Dose: 25 mcg Metoprolol Tartrate (Lopressor Injection -) 5 mg IVPUSH Q4H PRN PRN Reason: HYPERTENSION Last Admin: 06/05/16 10:25 Dose: 5 mg Ondansetron HCl (Zofran Injection) 4 mg IVPB Q6H PRN PRN Reason: NAUSEA AND/OR VOMITING Last Admin: 05/29/16 22:35 Dose: 4 mg Polyethylene Glycol (Miralax (For Daily Use) -) 17 gm PO DAILY [facility] Last Admin: 06/09/16 14:11 Dose: Not Given Senna (Senna Oral Solution -) 8.8 mg PO HS [facility] Last Admin: 06/08/16 22:23 Dose: Not Given ASSMT # leucocytosis -persist on abx ( for RLL infltate) / inc WBC re cultured -- all c/s neg to date # oral lesion (c/w herpes ) on acyclovir --improving # MIRNA -- BUN/Cr improving # Acute Respiratory Failure extubated 06/06, swallow eval ordered # Hyponatremia Resolved and has remained stable # Pneumonia likely Aspiration improving / on Abx # Influenza A treatment completed # Multiple Sclerosis stable # HTN # Hypothyroidism Plan acyclovir IV / abx IV per ID await swallow eval for PO feeding monitor Na follow h/h s/p transfusion follow bun/Cr physical therapy / continue ICU care Problem List - Problems (1) Hyponatremia Code(s): E87.1 - HYPO-OSMOLALITY AND HYPONATREMIA (2) Right lower lobe pneumonia Code(s): J18.9 - PNEUMONIA, UNSPECIFIED ORGANISM (3) Influenza A Code(s): J10.1 - FLU DUE TO OTH IDENT INFLUENZA VIRUS W OTH RESP MANIFEST (4) Multiple sclerosis Code(s): G35 - MULTIPLE SCLEROSIS (5) Hypothyroid Code(s): E03.9 - HYPOTHYROIDISM, UNSPECIFIED (6) Hyperlipemia Code(s): E78.5 - HYPERLIPIDEMIA, UNSPECIFIED (8) Neuropathic pain of both legs Code(s): G57.91 - UNSPECIFIED MONONEUROPATHY OF RIGHT LOWER LIMB G57.92 - UNSPECIFIED MONONEUROPATHY OF LEFT LOWER LIMB (9) Fever Code(s): R50.9 - FEVER, UNSPECIFIED Qualifiers: Fever type: unspecified Qualified Code(s): R50.9 - Fever, unspecified (10) Anemia Code(s): D64.9 - ANEMIA, UNSPECIFIED Qualifiers: Anemia type: other cause Other causes of anemia: other cause, not classified Qualified Code(s): D64.89 - Other specified anemias
[2016-06-09] MEDS ORDERED: PT OWN MED DRAWER 7, Y5N ONE (20:01)
[2016-06-09] MEDS: SENNOSIDES 8.8 MG/5 ML BULK BOTTLE PO SCH (21:25)
[2016-06-10] MEDS: ALBUTEROL SO4 2.5/IPRATROPIUM 0.5 INH SOL 3 ML VIAL.NEB. NEB SCH ×3 (00:14→11:20)
[2016-06-10] MEDS: hydrALAZINE HCL 20 MG/ML VIAL IVPUSH PRN (03:27)
[2016-06-10 06:13] LABS: MCH 28.6 pg (25.7-33.7); MEAN CELL VOLUME 86.6 fl (80-96); MEAN PLT VOLUME 8.9 fl (7.5-11.1); PLATELET COUNT 548 K/MM3 (134-434); RDW 15.7 % (11.6-15.6); WHITE BLOOD COUNT 13.3 K/mm3 (4.0-10.0)
[2016-06-10] MEDS: LEVOTHYROXINE SODIUM 100 MCG VIAL IVPUSH SCH (06:39)
[2016-06-10 06:58] LABS: ALBUMIN 2.5 g/dl (3.4-5.0); BILIRUBIN,TOTAL 0.5 mg/dL (0.2-1.0); CALCIUM 8.7 mg/dL (8.5-10.1); CREATININE 1.1 mg/dL (0.55-1.02); MAGNESIUM 2.7 mg/dL (1.8-2.4); PHOSPHOROUS 4.1 mg/dL (2.5-4.9); TOT PROT 6.1 g/dl (6.4-8.2)
--- NOTE | 2016-06-10 08:44 | PN ---
Progress Note, Physician Chief Complaint: ID Cefepime Acyclovir day 4 therapy Extubated and doing much better - Current Medication List Current Medications: Active Medications Acetaminophen (Tylenol -) 1,000 mg PO Q6H PRN PRN Reason: TEMP > 101* Last Admin: 06/07/16 06:06 Dose: 1,000 mg Albuterol Sulfate (Ventolin 0.083% Nebulizer Soln -) 1 amp NEB Q4H PRN PRN Reason: SHORT OF BREATH/WHEEZING Albuterol/Ipratropium (Duoneb -) 1 amp NEB QIDR [facility] Last Admin: 06/10/16 06:14 Dose: 1 amp Docusate Sodium (Colace -) 200 mg PO BID [facility] Last Admin: 06/09/16 21:25 Dose: Not Given Enoxaparin Sodium (Lovenox -) 40 mg SQ DAILY [facility] Last Admin: 06/09/16 09:48 Dose: 40 mg Gabapentin (Neurontin -) 100 mg PO QID [facility] Last Admin: 06/09/16 21:25 Dose: Not Given Guaifenesin (Mucinex -) 600 mg PO BID [facility] Last Admin: 06/09/16 21:25 Dose: Not Given Hydralazine HCl (Apresoline Injection -) 10 mg IVPUSH Q6H PRN PRN Reason: HYPERTENSION Last Admin: 06/10/16 03:27 Dose: 10 mg Pantoprazole Sodium (Protonix 40mg Ivpb (Pre-Docked)) 100 mls @ 200 mls/hr IVPB DAILY [facility] Last Admin: 06/09/16 14:11 Dose: 200 mls/hr Acyclovir 325 mg/ Dextrose 106.5 mls @ 106.5 mls/hr IVPB BID [facility] Last Admin: 06/09/16 21:26 Dose: 106.5 mls/hr Cefepime HCl 0.5 gm/ Dextrose 100 mls @ 200 mls/hr IVPB BID [facility] Last Admin: 06/09/16 21:25 Dose: 200 mls/hr Levothyroxine Sodium (Synthroid Injection -) 25 mcg IVPUSH DAILY@0700 [facility] Last Admin: 06/10/16 06:39 Dose: 25 mcg Metoprolol Tartrate (Lopressor Injection -) 5 mg IVPUSH Q4H PRN PRN Reason: HYPERTENSION Last Admin: 06/05/16 10:25 Dose: 5 mg Ondansetron HCl (Zofran Injection) 4 mg IVPB Q6H PRN PRN Reason: NAUSEA AND/OR VOMITING Last Admin: 05/29/16 22:35 Dose: 4 mg Polyethylene Glycol (Miralax (For Daily Use) -) 17 gm PO DAILY [facility] Last Admin: 06/09/16 14:11 Dose: Not Given Senna (Senna Oral Solution -) 8.8 mg PO HS [facility] Last Admin: 06/09/16 21:25 Dose: Not Given - Objective Vital Signs: Vital Signs Temperature 98.8 F 06/10/16 05:50 Pulse Rate 98 H 06/10/16 08:00 Respiratory Rate 28 H 06/10/16 08:00 Blood Pressure 138/48 06/10/16 08:00 O2 Sat by Pulse Oximetry (%) 96 06/10/16 08:00 Constitutional: Yes: Other ([place]) HENT: Yes: Other (Oral blisters noted) Cardiovascular: Yes: Regular Rate and Rhythm, S1, S2. No: Murmur Respiratory: Yes: WNL, Regular, CTA Bilaterally, Other (LLL rales) Gastrointestinal: Yes: WNL, Normal Bowel Sounds, Soft. No: Tenderness, Tenderness, Rebound Edema: No Labs: CBC, BMP 06/10/16 05:00 06/10/16 05:00 INR, PTT INR 1.14 (0.82-1.09) 05/26/16 18:25 Assessment/Plan Microbiology 06/08/16 13:00 Stool Clostridium difficile Antigen (ASHLIE) - Final 06/08/16 13:00 Stool Clostridium difficile Toxin Assay - Final 06/05/16 20:45 Urine - Urine Obrien Urine Culture - Final NO GROWTH OBTAINED 06/01/16 12:30 Sputum - Endotrachea Suction/Ventilator Gram Stain - Final 06/01/16 12:30 Sputum - Endotrachea Suction/Ventilator Sputum Culture - Final Yeast Like Organism 06/05/16 21:20 Blood - Peripheral Venous Blood Culture - Preliminary NO GROWTH OBTAINED AFTER 96 HOURS, INCUBATION TO CONTINUE FOR 1 DAYS. 06/05/16 21:15 Blood - Peripheral Venous Blood Culture - Preliminary NO GROWTH OBTAINED AFTER 96 HOURS, INCUBATION TO CONTINUE FOR 1 DAYS. 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
[2016-06-10] MEDS ORDERED: PT OWN MED DRAWER 7, Y5N ONE (09:49)
[2016-06-10] MEDS: CEFEPIME 0.5 GM in DEXTROSE 5%-WATER - 100 ML IVPB SCH ×2 (09:51→22:46)
[2016-06-10] MEDS: WATER IVPB SCH ×2 (09:53→21:15)
[2016-06-10] MEDS: DEXTROSE 5% IVPB SCH ×2 (09:53→21:15)
[2016-06-10] MEDS: ACYCLOVIR IVPB SCH ×2 (09:53→21:15)
[2016-06-10] MEDS: guaiFENesin 600 MG TABLET.ER (FP) PO SCH ×2 (09:53→21:13)
[2016-06-10] MEDS: PANTOPRAZOLE SODIUM 100 ML IVPB SCH (09:53)
[2016-06-10] MEDS: ENOXAPARIN NA (PORCINE) 40 MG/0.4 ML DISP.SYRIN SQ SCH (09:54)
[2016-06-10] MEDS: GABAPENTIN 100 MG CAPSULE (FP) PO SCH ×3 (09:54→19:35)
[2016-06-10] MEDS: DOCUSATE SODIUM 100 MG CAPSULE (FP) PO SCH ×2 (09:54→21:12)
[2016-06-10] MEDS: POLYETHYLENE GLYCOL 3350 119 GM BTL PO SCH (09:54)
--- NOTE | 2016-06-10 09:57 | CONSULT ---
Admitting History and Physical - Primary Care Physician PCP: Abena Nguyen I - Admission History of Present Illness: Per EMR admissuion: "Chief Complaint: weakness / fever / sore throat/ s/p fall X2 History of Present Illness: The patient is a 80 year old female, with a significant past medical history of multiple sclerosis (chronic constipation and urinary incontinence), impaired glucose, hypertension, hyperlipidemia, hypothyroid, gastric polyps, and c.diff, who presents to the emergency department via ems with fever and cough for two days. The patient reports her cough is dry and persistent. The patient also reports one episode of vomit yesterday and denies any episodes since. The patient states she had the flu vaccine this season. She states her last tylenol was at around noon today. The patient states she walks with a walker at baseline. As per the patient's daughter, the patient fell twice today. History provided by daughter ( )." Intubated 06/01-06/07. 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 History of Recent Travel: No History - Admission Reason For Visit: FEVER,HYPOXIA/MULTIPLE SCLEROSIS - Diagnostics X-ray: Report Reviewed - General Mental Status: Alert and Oriented, Awake and Alert, Able to Follow Commands Attention: Intact Ability to Follow Directions: Excellent Head/Neck Control: Fair (Rests head extended on chair, adversely affecting swallowing.) - Hearing Hearing: Normal Hearing Aide: No With Patient: No Speech Evaluation - Communication Primary Language: SOMALI Communication: Yes: Within Normal Limits Oral Expression Ability: Yes: Mild Impairment - Speech Production Able to Make Needs Known: Yes: WNL Intelligibility: Yes: Mildly Impaired - Speech Characteristics Voice Loudness: Mildly Soft/Quiet Voice Pitch: Yes: Normal Voice Phonatory-based Quality: Yes: Weak, Dysphonia, Vocal Wetness Nasal Resonance: Normal Articulation: Yes: Precise Rate of Speech: Intact - Language/Auditory Comprehension Follows: Yes: 2 Stage Simple Commands - Language/Verbal Expression Able to Respond to Simple Queries: Yes: WNL Able to Communicate Wants and Needs: Yes: WNL Functional Communication Status: Yes: WNL - Memory/Perception director long term care Memory: Yes: WNL Short Term Memory: Yes: WNL - Swallow Evaluation/Bedside Assessment Current Nutritional Intake: NPO (Pt has received ice chips) Oral Secretions: Yes: Copious Secretions (coughing and expectorating thick, red tinged phlegm.) Dentition: Yes: Adequate Facial Symmetry at Rest: Symmetrical Facial Symmetry on Retraction: Symmetrical Facial Movement: Controlled Pucker Lips: Normal Smile: Normal Lingual Movement: Symmetric Lingual Speed of Movement: Normal Laryngeal Elevation: Impaired Laryngeal Movement: Reduced Excursion, Labored,delay initiation, Reduced Velocity Timing of Swallow: Delayed Coughing/Throat Clear: Yes Change in Voice: Yes Recommendations - Speech Evaluation, Impression/Plan Impression: Dysphonic/vocal wetness.Coughing and expectorating thick, red tinged phlegm.Swallow reflex is labored with reduced laryngeal excursion.Expectorates applesauce from pharynx following swallow. Strong suspicion for stasis of puree in pharynx with high risk of aspiration at this time. - Disposition [facility] to: [facility] - Dysphagia Impressions/Plan Swallowing Skills: Impaired Dysphagia Impressions: Moderate Impairment, Suspect Aspiration *Silent aspiration: cannot be R/O at bedside Recommendations: Modified Barium Swallow (when swallowing demonstrates improvement.), Other (Mouth care. Limited trial of ice chips following mouth care, head flexed, swallow hard.) - Recommendations Diet Consistency: NPO, Other (Case discussed with pt's daughter. She is concerned about poor nutitional intake before intubation and would like her mother to have an NGT. Suggest smallest practical tube to increase comfort and swallowing function.) Liquids: NPO
--- NOTE | 2016-06-10 12:20 | PN ---
Progress Note (short form) - Note Progress Note: Patient seen and examined in ICU sitting in chair Nasal cannula Sat 96% Vital Signs Period Temp Pulse Resp BP Sys/Cobb Pulse Ox Last 24 Hr 98.5 F-99.2 F 88-107 21-28 138-174/48-75 93-100 Intake & Output 06/07/16 06/08/16 06/09/16 06/10/16 23:59 23:59 23:59 23:59 Intake Total 1582 750 165 15 Output Total 1950 1250 1550 300 Balance -368 -500 -1385 -285 Weight 143 lb 1 oz 141 lb 6.4 oz 136 lb 3.2 oz 132 lb 8 oz perioral lesions significantly improved speech clear neck supple - jvd heart S1/S2 lungs clear - decrease right base abd soft non tender ext brace right foot no calf tenderness / no edema CBC, BMP 06/10/16 05:00 06/10/16 05:00 Microbiology 06/05/16 21:20 Blood - Peripheral Venous Blood Culture - Preliminary NO GROWTH OBTAINED AFTER 96 HOURS, INCUBATION TO CONTINUE FOR 1 DAYS. 06/05/16 21:15 Blood - Peripheral Venous Blood Culture - Preliminary NO GROWTH OBTAINED AFTER 96 HOURS, INCUBATION TO CONTINUE FOR 1 DAYS. 06/08/16 13:00 Stool Clostridium difficile Antigen (ASHLIE) - Final 06/08/16 13:00 Stool Clostridium difficile Toxin Assay - Final 06/05/16 20:45 Urine - Urine Obrien Urine Culture - Final NO GROWTH OBTAINED 05/31/16 15:45 Blood - Peripheral Venous Blood Culture - Final NO GROWTH AFTER 5 DAYS INCUBATION 05/31/16 15:40 Blood - Peripheral Venous Blood Culture - Final NO GROWTH AFTER 5 DAYS INCUBATION 06/01/16 12:30 Sputum - Endotrachea Suction/Ventilator Gram Stain - Final 06/01/16 12:30 Sputum - Endotrachea Suction/Ventilator Sputum Culture - Final Yeast Like Organism 06/01/16 06:00 Urine - Urine - Catheterized Urine Culture - Final NO GROWTH OBTAINED 05/30/16 21:00 Urine - Urine - Catheterized Urine Culture - Final NO GROWTH OBTAINED 05/26/16 18:25 Blood - Peripheral Venous Blood Culture - Final NO GROWTH AFTER 5 DAYS INCUBATION 05/26/16 18:25 Blood - Peripheral Venous Blood Culture - Final NO GROWTH AFTER 5 DAYS INCUBATION 05/30/16 21:00 Urine For Antigen Detection Legionella Antigen - Final 05/30/16 21:00 Urine For Antigen Detection Streptococcus pneumoniae Antigen (M - Final 05/26/16 18:00 Urine - Urine - Catheterized Urine Culture - Final NO GROWTH OBTAINED 05/26/16 18:25 Nasopharyngeal Swab Influenza Types A,B Antigen (ASHLIE) - Final 05/26/16 18:25 Nasopharyngeal Swab - Final Active Medications Acetaminophen (Tylenol -) 1,000 mg PO Q6H PRN PRN Reason: TEMP > 101* Last Admin: 06/07/16 06:06 Dose: 1,000 mg Docusate Sodium (Colace -) 200 mg PO BID [facility] Last Admin: 06/10/16 09:54 Dose: Not Given Enoxaparin Sodium (Lovenox -) 40 mg SQ DAILY [facility] Last Admin: 06/10/16 09:54 Dose: 40 mg Gabapentin (Neurontin -) 100 mg PO QID [facility] Last Admin: 06/10/16 09:54 Dose: Not Given Guaifenesin (Mucinex -) 600 mg PO BID [facility] Last Admin: 06/10/16 09:53 Dose: Not Given Hydralazine HCl (Apresoline Injection -) 10 mg IVPUSH Q6H PRN PRN Reason: HYPERTENSION Last Admin: 06/10/16 03:27 Dose: 10 mg Pantoprazole Sodium (Protonix 40mg Ivpb (Pre-Docked)) 100 mls @ 200 mls/hr IVPB DAILY [facility] Last Admin: 06/10/16 09:53 Dose: 200 mls/hr Acyclovir 325 mg/ Dextrose 106.5 mls @ 106.5 mls/hr IVPB BID [facility] Last Admin: 06/10/16 09:53 Dose: 106.5 mls/hr Cefepime HCl 0.5 gm/ Dextrose 100 mls @ 200 mls/hr IVPB BID [facility] Last Admin: 06/10/16 09:51 Dose: 200 mls/hr Levothyroxine Sodium (Synthroid Injection -) 25 mcg IVPUSH DAILY@0700 [facility] Last Admin: 06/10/16 06:39 Dose: 25 mcg Metoprolol Tartrate (Lopressor Injection -) 5 mg IVPUSH Q4H PRN PRN Reason: HYPERTENSION Last Admin: 06/05/16 10:25 Dose: 5 mg Ondansetron HCl (Zofran Injection) 4 mg IVPB Q6H PRN PRN Reason: NAUSEA AND/OR VOMITING Last Admin: 05/29/16 22:35 Dose: 4 mg Polyethylene Glycol (Miralax (For Daily Use) -) 17 gm PO DAILY [facility] Last Admin: 06/10/16 09:54 Dose: Not Given Senna (Senna Oral Solution -) 8.8 mg PO HS [facility] Last Admin: 06/09/16 21:25 Dose: Not Given ASSMT # leucocytosis -decreaing on abx ( for RLL infltate) / WBC = 13.3 re cultured -- all c/s neg to date gram stain -sputum today # oral lesion (c/w herpes ) on acyclovir --improving # nutritional support swallow eval reviewed - high risk for aspiration discussed NGT for feeding with patient =who agrees and understands will benefit from nutrition # MIRNA -- BUN/Cr improving Cr= 1.1 # Acute Respiratory Failure extubated 06/06, O2 sats >95% on NC / 2L # Hyponatremia Resolved and has remained stable # Pneumonia likely Aspiration improving / remains on Abx # Influenza A treatment completed # Multiple Sclerosis stable # HTN # Hypothyroidism Plan NGT placement for nutrition acyclovir IV / abx IV per ID monitor Na follow h/h s/p transfusion follow bun/Cr physical therapy / continue ICU care Problem List - Problems (1) Hyponatremia Code(s): E87.1 - HYPO-OSMOLALITY AND HYPONATREMIA (2) Right lower lobe pneumonia Code(s): J18.9 - PNEUMONIA, UNSPECIFIED ORGANISM (3) Influenza A Code(s): J10.1 - FLU DUE TO OTH IDENT INFLUENZA VIRUS W OTH RESP MANIFEST (4) Multiple sclerosis Code(s): G35 - MULTIPLE SCLEROSIS (5) Hypothyroid Code(s): E03.9 - HYPOTHYROIDISM, UNSPECIFIED (6) Hyperlipemia Code(s): E78.5 - HYPERLIPIDEMIA, UNSPECIFIED (8) Neuropathic pain of both legs Code(s): G57.91 - UNSPECIFIED MONONEUROPATHY OF RIGHT LOWER LIMB G57.92 - UNSPECIFIED MONONEUROPATHY OF LEFT LOWER LIMB (9) Fever Code(s): R50.9 - FEVER, UNSPECIFIED Qualifiers: Fever type: unspecified Qualified Code(s): R50.9 - Fever, unspecified (10) Anemia Code(s): D64.9 - ANEMIA, UNSPECIFIED Qualifiers: Anemia type: other cause Other causes of anemia: other cause, not classified Qualified Code(s): D64.89 - Other specified anemias
--- NOTE | 2016-06-10 13:07 | PN ---
Progress Note (short form) - Note Progress Note: Patient seen and examined in the ICU. Continues to have sore throat / and cough. No diarrhea. Afebrile this AM. According to swallow evaluation -> risk of aspiration. Remains extubated. Less bleeding from lip lesions. Intake & Output 06/06/16 06/07/16 06/08/16 06/09/16 23:59 23:59 23:59 23:59 Intake Total 1789 1582 750 15 Output Total 1050 1950 1250 300 Balance 739 -368 -500 -285 Weight 144 lb 3 oz 143 lb 1 oz 141 lb 6.4 oz 136 lb 3.2 oz Last Vital Signs Temp Pulse Resp BP Pulse Ox 98.9 F 99 H 24 138/61 94 L 06/09/16 10:00 06/09/16 10:00 06/09/16 10:00 06/09/16 10:00 06/09/16 08:26 Active Medications Acetaminophen (Tylenol -) 1,000 mg PO Q6H PRN PRN Reason: TEMP > 101* Last Admin: 06/07/16 06:06 Dose: 1,000 mg Albuterol Sulfate (Ventolin 0.083% Nebulizer Soln -) 1 amp NEB Q4H PRN PRN Reason: SHORT OF BREATH/WHEEZING Albuterol/Ipratropium (Duoneb -) 1 amp NEB QIDR [facility] Last Admin: 06/09/16 05:45 Dose: 1 amp Docusate Sodium (Colace -) 200 mg PO BID [facility] Last Admin: 06/09/16 09:48 Dose: Not Given Enoxaparin Sodium (Lovenox -) 40 mg SQ DAILY [facility] Last Admin: 06/09/16 09:48 Dose: 40 mg Furosemide (Lasix Injection -) 40 mg IVPUSH ONCE ONE Stop: 06/09/16 11:31 Gabapentin (Neurontin -) 100 mg PO QID [facility] Last Admin: 06/09/16 09:48 Dose: Not Given Guaifenesin (Mucinex -) 600 mg PO BID [facility] Last Admin: 06/08/16 22:23 Dose: Not Given Hydralazine HCl (Apresoline Injection -) 10 mg IVPUSH Q6H PRN PRN Reason: HYPERTENSION Last Admin: 06/09/16 06:20 Dose: 10 mg Pantoprazole Sodium (Protonix 40mg Ivpb (Pre-Docked)) 100 mls @ 200 mls/hr IVPB DAILY [facility] Last Admin: 06/08/16 10:15 Dose: 200 mls/hr Acyclovir 325 mg/ Dextrose 106.5 mls @ 106.5 mls/hr IVPB BID [facility] Last Admin: 06/09/16 10:21 Dose: 106.5 mls/hr Cefepime HCl 0.5 gm/ Dextrose 100 mls @ 200 mls/hr IVPB BID [facility] Last Admin: 06/09/16 09:48 Dose: 200 mls/hr Levothyroxine Sodium (Synthroid Injection -) 25 mcg IVPUSH DAILY@0700 [facility] Last Admin: 06/09/16 06:19 Dose: 25 mcg Metoprolol Tartrate (Lopressor Injection -) 5 mg IVPUSH Q4H PRN PRN Reason: HYPERTENSION Last Admin: 06/05/16 10:25 Dose: 5 mg Ondansetron HCl (Zofran Injection) 4 mg IVPB Q6H PRN PRN Reason: NAUSEA AND/OR VOMITING Last Admin: 05/29/16 22:35 Dose: 4 mg Polyethylene Glycol (Miralax (For Daily Use) -) 17 gm PO DAILY [facility] Last Admin: 06/08/16 09:56 Dose: Not Given Senna (Senna Oral Solution -) 8.8 mg PO HS [facility] Last Admin: 06/08/16 22:23 Dose: Not Given Gen: Extubated, awake and alert Heart: S1S2 Lung: decreased breath sounds at the bases, Rales, scattered rhonchi Abd: soft, nontender Ext: + edema Laboratory Results - last 24 hr 06/08/16 06/09/16 06/09/16 16:15 05:45 05:45 WBC 15.2 H 16.3 H RBC 2.91 L 3.09 L Hgb 8.1 L 8.9 L Hct 25.2 L 26.8 L MCV 86.5 86.8 MCHC 32.2 33.1 RDW 16.2 H 15.8 H Plt Count 510 H 567 H MPV 8.3 9.0 Neutrophils % 84.7 H Lymphocytes % 6.8 L Monocytes % 7.2 Eosinophils % 0.7 Basophils % 0.6 Puncture Site ABG pH ABG pCO2 at Pt Temp ABG pO2 at Pt Temp ABG HCO3 ABG O2 Sat (Measured) ABG O2 Content ABG Base Excess Paulino Test O2 Delivery Device Oxygen Flow Rate PEEP Sodium 140 Potassium 5.0 Chloride 101 Carbon Dioxide 30 Anion Gap 9 BUN 32 H Creatinine 1.1 H Random Glucose 127 H Calcium 8.3 L Blood Type Antibody Screen 06/09/16 06/09/16 05:45 07:30 WBC RBC Hgb Hct MCV MCHC RDW Plt Count MPV Neutrophils % Lymphocytes % Monocytes % Eosinophils % Basophils % Puncture Site Right brachial ABG pH 7.52 H ABG pCO2 at Pt Temp 35.9 ABG pO2 at Pt Temp 65.3 L ABG HCO3 29.2 H ABG O2 Sat (Measured) 93.2 ABG O2 Content 10.6 L ABG Base Excess 6.2 H Paulino Test Positive O2 Delivery Device Nasal Oxygen Flow Rate 4l PEEP 0.0 Sodium Potassium Chloride Carbon Dioxide Anion Gap BUN Creatinine Random Glucose Calcium Blood Type A POSITIVE Antibody Screen Negative ASSESSMENT AND PLAN: Acute Respiratory Failure Pneumonia likely Aspiration Hyponatremia improving Influenza A Multiple Sclerosis HTN Hypothyroidism Acute Kidney Injury Pulmonary vascular congestion / pleural effusions - Daily assessment for Lasix - Antibiotics per ID - O2 as needed - Lovenox - inhaled bronchodilators - PO as tolerated - DVT/GI prophylaxis - BD TX - NGT with enteral feeds - 4W/4S Dr Fam CCTime 35"
[2016-06-10] MEDS ORDERED: ACETAMINOPHEN 500 MG TABLET (FP) PO PRN (13:43)
[2016-06-10] MEDS ORDERED: METOPROLOL TARTRATE 5 MG/5 ML VIAL IVPUSH PRN (13:43)
[2016-06-10] MEDS ORDERED: ONDANSETRON 4 MG/2 ML VIAL IVPB PRN (13:43)
--- NOTE | 2016-06-10 14:48 | PN ---
Progress Note, Physician History of Present Illness: Pt seen and examined at bedside. She is now extubated. She is out of bed to chair. She is awake and says she feels better. - Current Medication List Current Medications: Active Medications Acetaminophen (Tylenol -) 1,000 mg PO Q6H PRN PRN Reason: TEMP > 101* Docusate Sodium (Colace -) 200 mg PO BID [facility] Enoxaparin Sodium (Lovenox -) 40 mg SQ DAILY [facility] Gabapentin (Neurontin -) 100 mg PO QID [facility] Guaifenesin (Mucinex -) 600 mg PO BID [facility] Hydralazine HCl (Apresoline Injection -) 10 mg IVPUSH Q6H PRN PRN Reason: HYPERTENSION Cefepime HCl 0.5 gm/ Dextrose 100 mls @ 200 mls/hr IVPB BID [facility] Acyclovir 325 mg/ Dextrose 106.5 mls @ 106.5 mls/hr IVPB BID [facility] Pantoprazole Sodium (Protonix 40mg Ivpb (Pre-Docked)) 100 mls @ 200 mls/hr IVPB DAILY [facility] Levothyroxine Sodium (Synthroid Injection -) 25 mcg IVPUSH DAILY@0700 [facility] Metoprolol Tartrate (Lopressor Injection -) 5 mg IVPUSH Q4H PRN PRN Reason: HYPERTENSION Ondansetron HCl (Zofran Injection) 4 mg IVPB Q6H PRN PRN Reason: NAUSEA AND/OR VOMITING Polyethylene Glycol (Miralax (For Daily Use) -) 17 gm PO DAILY [facility] Senna (Senna Oral Solution -) 8.8 mg PO HS [facility] - Objective Vital Signs: Vital Signs Temperature 98.6 F 06/10/16 10:00 Pulse Rate 100 H 06/10/16 11:22 Respiratory Rate 26 H 06/10/16 10:00 Blood Pressure 159/54 06/10/16 10:00 O2 Sat by Pulse Oximetry (%) 100 06/10/16 11:22 Constitutional: Yes: Calm Eyes: Yes: Conjunctiva Clear HENT: Yes: Atraumatic Neck: Yes: Supple Cardiovascular: Yes: S1, S2 Respiratory: Yes: CTA Bilaterally, Rhonchi Gastrointestinal: Yes: Soft Genitourinary: Yes: Obrien Present Musculoskeletal: Yes: Muscle Weakness Edema: Yes Edema: LLE: Trace, RLE: Trace Neurological: Yes: Oriented, Pre-Existing Deficit Psychiatric: Yes: Oriented Labs: CBC, BMP 06/10/16 05:00 06/10/16 05:00 INR, PTT INR 1.14 (0.82-1.09) 05/26/16 18:25 Problem List - Problems (1) Hyperlipemia Code(s): E78.5 - HYPERLIPIDEMIA, UNSPECIFIED (2) Hypothyroid Code(s): E03.9 - HYPOTHYROIDISM, UNSPECIFIED (3) Influenza A Code(s): J10.1 - FLU DUE TO OTH IDENT INFLUENZA VIRUS W OTH RESP MANIFEST (4) Multiple sclerosis Code(s): G35 - MULTIPLE SCLEROSIS (5) Hyponatremia Code(s): E87.1 - HYPO-OSMOLALITY AND HYPONATREMIA Assessment/Plan Current Medications Generic Name Dose Route Start Last Admin Trade Name Freq PRN Reason Stop Dose Admin Acetaminophen 1,000 mg 06/10/16 13:43 Tylenol - PO Q6H PRN TEMP > 101* Docusate Sodium 200 mg 06/10/16 22:00 Colace - PO BID [facility] Enoxaparin Sodium 40 mg 06/11/16 10:00 Lovenox - SQ DAILY [facility] Gabapentin 100 mg 06/10/16 14:00 Neurontin - PO QID [facility] Guaifenesin 600 mg 06/10/16 22:00 Mucinex - PO BID [facility] Hydralazine HCl 10 mg 06/10/16 13:43 Apresoline Injection - IVPUSH Q6H PRN HYPERTENSION Cefepime HCl 0.5 gm/ Dextrose 100 mls @ 200 mls/hr 06/10/16 22:00 IVPB BID [facility] Acyclovir 325 mg/ Dextrose 106.5 mls @ 106.5 mls/hr 06/10/16 22:00 IVPB BID [facility] Pantoprazole Sodium 100 mls @ 200 mls/hr 06/11/16 10:00 Protonix 40mg Ivpb (Pre-Docked) IVPB DAILY [facility] Levothyroxine Sodium 25 mcg 06/11/16 07:00 Synthroid Injection - IVPUSH DAILY@0700 [facility] Metoprolol Tartrate 5 mg 06/10/16 13:43 Lopressor Injection - IVPUSH Q4H PRN HYPERTENSION Ondansetron HCl 4 mg 06/10/16 13:43 Zofran Injection IVPB Q6H PRN NAUSEA AND/OR VOMITING Polyethylene Glycol 17 gm 06/11/16 10:00 Miralax (For Daily Use) - PO DAILY [facility] Senna 8.8 mg 06/10/16 22:00 Senna Oral Solution - PO HS [facility] Impression 1. hyponatremia - hypo-osmolar 2. Influenza 3. PNA with small effusion 4. multiple sclerosis 5. hyperlipidemia 6. hypothyroidism 7. HTN 8. proteinuria and microscopic hematuria 9. MIRNA 10. respiratory failure requiring intubation Plan - renal function is starting to improve - speech and swallow eval - sodium stabilizing - discussed with ICU team - recommend running in the acyclovir at a slower rate - repeat labs in am - monitor urine output - voiding trial - monitor BP Dr Marrero
[2016-06-10] MEDS ORDERED: ACETAMINOPHEN 650 MG/20.3 ML ORAL SOLUTION (CUPS) PO PRN (18:37)
--- NOTE | 2016-06-10 18:54 | PN ---
GI Progress Note Subjective: Downgraded from ICU No abdominal pain No rectal bleeding - Objective Vital Signs: Vital Signs Temperature 98.5 F 06/10/16 14:00 Pulse Rate 96 H 06/10/16 16:00 Respiratory Rate 26 H 06/10/16 16:00 Blood Pressure 154/57 06/10/16 16:00 O2 Sat by Pulse Oximetry (%) 99 06/10/16 16:00 Constitutional: Calm Eyes: No: Sclera Icterus Cardiovascular: Yes: Regular Rate and Rhythm Respiratory: Yes: Wheezes Gastrointestinal Inspection: No: Distention ...Auscultate: Yes: Normoactive Bowel Sounds ...Palpate: No: Tenderness Edema: No Labs: CBC, BMP 06/10/16 05:00 06/10/16 05:00 INR, PTT INR 1.14 (0.82-1.09) 05/26/16 18:25 Problem List - Problems (1) Rectal bleed Assessment/Plan: Resolved rectal bleeding. Suspect secondary to fecal impaction Continue to monitor for now MiraLAx 17g once daily Code(s): K62.5 - HEMORRHAGE OF ANUS AND RECTUM
[2016-06-10] MEDS: GABAPENTIN 100 MG CAPSULE (FP) NGT SCH ×2 (19:29→21:37)
[2016-06-10] MEDS: SENNOSIDES 8.8 MG/5 ML BULK BOTTLE NGT SCH (21:37)
[2016-06-10] MEDS ORDERED: SENNOSIDES 8.8 MG/5 ML BULK BOTTLE PO SCH (22:00)
[2016-06-11] MEDS: LEVOTHYROXINE SODIUM 100 MCG VIAL IVPUSH SCH (06:06)
[2016-06-11] MEDS ORDERED: POLYETHYLENE GLYCOL 3350 119 GM BTL PO SCH (10:00)
[2016-06-11] MEDS ORDERED: PT OWN MED DRAWER 7, Y5N ONE (10:20)
--- NOTE | 2016-06-11 10:35 | PN ---
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 Pt reports expectorating reddened secretions. Seems to be coughing less. Still dysphonic but voice slightly stronger. Nursing also reported some bood noted with BM's. Educated pt on chin tuck, effortful swallow, multiple times to improve laryngeal elevation/excursion. No responsive cough with 6 small ice chips trialed. MBS tomorrow if progress continues. Request GI clearance for MBS, due to GI issues during this hospitalization.
--- NOTE | 2016-06-11 10:41 | PN ---
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 multiple times per ice chip to improve laryngeal elevation/excursion Oliver maneuver- Try to hold the larynx in the highest position, tightening all of your tongue/neck muscle, for as long as possible, while larynx elevates while swallowing Minimize talking to allow your vocal cords to heal
--- NOTE | 2016-06-11 11:11 | PN ---
Progress Note, Physician History of Present Illness: pulmonary alert,nad,-sob,cp,congestion,+cough - Current Medication List Current Medications: Active Medications Acetaminophen (Tylenol Oral Solution -) 1,000 mg PO Q6H PRN PRN Reason: TEMP > 101* Docusate Sodium (Colace -) 200 mg PO BID [facility] Last Admin: 06/10/16 21:12 Dose: Not Given Enoxaparin Sodium (Lovenox -) 40 mg SQ DAILY [facility] Gabapentin (Neurontin -) 100 mg NGT QID [facility] Last Admin: 06/10/16 21:37 Dose: 100 mg Guaifenesin (Mucinex -) 600 mg PO BID [facility] Last Admin: 06/10/16 21:13 Dose: Not Given Hydralazine HCl (Apresoline Injection -) 10 mg IVPUSH Q6H PRN PRN Reason: HYPERTENSION Cefepime HCl 0.5 gm/ Dextrose 100 mls @ 200 mls/hr IVPB BID [facility] Last Admin: 06/10/16 22:46 Dose: 200 mls/hr Acyclovir 325 mg/ Dextrose 106.5 mls @ 106.5 mls/hr IVPB BID [facility] Last Admin: 06/10/16 21:15 Dose: 106.5 mls/hr Pantoprazole Sodium (Protonix 40mg Ivpb (Pre-Docked)) 100 mls @ 200 mls/hr IVPB DAILY [facility] Levothyroxine Sodium (Synthroid Injection -) 25 mcg IVPUSH DAILY@0700 [facility] Last Admin: 06/11/16 06:06 Dose: 25 mcg Metoprolol Tartrate (Lopressor Injection -) 5 mg IVPUSH Q4H PRN PRN Reason: HYPERTENSION Ondansetron HCl (Zofran Injection) 4 mg IVPB Q6H PRN PRN Reason: NAUSEA AND/OR VOMITING Polyethylene Glycol (Miralax (For Daily Use) -) 17 gm NGT DAILY [facility] Senna (Senna Oral Solution -) 8.8 mg NGT HS [facility] Last Admin: 06/10/16 21:37 Dose: 5 ml - Objective Vital Signs: Vital Signs Temperature 98.2 F 06/11/16 06:00 Pulse Rate 100 H 06/11/16 06:00 Respiratory Rate 20 06/11/16 06:00 Blood Pressure 158/76 06/11/16 06:00 O2 Sat by Pulse Oximetry (%) 99 06/10/16 22:00 Constitutional: Yes: Well Nourished, Calm Eyes: Yes: WNL HENT: Yes: WNL Neck: Yes: WNL Cardiovascular: Yes: Regular Rate and Rhythm, S1, S2 Respiratory: Yes: Diminished Gastrointestinal: Yes: Normal Bowel Sounds, Soft Extremities: Yes: WNL Edema: No Labs: CBC, BMP 06/10/16 05:00 06/10/16 05:00 INR, PTT INR 1.14 (0.82-1.09) 05/26/16 18:25 Problem List - Problems (1) Anemia Code(s): D64.9 - ANEMIA, UNSPECIFIED Qualifiers: Anemia type: other cause Other causes of anemia: other cause, not classified Qualified Code(s): D64.89 - Other specified anemias (2) Fever Code(s): R50.9 - FEVER, UNSPECIFIED Qualifiers: Fever type: unspecified Qualified Code(s): R50.9 - Fever, unspecified (3) Hyponatremia Code(s): E87.1 - HYPO-OSMOLALITY AND HYPONATREMIA (4) Hypothyroid Code(s): E03.9 - HYPOTHYROIDISM, UNSPECIFIED (5) Hypoxia Code(s): R09.02 - HYPOXEMIA (6) Multiple sclerosis Code(s): G35 - MULTIPLE SCLEROSIS (7) Neuropathic pain of both legs Code(s): G57.91 - UNSPECIFIED MONONEUROPATHY OF RIGHT LOWER LIMB G57.92 - UNSPECIFIED MONONEUROPATHY OF LEFT LOWER LIMB (8) Right lower lobe pneumonia Code(s): J18.9 - PNEUMONIA, UNSPECIFIED ORGANISM (9) Hyperlipemia Code(s): E78.5 - HYPERLIPIDEMIA, UNSPECIFIED (10) Influenza A Code(s): J10.1 - FLU DUE TO OTH IDENT INFLUENZA VIRUS W OTH RESP MANIFEST Assessment/Plan ASSESSMENT AND PLAN: S/P Acute Respiratory Failure Pneumonia likely Aspiration Hyponatremia improved Influenza A Multiple Sclerosis HTN Hypothyroidism Acute Kidney Injury Pulmonary vascular congestion / pleural effusions - Daily assessment for Lasix - Antibiotics per ID - O2 as needed - Lovenox - inhaled bronchodilators - PO as tolerated - DVT/GI prophylaxis - BD TX - NGT with enteral feeds - DR ELDRIDGE
[2016-06-11] MEDS: DOCUSATE SODIUM 100 MG CAPSULE (FP) PO SCH ×3 (11:47→21:12)
[2016-06-11] MEDS: ENOXAPARIN NA (PORCINE) 40 MG/0.4 ML DISP.SYRIN SQ SCH ×2 (11:47→19:03)
[2016-06-11] MEDS: PANTOPRAZOLE SODIUM 100 ML IVPB SCH (11:48)
[2016-06-11] MEDS: POLYETHYLENE GLYCOL 3350 119 GM BTL NGT SCH (11:48)
[2016-06-11] MEDS: WATER IVPB SCH (11:49)
[2016-06-11] MEDS: GABAPENTIN 100 MG CAPSULE (FP) NGT SCH ×4 (11:49→21:16)
[2016-06-11] MEDS: ACYCLOVIR IVPB SCH (11:49)
[2016-06-11] MEDS: guaiFENesin 600 MG TABLET.ER (FP) PO SCH ×2 (11:49→12:19)
[2016-06-11] MEDS: DEXTROSE 5% IVPB SCH (11:49)
[2016-06-11] MEDS: CEFEPIME 0.5 GM in DEXTROSE 5%-WATER - 100 ML IVPB SCH ×2 (12:17→21:11)
--- NOTE | 2016-06-11 14:47 | PN ---
Progress Note, Physician History of Present Illness: Pt seen and examined at bedside. She is awake and alert. She denies shortness of breath. - Current Medication List Current Medications: Active Medications Acetaminophen (Tylenol Oral Solution -) 1,000 mg PO Q6H PRN PRN Reason: TEMP > 101* Docusate Sodium (Colace -) 200 mg PO BID [facility] Last Admin: 06/11/16 12:16 Dose: Not Given Enoxaparin Sodium (Lovenox -) 40 mg SQ DAILY [facility] Last Admin: 06/11/16 11:47 Dose: 40 mg Gabapentin (Neurontin -) 100 mg NGT QID [facility] Last Admin: 06/11/16 11:49 Dose: 100 mg Guaifenesin (Mucinex -) 600 mg PO BID [facility] Last Admin: 06/11/16 12:19 Dose: Not Given Hydralazine HCl (Apresoline Injection -) 10 mg IVPUSH Q6H PRN PRN Reason: HYPERTENSION Cefepime HCl 0.5 gm/ Dextrose 100 mls @ 200 mls/hr IVPB BID [facility] Last Admin: 06/11/16 12:17 Dose: 200 mls/hr Acyclovir 325 mg/ Dextrose 106.5 mls @ 106.5 mls/hr IVPB BID [facility] Last Admin: 06/11/16 11:49 Dose: 106.5 mls/hr Pantoprazole Sodium (Protonix 40mg Ivpb (Pre-Docked)) 100 mls @ 200 mls/hr IVPB DAILY [facility] Last Admin: 06/11/16 11:48 Dose: 200 mls/hr Levothyroxine Sodium (Synthroid Injection -) 25 mcg IVPUSH DAILY@0700 [facility] Last Admin: 06/11/16 06:06 Dose: 25 mcg Metoprolol Tartrate (Lopressor Injection -) 5 mg IVPUSH Q4H PRN PRN Reason: HYPERTENSION Ondansetron HCl (Zofran Injection) 4 mg IVPB Q6H PRN PRN Reason: NAUSEA AND/OR VOMITING Polyethylene Glycol (Miralax (For Daily Use) -) 17 gm NGT DAILY [facility] Last Admin: 06/11/16 11:48 Dose: Not Given Senna (Senna Oral Solution -) 8.8 mg NGT HS [facility] Last Admin: 06/10/16 21:37 Dose: 5 ml - Objective Vital Signs: Vital Signs Temperature 98.2 F 06/11/16 14:21 Pulse Rate 93 H 06/11/16 14:21 Respiratory Rate 20 06/11/16 14:21 Blood Pressure 145/75 06/11/16 14:21 O2 Sat by Pulse Oximetry (%) 99 06/10/16 22:00 Constitutional: Yes: Calm Eyes: Yes: Conjunctiva Clear HENT: Yes: Atraumatic Cardiovascular: Yes: S1, S2 Respiratory: Yes: On Nasal O2 Gastrointestinal: Yes: Soft Genitourinary: Yes: WNL Musculoskeletal: Yes: Muscle Weakness Edema: No Neurological: Yes: Oriented, Pre-Existing Deficit Psychiatric: Yes: Oriented Labs: CBC, BMP 06/10/16 05:00 06/10/16 05:00 INR, PTT INR 1.14 (0.82-1.09) 05/26/16 18:25 Problem List - Problems (1) Hyperlipemia Code(s): E78.5 - HYPERLIPIDEMIA, UNSPECIFIED (2) Hypothyroid Code(s): E03.9 - HYPOTHYROIDISM, UNSPECIFIED (3) Influenza A Code(s): J10.1 - FLU DUE TO OTH IDENT INFLUENZA VIRUS W OTH RESP MANIFEST (4) Multiple sclerosis Code(s): G35 - MULTIPLE SCLEROSIS (5) Hyponatremia Code(s): E87.1 - HYPO-OSMOLALITY AND HYPONATREMIA Assessment/Plan Current Medications Generic Name Dose Route Start Last Admin Trade Name Freq PRN Reason Stop Dose Admin Acetaminophen 1,000 mg 06/10/16 18:37 Tylenol Oral Solution - PO Q6H PRN TEMP > 101* Docusate Sodium 200 mg 06/10/16 22:00 06/11/16 12:16 Colace - PO Not Given BID [facility] Enoxaparin Sodium 40 mg 06/11/16 10:00 06/11/16 11:47 Lovenox - SQ 40 mg DAILY [facility] Administration Gabapentin 100 mg 06/10/16 18:45 06/11/16 11:49 Neurontin - NGT 100 mg QID [facility] Administration Guaifenesin 600 mg 06/10/16 22:00 06/11/16 12:19 Mucinex - PO Not Given BID [facility] Hydralazine HCl 10 mg 06/10/16 13:43 Apresoline Injection - IVPUSH Q6H PRN HYPERTENSION Cefepime HCl 0.5 gm/ Dextrose 100 mls @ 200 mls/hr 06/10/16 22:00 06/11/16 12: 17 IVPB 200 mls/hr BID [facility] Administration Acyclovir 325 mg/ Dextrose 106.5 mls @ 106.5 mls/hr 06/10/16 22:00 06/11/16 11: 49 IVPB 106.5 mls/hr BID [facility] Administration Pantoprazole Sodium 100 mls @ 200 mls/hr 06/11/16 10:00 06/11/16 11:48 Protonix 40mg Ivpb (Pre-Docked) IVPB 200 mls/hr DAILY [facility] Administration Levothyroxine Sodium 25 mcg 06/11/16 07:00 06/11/16 06:06 Synthroid Injection - IVPUSH 25 mcg DAILY@0700 [facility] Administration Metoprolol Tartrate 5 mg 06/10/16 13:43 Lopressor Injection - IVPUSH Q4H PRN HYPERTENSION Ondansetron HCl 4 mg 06/10/16 13:43 Zofran Injection IVPB Q6H PRN NAUSEA AND/OR VOMITING Polyethylene Glycol 17 gm 06/11/16 10:00 06/11/16 11:48 Miralax (For Daily Use) - NGT Not Given DAILY [facility] Senna 8.8 mg 06/10/16 22:00 06/10/16 21:37 Senna Oral Solution - NGT 5 ml HS [facility] Administration Impression 1. hyponatremia - hypo-osmolar 2. Influenza 3. PNA with small effusion 4. multiple sclerosis 5. hyperlipidemia 6. hypothyroidism 7. HTN 8. proteinuria and microscopic hematuria 9. MIRNA 10. respiratory failure requiring intubation Plan - repeat labs in am - cont feeds - sodium stabilizing - speech and swallow eval - recommend running in the acyclovir at a slower rate - mental status is markedly improved - monitor BP Dr Marrero
--- NOTE | 2016-06-11 16:06 | PN ---
Progress Note, Physician History of Present Illness: Awake, alert No complaints Breathing non-labored Afebrile WBC improved Sputum c/s normal annel - Current Medication List Current Medications: Active Medications Acetaminophen (Tylenol Oral Solution -) 1,000 mg PO Q6H PRN PRN Reason: TEMP > 101* Docusate Sodium (Colace -) 200 mg PO BID [facility] Last Admin: 06/11/16 12:16 Dose: Not Given Enoxaparin Sodium (Lovenox -) 40 mg SQ DAILY [facility] Last Admin: 06/11/16 11:47 Dose: 40 mg Gabapentin (Neurontin -) 100 mg NGT QID [facility] Last Admin: 06/11/16 11:49 Dose: 100 mg Guaifenesin (Mucinex -) 600 mg PO BID [facility] Last Admin: 06/11/16 12:19 Dose: Not Given Hydralazine HCl (Apresoline Injection -) 10 mg IVPUSH Q6H PRN PRN Reason: HYPERTENSION Cefepime HCl 0.5 gm/ Dextrose 100 mls @ 200 mls/hr IVPB BID [facility] Last Admin: 06/11/16 12:17 Dose: 200 mls/hr Acyclovir 325 mg/ Dextrose 106.5 mls @ 106.5 mls/hr IVPB BID [facility] Last Admin: 06/11/16 11:49 Dose: 106.5 mls/hr Pantoprazole Sodium (Protonix 40mg Ivpb (Pre-Docked)) 100 mls @ 200 mls/hr IVPB DAILY [facility] Last Admin: 06/11/16 11:48 Dose: 200 mls/hr Levothyroxine Sodium (Synthroid Injection -) 25 mcg IVPUSH DAILY@0700 [facility] Last Admin: 06/11/16 06:06 Dose: 25 mcg Metoprolol Tartrate (Lopressor Injection -) 5 mg IVPUSH Q4H PRN PRN Reason: HYPERTENSION Ondansetron HCl (Zofran Injection) 4 mg IVPB Q6H PRN PRN Reason: NAUSEA AND/OR VOMITING Polyethylene Glycol (Miralax (For Daily Use) -) 17 gm NGT DAILY [facility] Last Admin: 06/11/16 11:48 Dose: Not Given Senna (Senna Oral Solution -) 8.8 mg NGT HS [facility] Last Admin: 06/10/16 21:37 Dose: 5 ml - Objective Vital Signs: Vital Signs Temperature 98.2 F 06/11/16 14:21 Pulse Rate 93 H 06/11/16 14:21 Respiratory Rate 20 06/11/16 14:21 Blood Pressure 145/75 06/11/16 14:21 O2 Sat by Pulse Oximetry (%) 99 06/10/16 22:00 Constitutional: Yes: No Distress Eyes: Yes: Conjunctiva Clear HENT: Yes: Other (+ HSV oral ulcers) Cardiovascular: Yes: Regular Rate and Rhythm, S1, S2 Respiratory: Yes: Rhonchi Gastrointestinal: Yes: Normal Bowel Sounds, Soft. No: Tenderness Edema: LLE: 1+, RLE: 1+ Labs: CBC, BMP 06/10/16 05:00 06/10/16 05:00 INR, PTT INR 1.14 (0.82-1.09) 05/26/16 18:25 Assessment/Plan Respiratory failure s/p extubation RLL pneumonia aspiration v. post influenza Exacerbation MS PCN allergy Hyponatremia- resolved Continue cefepime, acyclovir
[2016-06-11 16:57] LABS: MCH 29.5 pg (25.7-33.7); MCHC 33.9 g/dl (32.0-36.0); MEAN CELL VOLUME 87.2 fl (80-96); MEAN PLT VOLUME 9.5 fl (7.5-11.1); PLATELET COUNT 490 K/MM3 (134-434); WHITE BLOOD COUNT 9.6 K/mm3 (4.0-10.0)
[2016-06-11] MEDS: SENNOSIDES 8.8 MG/5 ML BULK BOTTLE NGT SCH (21:13)
[2016-06-11] MEDS: guaiFENesin 200 MG/10 ML 10 ML UNIT-DOSE CUPS NGT SCH (21:16)
--- NOTE | 2016-06-11 22:45 | PN ---
Progress Note (short form) - Note Progress Note: patient in bed / comfortable oriented X3 per nursing + bloody mucus with dark stool continued drop in H/H will transfuse today- Vital Signs Period Temp Pulse Resp BP Sys/Cobb Pulse Ox Last 24 Hr 97.9 F-98.7 F 93-105 18-20 145-161/70-77 97-97 Intake & Output 06/08/16 06/09/16 06/10/16 06/11/16 23:59 23:59 23:59 23:59 Intake Total 750 165 665 210 Output Total 1250 1550 450 Balance -500 -1385 215 210 Weight 141 lb 6.4 oz 136 lb 3.2 oz 132 lb [address] HOB >30% Oral lesions -(HSV) neck -jvd heart regular S1/S2 Lungs scattered rhonchi abd soft non tender ext trace edema / no calf tenderness CBC, BMP 06/11/16 15:30 06/10/16 05:00 Microbiology 06/10/16 10:30 Sputum - Expectorated Gram Stain - Final 06/10/16 10:30 Sputum - Expectorated Sputum Culture - Preliminary NORMAL RESPIRATORY ANNAT 06/05/16 21:20 Blood - Peripheral Venous Blood Culture - Final NO GROWTH AFTER 5 DAYS INCUBATION 06/05/16 21:15 Blood - Peripheral Venous Blood Culture - Final NO GROWTH AFTER 5 DAYS INCUBATION 06/08/16 13:00 Stool Clostridium difficile Antigen (ASHLIE) - Final 06/08/16 13:00 Stool Clostridium difficile Toxin Assay - Final 06/05/16 20:45 Urine - Urine Obrien Urine Culture - Final NO GROWTH OBTAINED 05/31/16 15:45 Blood - Peripheral Venous Blood Culture - Final NO GROWTH AFTER 5 DAYS INCUBATION 05/31/16 15:40 Blood - Peripheral Venous Blood Culture - Final NO GROWTH AFTER 5 DAYS INCUBATION 06/01/16 12:30 Sputum - Endotrachea Suction/Ventilator Gram Stain - Final 06/01/16 12:30 Sputum - Endotrachea Suction/Ventilator Sputum Culture - Final Yeast Like Organism 06/01/16 06:00 Urine - Urine - Catheterized Urine Culture - Final NO GROWTH OBTAINED 05/30/16 21:00 Urine - Urine - Catheterized Urine Culture - Final NO GROWTH OBTAINED 05/26/16 18:25 Blood - Peripheral Venous Blood Culture - Final NO GROWTH AFTER 5 DAYS INCUBATION 05/26/16 18:25 Blood - Peripheral Venous Blood Culture - Final NO GROWTH AFTER 5 DAYS INCUBATION 05/30/16 21:00 Urine For Antigen Detection Legionella Antigen - Final 05/30/16 21:00 Urine For Antigen Detection Streptococcus pneumoniae Antigen (M - Final 05/26/16 18:00 Urine - Urine - Catheterized Urine Culture - Final NO GROWTH OBTAINED 05/26/16 18:25 Nasopharyngeal Swab Influenza Types A,B Antigen (ASHLIE) - Final 05/26/16 18:25 Nasopharyngeal Swab - Final Active Medications Acetaminophen (Tylenol Oral Solution -) 1,000 mg PO Q6H PRN PRN Reason: TEMP > 101* Docusate Sodium (Colace -) 200 mg PO BID [facility] Last Admin: 06/11/16 21:12 Dose: Not Given Enoxaparin Sodium (Lovenox -) 40 mg SQ DAILY [facility] Last Admin: 06/11/16 19:03 Dose: Not Given Gabapentin (Neurontin -) 100 mg NGT QID [facility] Last Admin: 06/11/16 21:16 Dose: 100 mg Guaifenesin (Robitussin -) 10 ml NGT TID [facility] Last Admin: 06/11/16 21:16 Dose: 10 ml Hydralazine HCl (Apresoline Injection -) 10 mg IVPUSH Q6H PRN PRN Reason: HYPERTENSION Cefepime HCl 0.5 gm/ Dextrose 100 mls @ 200 mls/hr IVPB BID [facility] Last Admin: 06/11/16 21:11 Dose: 200 mls/hr Acyclovir 325 mg/ Dextrose 106.5 mls @ 106.5 mls/hr IVPB BID [facility] Last Admin: 06/11/16 11:49 Dose: 106.5 mls/hr Pantoprazole Sodium (Protonix 40mg Ivpb (Pre-Docked)) 100 mls @ 200 mls/hr IVPB DAILY [facility] Last Admin: 06/11/16 11:48 Dose: 200 mls/hr Levothyroxine Sodium (Synthroid Injection -) 25 mcg IVPUSH DAILY@0700 [facility] Last Admin: 06/11/16 06:06 Dose: 25 mcg Metoprolol Tartrate (Lopressor Injection -) 5 mg IVPUSH Q4H PRN PRN Reason: HYPERTENSION Ondansetron HCl (Zofran Injection) 4 mg IVPB Q6H PRN PRN Reason: NAUSEA AND/OR VOMITING Polyethylene Glycol (Miralax (For Daily Use) -) 17 gm NGT DAILY [facility] Last Admin: 06/11/16 11:48 Dose: Not Given Senna (Senna Oral Solution -) 8.8 mg NGT HS [facility] Last Admin: 06/11/16 21:13 Dose: Not Given ASSMT # anemia persistent blood in stool will transfuse today 1 PRBC follow Hct in am will discuss with GI # leucocytosis -decreaing on abx ( for RLL infltate) / WBC = 13.3 re cultured -- all c/s neg to date gram stain -sputum # oral lesion (c/w herpes ) on acyclovir --improving # nutritional support swallow eval reviewed - high risk for aspiration on NGT feeding / tolerating well # MIRNA -- BUN/Cr improving Cr= 1.1 # Acute Respiratory Failure extubated 06/06, O2 sats >95% on NC / 2L # Hyponatremia Resolved and has remained stable # Pneumonia likely Aspiration improving / remains on Abx # Influenza A treatment completed # Multiple Sclerosis stable # HTN # Hypothyroidism Problem List - Problems (1) Hyponatremia Code(s): E87.1 - HYPO-OSMOLALITY AND HYPONATREMIA (2) Right lower lobe pneumonia Code(s): J18.9 - PNEUMONIA, UNSPECIFIED ORGANISM (3) Influenza A Code(s): J10.1 - FLU DUE TO OTH IDENT INFLUENZA VIRUS W OTH RESP MANIFEST (4) Multiple sclerosis Code(s): G35 - MULTIPLE SCLEROSIS (5) Hypothyroid Code(s): E03.9 - HYPOTHYROIDISM, UNSPECIFIED (6) Hyperlipemia Code(s): E78.5 - HYPERLIPIDEMIA, UNSPECIFIED (8) Neuropathic pain of both legs Code(s): G57.91 - UNSPECIFIED MONONEUROPATHY OF RIGHT LOWER LIMB G57.92 - UNSPECIFIED MONONEUROPATHY OF LEFT LOWER LIMB (9) Fever Code(s): R50.9 - FEVER, UNSPECIFIED Qualifiers: Fever type: unspecified Qualified Code(s): R50.9 - Fever, unspecified (10) Anemia Code(s): D64.9 - ANEMIA, UNSPECIFIED Qualifiers: Anemia type: other cause Other causes of anemia: other cause, not classified Qualified Code(s): D64.89 - Other specified anemias
[2016-06-11] MEDS ORDERED: FUROSEMIDE 40 MG/4 ML INJECTABLE VIAL IVPUSH ONE (22:50)
[2016-06-11] MEDS: hydrALAZINE HCL 20 MG/ML VIAL IVPUSH PRN (23:56)
[2016-06-12] MEDS ORDERED: PT OWN MED DRAWER 7, Y5N ONE ×2 (02:18→21:38)
[2016-06-12] MEDS ORDERED: FUROSEMIDE 40 MG/4 ML INJECTABLE VIAL ONE (03:54)
[2016-06-12] MEDS: WATER IVPB SCH ×3 (03:56→22:01)
[2016-06-12] MEDS: DEXTROSE 5% IVPB SCH ×3 (03:56→22:01)
[2016-06-12] MEDS: ACYCLOVIR IVPB SCH ×3 (03:56→22:01)
[2016-06-12] MEDS: LEVOTHYROXINE SODIUM 100 MCG VIAL IVPUSH SCH (06:05)
[2016-06-12] MEDS: hydrALAZINE HCL 20 MG/ML VIAL IVPUSH PRN (06:05)
[2016-06-12] MEDS: guaiFENesin 200 MG/10 ML 10 ML UNIT-DOSE CUPS NGT SCH ×3 (06:05→22:05)
[2016-06-12 08:00] LABS: MCHC 33.3 g/dl (32.0-36.0); MEAN CELL VOLUME 87.3 fl (80-96); MEAN PLT VOLUME 9.5 fl (7.5-11.1); PLATELET COUNT 455 K/MM3 (134-434); RDW 16.1 % (11.6-15.6)
[2016-06-12 08:19] LABS: CALCIUM 8.5 mg/dL (8.5-10.1); MAGNESIUM 2.6 mg/dL (1.8-2.4)
--- NOTE | 2016-06-12 09:25 | PN ---
Progress Note (short form) - Note Progress Note: in Bed comfortable NGT in place s/p transfusion last night Vital Signs Period Temp Pulse Resp BP Sys/Cobb Pulse Ox Last 24 Hr 98.0 F-99.0 F 93-102 18-21 145-172/69-82 97-97 Intake & Output 06/09/16 06/10/16 06/11/16 06/12/16 23:59 23:59 23:59 23:59 Intake Total 165 665 460 0 Output Total 1550 450 Balance -1385 215 460 0 Weight 136 lb 3.2 oz 132 lb [address] oral lesions ( HSV) neck supple -jvd heart regulat lungs grossly clear with upper airway congestion abd soft non tender ext no edema / no calf tenderness CBC, BMP 06/12/16 06:00 06/12/16 06:00 Microbiology 06/10/16 10:30 Sputum - Expectorated Gram Stain - Final 06/10/16 10:30 Sputum - Expectorated Sputum Culture - Preliminary NORMAL RESPIRATORY ANANT 06/05/16 21:20 Blood - Peripheral Venous Blood Culture - Final NO GROWTH AFTER 5 DAYS INCUBATION 06/05/16 21:15 Blood - Peripheral Venous Blood Culture - Final NO GROWTH AFTER 5 DAYS INCUBATION 06/08/16 13:00 Stool Clostridium difficile Antigen (ASHLIE) - Final 06/08/16 13:00 Stool Clostridium difficile Toxin Assay - Final 06/05/16 20:45 Urine - Urine Obrien Urine Culture - Final NO GROWTH OBTAINED 05/31/16 15:45 Blood - Peripheral Venous Blood Culture - Final NO GROWTH AFTER 5 DAYS INCUBATION 05/31/16 15:40 Blood - Peripheral Venous Blood Culture - Final NO GROWTH AFTER 5 DAYS INCUBATION 06/01/16 12:30 Sputum - Endotrachea Suction/Ventilator Gram Stain - Final 06/01/16 12:30 Sputum - Endotrachea Suction/Ventilator Sputum Culture - Final Yeast Like Organism 06/01/16 06:00 Urine - Urine - Catheterized Urine Culture - Final NO GROWTH OBTAINED 05/30/16 21:00 Urine - Urine - Catheterized Urine Culture - Final NO GROWTH OBTAINED 05/26/16 18:25 Blood - Peripheral Venous Blood Culture - Final NO GROWTH AFTER 5 DAYS INCUBATION 05/26/16 18:25 Blood - Peripheral Venous Blood Culture - Final NO GROWTH AFTER 5 DAYS INCUBATION 05/30/16 21:00 Urine For Antigen Detection Legionella Antigen - Final 05/30/16 21:00 Urine For Antigen Detection Streptococcus pneumoniae Antigen (M - Final 05/26/16 18:00 Urine - Urine - Catheterized Urine Culture - Final NO GROWTH OBTAINED 05/26/16 18:25 Nasopharyngeal Swab Influenza Types A,B Antigen (ASHLIE) - Final 05/26/16 18:25 Nasopharyngeal Swab - Final ASSMT # anemia persistent blood in stool transfused 1 PRBC Hct ~30 this am will discuss with GI # leucocytosis -decreaing on abx ( for RLL infltate) / WBC = 13.3 re cultured -- all c/s neg to date gram stain -sputum # oral lesion (c/w herpes ) on acyclovir --improving # nutritional support swallow eval reviewed - high risk for aspiration on NGT feeding / tolerating well swallow folow up # MIRNA -- BUN/Cr improving Cr= 1.1 # Acute Respiratory Failure extubated 06/06, O2 sats >95% on NC / 2L # Hyponatremia Resolved and has remained stable # Pneumonia likely Aspiration improving / remains on Abx # Influenza A treatment completed # Multiple Sclerosis stable # HTN # Hypothyroidism Problem List - Problems (1) Hyponatremia Code(s): E87.1 - HYPO-OSMOLALITY AND HYPONATREMIA (2) Right lower lobe pneumonia Code(s): J18.9 - PNEUMONIA, UNSPECIFIED ORGANISM (3) Influenza A Code(s): J10.1 - FLU DUE TO OTH IDENT INFLUENZA VIRUS W OTH RESP MANIFEST (4) Multiple sclerosis Code(s): G35 - MULTIPLE SCLEROSIS (5) Hypothyroid Code(s): E03.9 - HYPOTHYROIDISM, UNSPECIFIED (6) Hyperlipemia Code(s): E78.5 - HYPERLIPIDEMIA, UNSPECIFIED (8) Neuropathic pain of both legs Code(s): G57.91 - UNSPECIFIED MONONEUROPATHY OF RIGHT LOWER LIMB G57.92 - UNSPECIFIED MONONEUROPATHY OF LEFT LOWER LIMB (9) Fever Code(s): R50.9 - FEVER, UNSPECIFIED Qualifiers: Fever type: unspecified Qualified Code(s): R50.9 - Fever, unspecified (10) Anemia Code(s): D64.9 - ANEMIA, UNSPECIFIED Qualifiers: Anemia type: other cause Other causes of anemia: other cause, not classified Qualified Code(s): D64.89 - Other specified anemias
[2016-06-12] MEDS: CEFEPIME 0.5 GM in DEXTROSE 5%-WATER - 100 ML IVPB SCH ×2 (10:19→21:59)
[2016-06-12] MEDS: PANTOPRAZOLE SODIUM 100 ML IVPB SCH (10:20)
[2016-06-12] MEDS: POLYETHYLENE GLYCOL 3350 119 GM BTL NGT SCH (10:20)
[2016-06-12] MEDS: GABAPENTIN 100 MG CAPSULE (FP) NGT SCH ×4 (10:20→22:02)
--- NOTE | 2016-06-12 11:25 | PN ---
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 Silent aspiration can not be r/o at bedside. NGT in place. Case reviewed with PMD and nursing. Pt has some upper airway secretions. With cues to cough and expectorate, voice becomes more euphonic. Pt given a unit of blood last night. Nursing reports blood tinged secrtions and mucoid blood with stool. MBS placed this am, based on my conversation with PMD, However,with findings,call placed to PMD to clarify and obtain medical clearance for mbs today.
--- NOTE | 2016-06-12 11:33 | PN ---
Progress Note, Physician History of Present Illness: PULMONARY AWAKE,-RESP DISTRESS,-CHEST PAIN.PT S/P TRANSFUSION 2 UNITS PRBC - Current Medication List Current Medications: Active Medications Acetaminophen (Tylenol Oral Solution -) 1,000 mg PO Q6H PRN PRN Reason: TEMP > 101* Gabapentin (Neurontin -) 100 mg NGT QID [facility] Last Admin: 06/12/16 10:20 Dose: 100 mg Guaifenesin (Robitussin -) 10 ml NGT TID [facility] Last Admin: 06/12/16 06:05 Dose: 10 ml Hydralazine HCl (Apresoline Injection -) 10 mg IVPUSH Q6H PRN PRN Reason: HYPERTENSION Last Admin: 06/12/16 06:05 Dose: 10 mg Cefepime HCl 0.5 gm/ Dextrose 100 mls @ 200 mls/hr IVPB BID [facility] Last Admin: 06/12/16 10:19 Dose: 200 mls/hr Acyclovir 325 mg/ Dextrose 106.5 mls @ 106.5 mls/hr IVPB BID [facility] Last Admin: 06/12/16 10:20 Dose: 106.5 mls/hr Pantoprazole Sodium (Protonix 40mg Ivpb (Pre-Docked)) 100 mls @ 200 mls/hr IVPB DAILY [facility] Last Admin: 06/12/16 10:20 Dose: 200 mls/hr Levothyroxine Sodium (Synthroid Injection -) 25 mcg IVPUSH DAILY@0700 [facility] Last Admin: 06/12/16 06:05 Dose: 25 mcg Metoprolol Tartrate (Lopressor Injection -) 5 mg IVPUSH Q4H PRN PRN Reason: HYPERTENSION Ondansetron HCl (Zofran Injection) 4 mg IVPB Q6H PRN PRN Reason: NAUSEA AND/OR VOMITING Polyethylene Glycol (Miralax (For Daily Use) -) 17 gm NGT DAILY [facility] Last Admin: 06/12/16 10:20 Dose: Not Given - Objective Vital Signs: Vital Signs Temperature 98.1 F 06/12/16 06:00 Pulse Rate 102 H 06/12/16 06:00 Respiratory Rate 20 06/12/16 06:00 Blood Pressure 168/82 06/12/16 06:00 O2 Sat by Pulse Oximetry (%) 97 06/11/16 21:00 Constitutional: Yes: Well Nourished, Calm Eyes: Yes: WNL HENT: Yes: WNL Neck: Yes: WNL Cardiovascular: Yes: Regular Rate and Rhythm, S1, S2 Respiratory: Yes: Rales, Rhonchi Gastrointestinal: Yes: Normal Bowel Sounds, Soft Extremities: Yes: WNL Edema: No Labs: CBC, BMP 06/12/16 06:00 06/12/16 06:00 INR, PTT INR 1.14 (0.82-1.09) 05/26/16 18:25 - ....Imaging Chest X-ray: Report Reviewed, Image Reviewed Problem List - Problems (1) Anemia Code(s): D64.9 - ANEMIA, UNSPECIFIED Qualifiers: Anemia type: other cause Other causes of anemia: other cause, not classified Qualified Code(s): D64.89 - Other specified anemias (2) Fever Code(s): R50.9 - FEVER, UNSPECIFIED Qualifiers: Fever type: unspecified Qualified Code(s): R50.9 - Fever, unspecified (3) Hyponatremia Code(s): E87.1 - HYPO-OSMOLALITY AND HYPONATREMIA (4) Hypothyroid Code(s): E03.9 - HYPOTHYROIDISM, UNSPECIFIED (5) Hypoxia Code(s): R09.02 - HYPOXEMIA (6) Multiple sclerosis Code(s): G35 - MULTIPLE SCLEROSIS (7) Neuropathic pain of both legs Code(s): G57.91 - UNSPECIFIED MONONEUROPATHY OF RIGHT LOWER LIMB G57.92 - UNSPECIFIED MONONEUROPATHY OF LEFT LOWER LIMB (8) Right lower lobe pneumonia Code(s): J18.9 - PNEUMONIA, UNSPECIFIED ORGANISM (9) Hyperlipemia Code(s): E78.5 - HYPERLIPIDEMIA, UNSPECIFIED (10) Influenza A Code(s): J10.1 - FLU DUE TO OTH IDENT INFLUENZA VIRUS W OTH RESP MANIFEST Assessment/Plan ASSESSMENT AND PLAN: S/P Acute Respiratory Failure Pneumonia likely Aspiration Hyponatremia improved Influenza A Multiple Sclerosis HTN Hypothyroidism Acute Kidney Injury Pulmonary vascular congestion / pleural effusions Anemia - Daily assessment for Lasix - Antibiotics per ID - O2 as needed - Lovenox - inhaled bronchodilators - PO as tolerated - DVT/GI prophylaxis - BD TX - NGT with enteral feeds - monitor h+h - modified barium swallow DR ELDRIDGE
--- NOTE | 2016-06-12 11:56 | PN ---
Progress Note, Physician History of Present Illness: Pt seen and examined at bedside. She is awake and alert. She is still getting tube feeds via ng tube. - Current Medication List Current Medications: Active Medications Acetaminophen (Tylenol Oral Solution -) 1,000 mg PO Q6H PRN PRN Reason: TEMP > 101* Gabapentin (Neurontin -) 100 mg NGT QID [facility] Last Admin: 06/12/16 10:20 Dose: 100 mg Guaifenesin (Robitussin -) 10 ml NGT TID [facility] Last Admin: 06/12/16 06:05 Dose: 10 ml Hydralazine HCl (Apresoline Injection -) 10 mg IVPUSH Q6H PRN PRN Reason: HYPERTENSION Last Admin: 06/12/16 06:05 Dose: 10 mg Cefepime HCl 0.5 gm/ Dextrose 100 mls @ 200 mls/hr IVPB BID [facility] Last Admin: 06/12/16 10:19 Dose: 200 mls/hr Acyclovir 325 mg/ Dextrose 106.5 mls @ 106.5 mls/hr IVPB BID [facility] Last Admin: 06/12/16 10:20 Dose: 106.5 mls/hr Pantoprazole Sodium (Protonix 40mg Ivpb (Pre-Docked)) 100 mls @ 200 mls/hr IVPB DAILY [facility] Last Admin: 06/12/16 10:20 Dose: 200 mls/hr Levothyroxine Sodium (Synthroid Injection -) 25 mcg IVPUSH DAILY@0700 [facility] Last Admin: 06/12/16 06:05 Dose: 25 mcg Metoprolol Tartrate (Lopressor Injection -) 5 mg IVPUSH Q4H PRN PRN Reason: HYPERTENSION Ondansetron HCl (Zofran Injection) 4 mg IVPB Q6H PRN PRN Reason: NAUSEA AND/OR VOMITING Polyethylene Glycol (Miralax (For Daily Use) -) 17 gm NGT DAILY [facility] Last Admin: 06/12/16 10:20 Dose: Not Given - Objective Vital Signs: Vital Signs Temperature 98.1 F 06/12/16 06:00 Pulse Rate 102 H 06/12/16 06:00 Respiratory Rate 20 06/12/16 06:00 Blood Pressure 168/82 06/12/16 06:00 O2 Sat by Pulse Oximetry (%) 97 06/11/16 21:00 Constitutional: Yes: Calm Eyes: Yes: Conjunctiva Clear Cardiovascular: Yes: S1, S2 Respiratory: Yes: Rhonchi Gastrointestinal: Yes: Soft Genitourinary: Yes: WNL Musculoskeletal: Yes: Muscle Weakness Edema: No Wound/Incision: Yes: Open to air Neurological: Yes: Oriented, Pre-Existing Deficit Psychiatric: Yes: Oriented Labs: CBC, BMP 06/12/16 06:00 06/12/16 06:00 INR, PTT INR 1.14 (0.82-1.09) 05/26/16 18:25 Problem List - Problems (1) Hyperlipemia Code(s): E78.5 - HYPERLIPIDEMIA, UNSPECIFIED (2) Hypothyroid Code(s): E03.9 - HYPOTHYROIDISM, UNSPECIFIED (3) Influenza A Code(s): J10.1 - FLU DUE TO OTH IDENT INFLUENZA VIRUS W OTH RESP MANIFEST (4) Multiple sclerosis Code(s): G35 - MULTIPLE SCLEROSIS (5) Hyponatremia Code(s): E87.1 - HYPO-OSMOLALITY AND HYPONATREMIA Assessment/Plan Current Medications Generic Name Dose Route Start Last Admin Trade Name Freq PRN Reason Stop Dose Admin Acetaminophen 1,000 mg 06/10/16 18:37 Tylenol Oral Solution - PO Q6H PRN TEMP > 101* Gabapentin 100 mg 06/10/16 18:45 06/12/16 10:20 Neurontin - NGT 100 mg QID [facility] Administration Guaifenesin 10 ml 06/11/16 22:00 06/12/16 06:05 Robitussin - NGT 10 ml TID [facility] Administration Hydralazine HCl 10 mg 06/10/16 13:43 06/12/16 06:05 Apresoline Injection - IVPUSH 10 mg Q6H PRN Administration HYPERTENSION Cefepime HCl 0.5 gm/ Dextrose 100 mls @ 200 mls/hr 06/10/16 22:00 06/12/16 10: 19 IVPB 200 mls/hr BID [facility] Administration Acyclovir 325 mg/ Dextrose 106.5 mls @ 106.5 mls/hr 06/10/16 22:00 06/12/16 10: 20 IVPB 106.5 mls/hr BID [facility] Administration Pantoprazole Sodium 100 mls @ 200 mls/hr 06/11/16 10:00 06/12/16 10:20 Protonix 40mg Ivpb (Pre-Docked) IVPB 200 mls/hr DAILY [facility] Administration Levothyroxine Sodium 25 mcg 06/11/16 07:00 06/12/16 06:05 Synthroid Injection - IVPUSH 25 mcg DAILY@0700 [facility] Administration Metoprolol Tartrate 5 mg 06/10/16 13:43 Lopressor Injection - IVPUSH Q4H PRN HYPERTENSION Ondansetron HCl 4 mg 06/10/16 13:43 Zofran Injection IVPB Q6H PRN NAUSEA AND/OR VOMITING Polyethylene Glycol 17 gm 06/11/16 10:00 06/12/16 10:20 Miralax (For Daily Use) - NGT Not Given DAILY [facility] Impression 1. hyponatremia - hypo-osmolar 2. Influenza 3. PNA with small effusion 4. multiple sclerosis 5. hyperlipidemia 6. hypothyroidism 7. HTN 8. proteinuria and microscopic hematuria 9. MIRNA 10. respiratory failure requiring intubation Plan - sodium is stable - renal function is stabilizing - speech and swallow eval - infuse acyclovir slowly - mental status is markedly improved - monitor BP - will follow - plan discussed with pt at length Dr Marrero
--- NOTE | 2016-06-12 17:07 | PN ---
GI Progress Note Subjective: No BM today however mucoid BM described by nurse yesterday Ms. Baer denies - Objective Vital Signs: Vital Signs Temperature 99.2 F 06/12/16 14:00 Pulse Rate 94 H 06/12/16 14:00 Respiratory Rate 18 06/12/16 14:00 Blood Pressure 146/84 06/12/16 14:00 O2 Sat by Pulse Oximetry (%) 96 06/12/16 09:00 Constitutional: Calm Eyes: No: Sclera Icterus Cardiovascular: Yes: Regular Rate and Rhythm Respiratory: Yes: Diminished (at bases with poor insp effort) ...Auscultate: Yes: Normoactive Bowel Sounds ...Palpate: No: Hepatomegaly, Splenomegaly, Tenderness ...Rectal Exam: Yes: Other (brown soft stool, no blood / melena) Labs: CBC, BMP 06/12/16 06:00 06/12/16 06:00 INR, PTT INR 1.14 (0.82-1.09) 05/26/16 18:25 Problem List - Problems (1) Rectal bleed Assessment/Plan: No overt bleeding with brown stool on rectal exam Continuing supportive measures MiraLAX 17g daily evaluated by S/S: advised trial of dysphagia / pureed / honey thick liquids GI prophylaxis Code(s): K62.5 - HEMORRHAGE OF ANUS AND RECTUM
[2016-06-13] MEDS ORDERED: PT OWN MED DRAWER 7, Y5N ONE ×2 (06:33→10:04)
[2016-06-13] MEDS: LEVOTHYROXINE SODIUM 100 MCG VIAL IVPUSH SCH (06:42)
[2016-06-13] MEDS: guaiFENesin 200 MG/10 ML 10 ML UNIT-DOSE CUPS NGT SCH ×3 (06:42→21:16)
[2016-06-13 07:59] LABS: BASOPHIL 0.4 % (0-2.0); EOSINOPHIL 1.6 % (0-4.5); MCH 28.6 pg (25.7-33.7); MCHC 32.7 g/dl (32.0-36.0); MEAN CELL VOLUME 87.6 fl (80-96); MEAN PLT VOLUME 9.6 fl (7.5-11.1); NEUTROPHILS 82.2 % (42.8-82.8); PLATELET COUNT 427 K/MM3 (134-434); RDW 16.6 % (11.6-15.6); WHITE BLOOD COUNT 11.3 K/mm3 (4.0-10.0)
[2016-06-13 08:35] LABS: CALCIUM 8.7 mg/dL (8.5-10.1); CREATININE 0.9 mg/dL (0.55-1.02)
[2016-06-13] MEDS: POLYETHYLENE GLYCOL 3350 119 GM BTL NGT SCH (10:20)
[2016-06-13] MEDS: GABAPENTIN 100 MG CAPSULE (FP) NGT SCH ×4 (10:20→21:11)
[2016-06-13] MEDS: PANTOPRAZOLE SODIUM 100 ML IVPB SCH (10:20)
[2016-06-13] MEDS: CEFEPIME 0.5 GM in DEXTROSE 5%-WATER - 100 ML IVPB SCH (11:03)
[2016-06-13] MEDS: ACYCLOVIR IVPB SCH (11:06)
[2016-06-13] MEDS: WATER IVPB SCH (11:06)
[2016-06-13] MEDS: DEXTROSE 5% IVPB SCH (11:06)
--- NOTE | 2016-06-13 12:03 | PN ---
Progress Note, Physician History of Present Illness: Awake, alert. OOB in chair No complaints Breathing non-labored on nasal cannula Afebrile WBC improved Sputum c/s normal annel C difficile (-) Completed course of Tamiflu for Influenza- off isolation - Current Medication List Current Medications: Active Medications Acetaminophen (Tylenol Oral Solution -) 1,000 mg PO Q6H PRN PRN Reason: TEMP > 101* Gabapentin (Neurontin -) 100 mg NGT QID [facility] Last Admin: 06/13/16 10:20 Dose: 100 mg Guaifenesin (Robitussin -) 10 ml NGT TID [facility] Last Admin: 06/13/16 06:42 Dose: 10 ml Hydralazine HCl (Apresoline Injection -) 10 mg IVPUSH Q6H PRN PRN Reason: HYPERTENSION Last Admin: 06/12/16 06:05 Dose: 10 mg Cefepime HCl 0.5 gm/ Dextrose 100 mls @ 200 mls/hr IVPB BID [facility] Last Admin: 06/13/16 11:03 Dose: 200 mls/hr Acyclovir 325 mg/ Dextrose 106.5 mls @ 106.5 mls/hr IVPB BID [facility] Last Admin: 06/13/16 11:06 Dose: 106.5 mls/hr Pantoprazole Sodium (Protonix 40mg Ivpb (Pre-Docked)) 100 mls @ 200 mls/hr IVPB DAILY [facility] Last Admin: 06/13/16 10:20 Dose: 200 mls/hr Levothyroxine Sodium (Synthroid Injection -) 25 mcg IVPUSH DAILY@0700 [facility] Last Admin: 06/13/16 06:42 Dose: 25 mcg Metoprolol Tartrate (Lopressor Injection -) 5 mg IVPUSH Q4H PRN PRN Reason: HYPERTENSION Ondansetron HCl (Zofran Injection) 4 mg IVPB Q6H PRN PRN Reason: NAUSEA AND/OR VOMITING Polyethylene Glycol (Miralax (For Daily Use) -) 17 gm NGT DAILY [facility] Last Admin: 06/13/16 10:20 Dose: 17 gm - Objective Vital Signs: Vital Signs Temperature 98.1 F 06/13/16 06:00 Pulse Rate 96 H 06/13/16 10:00 Respiratory Rate 20 06/13/16 10:00 Blood Pressure 178/74 06/13/16 10:00 O2 Sat by Pulse Oximetry (%) 96 06/13/16 10:00 Constitutional: Yes: No Distress Eyes: Yes: Conjunctiva Clear HENT: Yes: Other (dry herpetic lesion, upper lip) Cardiovascular: Yes: Regular Rate and Rhythm, S1, S2 Respiratory: Yes: Diminished Gastrointestinal: Yes: Normal Bowel Sounds, Soft. No: Tenderness Labs: CBC, BMP 06/13/16 07:00 06/13/16 07:00 INR, PTT INR 1.14 (0.82-1.09) 05/26/16 18:25 Assessment/Plan Respiratory failure s/p extubation RLL pneumonia aspiration v. post influenza Exacerbation MS PCN allergy Hyponatremia- resolved Will D/C cefepime, acyclovir. Observe off antibiotics
--- NOTE | 2016-06-13 13:04 | PN ---
Progress Note, [facility] [employer] [facility] - Note Progress Note: Swallowing exercises and compensatory strategies reviewed with pt and nursing and written rec provided for improved carryover. NGT removed this am. Nursing was feeding pt lunch, following swallowing strategies. Excellent rehabilitation candidate. Monitor for congestion,fever. Consider ensure compact b/n meals.
--- NOTE | 2016-06-13 14:12 | PN ---
Progress Note, Physician History of Present Illness: Pt seen and examined at bedside. She is awake and alert. She is started on a diet. She denies shortness of breath. - Current Medication List Current Medications: Active Medications Acetaminophen (Tylenol Oral Solution -) 1,000 mg PO Q6H PRN PRN Reason: TEMP > 101* Gabapentin (Neurontin -) 100 mg NGT QID [facility] Last Admin: 06/13/16 10:20 Dose: 100 mg Guaifenesin (Robitussin -) 10 ml NGT TID [facility] Last Admin: 06/13/16 06:42 Dose: 10 ml Hydralazine HCl (Apresoline Injection -) 10 mg IVPUSH Q6H PRN PRN Reason: HYPERTENSION Last Admin: 06/12/16 06:05 Dose: 10 mg Pantoprazole Sodium (Protonix 40mg Ivpb (Pre-Docked)) 100 mls @ 200 mls/hr IVPB DAILY [facility] Last Admin: 06/13/16 10:20 Dose: 200 mls/hr Levothyroxine Sodium (Synthroid Injection -) 25 mcg IVPUSH DAILY@0700 [facility] Last Admin: 06/13/16 06:42 Dose: 25 mcg Metoprolol Tartrate (Lopressor Injection -) 5 mg IVPUSH Q4H PRN PRN Reason: HYPERTENSION Ondansetron HCl (Zofran Injection) 4 mg IVPB Q6H PRN PRN Reason: NAUSEA AND/OR VOMITING Polyethylene Glycol (Miralax (For Daily Use) -) 17 gm NGT DAILY [facility] Last Admin: 06/13/16 10:20 Dose: 17 gm - Objective Vital Signs: Vital Signs Temperature 98.1 F 06/13/16 06:00 Pulse Rate 96 H 06/13/16 10:00 Respiratory Rate 20 06/13/16 10:00 Blood Pressure 178/74 06/13/16 10:00 O2 Sat by Pulse Oximetry (%) 96 06/13/16 10:00 Constitutional: Yes: Calm Eyes: Yes: Conjunctiva Clear HENT: Yes: Atraumatic Neck: Yes: Supple Cardiovascular: Yes: S1, S2 Respiratory: Yes: Rhonchi Gastrointestinal: Yes: Soft Genitourinary: Yes: WNL Musculoskeletal: Yes: Muscle Weakness Edema: No Neurological: Yes: Pre-Existing Deficit Labs: CBC, BMP 06/13/16 07:00 06/13/16 07:00 INR, PTT INR 1.14 (0.82-1.09) 05/26/16 18:25 Problem List - Problems (1) Hyperlipemia Code(s): E78.5 - HYPERLIPIDEMIA, UNSPECIFIED (2) Hypothyroid Code(s): E03.9 - HYPOTHYROIDISM, UNSPECIFIED (3) Influenza A Code(s): J10.1 - FLU DUE TO OTH IDENT INFLUENZA VIRUS W OTH RESP MANIFEST (4) Multiple sclerosis Code(s): G35 - MULTIPLE SCLEROSIS (5) Hyponatremia Code(s): E87.1 - HYPO-OSMOLALITY AND HYPONATREMIA Assessment/Plan Current Medications Generic Name Dose Route Start Last Admin Trade Name Freq PRN Reason Stop Dose Admin Acetaminophen 1,000 mg 06/10/16 18:37 Tylenol Oral Solution - PO Q6H PRN TEMP > 101* Gabapentin 100 mg 06/10/16 18:45 06/13/16 10:20 Neurontin - NGT 100 mg QID [facility] Administration Guaifenesin 10 ml 06/11/16 22:00 06/13/16 06:42 Robitussin - NGT 10 ml TID STE[facility]ANIE Administration Hydralazine HCl 10 mg 06/10/16 13:43 06/12/16 06:05 Apresoline Injection - IVPUSH 10 mg Q6H PRN Administration HYPERTENSION Pantoprazole Sodium 100 mls @ 200 mls/hr 06/11/16 10:00 06/13/16 10:20 Protonix 40mg Ivpb (Pre-Docked) IVPB 200 mls/hr DAILY [facility]IE Administration Levothyroxine Sodium 25 mcg 06/11/16 07:00 06/13/16 06:42 Synthroid Injection - IVPUSH 25 mcg DAILY@0700 [facility]IE Administration Metoprolol Tartrate 5 mg 06/10/16 13:43 Lopressor Injection - IVPUSH Q4H PRN HYPERTENSION Ondansetron HCl 4 mg 06/10/16 13:43 Zofran Injection IVPB Q6H PRN NAUSEA AND/OR VOMITING Polyethylene Glycol 17 gm 06/11/16 10:00 06/13/16 10:20 Miralax (For Daily Use) - NGT 17 gm DAILY STE[facility]IE Administration Impression 1. hyponatremia - hypo-osmolar 2. Influenza 3. PNA with small effusion 4. multiple sclerosis 5. hyperlipidemia 6. hypothyroidism 7. HTN 8. proteinuria and microscopic hematuria 9. MIRNA 10. respiratory failure requiring intubation Plan - sodium is stable, but is rising - encourage PO free water intake - one to one feeds - renal function is stabilizing - pt off of antibiotics - mental status is markedly improved - monitor BP - will follow Dr Marrero
--- NOTE | 2016-06-13 16:22 | PN ---
Progress Note (short form) - Note Progress Note: OOB to chair. Feels overall better. Mildly tachypneic at rest. Some sore throat / and cough. No diarrhea. Afebrile this AM. CXR: Moderate bilateral pleural effusions and atelectasis Intake & Output 06/10/16 06/11/16 06/12/16 06/13/16 23:59 23:59 23:59 23:59 Intake Total 665 460 600 350 Output Total 450 Balance 215 460 600 350 Weight 132 lb 8 oz Last Vital Signs Temp Pulse Resp BP Pulse Ox 98.1 F 96 H 20 178/74 96 06/13/16 06:00 06/13/16 10:00 06/13/16 10:00 06/13/16 10:00 06/13/16 10:00 Active Medications Acetaminophen (Tylenol Oral Solution -) 1,000 mg PO Q6H PRN PRN Reason: TEMP > 101* Gabapentin (Neurontin -) 100 mg NGT QID [facility] Last Admin: 06/13/16 15:13 Dose: Not Given Guaifenesin (Robitussin -) 10 ml NGT TID [facility] Last Admin: 06/13/16 15:13 Dose: Not Given Hydralazine HCl (Apresoline Injection -) 10 mg IVPUSH Q6H PRN PRN Reason: HYPERTENSION Last Admin: 06/12/16 06:05 Dose: 10 mg Pantoprazole Sodium (Protonix 40mg Ivpb (Pre-Docked)) 100 mls @ 200 mls/hr IVPB DAILY [facility] Last Admin: 06/13/16 10:20 Dose: 200 mls/hr Levothyroxine Sodium (Synthroid Injection -) 25 mcg IVPUSH DAILY@0700 [facility] Last Admin: 06/13/16 06:42 Dose: 25 mcg Metoprolol Tartrate (Lopressor Injection -) 5 mg IVPUSH Q4H PRN PRN Reason: HYPERTENSION Ondansetron HCl (Zofran Injection) 4 mg IVPB Q6H PRN PRN Reason: NAUSEA AND/OR VOMITING Polyethylene Glycol (Miralax (For Daily Use) -) 17 gm NGT DAILY [facility] Last Admin: 06/13/16 10:20 Dose: 17 gm Gen: Awake and alert, NAD Heart: S1S2 Lung: decreased breath sounds at the bases, Rales, scattered rhonchi Abd: soft, nontender Ext: + edema Laboratory Results - last 24 hr 06/13/16 06/13/16 07:00 07:00 WBC 11.3 H RBC 3.38 L Hgb 9.7 L Hct 29.6 L MCV 87.6 MCHC 32.7 RDW 16.6 H Plt Count 427 MPV 9.6 Neutrophils % 82.2 Lymphocytes % 8.6 D Monocytes % 7.2 Eosinophils % 1.6 D Basophils % 0.4 Sodium 144 Potassium 4.9 Chloride 106 Carbon Dioxide 30 Anion Gap 8 BUN 30 H Creatinine 0.9 Random Glucose 144 H Calcium 8.7 ASSESSMENT AND PLAN: Acute Respiratory Failure Pneumonia likely Aspiration Hyponatremia improving Influenza A Multiple Sclerosis HTN Hypothyroidism Acute Kidney Injury Pulmonary vascular congestion / pleural effusions - Lasix PO daily - O2 as needed - Lovenox - inhaled bronchodilators - PO as tolerated - DVT/GI prophylaxis - PO as tolerated - D/C planning to SNF Dr Fam
[2016-06-13] MEDS: FUROSEMIDE 20 MG TABLET (FP) PO SCH (18:16)
--- NOTE | 2016-06-13 23:52 | PN ---
Progress Note (short form) - Note Progress Note: patient in Bed NGT in place has remained afebrile / NGT feeds for last 3days no diarrhea / abdominal pain or discomfort has been OOB review of Mod Barium study -- will d/c NGT and trial of PO feeds today Vital Signs Period Temp Pulse Resp BP Sys/Cobb Pulse Ox Last 24 Hr 98 F-98.9 F 87-103 18-20 147-178/73-82 96-96 Intake & Output 06/10/16 06/11/16 06/12/16 06/13/16 23:59 23:59 23:59 23:59 Intake Total 665 460 600 350 Output Total 450 Balance 215 460 600 350 Weight 132 lb 8 oz HHENT HSV lesions resolving neck -jvd heart S1/S2 reg lung clear bilat / decreased BS at right base abd soft nontender ext no edema CBC, BMP 06/13/16 07:00 06/13/16 07:00 Active Medications Acetaminophen (Tylenol Oral Solution -) 1,000 mg PO Q6H PRN PRN Reason: TEMP > 101* Furosemide (Lasix -) 20 mg PO DAILY [facility] Last Admin: 06/13/16 18:16 Dose: 20 mg Gabapentin (Neurontin -) 100 mg NGT QID [facility] Last Admin: 06/13/16 21:11 Dose: 100 mg Guaifenesin (Robitussin -) 10 ml NGT TID [facility] Last Admin: 06/13/16 21:16 Dose: Not Given Hydralazine HCl (Apresoline Injection -) 10 mg IVPUSH Q6H PRN PRN Reason: HYPERTENSION Last Admin: 06/12/16 06:05 Dose: 10 mg Pantoprazole Sodium (Protonix 40mg Ivpb (Pre-Docked)) 100 mls @ 200 mls/hr IVPB DAILY [facility] Last Admin: 06/13/16 10:20 Dose: 200 mls/hr Levothyroxine Sodium (Synthroid Injection -) 25 mcg IVPUSH DAILY@0700 [facility] Last Admin: 06/13/16 06:42 Dose: 25 mcg Metoprolol Tartrate (Lopressor Injection -) 5 mg IVPUSH Q4H PRN PRN Reason: HYPERTENSION Ondansetron HCl (Zofran Injection) 4 mg IVPB Q6H PRN PRN Reason: NAUSEA AND/OR VOMITING Polyethylene Glycol (Miralax (For Daily Use) -) 17 gm NGT DAILY [facility] Last Admin: 06/13/16 10:20 Dose: 17 gm ASSMT # anemia persistent blood in stool s/p transfused 1 PRBC Hct ~30 this am # leucocytosis -decreaing on abx ( for RLL infltate) / WBC = 11 re cultured -- all c/s neg to date # oral lesion (c/w herpes ) on acyclovir --improving # nutritional support reviewed Mod Barium swallow - will d/c NGT and start feedings as per recommendation aspiration precautions # MIRNA -- BUN/Cr improving - back to baseline # Acute Respiratory Failure extubated 06/06, O2 sats >95% on NC / 2L # Hyponatremia Resolved and has remained stable # Pneumonia likely Aspiration improving / remains on Abx still with residual right effusion # Influenza A treatment completed # Multiple Sclerosis stable # HTN # Hypothyroidism Problem List - Problems (1) Hyponatremia Code(s): E87.1 - HYPO-OSMOLALITY AND HYPONATREMIA (2) Right lower lobe pneumonia Code(s): J18.9 - PNEUMONIA, UNSPECIFIED ORGANISM (3) Influenza A Code(s): J10.1 - FLU DUE TO OTH IDENT INFLUENZA VIRUS W OTH RESP MANIFEST (4) Multiple sclerosis Code(s): G35 - MULTIPLE SCLEROSIS (5) Hypothyroid Code(s): E03.9 - HYPOTHYROIDISM, UNSPECIFIED (6) Hyperlipemia Code(s): E78.5 - HYPERLIPIDEMIA, UNSPECIFIED (8) Neuropathic pain of both legs Code(s): G57.91 - UNSPECIFIED MONONEUROPATHY OF RIGHT LOWER LIMB G57.92 - UNSPECIFIED MONONEUROPATHY OF LEFT LOWER LIMB (9) Fever Code(s): R50.9 - FEVER, UNSPECIFIED Qualifiers: Fever type: unspecified Qualified Code(s): R50.9 - Fever, unspecified (10) Anemia Code(s): D64.9 - ANEMIA, UNSPECIFIED Qualifiers: Anemia type: other cause Other causes of anemia: other cause, not classified Qualified Code(s): D64.89 - Other specified anemias
[2016-06-14] MEDS ORDERED: PT OWN MED DRAWER 7, Y5N ONE (05:48)
[2016-06-14] MEDS: LEVOTHYROXINE SODIUM 100 MCG VIAL IVPUSH SCH (06:10)
[2016-06-14] MEDS: guaiFENesin 200 MG/10 ML 10 ML UNIT-DOSE CUPS NGT SCH ×2 (06:10→13:43)
[2016-06-14 07:33] LABS: CALCIUM 8.5 mg/dL (8.5-10.1); CREATININE 0.9 mg/dL (0.55-1.02)
[2016-06-14] MEDS: FUROSEMIDE 20 MG TABLET (FP) PO SCH (09:08)
[2016-06-14] MEDS: PANTOPRAZOLE SODIUM 100 ML IVPB SCH (09:08)
[2016-06-14] MEDS: GABAPENTIN 100 MG CAPSULE (FP) NGT SCH ×2 (09:08→13:43)
[2016-06-14] MEDS: POLYETHYLENE GLYCOL 3350 119 GM BTL NGT SCH (10:00)
--- NOTE | 2016-06-14 12:32 | PN ---
Progress Note, Physician History of Present Illness: PULMONARY ALERT,OOB-CHAIR,-RESP DISTRESS - Current Medication List Current Medications: Active Medications Acetaminophen (Tylenol Oral Solution -) 1,000 mg PO Q6H PRN PRN Reason: TEMP > 101* Furosemide (Lasix -) 20 mg PO DAILY [facility] Last Admin: 06/14/16 09:08 Dose: 20 mg Gabapentin (Neurontin -) 100 mg NGT QID [facility] Last Admin: 06/14/16 09:08 Dose: 100 mg Guaifenesin (Robitussin -) 10 ml NGT TID [facility] Last Admin: 06/14/16 06:10 Dose: Not Given Hydralazine HCl (Apresoline Injection -) 10 mg IVPUSH Q6H PRN PRN Reason: HYPERTENSION Last Admin: 06/12/16 06:05 Dose: 10 mg Pantoprazole Sodium (Protonix 40mg Ivpb (Pre-Docked)) 100 mls @ 200 mls/hr IVPB DAILY [facility] Last Admin: 06/14/16 09:08 Dose: 200 mls/hr Levothyroxine Sodium (Synthroid Injection -) 25 mcg IVPUSH DAILY@0700 [facility] Last Admin: 06/14/16 06:10 Dose: 25 mcg Metoprolol Tartrate (Lopressor Injection -) 5 mg IVPUSH Q4H PRN PRN Reason: HYPERTENSION Ondansetron HCl (Zofran Injection) 4 mg IVPB Q6H PRN PRN Reason: NAUSEA AND/OR VOMITING Polyethylene Glycol (Miralax (For Daily Use) -) 17 gm NGT DAILY [facility] Last Admin: 06/13/16 10:20 Dose: 17 gm - Objective Vital Signs: Vital Signs Temperature 98.7 F 06/14/16 10:00 Pulse Rate 96 H 06/14/16 10:00 Respiratory Rate 18 06/14/16 10:00 Blood Pressure 149/82 06/14/16 10:00 O2 Sat by Pulse Oximetry (%) 97 06/14/16 10:00 Constitutional: Yes: Calm, Thin Eyes: Yes: WNL HENT: Yes: WNL Neck: Yes: WNL Cardiovascular: Yes: Regular Rate and Rhythm, S1, S2 Respiratory: Yes: Diminished, Rales (FEW CRACKLES DEEPA) Gastrointestinal: Yes: Normal Bowel Sounds, Soft Extremities: Yes: WNL Edema: No Labs: CBC, BMP 06/13/16 07:00 06/14/16 06:00 INR, PTT INR 1.14 (0.82-1.09) 05/26/16 18:25 Problem List - Problems (1) Anemia Code(s): D64.9 - ANEMIA, UNSPECIFIED Qualifiers: Anemia type: other cause Other causes of anemia: other cause, not classified Qualified Code(s): D64.89 - Other specified anemias (2) Fever Code(s): R50.9 - FEVER, UNSPECIFIED Qualifiers: Fever type: unspecified Qualified Code(s): R50.9 - Fever, unspecified (3) Hyponatremia Code(s): E87.1 - HYPO-OSMOLALITY AND HYPONATREMIA (4) Hypothyroid Code(s): E03.9 - HYPOTHYROIDISM, UNSPECIFIED (5) Hypoxia Code(s): R09.02 - HYPOXEMIA (6) Multiple sclerosis Code(s): G35 - MULTIPLE SCLEROSIS (7) Neuropathic pain of both legs Code(s): G57.91 - UNSPECIFIED MONONEUROPATHY OF RIGHT LOWER LIMB G57.92 - UNSPECIFIED MONONEUROPATHY OF LEFT LOWER LIMB (8) Right lower lobe pneumonia Code(s): J18.9 - PNEUMONIA, UNSPECIFIED ORGANISM (9) Hyperlipemia Code(s): E78.5 - HYPERLIPIDEMIA, UNSPECIFIED (10) Influenza A Code(s): J10.1 - FLU DUE TO OTH IDENT INFLUENZA VIRUS W OTH RESP MANIFEST Assessment/Plan ASSESSMENT AND PLAN: S/P Acute Respiratory Failure Pneumonia likely Aspiration Hyponatremia improved Influenza A Multiple Sclerosis HTN Hypothyroidism Acute Kidney Injury Pulmonary vascular congestion / pleural effusions Anemia - Lasix - O2 as needed - inhaled bronchodilators - PO as tolerated - DVT/GI prophylaxis - BD TX - monitor h+h DR ELDRIDGE
--- NOTE | 2016-06-14 14:47 | PN ---
Progress Note, Physician History of Present Illness: Pt seen and examined at bedside. She is awake and alert. She denies shortness of breath. - Current Medication List Current Medications: Active Medications Acetaminophen (Tylenol Oral Solution -) 1,000 mg PO Q6H PRN PRN Reason: TEMP > 101* Furosemide (Lasix -) 20 mg PO DAILY [facility] Last Admin: 06/14/16 09:08 Dose: 20 mg Gabapentin (Neurontin -) 100 mg NGT QID [facility] Last Admin: 06/14/16 13:43 Dose: 100 mg Guaifenesin (Robitussin -) 10 ml NGT TID [facility] Last Admin: 06/14/16 13:43 Dose: 10 ml Hydralazine HCl (Apresoline Injection -) 10 mg IVPUSH Q6H PRN PRN Reason: HYPERTENSION Last Admin: 06/12/16 06:05 Dose: 10 mg Pantoprazole Sodium (Protonix 40mg Ivpb (Pre-Docked)) 100 mls @ 200 mls/hr IVPB DAILY [facility] Last Admin: 06/14/16 09:08 Dose: 200 mls/hr Levothyroxine Sodium (Synthroid Injection -) 25 mcg IVPUSH DAILY@0700 [facility] Last Admin: 06/14/16 06:10 Dose: 25 mcg Metoprolol Tartrate (Lopressor Injection -) 5 mg IVPUSH Q4H PRN PRN Reason: HYPERTENSION Ondansetron HCl (Zofran Injection) 4 mg IVPB Q6H PRN PRN Reason: NAUSEA AND/OR VOMITING Polyethylene Glycol (Miralax (For Daily Use) -) 17 gm NGT DAILY [facility] Last Admin: 06/14/16 10:00 Dose: Not Given - Objective Vital Signs: Vital Signs Temperature 98.7 F 06/14/16 10:00 Pulse Rate 96 H 06/14/16 10:00 Respiratory Rate 18 06/14/16 10:00 Blood Pressure 149/82 06/14/16 10:00 O2 Sat by Pulse Oximetry (%) 97 06/14/16 10:00 Constitutional: Yes: Calm Eyes: Yes: Conjunctiva Clear HENT: Yes: Atraumatic Neck: Yes: Supple Cardiovascular: Yes: S1, S2 Gastrointestinal: Yes: Soft Genitourinary: Yes: WNL Edema: No Neurological: Yes: Oriented, Pre-Existing Deficit Psychiatric: Yes: Oriented Labs: CBC, BMP 06/13/16 07:00 06/14/16 06:00 INR, PTT INR 1.14 (0.82-1.09) 05/26/16 18:25 Problem List - Problems (1) Hyperlipemia Code(s): E78.5 - HYPERLIPIDEMIA, UNSPECIFIED (2) Hypothyroid Code(s): E03.9 - HYPOTHYROIDISM, UNSPECIFIED (3) Influenza A Code(s): J10.1 - FLU DUE TO OTH IDENT INFLUENZA VIRUS W OTH RESP MANIFEST (4) Multiple sclerosis Code(s): G35 - MULTIPLE SCLEROSIS (5) Hyponatremia Code(s): E87.1 - HYPO-OSMOLALITY AND HYPONATREMIA Assessment/Plan Current Medications Generic Name Dose Route Start Last Admin Trade Name Freq PRN Reason Stop Dose Admin Acetaminophen 1,000 mg 06/10/16 18:37 Tylenol Oral Solution - PO Q6H PRN TEMP > 101* Furosemide 20 mg 06/13/16 16:30 06/14/16 09:08 Lasix - PO 20 mg DAILY [facility] Administration Gabapentin 100 mg 06/10/16 18:45 06/14/16 13:43 Neurontin - NGT 100 mg QID [facility] Administration Guaifenesin 10 ml 06/11/16 22:00 06/14/16 13:43 Robitussin - NGT 10 ml TID [facility]IE Administration Hydralazine HCl 10 mg 06/10/16 13:43 06/12/16 06:05 Apresoline Injection - IVPUSH 10 mg Q6H PRN Administration HYPERTENSION Pantoprazole Sodium 100 mls @ 200 mls/hr 06/11/16 10:00 06/14/16 09:08 Protonix 40mg Ivpb (Pre-Docked) IVPB 200 mls/hr DAILY [facility] Administration Levothyroxine Sodium 25 mcg 06/11/16 07:00 06/14/16 06:10 Synthroid Injection - IVPUSH 25 mcg DAILY@0700 [facility] Administration Metoprolol Tartrate 5 mg 06/10/16 13:43 Lopressor Injection - IVPUSH Q4H PRN HYPERTENSION Ondansetron HCl 4 mg 06/10/16 13:43 Zofran Injection IVPB Q6H PRN NAUSEA AND/OR VOMITING Polyethylene Glycol 17 gm 06/11/16 10:00 06/14/16 10:00 Miralax (For Daily Use) - NGT Not Given DAILY [facility] Impression 1. hyponatremia - hypo-osmolar 2. Influenza 3. PNA 4. multiple sclerosis 5. hyperlipidemia 6. hypothyroidism 7. HTN 8. proteinuria and microscopic hematuria 9. MIRNA 10. respiratory failure requiring intubation 11. pleural effusions Plan - renal function is improving - called and discussed care with pts daughter - discussed plan with pulmonary last night - lasix 20 mg po for 4 days - will need to monitor bmp in [place], and this was relayed to pts daughter who is a physician - encourage PO intake - mental status is markedly improved - monitor BP - will follow Dr Marrero
[2016-06-14 15:16] VITALS: BP 109/72; PULSE 95; TEMP 98.8
--- NOTE | 2016-06-14 15:41 | PN ---
Progress Note, [facility] [facility]ER - Note Progress Note: Selected Entries 06/13/16 06/13/16 06/13/16 02:07 06:00 14:00 Supper Temperature 98 F 98.1 F 98.2 F 06/13/16 06/13/16 06/13/16 18:00 20:42 22:00 Supper 25% 25% Temperature 98.9 F 98.3 F 06/14/16 06/14/16 06/14/16 02:00 06:00 10:00 Supper Temperature 97.5 F L 97.3 F L 98.7 F 06/14/16 14:00 Supper Temperature 98.8 F Laboratory Tests 06/12/16 06/13/16 06:00 07:00 WBC 11.0 H 11.3 H Vocal wetness at times. Encouraged pt to cough and expectorate phlegm. Reviewed swallowing recommendations again with pt. PT NEEDS ASSISTANCE/SUPERVISION WITH MEALS TO EAT SAFELY. Pending transfer to [facility].
--- NOTE | 2016-06-14 16:17 | PN ---
Progress Note (short form) - Note Progress Note: GI Procedure NOte: Please see EGD and colonoscopy reports. The bleeding appears to have been emanating form a large sigmoid polyp which was removed. Additional right colon polyps were removed. The Eliquis or any other form of anticoagulation should not be resumed for [address] Goncalves will be covering until 06/17.
--- NOTE | 2016-06-14 19:32 | PN ---
Progress Note (short form) - Note Progress Note: GI NOte: Please disregard my previous note meant for another patient's chart.
== END 2016-06-14 16:15 | DRG 207 ==
LOC: JER 17:55 → JERBED 19:24 → UNDOADMIN 19:41 → J7W 05-27 00:50 → JICU 05-30 17:02 → J4S 06-10 17:15
PROVIDERS: ADMIT Family Medicine; ATTEND Family Medicine
PROC: 5A1955Z Respiratory Ventilation, Greater than 96 Consecutive Hours (ICD-10-PCS; principal; 2016-06-01)
PROC: 0BH17EZ Insertion of Endotracheal Airway into Trachea, Via Natural or Artificial Opening (ICD-10-PCS; 2016-06-01)
PROC: 30233N1 Transfusion of Nonautologous Red Blood Cells into Peripheral Vein, Percutaneous Approach (ICD-10-PCS; 2016-06-04)
DX: J09.X2 Influenza due to identified novel influenza A virus with other respiratory manifestations (principal); J96.00 Acute respiratory failure, unspecified whether with hypoxia or hypercapnia; G92 Toxic encephalopathy; E87.1 Hypo-osmolality and hyponatremia; N17.9 Acute kidney failure, unspecified; J90 Pleural effusion, not elsewhere classified; K62.5 Hemorrhage of anus and rectum; B00.89 Other herpesviral infection; E78.5 Hyperlipidemia, unspecified; G35 Multiple sclerosis; E03.9 Hypothyroidism, unspecified; R31.29 Other microscopic hematuria; D64.9 Anemia, unspecified; Z88.0 Allergy status to penicillin; D72.829 Elevated white blood cell count, unspecified; J69.0 Pneumonitis due to inhalation of food and vomit; I10 Essential (primary) hypertension; Z87.891 Personal history of nicotine dependence; R19.7 Diarrhea, unspecified; K64.9 Unspecified hemorrhoids; G57.91 Unspecified mononeuropathy of right lower limb; G57.92 Unspecified mononeuropathy of left lower limb; K59.09 Other constipation; E86.0 Dehydration; F32.9 Major depressive disorder, single episode, unspecified
CPT/HCPCS: 31500; 36415; 36430; 36600; 71010-TC; 74230-TC; 80048; 80053; 81003; 81015; 82436; 82533; 82550; 82553; 82570; 82607; 82803; 83605; 83735; 83930; 83935; 84100; 84133; 84300; 84443; 84484; 84588; 85025; 85027; 85610; 85651; 85730; 86140; 86850; 86900; 86901; 86922; 87040; 87070; 87077; 87086; 87205; 87324; 87449; 87804; 87899; 92611-GN; 93005; 93010; 93970-TC; 94002; 94640; 97116-GP; 97161-GP; 97162-PG; 99283-25; G0480; P9058

== ENCOUNTER 2017-10-13 12:48 | Observation (INO) | payer OTHER, BC ==
[2017-10-13 12:56] VITALS: BMI 20.1
--- NOTE | 2017-10-13 13:15 | PDOC ---
Attending Attestation - HPI HPI: 10/13/17 14:15 The patient is a 81 year old female with past medical history of MS (w. Slight tremor), chronic nerve pain (on Gabapentin), foot drop (wears a brace), Hypothyroidism HTN, gastric polyps and HLD presents to the emergency department complaining of chest pain. The patient reports an acute onset of chest tightness that woke her up from sleep at 5:00 am today, which resolved itself 20 minutes after and she went back to sleep. The patient reports when she woke up she experienced episodes of dizziness and nausea, which she states resolved a little after. The patient states since morning shes been experiencing intermittent chest pain. As per the daughter, Dr. Baer, the patients been experiencing shortness of breath while ambulating with the assist of her walker. . Denies fever, chills, cough or a headache. Denies orthopnea or palpitations. Denies abdominal, neck or back pain. Denies upper/lower extremity pain. Denies diarrhea or constipation. Denies nausea or vomiting. Denies dysuria, hematuria, frequency or urgency to urinate. Denies vertigo, dizziness or lightheadedness. Denies numbness, tingling, weakness or loss of sensation. Denies history of blood clots. Allergies: penicillins Social history: Former smoker. Denies the use of alcohol or recreational drugs. 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 Surgical history: hemithyroidectomy, Knee replacement (wear and tear) and hip replacement s/p a fall. PCP: Dr. Nguyen. Manager Report: Dr. Kapoor - Medical Decision Making 10/13/17 14:16 Documentation prepared by Jessie Rivera, acting as medical payment poster for Gerri Scott MD. 10/13/17 15:38 Dr. Nguyen called at 2:58 pm, waiting for a call back. Call placed out to Dr. Nguyen at 3:21 pm, waiting for a call back. Case discussed with Dr. Nguyen at 3:29 pm. <Jessie Rivera - Last Filed: 10/13/17 15:38> - Resident Resident Name: Garcia Horvath - ED Attending Attestation I have performed the following: I have examined & evaluated the patient, The case was reviewed & discussed with the resident, I agree w/resident's findings & plan, Exceptions are as noted - Physicial Exam PE: GENERAL: Awake, alert, and fully oriented, in no acute distress HEAD: No signs of trauma EYES: PERRLA, EOMI, sclera anicteric, conjunctiva clear ENT: Auricles normal inspection, hearing grossly normal, nares patent, oropharynx clear without exudates. Moist mucosa NECK: Normal ROM, supple, no lymphadenopathy, JVD, or masses LUNGS: Breath sounds equal, clear to auscultation bilaterally. No wheezes, and no crackles HEART: Regular rate and rhythm, normal S1 and S2, no murmurs, rubs or gallops ABDOMEN: Soft, nontender, normoactive bowel sounds. No guarding, no rebound. No masses EXTREMITIES: Normal range of motion, no edema. No clubbing or cyanosis. No cords, erythema, or tenderness. +Fine resting tremor to hands B/L. NEUROLOGICAL: Cranial nerves II through XII grossly intact. +R foot drop ( patient wears a brace). Moving all extremities. SKIN: Warm, Dry, normal turgor, no rashes or lesions noted. - Medical Decision Making Pt with mid to high risk cp, substernal, with risk factors for ACS. Will admit for further workup. <Gerri Scott - Last Filed: 10/13/17 17:23> Heart Score/ECG Review - History History: Moderately suspicious - Electrocardiogram EKG: Non specific repolarization disturbance - Age Age: >/= 65 - Risk Factors Risk Factors Heart Score: Yes Hx Hypercholesterolemia, Yes Hx Hypertension Based on the list above the patient has:: 1-2 risk factors - Troponin Troponin: </= normal limit - Score Heart Score - Total: 5 - ECG Impressions Comment:: EKG read 12:56- NSR 87 bpm; ST dep II, III, aVF, and V5 <Gerri Scott - Last Filed: 10/13/17 17:23>
--- NOTE | 2017-10-13 13:29 | PDOC ---
History of Present Illness - General Chief Complaint: Chest Pain Stated Complaint: CHEST PAIN Time Seen by Provider: 10/13/17 13:04 History Source: Patient Exam Limitations: No Limitations - History of Present Illness Initial Comments: 10/13/17 14:58 Patient is an 81F with history of MS, HTN, HLD, hypothyroidism, and former tobacco use here today complaining of chest pain that awoke her from sleep at 5am today. Patient states that her chest pain was relieved with rest with no other modifying factors. Patient endorses associated shortness of breath. Denies leg swelling, history of blood clots, and recent immobilization/travel. Patient says that her pain has now resolved. Denies fevers, chills, nausea, vomiting. Past History - Past Medical History Allergies/Adverse Reactions: Allergies Allergy/AdvReac Type Severity Reaction Status Date / Time Penicillins Allergy Verified 10/13/17 12:53 Home Medications: Ambulatory Orders Atorvastatin Calcium [Lipitor] 10 mg PO ASDIR 05/26/16 Gabapentin [Neurontin -] 100 mg PO TID 05/26/16 Levothyroxine [Synthroid -] 50 mcg PO DAILY 05/26/16 Nifedipine [Procardia Xl] 30 mg PO BID 05/26/16 Baclofen 5 mg PO TID 05/27/16 COPD: No GI Disorders: Yes (gastric polyps) HTN: Yes Hypercholesterolemia: Yes Thyroid Disease: Yes (hypothyroidism) Other medical history: M.S,essential tremmors - Surgical History Orthopedic Surgery: Yes (Hip and Knee replacement) - Suicide/Smoking/Psychosocial Hx Smoking History: Former smoker Have you smoked in the past 12 months: No If you are a former smoker, when did you quit?: 1970 Information on smoking cessation initiated: No Hx Alcohol Use: Yes Drug/Substance Use Hx: No Substance Use Type: None Review of Systems - Review of Systems Comments:: 10/13/17 15:07 GENERAL/CONSTITUTIONAL: No fever or chills. No weakness. HEAD, EYES, EARS, NOSE AND THROAT: No change in vision. No sore throat. CARDIOVASCULAR: +chest pain, +shortness of breath RESPIRATORY: No cough, wheezing, or hemoptysis. GASTROINTESTINAL: No nausea, vomiting, diarrhea or constipation. GENITOURINARY: No dysuria, frequency, or change in urination. MUSCULOSKELETAL: No joint or muscle swelling or pain. No neck or back pain. SKIN: No rash NEUROLOGIC: No headache, vertigo, loss of consciousness, or change in strength/ sensation. ENDOCRINE: No increased thirst. No abnormal weight change HEMATOLOGIC/LYMPHATIC: No anemia, easy bleeding, or history of blood clots. ALLERGIC/IMMUNOLOGIC: No hives or skin allergy. *Physical Exam - Vital Signs Last Vital Signs Temp Pulse Resp BP Pulse Ox 98.3 F 90 18 153/80 100 10/13/17 12:53 10/13/17 12:53 10/13/17 12:53 10/13/17 12:53 10/13/17 12:53 - Physical Exam Comments: 10/13/17 15:08 GENERAL: Awake, alert, and fully oriented, in no acute distress HEAD: No signs of trauma, normocephalic, atraumatic EYES: PERRLA, EOMI, sclera anicteric, conjunctiva clear ENT: Auricles normal inspection, hearing grossly normal, nares patent, oropharynx clear without exudates. Moist mucosa NECK: Normal ROM, supple, no lymphadenopathy, JVD, or masses LUNGS: No distress, speaks full sentences, clear to auscultation bilaterally HEART: Regular rate and rhythm, normal S1 and S2, no murmurs, rubs or gallops, peripheral pulses normal and equal bilaterally. ABDOMEN: Soft, nontender, normoactive bowel sounds. No guarding, no rebound. No masses EXTREMITIES: Normal inspection, Normal range of motion, no edema. No clubbing or cyanosis. NEUROLOGICAL: Cranial nerves II through XII grossly intact. Normal speech, no focal sensorimotor deficits SKIN: Warm, Dry, normal turgor, no rashes or lesions noted. Heart Score/ECG Review - History History: Moderately suspicious - Electrocardiogram EKG: Significant ST-depression - Age Age: >/= 65 - Risk Factors Risk Factors Heart Score: Yes Hx Hypercholesterolemia, Yes Hx Hypertension, Yes Smoking History Based on the list above the patient has:: >/=3 risk factors or Hx atherosclerotic disease - Troponin Troponin: </= normal limit - Score Heart Score - Total: 7 ED Treatment Course - LABORATORY CBC & Chemistry Diagram: 10/13/17 13:18 10/13/17 13:18 - RADIOLOGY Radiology Studies Ordered: Category Date Time Status CHEST X-RAY PORTABLE* [RAD] Stat Radiology 10/13/17 13:21 Ordered Medical Decision Making - Medical Decision Making 10/13/17 15:16 Patient is 81F with history of HTN, HLD, hypothyroidism, former smoker, and MS here today with chest pain. Story moderately concerning. HEART score of 7 at baseline. Will initiate cardiac workup and admit. EKG shows normal sinus rhythm. ST depressions in II, II, aVF, V5, V6. No st elevations. Unchanged from EKG in 05/2016. Normal intervals. Normal axis. 10/13/17 15:18 Laboratory Tests 10/13/17 10/13/17 10/13/17 13:18 13:18 13:47 WBC 6.0 Hgb 13.1 Plt Count 240 D Troponin I < 0.02 Urine Nitrite Negative Ur Leukocyte Esterase Trace Urine WBC (Auto) 6 Urine RBC (Auto) 1 CBC normal. Troponin undetectable. UA negative. Will admit to [facility] under Dr Nguyen. *DC/Admit/Observation/Transfer Diagnosis at time of Disposition: Chest pain - Discharge Dispostion Condition at time of disposition: Stable Decision to Admit order: Yes - Referrals Referrals: Abena Nguyen MD [Primary Care Provider] - - Patient Instructions - Post Discharge Activity
[2017-10-13 13:36] LABS: BASO % 0.4 % (0-2.0); EOS % 0.1 % (0-4.5); HEMATOCRIT 39.3 % (32.4-45.2); HEMOGLOBIN 13.1 GM/dL (10.7-15.3); LYMPH % 17.2 % (8-40); MCH 30.3 pg (25.7-33.7); MCHC 33.2 g/dl (32.0-36.0); MEAN CELL VOLUME 91.1 fl (80-96); MONO % 6.8 % (3.8-10.2); NEUT % 75.5 % (42.8-82.8); PLATELET COUNT 240 K/MM3 (134-434); RBC 4.31 M/mm3 (3.60-5.2); RDW 13.2 % (11.6-15.6)
[2017-10-13 13:55] LABS: INR 1.04 (0.82-1.09); PROTHROMBIN TIME (PATIENT) 11.7 SEC (9.7-13.0)
[2017-10-13 14:06] LABS: ALBUMIN 4.5 g/dl (3.4-5.0); ANION GAP 7 (8-16); BILIRUBIN,TOTAL 0.6 mg/dL (0.2-1.0); BLOOD UREA NITROGEN 21 mg/dL (7-18); CALCIUM 9.1 mg/dL (8.5-10.1); CHLORIDE 104 mmol/L (98-107); CO2 27 mmol/L (21-32); CREATININE 0.7 mg/dL (0.55-1.02); GLUCOSE,RANDOM 133 mg/dL (74-106); POTASSIUM 4.1 mmol/L (3.5-5.1); SGOT/AST 22 U/L (15-37); SGPT/ALT 24 U/L (12-78); SODIUM 138 mmol/L (136-145)
[2017-10-13 14:10] LABS: ALK PHOS 62 U/L (45-117); TOT PROT 7.7 g/dl (6.4-8.2)
[2017-10-13 14:26] LABS: URINE APPEARANCE CLEAR; URINE BILIRUBIN NEGATIVE (<2.0 mg/dL); URINE COLOR STRAW; URINE GLUCOSE (UA) NEGATIVE (NEGATIVE); URINE KETONE NEGATIVE (NEGATIVE); URINE LEUK ESTERASE TRACE (NEGATIVE); URINE NITRITE NEGATIVE (NEGATIVE); URINE PROTEIN NEGATIVE (NEGATIVE); URINE UROBILINOGEN NEGATIVE mg/dL (0.2-1.0)
[2017-10-13 14:31] LABS: EPI CELLS RARE /HPF (FEW)
--- NOTE | 2017-10-13 14:48 | CON.CARD ---
Consult Consult Specialty:: Cardiology for Marleen Referred by:: Abena Nguyen MD Reason for Consultation:: Chest pain - History of Present Illness Chief Complaint: Chest pain History of Present Illness: The patient is a 81 year old female with past medical history of MS (w. Slight tremor), chronic nerve pain (on Gabapentin), foot drop (wears a brace), Hypothyroidism HTN, gastric polyps and HLD presents to the emergency department complaining of chest tightness that woke her up from sleep at 5:00 am today, which resolved itself 20 minutes after and she went back to sleep. The patient reports when she woke up she experienced episodes of dizziness and nausea, which has since resolved. As per the daughter, Dr. Baer, the patients been experiencing shortness of breath while ambulating with the assist of her walker. Denies fever, chills, cough or a headache. Denies orthopnea or palpitations. Denies abdominal, neck or back pain. Denies upper/lower extremity pain. Denies diarrhea or constipation. Denies nausea or vomiting. Denies dysuria, hematuria, frequency or urgency to urinate. Denies vertigo, dizziness or lightheadedness. Denies numbness, tingling, weakness or loss of sensation. Denies history of blood clots. Allergies: penicillins Social history: Former smoker. Denies the use of alcohol or recreational drugs. 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 Surgical history: hemithyroidectomy, Knee replacement (wear and tear) and hip replacement s/p a fall. PCP: Dr. Nguyen. Clinical Exercise Specialist: Dr. 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 History of Recent Travel: No Home Medications - Allergies Allergies/Adverse Reactions: Allergies Allergy/AdvReac Type Severity Reaction Status Date / Time Penicillins Allergy Verified 10/13/17 12:53 - Home Medications Home Medications: Ambulatory Orders Atorvastatin Calcium [Lipitor] 10 mg PO ASDIR 05/26/16 Gabapentin [Neurontin -] 100 mg PO TID 05/26/16 Levothyroxine [Synthroid -] 50 mcg PO DAILY 05/26/16 Nifedipine [Procardia Xl] 30 mg PO BID 05/26/16 Baclofen 5 mg PO TID 05/27/16 Review of Systems - Review of Systems Cardiovascular: reports: Chest Pain, Shortness of Breath Vital Signs: Vital Signs Temperature 98.3 F 10/13/17 12:53 Pulse Rate 90 10/13/17 12:53 Respiratory Rate 18 10/13/17 12:53 Blood Pressure 153/80 10/13/17 12:53 O2 Sat by Pulse Oximetry (%) 100 10/13/17 12:53 Constitutional: Yes: No Distress, Calm Neck: Yes: Supple Respiratory: Yes: Regular, Diminished Gastrointestinal: Yes: Normal Bowel Sounds, Soft Cardiovascular: Yes: Regular Rate and Rhythm JVD: No Carotid Bruit: No Heart Sounds: Yes: S1, S2 Edema: No - Other Data Labs, Other Data: CBC, BMP 10/13/17 13:18 10/13/17 13:18 INR, PTT INR 1.04 (0.82-1.09) 10/13/17 13:18 Troponin, BNP 10/13/17 13:18 Troponin I < 0.02 Troponin, BNP 10/13/17 13:18 Troponin I < 0.02 NSR @ [facility], LVH with repol abnl similar to previous 05/26/2016 Imaging - Results Chest X-ray: Report Reviewed (NAD) Problem List - Problems (1) Hypertensive cardiovascular disease Code(s): I11.9 - HYPERTENSIVE HEART DISEASE WITHOUT HEART FAILURE Qualifiers: Heart failure presence: without heart failure Qualified Code(s): I11.9 - Hypertensive heart disease without heart failure (2) Hyperlipemia Code(s): E78.5 - HYPERLIPIDEMIA, UNSPECIFIED Qualifiers: Hyperlipidemia type: pure hypercholesterolemia Qualified Code(s): E78.00 - Pure hypercholesterolemia, unspecified; E78.0 - Pure hypercholesterolemia (3) Hypothyroid Code(s): E03.9 - HYPOTHYROIDISM, UNSPECIFIED Qualifiers: Hypothyroidism type: unspecified Qualified Code(s): E03.9 - Hypothyroidism , unspecified (4) Multiple sclerosis Code(s): G35 - MULTIPLE SCLEROSIS (5) Chest pain Code(s): R07.9 - CHEST PAIN, UNSPECIFIED Qualifiers: Chest pain type: unspecified Qualified Code(s): R07.9 - Chest pain, unspecified Assessment/Plan 1. Chest pain syndrome 2. Dyspnea on exertion r/o diastolic dysfunction 3. HTN/HCVD 4. Multiple sclerosis 5. Hypothyroidism P:1. Ruling out for CO, check TSH, NT-BNP 2. Check echocardiogram to assess ventricular and valve fxn 3. Continue Lipitor 10 qhs, Procardia XL 30 bid, add ASA 81 qd 4. DVT prophylaxis 5. Thank you for consultative opportunity
--- NOTE | 2017-10-13 15:59 | HP ---
Admitting History and Physical - Admission Chief Complaint: chest pain History of Present Illness: I was notified by patients daughter, Mrs Baer was woken up by chest pain early this am / pain retrosternal / pressure-like / lasting about 20 min / relieved without treatment -- she woke up couple hours later feeling dizzy and nauseous -- I called patient spoke to her and recommended ER evaluation The patient is a 81 year old female with past medical history of MS (w. Slight tremor), chronic nerve pain (on Gabapentin), foot drop (wears a brace), Hypothyroidism HTN, gastric polyps and HLD presents to the emergency department complaining of chest tightness that woke her up from sleep at 5:00 am today, which resolved itself 20 minutes after and she went back to sleep. The patient reports when she woke up she experienced episodes of dizziness and nausea, which has since resolved. As per the daughter, Dr. Baer, the patients been experiencing shortness of breath while ambulating with the assist of her walker. Denies fever, chills, cough or a headache. Denies orthopnea or palpitations. Denies abdominal, neck or back pain. Denies upper/lower extremity pain. Denies diarrhea or constipation. Denies nausea or vomiting. Denies dysuria, hematuria, frequency or urgency to urinate. Denies vertigo, dizziness or lightheadedness. Denies numbness, tingling, weakness or loss of sensation. Denies history of blood clots. I was notified by patients daughter, Mrs Baer was woken up by chest pain early this am / pain retrosternal / pressure-like / lasting about 20 min / relieved without treatment -- she woke up couple hours later feeling dizzy and nauseous -- I called patient spoke to her and recommended ER evaluation Allergies: penicillins Social history: Former smoker. Denies the use of alcohol or recreational drugs. 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 Surgical history: hemithyroidectomy, Knee replacement (wear and tear) and hip replacement s/p a fall. PCP: Dr. Nguyen. Mortgage Loan Coordinator: Dr. 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 History of Recent Travel: No Home Medications - Allergies Allergies/Adverse Reactions: Allergies Allergy/AdvReac Type Severity Reaction Status Date / Time Penicillins Allergy Verified 10/13/17 12:53 - Home Medications Home Medications: Ambulatory Orders Atorvastatin Calcium [Lipitor] 10 mg PO ASDIR 05/26/16 Gabapentin [Neurontin -] 100 mg PO TID 05/26/16 Levothyroxine [Synthroid -] 50 mcg PO DAILY 05/26/16 Nifedipine [Procardia Xl] 30 mg PO BID 05/26/16 Baclofen 5 mg PO TID 05/27/16 Physical Examination Vital Signs: Vital Signs Temperature 98.3 F 10/13/17 12:53 Pulse Rate 90 10/13/17 12:53 Respiratory Rate 18 10/13/17 12:53 Blood Pressure 153/80 10/13/17 12:53 O2 Sat by Pulse Oximetry (%) 100 10/13/17 12:53 Labs: CBC, BMP 10/13/17 13:18 10/13/17 13:18
--- NOTE | 2017-10-13 21:20 | EKG ---
Test Reason : Blood Pressure : / mmHG Vent. Rate : 087 BPM Atrial Rate : 087 BPM P-R Int : 126 ms QRS Dur : 076 ms QT Int : 374 ms P-R-T Axes : 078 041 016 degrees QTc Int : 450 ms NORMAL SINUS RHYTHM POSSIBLE LEFT ATRIAL ENLARGEMENT LEFT VENTRICULAR HYPERTROPHY WITH REPOLARIZATION ABNORMALITY ABNORMAL ECG WHEN COMPARED WITH ECG OF 26-MAY-2016 18:14, T WAVE VARIATION Confirmed by KENNY ROMERO, CHARLENE ([id number]) on 10/13/2017 9:19:26 PM Referred By: Confirmed By:CHARLENE COX MD
[2017-10-13] MEDS: GABAPENTIN 100 MG CAPSULE (FP) PO SCH (21:25)
[2017-10-13] MEDS: NIFEdipine E.R. 30 MG TABLET (FP) PO SCH (21:25)
[2017-10-13] MEDS: BACLOFEN 10 MG TABLET (FP) PO SCH (21:26)
[2017-10-13] MEDS ORDERED: ATORVASTATIN CA 10 MG TABLET (FP) PO SCH (22:00)
[2017-10-14] MEDS: GABAPENTIN 100 MG CAPSULE (FP) PO SCH ×2 (05:44→14:56)
[2017-10-14] MEDS: BACLOFEN 10 MG TABLET (FP) PO SCH ×2 (05:44→14:55)
[2017-10-14] MEDS ORDERED: LEVOTHYROXINE NA 50 MCG TABLET (FP) PO SCH (07:00)
--- NOTE | 2017-10-14 08:55 | CONS ---
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 On admission, patient underwent blood work which showed WBC 6.0, hemoglobin of 13.1, platelet count 240, albumin 4.5, troponin less than 0.02, sodium 138, potassium 4.1, chloride 104, CO2 of 27, BUN 21, creatinine 0.7. Patient had an EKG which demonstrated possible left atrial enlargement, left ventricular hypertrophy, and T-wave variation compared to previous study from May 2016. Chest x-ray was also complete and demonstrated no acute chest pathology. Patient does feel improved and is pending blood work today. She is now seen in rehabilitation evaluation. Again, she has chronic neuropathic pain in her feet and in her hands. She takes gabapentin listed at 100 mg 3 times a day and has more discomfort at night. PAST MEDICAL AND SURGICAL HISTORY: As above. Multiple sclerosis, chronic nerve pain, neuropathic pain on gabapentin, right foot drop, hypothyroidism, hypertension, gastric polyps, hyperlipidemia, diffuse osteoarthritis status post right total knee replacement and right total hip replacement in 2010, history of hysterectomy. SOCIAL HISTORY: Lives with her in an apartment. Her currently is recovering from a stroke at a intermediate facility. Premorbidly, the patient could ambulate with a rolling walker and uses a right ankle foot arthrosis. She is independent with ADLs. Former tobacco user but quit some time ago. REVIEW OF SYSTEMS: She has no headache. No current lightheadedness, dizziness. No current nausea, vomiting. She has no blurry vision, double vision that is new. No change in vision. No difficulty swallowing or chewing. No current chest discomfort or shortness of breath. No fever, chills. No bowel/bladder incontinence. Again, she gets burning and numbness in her hands which is worse at night. No isolated weakness noted in the upper limbs. In the lower extremities, she has difficulty elevating her right foot, but no other weakness, numbness, tingling; burning in both feet, particularly at night. No bowel/bladder incontinence or retention. No fever or chills. No skin rash noted. PHYSICAL EXAMINATION: General: Patient is an elderly woman seen lying in bed, in no acute distress. She is awake, alert, seems to have fairly good insight into most of her medical conditions. HEENT: She is normocephalic and atraumatic. Her extraocular muscles appear intact. She has no obvious facial weakness. No oral ulcers. Neck: Supple. Extremities: Without any pitting edema or calf tenderness. Neuromuscular: She is awake, alert, oriented x3. Cranial nerves 2-12 appear grossly intact. She has some mild arthritic changes in the 1st carpometacarpal joint, PIP, and DIP joints in her hands, thenar weakness bilaterally with diminished sensation in median more than ulnar or radial distribution to pinprick. Otherwise, good strength proximally in the shoulder girdle, elbow flexors, elbow extensors, wrist flexors/extensors. In the lower extremities, slightly diminished sensation in the distal lower extremities, peroneal more than tibial distribution. She has weakness of the right dorsiflexors and evertors but normal strength in the left dorsiflexors, evertors, and at least 4/5 proximal strength in the hip girdle. Good knee flexion and extension and good plantar flexion bilaterally. She has scars from prior right total hip and right knee replacements. No breakdown or rash noted. OVERALL IMPRESSION: 1. Deficits in mobility and activities of daily living, multifactorial. 2. Mild deconditioning. 3. Right foot drop with a history of multiple sclerosis. 4. Chronic neuropathic pain. 5. Numbness and tingling in the hands, more in a median distribution; rule out carpal tunnel syndrome. 6. Chest pain; workup pending. 7. Right total hip replacement. 8. Right total knee replacement. 9. Diffuse osteoarthritis including the hands. 10. History of hypertension. 11. History of hyperlipidemia. PLAN/SUGGESTION: 1. Physical therapy for mobilization including bed mobility, transfers, gait training, strengthening, reconditioning. 2. Out of bed to chair. 3. Cardiac workup pending. 4. Early ambulation for DVT prophylaxis. 5. Skin precautions. Monitor heel and sacral pressure. 6. Pain management, seems to be fairly well controlled on gabapentin, but she is on a relatively low dose, could increase if needed. 7. Disposition home with home care once medically stable. 8. Recommend EMG/NCS Upper limbs and possibly cock up splints and injections if positive for CTS. Thank you very much for this referral. UDAY HORNE M.D. [id number] MTDD
[2017-10-14 09:23] LABS: N-TERMINAL BNP 428.32 pg/ml (5-450)
[2017-10-14] MEDS: NIFEdipine E.R. 30 MG TABLET (FP) PO SCH (09:49)
--- NOTE | 2017-10-14 12:05 | PN ---
Progress Note (short form) - Note Progress Note: Chief Complaint: (coverage for Drs. Nu Kapoor/Sukumar Rodriguez) Events noted, notes reviewed, denies any further chest pain, denies any dyspnea History of Present Illness: Seen and examined on telemetry. Events noted, notes reviewed, denies any further chest pain, denies any dyspnea Cardiac markers negative for ACS Echocardiography revealed normal LV size and function, normal RV size and function, MAC, AVS, mild MR and TR Medications: Current Medications Atorvastatin Calcium (Lipitor -) 10 mg PO [id number] [facility] Last Admin: 10/13/17 21:25 Dose: 10 mg Baclofen (Lioresal -) 5 mg PO TID [facility] Last Admin: 10/14/17 05:44 Dose: 5 mg Gabapentin (Neurontin -) 100 mg PO TID [facility] Last Admin: 10/14/17 05:44 Dose: 100 mg Levothyroxine Sodium (Synthroid -) 50 mcg PO ACBK [facility] Last Admin: 10/14/17 06:07 Dose: 50 mcg Nifedipine (Procardia Xl -) 30 mg PO BID [facility] Last Admin: 10/14/17 09:49 Dose: 30 mg Review of Systems Review of Systems Constitutional: denies: Chills Cardiovascular: As noted above Respiratory: denies: Cough or Sputum Production Gastrointestinal: denies: Nausea, Vomiting, Diarrhea, Constipation or Abdominal Pain Musculoskeletal: denies: Joint Pain Neurological: denies: Dizziness or Headache Vital Signs: Last Vital Signs Temp Pulse Resp BP Pulse Ox 98.2 F 84 18 142/54 96 10/14/17 09:00 10/14/17 09:00 10/14/17 09:00 10/14/17 09:00 10/13/17 20:30 Intake & Output 10/11/17 10/12/17 10/13/17 10/14/17 23:59 23:59 23:59 23:59 Intake Total 140 100 Balance 140 100 Weight 125 lb Constitutional: No Distress, Calm Neck: Supple Respiratory: Diminished Cardiovascular: S1 S2 Regular Rate and Rhythm Gastrointestinal: Soft Benign Normal Bowel Sounds Ext: No Edema Labs: Assessment/Plan ASSESSMENT: 1. Chest pain syndrome, atypical for CAD angina pectoris 2. Diastolic LV dysfunction with clinical class 0 NYHA classification LV failure 3. HTN/HCVD 4. Multiple sclerosis 5. Hypothyroidism PLAN: 1. Recommend the addition of B-Blockers unless contraindicated 2. Continue Procardia XL 3. Recommend the addition of ASA unless contraindicated 4. Can be D/C from the cardiovascular point of view and additional evaluation as outpatient with Dr. Nu Kelley MD
--- NOTE | 2017-10-14 12:21 | PN ---
Progress Note (short form) - Note Progress Note: patient seen and examined in room case discussed with cardiology cardiac work up to date negative Arrangements for home D/c discussed with patient Vital Signs Period Temp Pulse Resp BP Sys/Cobb Pulse Ox Last 24 Hr 97.9 F-98.3 F 60-90 16-20 135-161/54-80 96-100 neck suppl e heart S1/S2 regular Lungs clear bilat Abd soft non tender ext no edema = foot drop ( 2/2MS) CBC, BMP 10/13/17 13:18 10/13/17 13:18 Troponin, BNP 10/13/17 10/13/17 10/14/17 13:18 20:22 05:30 Troponin I < 0.02 < 0.02 < 0.02 B-Natriuretic Peptide 428.32 10/14/17 05:30 Troponin I B-Natriuretic Peptide Cancelled Microbiology 10/13/17 13:47 Urine - Urine Clean Catch Urine Culture - Final NO GROWTH OBTAINED Active Medications Atorvastatin Calcium (Lipitor -) 10 mg PO [id number] [facility] Last Admin: 10/13/17 21:25 Dose: 10 mg Baclofen (Lioresal -) 5 mg PO TID [facility] Last Admin: 10/14/17 05:44 Dose: 5 mg Gabapentin (Neurontin -) 100 mg PO TID [facility] Last Admin: 10/14/17 05:44 Dose: 100 mg Levothyroxine Sodium (Synthroid -) 50 mcg PO ACBK [facility] Last Admin: 10/14/17 06:07 Dose: 50 mcg Nifedipine (Procardia Xl -) 30 mg PO BID [facility] Last Admin: 10/14/17 09:49 Dose: 30 mg # Chest Pain doubt cardiac -- appreciate Cardiology consult and discusseion # MS residual Foot drop -- wears splint / ambulates with limp # Hypothyroid continue synthroid / TSH / T4 monitored #HTN Bp controlled will discuss Cardio recommendations with daughter home d/c with VNS / and PT
[2017-10-14 13:59] VITALS: BP 134/58; PULSE 88; TEMP 98.6
--- NOTE | 2017-10-14 15:27 | DS ---
Physical Examination Vital Signs: Vital Signs Temperature 98.6 F 10/14/17 13:58 Pulse Rate 88 10/14/17 13:58 Respiratory Rate 18 10/14/17 13:58 Blood Pressure 134/58 10/14/17 13:58 O2 Sat by Pulse Oximetry (%) 96 10/14/17 08:00 Findings/Remarks: Patient is an 81F with history of MS, HTN, HLD, hypothyroidism, and former tobacco use here today complaining of chest pain that awoke her from sleep at 5am today. Patient states that her chest pain was relieved with rest with no other modifying factors. Patient endorses associated shortness of breath. Denies leg swelling, history of blood clots, and recent immobilization/travel. Patient says that her pain has now resolved. Denies fevers, chills, nausea, vomiting. # Chest Pain doubt cardiac -- appreciate Cardiology consult and discusseion # MS residual Foot drop -- wears splint / ambulates with limp # Hypothyroid continue synthroid / TSH / T4 monitored #HTN Bp controlled will discuss Cardio recommendations with daughter Constitutional: Yes: Well Nourished, No Distress, Calm, Thin Eyes: Yes: Conjunctiva Clear, EOM Intact HENT: Yes: Atraumatic, Normocephalic Neck: Yes: Supple, Trachea Midline Cardiovascular: Yes: Regular Rate and Rhythm Respiratory: Yes: Regular Gastrointestinal: Yes: Normal Bowel Sounds ...Rectal Exam: Yes: Deferred Renal/: Yes: WNL Breast(s): Yes: WNL Musculoskeletal: Yes: WNL, Other (foot drop) Edema: No Peripheral Pulses WNL: Yes Integumentary: Yes: WNL Neurological: Yes: Alert, Oriented, Pre-Existing Deficit ...Motor Strength: WNL Psychiatric: Yes: Alert, Oriented Labs: CBC, BMP 10/13/17 13:18 10/13/17 13:18 Discharge Summary Reason For Visit: CHEST PAIN Current Active Problems Chest pain (Acute) Chest pain (Acute) Hypertensive cardiovascular disease (Acute) Condition: Stable - Instructions Referrals: Abena Nguyen MD [Primary Care Provider] - Disposition: HOME - Home Medications Comprehensive Discharge Medication List: Ambulatory Orders Atorvastatin Calcium [Lipitor] 10 mg PO ASDIR 05/26/16 Gabapentin [Neurontin -] 100 mg PO TID 05/26/16 Levothyroxine [Synthroid -] 50 mcg PO DAILY 05/26/16 Nifedipine [Procardia Xl] 30 mg PO BID 05/26/16 Baclofen 5 mg PO TID 05/27/16
== END 2017-10-14 16:40 | disposition home or self-care (01) ==
LOC: JER 12:48 → JERBED 15:20 → J4W 20:35
PROVIDERS: ADMIT Family Medicine; ATTEND Family Medicine
DX: R07.9 Chest pain, unspecified (principal); I11.9 Hypertensive heart disease without heart failure; I10 Essential (primary) hypertension; E78.5 Hyperlipidemia, unspecified; E03.9 Hypothyroidism, unspecified; G35 Multiple sclerosis; M79.2 Neuralgia and neuritis, unspecified; G89.29 Other chronic pain; M21.379 Foot drop, unspecified foot; G25.0 Essential tremor; Z87.891 Personal history of nicotine dependence; Z88.0 Allergy status to penicillin
CPT/HCPCS: 36415; 71045-TC-FY; 80053; 81003; 81015; 82550; 82553; 83735; 83880; 84443; 84484; 85025; 85610; 87086; 93005; 93010; 93306-TC; 97116-GP; 97161-GP; 99285-25; G0378; J0475

== ENCOUNTER 2018-12-10 12:50 | Emergency (ER) | payer OTHER, BC ==
--- NOTE | 2018-12-10 13:02 | PDOC ---
History of Present Illness <Stuart Lunsford - Last Filed: 12/10/18 16:25> - General History Source: Patient, Spouse - History of Present Illness Initial Comments: 12/10/18 13:06 Ms. Baer is an 83 y/o woman with hx MS with foot drop and neuropathy, HTN, hypothyroidism, knee/hip replacements presenting via EMS after a witnessed fall in her assisted living facility. She is accompanied by her , and her daughter who is a physician (Dr. Baer). She reports falling when attempting to sit in her chair today. She denies any injury to her head, denies any palpitations preceding the fall, any headache, confusion, dizziness, vertigo , lightheadedness, LOC before or after the fall. She is not on any blood thinners. She normally walks with her walker. PCP: Dr. Osorio <Bud Jasso - Last Filed: 12/10/18 17:25> - General Chief Complaint: Injury Stated Complaint: FELL Time Seen by Provider: 12/10/18 13:02 Past History <Stuart Lunsford - Last Filed: 12/10/18 16:25> - Past Medical History COPD: No GI Disorders: Yes (Polyps) HTN: Yes Hypercholesterolemia: Yes Thyroid Disease: Yes (Hypothyroidism) - Surgical History Orthopedic Surgery: Yes (Right Hip and Knee replacement) - Immunization History Immunization Up to Date: Yes - Suicide/Smoking/Psychosocial Hx Smoking History: Former smoker Have you smoked in the past 12 months: No If you are a former smoker, when did you quit?: 1970 Hx Alcohol Use: Yes Drug/Substance Use Hx: No Substance Use Type: None Hx Substance Use Treatment: No <Bud Jasso - Last Filed: 12/10/18 17:25> - Past Medical History Allergies/Adverse Reactions: Allergies Allergy/AdvReac Type Severity Reaction Status Date / Time Penicillins Allergy Verified 10/13/17 12:53 aspirin AdvReac Mild Verified 12/10/18 13:14 Home Medications: Ambulatory Orders Gabapentin [Neurontin -] 100 mg PO TID 05/26/16 Levothyroxine [Synthroid -] 50 mcg PO DAILY 05/26/16 Nifedipine [Procardia Xl] 30 mg PO BID 05/26/16 Acetaminophen [Tylenol Extra Strength] 500 mg PO TID 12/10/18 Baclofen [Lioresal -] 10 mg PO TID 12/10/18 Docusate Sodium [Colace] 100 mg PO BID 12/10/18 Review of Systems - Review of Systems Able to Perform ROS?: Yes Comments:: 12/10/18 13:33 ROS: GENERAL/CONSTITUTIONAL: No fever or chills. No weakness. HEAD, EYES, EARS, NOSE AND THROAT: Mild pain base of skull. No change in vision. No ear pain or discharge. No sore throat. CARDIOVASCULAR: No chest pain or shortness of breath RESPIRATORY: No cough, wheezing, or hemoptysis. GASTROINTESTINAL: No nausea, vomiting, diarrhea or constipation. GENITOURINARY: No dysuria, frequency, or change in urination. MUSCULOSKELETAL: No joint or muscle swelling or pain. No neck or back pain. SKIN: No rash NEUROLOGIC: No headache, vertigo, loss of consciousness, or change in strength/ sensation. ENDOCRINE: No increased thirst. No abnormal weight change HEMATOLOGIC/LYMPHATIC: No anemia, easy bleeding, or history of blood clots. ALLERGIC/IMMUNOLOGIC: No hives or skin allergy. <Bud Jasso - Last Filed: 12/10/18 17:25> *Physical Exam - Vital Signs Last Vital Signs Temp Pulse Resp BP Pulse Ox 98.6 F 67 16 190/56 H 98 12/10/18 13:01 12/10/18 13:01 12/10/18 15:15 12/10/18 15:15 12/10/18 15:15 <Stuart Lunsford - Last Filed: 12/10/18 16:25> - Physical Exam Comments: 12/10/18 13:36 PE: GENERAL: Awake, alert, and fully oriented, in no acute distress HEAD: Mild tenderness R base of skull. Full ROM of neck. No signs of trauma, normocephalic, atraumatic EYES: PERRLA, EOMI, sclera anicteric, conjunctiva clear ENT: Auricles normal inspection, hearing grossly normal, nares patent, oropharynx clear without exudates. Moist mucosa NECK: Normal ROM, supple, no lymphadenopathy, JVD, or masses LUNGS: No distress, speaks full sentences, clear to auscultation bilaterally HEART: Regular rate and rhythm, normal S1 and S2, no murmurs, rubs or gallops, peripheral pulses normal and equal bilaterally. ABDOMEN: Soft, nontender, normoactive bowel sounds. No guarding, no rebound. No masses EXTREMITIES : R hip tenderness. Normal inspection, Normal range of motion, no edema. No clubbing or cyanosis. NEUROLOGICAL: Cranial nerves II through XII grossly intact. Normal speech, normal gait, no focal sensorimotor deficits SKIN: Warm, Dry, normal turgor, no rashes or lesions noted <Bud Jasso - Last Filed: 12/10/18 17:25> Medical Decision Making - Medical Decision Making 12/10/18 13:31 83 y/o F with hx MS with existing foot drop and neuropathy p/w witnessed fall onto R hip while trying to sit into chair, with mild pain in R posterior skull, R hip consistent with mechanical fall. She is also hypertensive to 210/60 on initial BP. Plan: Repeat BP in [address] Head/CT cervical spine CT R hip, CT R femur Dispo: Likely discharge home pending imaging --- Patient returned from X Ray. No fracture noted on imaging. Radiology read pending. 12/10/18 14:[address] Image not yet uploaded. Radiology read pending. --- CT Head/Cervical spine negative. Plan for discharge home. BP still elevated, encouraged patient to follow up with PCP. <Bud Jasso - Last Filed: 12/10/18 17:25> *DC/Admit/Observation/Transfer <Stuart Lunsford - Last Filed: 12/10/18 16:25> <Bud Jasso - Last Filed: 12/10/18 17:25> Diagnosis at time of Disposition: Fall Qualifiers: Encounter type: initial encounter Qualified Code(s): W19.XXXA - Unspecified fall, initial encounter - Discharge Dispostion Disposition: HOME Condition at time of disposition: Good - Patient Instructions Printed Discharge Instructions: DI for High Blood Pressure, How to Prevent Falls Additional Instructions: Your X rays and CT scans did not show any fractures. If you experience any severe headaches, neck pain, or other concerning symptoms , return to the ER immediately. Please follow up with your primary doctor within 48 hours to have your blood pressure checked, as it was elevated today. Uncontrolled blood pressure can eventually lead to kidney disease, heart disease, other serious illness, disability, or even .
[2018-12-10 13:23] VITALS: PULSE 67; TEMP 98.6
--- NOTE | 2018-12-10 13:40 | PDOC ---
Attending Attestation - Resident Resident Name: Bud Jasso - ED Attending Attestation I have performed the following: I have examined & evaluated the patient, The case was reviewed & discussed with the resident, I agree w/resident's findings & plan, Exceptions are as noted - HPI HPI: 12/10/18 13:38 83 F with h/o MS with foot drop and neuropathy, HTN, hypothyroidism, knee/hip replacements, presenting to ED after fall today. Pt states that she slipped while trying to sit down, landing onto her R hip. Denies headstrike/LOC. Denies any preceding dizziness/lightheadedness. Denies CP/SOB/palpitations. Pt now reports pain in her R thigh and mild pain in her R neck. Denies any new weakness /numbness in any extremity. - Physicial Exam PE: 12/10/18 13:39 "GENERAL: Awake, alert, and fully oriented, in no acute distress. HEAD: No signs of trauma EYES: PERRLA, EOMI, sclera anicteric, conjunctiva clear ENT: Auricles normal inspection, hearing grossly normal, nares patent, oropharynx clear without exudates. Moist mucosa NECK: Nontender, no stepoffs, Normal ROM, supple, no lymphadenopathy, JVD, or masses LUNGS: Breath sounds equal, clear to auscultation bilaterally. No wheezes, and no crackles HEART: Regular rate and rhythm, normal S1 and S2, no murmurs, rubs or gallops ABDOMEN: Soft, nontender, normoactive bowel sounds. No guarding, no rebound. No masses EXTREMITIES: + Mild TTP R hip, Normal range of motion, no edema. No clubbing or cyanosis. No cords, erythema, or tenderness NEUROLOGICAL: Cranial nerves II through XII intact. 5/5 strength and sensation in all extremities, Normal speech, normal gait, normal cerebellar function SKIN: Warm, Dry, normal turgor, no rashes or lesions noted. - Medical Decision Making 12/10/18 13:39 83 F with mechanical fall. Now complaining of mild R neck pain and R hip pain. - CT head/c-spine - XR R hip/femur 12/10/18 15:16 CTs unremarkable XRs negative on my read Pt persistently hypertensive in ED, reports compliance with her medications. No symptoms at this time. Pt advised to f/u with her primary as soon as possible to recheck her BP and have viola meds adjusted as necessary Pt is well appearing, with normal vitals. Clinically stable for DC at this time. I discussed the physical exam findings, ancillary test results and final diagnoses with the patient. I answered all of the patient's questions. The patient was satisfied with the care received and felt comfortable with the discharge plan and treatment plan. The patient agrees to follow up with the primary care physician within 24-72 hours.
[2018-12-10 15:36] VITALS: BP 190/56
== END 2018-12-10 16:45 | disposition home or self-care (01) ==
LOC: FER 12:50
DX: Z04.3 Encounter for examination and observation following other accident (principal); W18.39XA Other fall on same level, initial encounter; Y93.89 Activity, other specified; Y92.89 Other specified places as the place of occurrence of the external cause; Z87.891 Personal history of nicotine dependence; I10 Essential (primary) hypertension; E78.00 Pure hypercholesterolemia, unspecified; E03.9 Hypothyroidism, unspecified
CPT/HCPCS: 70450-TC; 72125-TC; 73502-TC-RT-FY; 73552-TC-RT-FY; 99282-25

== ENCOUNTER 2018-12-14 09:07 | Emergency (ER) | payer OTHER, BC ==
[2018-12-14 09:22] VITALS: PULSE 73; TEMP 98.3; BMI 20.6
--- NOTE | 2018-12-14 09:25 | PDOC ---
Attending Attestation - Resident Resident Name: JuddVeronica - ED Attending Attestation I have performed the following: I have examined & evaluated the patient, The case was reviewed & discussed with the resident, I agree w/resident's findings & plan, Exceptions are as noted - HPI HPI: 12/14/18 09:23 83 yo F h/o MS HTN HLD hypothyroid. here s/p fall. pt was sitting into chair, slipped. thought her right knee gave out. fell sideways to ground hitting right side of head. no loc. no n/v no neck or back pain. was brought by ambulance. does not take any anticoagulation. normally walks with a walker. has not tried to ambulate following her fall. was brought by ambulance. 12/14/18 09:26 12/14/18 09:37 - Physicial Exam PE: 12/14/18 09:24 awake alert head atraumatic. no cervical spine tenderness. no spinal tenderness. t/l s spine. hips stable. from at hips, knee bilat. lungs clear bilat. heart rrr no mrg abd soft nt nd ext wwp no edemal no calf tenderness. small abrasion left anterior lees, scabbed. no deformity. no eccymosis. skin otherwise dry and intact. - Medical Decision Making 12/14/18 09:25 83 yo F sp slip and fall out of chair. head trauma. no loc. due to patient age will obtain ct head. tylenol for pain control as needed. 12/14/18 10:[address] is negative. will dc home fu pcp. and orthpedics. 12/14/18 11:09 went over findings with pt. see dr arciniega. will need pcp and nuerologist followup. also recommend orthpedist followup. see orthopedist at [facility].
[2018-12-14] MEDS ORDERED: NIFEdipine 10 MG CAPSULE (FP) PO ONE (09:31)
--- NOTE | 2018-12-14 09:37 | PDOC ---
History of Present Illness - General Chief Complaint: Injury Stated Complaint: fall Time Seen by Provider: 12/14/18 09:14 - History of Present Illness Initial Comments: Katie Baer is an 83yo woman with a PMH of MS with foot drop and neuropathy, HTN, hypothyroidism, knee and hip replacement, recently seen in the ED on 12/10 following a mechanical fall who presents today following a second mechanical fall. Both events were witnessed by her . Today, she reports that she was trying to sit in a chair and ended up falling on the floor. Per her , she partially hit the chair and "slid down" onto the floor. She landed on her right side and hit her head on the carpeted floor; her reports that she did not hit the floor very hard. Ms Baer denies any LOC, current head or neck pain, or localized pain to her right side. She has mild right knee pain from her recent fall, but this is unchanged from yesterday. She additionally denies any chest pain, difficulty breathing, focal weakness, dizziness, nausea, or any other symptoms preceding the fall today. Past History - Past Medical History Allergies/Adverse Reactions: Allergies Allergy/AdvReac Type Severity Reaction Status Date / Time Penicillins Allergy Verified 12/14/18 09:08 aspirin AdvReac Mild Verified 12/14/18 09:08 Home Medications: Ambulatory Orders Gabapentin [Neurontin -] 100 mg PO TID 05/26/16 Levothyroxine [Synthroid -] 50 mcg PO DAILY 05/26/16 Nifedipine [Procardia Xl] 30 mg PO BID 05/26/16 Acetaminophen [Tylenol Extra Strength] 500 mg PO TID 12/10/18 Baclofen [Lioresal -] 10 mg PO TID 12/10/18 Docusate Sodium [Colace] 100 mg PO BID 12/10/18 Anemia: Yes Cancer: Yes (Skin: Had MOHS surgery) COPD: No GI Disorders: Yes (Polyps) HTN: Yes Hypercholesterolemia: Yes Thyroid Disease: Yes (Hypothyroidism) Other medical history: ms - Surgical History Orthopedic Surgery: Yes (Right Hip and Knee replacement) - Immunization History Immunization Up to Date: Yes - Suicide/Smoking/Psychosocial Hx Smoking History: Never smoked Have you smoked in the past 12 months: No If you are a former smoker, when did you quit?: 1969 Information on smoking cessation initiated: No Hx Alcohol Use: No Drug/Substance Use Hx: No Substance Use Type: None Hx Substance Use Treatment: No Review of Systems - Review of Systems Comments:: General: No fevers, no chills, no weight or appetite change, no malaise HEENT: No changes in vision, no changes in hearing, no congestion, no sore throat CV: No chest pain, no palpitations, no LE edema Pulm: No SOB, no cough, no wheezing GI: No nausea or vomiting, no change in bowel habits, no melena : No frequency, no urgency, no dysuria Musc: See HPI Skin: No rash, no lesions, no erythema Endo: No excessive thirst, no heat/cold intolerance Heme: No unusual bruising or bleeding, no swollen glands Neuro: No syncope, no numbness/tingling, no focal weakness. h/o MS, h/o foot drop Vasc: No claudication Psych: No recent change in mood, no SI or HI *Physical Exam - Vital Signs Last Vital Signs Temp Pulse Resp BP Pulse Ox 98.3 F 73 20 197/77 H 98 12/14/18 09:08 12/14/18 09:08 12/14/18 09:08 12/14/18 09:08 12/14/18 09:08 - Physical Exam Comments: General: Comfortable, no acute distress HEENT: Atraumatic. PERRL, EOMI, MMM, voice normal, normal neck ROM, no posterior neck tenderness Cards: RRR, no murmur appreciated Pulm: Comfortable on room air, clear to auscultation bilaterally Abd: Soft, nontender, nondistended Ext: No visible trauma. Well healed surgical scar on R knee and hip. ROM intact. Strength equal bilaterally. No focal TTP Vasc: Extremities WWP. Palpable radial and pedal pulses bilaterally Skin: Normal color, no rashes or lesions. Several partially healed small abrasions on extremities and L forehead Neuro: A&Ox3, CN grossly intact, normal speech, motor/sensory grossly intact and symmetric Psych: Mood appropriate to situation Medical Decision Making - Medical Decision Making 12/14/18 09:32 Katie Baer is an 83yo woman with a PMH of MS with foot drop and neuropathy, HTN, hypothyroidism, knee and hip replacement, recently seen in the ED on 12/10 following a mechanical fall who presents today following a second mechanical fall, witnessed by her . She landed on her right side and hit her head on the carpeted fall after sliding down the chair. - Low impact fall per report, but CT head to evaluate for intracranial injury. - Hypertensive on arrival. Pt reports just taking her normal home meds, will recheck - Declines pain meds at this time. Took 500mg acetaminophen at home this morning 12/14/18 10:46 - CT without acute intracranial injury - Discussed with Ms Baer. Will discharge home, should follow up with PMD and neurology. Reports that she has not seen neurology for several years. Will give information for neuro at [facility]. Discussed with Dr Clinton. Veronica Whaley PGY2 *DC/Admit/Observation/Transfer Diagnosis at time of Disposition: Fall Qualifiers: Encounter type: initial encounter Qualified Code(s): W19.XXXA - Unspecified fall, initial encounter - Discharge Dispostion Disposition: HOME Condition at time of disposition: Stable Decision to Admit order: No - Referrals Referrals: Micah Cooper DO [Staff Physician] - - Patient Instructions Printed Discharge Instructions: How to Prevent Falls Additional Instructions: Discharge Instructions: You were seen in the emergency department following a fall. You had a head CT scan that did not show any injuries. Home Care and Follow Up: - You may use acetaminophen for any pain or discomfort - Try applying ice to your knee for additional pain control - Follow up with your primary doctor within the next 1-2 days. You should also follow up with neurology as soon as possible for evaluation, ideally within the next 1-2 weeks. You have been given contact information for a neurologist at [facility] if you need to establish care. - Seek immediate care for any additional falls, any head injury, loss of consciousness, chest pain, difficulty breathing, one-sided weakness, numbness/ tingling, or any other medical emergency. - Post Discharge Activity
[2018-12-14 11:23] VITALS: BP 180/60
== END 2018-12-14 12:00 | disposition home or self-care (01) ==
LOC: FER 09:07
DX: S09.90XA Unspecified injury of head, initial encounter (principal); W18.39XA Other fall on same level, initial encounter; Y93.89 Activity, other specified; Y92.89 Other specified places as the place of occurrence of the external cause; M21.379 Foot drop, unspecified foot; I10 Essential (primary) hypertension; E03.9 Hypothyroidism, unspecified; G62.9 Polyneuropathy, unspecified; G35 Multiple sclerosis
CPT/HCPCS: 70450-TC; 99281-25

== ENCOUNTER 2019-08-12 01:43 | Emergency (ER) | payer OTHER, BC ==
[2019-08-12 01:49] VITALS: BMI 20.6
[2019-08-12 02:01] VITALS: BP 150/68; PULSE 79; TEMP 97.4
== END 2019-08-12 08:35 | disposition home or self-care (01) ==
LOC: FER 01:43
PROC: 0HQ0XZZ Repair Scalp Skin, External Approach (ICD-10-PCS; principal; 2019-08-12)
DX: S01.01XA Laceration without foreign body of scalp, initial encounter (principal); W19.XXXA Unspecified fall, initial encounter
CPT/HCPCS: 12002-25; 70450-TC; 72125-TC; 73560-TC-RT-FY; 99284-25

== ENCOUNTER 2021-09-03 08:25 | Emergency (ER) | payer OTHER, BC ==
[2021-09-03 08:46] VITALS: BP 182/64; PULSE 80; TEMP 98.5; BMI 23.3
== END 2021-09-03 10:35 | disposition home or self-care (01) ==
LOC: FER 08:25
DX: L76.22 Postprocedural hemorrhage of skin and subcutaneous tissue following other procedure (principal)
CPT/HCPCS: 99281-25